=== PATIENT | female | born 1935 | race Caucasian/White ===

== ENCOUNTER 2018-04-13 21:28 | Observation (INO) | payer OTHER ==
[2018-04-13 23:00] LABS: Urine Blood NEGATIVE (NEG); Urine Glucose NEGATIVE (NEG); Urine Protein NEGATIVE (NEG)
[2018-04-13] MEDS ORDERED: MORPHINE 4 MG/ML SYR ONE (23:02)
[2018-04-13] MEDS ORDERED: ONDANSETRON 4 MG/2 ML VIAL ONE (23:03)
[2018-04-13] MEDS ORDERED: NA CHLORIDE 0.9% 1,000 ML ONE (23:03)
[2018-04-13 23:45] LABS: Absolute Lymphocytes (CBC) 1.4 K/uL (0.7-4.9); Absolute Monocytes 0.4 K/uL (0.1-1.3); Absolute Neutrophil 2.1 K/uL (1.8-8.0); Basophils % 0.9 % (0-1.3); Hematocrit 39.7 % (36.0-45.0); Lymphocytes % 33.6 % (15.3-44.8); MCH 31.7 pg (27.0-35.0); MCV 95.8 fL (80-100); MPV 8.5 fL (7.6-11.3); Monocytes % 10.3 % (3.3-12.3); RBC Red Blood Cell Count 4.15 M/uL (3.86-4.86)
[2018-04-13 23:48] LABS: Protime INR 0.95
[2018-04-13 23:53] LABS: Potassium 4.2 mEq/L (3.6-5.0)
[2018-04-13 23:55] LABS: Amylase Level 34 U/L (28-100); Lipase 32 U/L (22-51)
[2018-04-13 23:59] LABS: Albumin 4.3 g/dL (3.2-5.5); Bilirubin Direct 0.1 mg/dL (0-0.2); Bilirubin Total 0.7 mg/dL (0.3-1.2); Magnesium 2.3 mg/dL (1.8-2.5); Protein, Total 7.8 g/dL (6.0-8.3)
[2018-04-14 00:01] LABS: CKMB Creatine Kinase MB 2.9 ng/ml (0.3-4.0)
--- NOTE | 2018-04-14 00:45 | ER ---
Nurse's Notes [facility] Name: Mona Lozano Age: 82 yrs Sex: Female : 1935 Arrival Date: 04/13/2018 Time: 21:30 Bed 13 Private MD: Diagnosis: Severe headache. Uncontrolled hypertension. Symptomatic bradycardia Presentation: 04/13 21:55 Presenting complaint: Patient states: In the evening she started feeling weak with ea tightness on both sides of her neck and stomach pain. Pt reports weakness when she is walking. Pt reports she took her blood pressure at home and was reading 220/84 and 42 HR. Complaining of back pain and headache that stated suddenly. Transition of care: patient was not received from another setting of care. Onset of symptoms was April 13, 2018. Risk Assessment: Do you want to hurt yourself or someone else? Patient reports no desire to harm self or others. Initial Sepsis Screen: Does the patient meet any 2 criteria? No. Patient's initial sepsis screen is negative. Does the patient have a suspected source of infection? No. Patient's initial sepsis screen is negative. Care prior to arrival: None. 21:55 Method Of Arrival: Wheelchair ea 21:55 Acuity: KAROLYN 3 ea Triage Assessment: 22:06 Headache History: The patient has had previous headaches and this one is similar to ea previous episodes. General: Appears uncomfortable, Behavior is calm, cooperative, appropriate for age. Pain: Complains of pain in headache Pain currently is 7 out of 10 on a pain scale. Pain began gradually, Also complains of weakness. EENT: No signs and/or symptoms were reported regarding the EENT system. Neuro: Level of Consciousness is awake, alert, obeys commands, Oriented to person, place, time, situation. Cardiovascular: Patient's skin is warm and dry. Respiratory: Airway is patent Respiratory effort is even, unlabored, Respiratory pattern is regular, symmetrical. Derm: Skin is pink, warm \T\ dry. Historical: - Allergies: 22:05 PENICILLINS; ea 22:05 tetanus; ea 22:05 Sulfa (Sulfonamide Antibiotics); ea - Home Meds: 22:05 aspirin 81 mg Oral chew 1 tab once daily [Active]; womens vitamins [Active]; calcium ea carbonate 600 mg (1,500 mg) Oral tab [Active]; metformin 500 mg Oral tab 1 tab QD [Active]; omeprazole 20 mg Oral cpDR 1 cap once daily [Active]; pravastatin 40 mg oral tab 1 tab once daily [Active]; lisinopril 40 mg Oral tab 1 tab once daily [Active]; carvedilol 3.125 mg oral tab 1 tab 2 times per day [Active]; Toviaz 4 mg oral Tb24 1 tab once daily [Active]; levocetirizine oral oral once daily [Active]; - PMHx: 22:05 Diabetes - IDDM; Hyperlipidemia; Hypertension; ea - PSHx: 22:05 Tubal ligation; Hysterectomy; ea - Immunization history:: Adult Immunizations up to date. - Social history:: Smoking status: Patient/guardian denies using tobacco. - Ebola Screening: : No symptoms or risks identified at this time. Screenin:09 Abuse screen: Denies threats or abuse. Nutritional screening: No deficits noted. ea Tuberculosis screening: No symptoms or risk factors identified. Fall Risk Secondary diagnosis (15 points) pt reports weakness. Assessment: 23:30 Reassessment: Patient and/or family updated on plan of care and expected duration. Pain ea level reassessed. Patient is alert, oriented x 3, equal unlabored respirations, skin warm/dry/pink. Pain: Complains of pain in headache Pain does not radiate. Pain currently is 8 out of 10 on a pain scale. Quality of pain is described as aching. 04/14 00:05 Reassessment: Patient and/or family updated on plan of care and expected duration. Pain ea level reassessed. Patient is alert, oriented x 3, equal unlabored respirations, skin warm/dry/pink. 01:00 Reassessment: Patient and/or family updated on plan of care and expected duration. Pain ea level reassessed. Patient is alert, oriented x 3, equal unlabored respirations, skin warm/dry/pink. Patient states feeling better. 02:07 Reassessment: Patient appears in no apparent distress at this time. Patient is alert, aa1 oriented x 3, equal unlabored respirations, skin warm/dry/pink. Report given to Ricarda on 4th floor Patient states feeling better. Vital Signs: 04/13 22:07 BP 189 / 66; Pulse 38; Resp 18; Temp 97.8(TE); Pulse Ox 96% on R/A; Weight 81.65 kg; ea Height 5 ft. 5 in. (165.10 cm); Pain 7/10; 04/14 00:00 BP 138 / 60; Pulse 60; Resp 18; Pulse Ox 99% on R/A; Pain 4/10; ea 02:01 BP 149 / 62; Pulse 52; Resp 18; Pulse Ox 97% on R/A; Pain 0/10; aa1 04/13 22:07 Body Mass Index 29.95 (81.65 kg, 165.10 cm) ea ED Course: 04/13 21:30 Patient arrived in ED. am2 21:36 Margarito Amin PA is PHCP. cp 21:36 Per Mayer MD is Attending Physician. cp 21:55 Allergy band placed. Placed in gown. Bed in low position. Call light in reach. Side ea rails up X2. 21:55 Arm band placed on right wrist. Patient placed in an exam room, on a stretcher, on ea poly area supervisor, on pulse oximetry. 21:56 Triage completed. ea 22:31 Per Mayer MD is Attending Physician. pkl 22:49 Ngoc Das, JUANA is Primary Nurse. ea 23:05 X-ray completed. Portable x-ray completed in exam room. Patient tolerated procedure kw well. 23:07 XRAY Chest (1 view) In Process Unspecified. EDMS 23:48 CT Head Brain wo Cont In Process Unspecified. EDMS 04/14 00:04 CT completed. Patient tolerated procedure well. Patient moved to CT via stretcher. Patient moved back from CT. 00:44 Jose Angel Glass MD is Hospitalizing Provider. pkl 01:40 Assisted to bedside commode. aa1 01:50 EKG done, by ED staff, reviewed by Per Mayer MD. Patient admitted, IV remains in place. aa1 02:03 No provider procedures requiring assistance completed. aa1 Administered Medications: 04/13 23:00 Drug: Zofran 4 mg Route: IVP; Site: left antecubital; ea 04/14 00:00 Follow up: Response: No adverse reaction; Nausea is decreased aa1 00:36 Drug: NS 0.9% 1000 ml Route: IV; Rate: 100 ml/hr; Site: left antecubital; ea 02:08 Follow up: IV Status: Completed infusion aa1 00:36 Drug: morphine 2 mg Route: IVP; Site: left antecubital; ea 02:08 Follow up: Response: No adverse reaction; Pain is decreased aa1 Outcome: 00:45 Decision to Hospitalize by Provider. pkl 02:26 Admitted to Med/surg accompanied by nurse, via wheelchair, room , with chart, Report ea called to Receiving nurse. 02:26 Condition: improved 02:26 Instructed on the need for admit. 02:33 Patient left the ED. aa1 Signatures: Dispatcher [employer] EDMarla Prince, RN RN aa1 Per Mayer MD MD pkl Arash Macias Kimberlee kw Page, Corey, PA PA cp Moreno, Amanda am2 Antunez, Elena, RN RN ea Corrections: (The following items were deleted from the chart) 04/13 21:58 21:55 Presenting complaint: Patient states: In the evening she started feeling weak ea with tightness on both sides of her neck and stomach pain. Pt reports weakness when she is walking. ea
--- NOTE | 2018-04-14 00:46 | EDPHYS ---
Physician Documentation [facility] Name: Mona Lozano Age: 82 yrs Sex: Female : 1935 Arrival Date: 04/13/2018 Time: 21:30 Bed 13 Private MD: ED Physician Per Mayer HPI: 04/13 22:41 This 82 yrs old Female presents to ER via Wheelchair with complaints of High pkl Blood Pressure, Headache. 22:41 Onset: The symptoms/episode began/occurred today. Associated signs and symptoms: pkl Pertinent positives: lightheadedness, weakness, abdominal pain. Historical: - Allergies: 22:05 PENICILLINS; ea 22:05 tetanus; ea 22:05 Sulfa (Sulfonamide Antibiotics); ea - Home Meds: 22:05 aspirin 81 mg Oral chew 1 tab once daily [Active]; womens vitamins [Active]; calcium ea carbonate 600 mg (1,500 mg) Oral tab [Active]; metformin 500 mg Oral tab 1 tab QD [Active]; omeprazole 20 mg Oral cpDR 1 cap once daily [Active]; pravastatin 40 mg oral tab 1 tab once daily [Active]; lisinopril 40 mg Oral tab 1 tab once daily [Active]; carvedilol 3.125 mg oral tab 1 tab 2 times per day [Active]; Toviaz 4 mg oral Tb24 1 tab once daily [Active]; levocetirizine oral oral once daily [Active]; - PMHx: 22:05 Diabetes - IDDM; Hyperlipidemia; Hypertension; ea - PSHx: 22:05 Tubal ligation; Hysterectomy; ea - Immunization history:: Adult Immunizations up to date. - Social history:: Smoking status: Patient/guardian denies using tobacco. - Ebola Screening: : No symptoms or risks identified at this time. ROS: 22:44 Eyes: Negative for injury, pain, redness, and discharge, ENT: Negative for injury, pkl pain, and discharge, Neck: Negative for injury, pain, and swelling, Cardiovascular: Negative for chest pain, palpitations, and edema, Respiratory: Negative for shortness of breath, cough, wheezing, and pleuritic chest pain. 22:44 Abdomen/GI: Positive for abdominal pain, of the right upper quadrant and left upper quadrant. 22:44 Back: Negative for acute changes. 22:44 : Negative for urinary symptoms. 22:44 MS/extremity: Negative for acute changes. 22:44 Skin: Negative for rash. 22:44 Neuro: Positive for headache, of the both temples. Exam: 22:44 Head/Face: Normocephalic, atraumatic. Eyes: Pupils equal round and reactive to light, pkl extra-ocular motions intact. Lids and lashes normal. Conjunctiva and sclera are non-icteric and not injected. Cornea within normal limits. Periorbital areas with no swelling, redness, or edema. ENT: Nares patent. No nasal discharge, no septal abnormalities noted. Tympanic membranes are normal and external auditory canals are clear. Oropharynx with no redness, swelling, or masses, exudates, or evidence of obstruction, uvula midline. Mucous membranes moist. Neck: Trachea midline, no thyromegaly or masses palpated, and no cervical lymphadenopathy. Supple, full range of motion without nuchal rigidity, or vertebral point tenderness. No Meningismus. Chest/axilla: Normal chest wall appearance and motion. Nontender with no deformity. No lesions are appreciated. Cardiovascular: Regular rate and rhythm with a normal S1 and S2. No gallops, murmurs, or rubs. Normal PMI, no JVD. No pulse deficits. Respiratory: Lungs have equal breath sounds bilaterally, clear to auscultation and percussion. No rales, rhonchi or wheezes noted. No increased work of breathing, no retractions or nasal flaring. Abdomen/GI: Soft, non-tender, with normal bowel sounds. No distension or tympany. No guarding or rebound. No evidence of tenderness throughout. Back: No spinal tenderness. No costovertebral tenderness. Full range of motion. Skin: Warm, dry with normal turgor. Normal color with no rashes, no lesions, and no evidence of cellulitis. MS/ Extremity: Pulses equal, no cyanosis. Neurovascular intact. Full, normal range of motion. Neuro: Awake and alert, GCS 15, oriented to person, place, time, and situation. Cranial nerves II-XII grossly intact. Motor strength 5/5 in all extremities. Sensory grossly intact. Cerebellar exam normal. Normal gait. Vital Signs: 22:07 BP 189 / 66; Pulse 38; Resp 18; Temp 97.8(TE); Pulse Ox 96% on R/A; Weight 81.65 kg; ea Height 5 ft. 5 in. (165.10 cm); Pain 7/10; 04/14 00:00 BP 138 / 60; Pulse 60; Resp 18; Pulse Ox 99% on R/A; Pain 4/10; ea 02:01 BP 149 / 62; Pulse 52; Resp 18; Pulse Ox 97% on R/A; Pain 0/10; aa1 04/13 22:07 Body Mass Index 29.95 (81.65 kg, 165.10 cm) ea MDM: 04/13 21:37 Patient medically screened. cp 04/14 00:43 Data reviewed: vital signs, nurses notes, lab test result(s), EKG, radiologic studies, pkl CT scan, plain films. 00:45 Patient medically screened. pk 04/13 22:32 Order name: Urine Dipstick--Ancillary (enter results); Complete Time: 23:56 rg2 04/13 22:40 Order name: Basic Metabolic Panel; Complete Time: 00:22 pkl 04/13 22:40 Order name: BNP; Complete Time: 00:22 pkl 04/13 22:40 Order name: CBC with Diff; Complete Time: 23:56 pkl 04/13 22:40 Order name: Ckmb; Complete Time: 00:22 pkl 04/13 22:40 Order name: CPK; Complete Time: 00:22 pkl 04/13 22:40 Order name: LFT's; Complete Time: 00:22 pkl 04/13 22:40 Order name: Magnesium; Complete Time: 00:22 pkl 04/13 22:40 Order name: PT-INR; Complete Time: 23:56 pkl 04/13 22:40 Order name: Ptt, Activated; Complete Time: 23:56 pkl 04/13 22:40 Order name: Troponin (emerg Dept Use Only); Complete Time: 00:22 pkl 04/13 22:43 Order name: Amylase, Serum; Complete Time: 23:56 pkl 04/13 22:43 Order name: Lipase; Complete Time: 23:56 pkl 04/13 22:43 Order name: Sed Rate; Complete Time: 00:22 pkl 04/13 22:40 Order name: XRAY Chest (1 view) pkl 04/13 22:40 Order name: EKG; Complete Time: 22:41 pkl 04/13 22:40 Order name: Cardiac monitoring; Complete Time: 00:37 pkl 04/13 22:40 Order name: EKG - Nurse/Tech; Complete Time: 02:01 pkl 04/13 22:40 Order name: IV Saline Lock; Complete Time: 00:37 pkl 04/13 22:40 Order name: Labs collected and sent; Complete Time: 00:37 pkl 04/13 22:40 Order name: O2 Per Protocol; Complete Time: 00:37 pkl 04/13 22:40 Order name: O2 Sat Monitoring; Complete Time: 00:37 pkl 04/13 22:40 Order name: Urine Dipstick-Ancillary (obtain specimen); Complete Time: 00:37 pkl 04/13 22:43 Order name: CT Head Brain wo Cont pkl 04/14 01:39 Order name: CONS Pharmacy Consult EDVA 04/14 01:39 Order name: Heart Healthy EDMS Administered Medications: 04/13 23:00 Drug: Zofran 4 mg Route: IVP; Site: left antecubital; ea 04/14 00:00 Follow up: Response: No adverse reaction; Nausea is decreased aa1 00:36 Drug: NS 0.9% 1000 ml Route: IV; Rate: 100 ml/hr; Site: left antecubital; ea 02:08 Follow up: IV Status: Completed infusion aa1 00:36 Drug: morphine 2 mg Route: IVP; Site: left antecubital; ea 02:08 Follow up: Response: No adverse reaction; Pain is decreased aa1 Disposition: 04/14/18 00:45 Hospitalization ordered by Jose Angel Glass for Observation. Preliminary diagnosis is Severe headache. Uncontrolled hypertension. Symptomatic bradycardia. - Bed requested for Telemetry/MedSurg (observation). - Status is Observation. aa1 - Condition is Stable. - Problem is new. - Symptoms are unchanged. UTI on Admission? No Signatures: Dispatcher [employer] ED[facility] Tami Belle RN RN mw Kern, Alissa, RN RN aa1 Per Mayer MD MD pkl Page, Corey, PA PA cp Antunez, Elena, RN RN ea Corrections: (The following items were deleted from the chart) 00:50 00:45 Hospitalization Ordered by Jose Angel Glass MD for Observation. Preliminary mw diagnosis is Severe headache. Uncontrolled hypertension. Symptomatic bradycardia. Bed requested for Telemetry/MedSurg (observation). Status is Observation. Condition is Stable. Problem is new. Symptoms are unchanged. UTI on Admission? No. pkl 02:33 00:50 04/14/2018 00:45 Hospitalization Ordered by Jose Angel Glass MD for Observation. aa1 Preliminary diagnosis is Severe headache. Uncontrolled hypertension. Symptomatic bradycardia. Bed requested for Telemetry/MedSurg (observation). Status is Observation. Condition is Stable. Problem is new. Symptoms are unchanged. UTI on Admission? No. mw
[2018-04-14] MEDS ORDERED: TRAMADOL 37.5mg/APAP 325mg PER TAB PO PRN (01:36)
[2018-04-14] MEDS ORDERED: ONDANSETRON 4 MG/2 ML VIAL IV PRN (01:36)
[2018-04-14] MEDS ORDERED: ACETAMIN/CAFFEINE/BUTALB TAB PO PRN (01:38)
[2018-04-14] MEDS: NA CHLORIDE 0.9% 1,000 ML IV SCH ×3 (02:53→21:14)
[2018-04-14] MEDS ORDERED: VALSARTAN 160 MG TAB PO ONE (04:03)
--- NOTE | 2018-04-14 06:28 | EKG ---
Test Date: 2018-04-14 Test Time: 01:49:50 Nicu Rn: LANE MEASUREMENT RESULTS: Intervals: Rate: 51 FL: 176 QRSD: 130 QT: 498 QTc: 458 [place]: P: 58 FL: 176 QRS: 77 T: 45 INTERPRETIVE STATEMENTS: Sinus bradycardia Right bundle branch block Abnormal ECG Compared to ECG 01/24/1995 02:38:00 Right bundle-branch block now present Sinus rhythm no longer present Electronically Signed On 04-14-18 06:27:46 CDT by Rj Odonnell
[2018-04-14 06:31] LABS: Absolute Lymphocytes (CBC) 1.3 K/uL (0.7-4.9); Absolute Monocytes 0.5 K/uL (0.1-1.3); Absolute Neutrophil 1.9 K/uL (1.8-8.0); Basophils % 0.5 % (0-1.3); Eosinophils % 4.4 % (0-4.4); Hematocrit 33.2 % (36.0-45.0); Lymphocytes % 33.7 % (15.3-44.8); MCH 32.9 pg (27.0-35.0); MCV 95.1 fL (80-100); MPV 8.5 fL (7.6-11.3); Monocytes % 13.3 % (3.3-12.3); RBC Red Blood Cell Count 3.49 M/uL (3.86-4.86)
[2018-04-14 07:10] LABS: Phosphorus 2.6 mg/dL (2.5-4.3); Potassium 3.9 mEq/L (3.6-5.0); Thyroid Stimulating Hormone 3.76 uIU/mL (0.34-5.60)
--- NOTE | 2018-04-14 07:47 | P.HP ---
Certification for Inpatient Patient admitted to: Observation With expected LOS: <2 Midnights Patient will require the following post-hospital care: None Practitioner: I am a practitioner with admitting privileges, knowledge of patient current condition, hospital course, and medical plan of care. Services: Services provided to patient in accordance with Admission requirements found in Title 42 Section 412.3 of the Code of Federal Regulations Patient History Date of Service: 04/14/18 Reason for admission: Headache along with a malignant hypertension History of Present Illness: Patient is an 82-year-old female who came into the hospital with generalized weakness and a headache. She states the headache started about 24 hr ago and progressed. She has been having generalized weakness which has waxed and waned. Initially her blood pressure was 220/90. Her heart rate was in the 40s. She was brought into the hospital for evaluation. In the emergency room, her initial workup revealed no significant abnormalities. Patient was started on medication for headache and better blood pressure control. Patient's symptoms have improved. However patient was having some pain on both sides of her neck along with having some sternal discomfort. At this time will go ahead and get an echocardiogram along with a carotid Doppler. Will also get MRI of the brain to further evaluate her significant headache which has also been associated with weakness. Allergies Penicillins Adverse Reaction (Unverified 04/14/18 04:14) Hives/Rash Sulfa (Sulfonamide Antibiotics) Adverse Reaction (Unverified 04/14/18 04:14) Hives/Rash tetanus and diphtheria toxoids Adverse Reaction (Unverified 04/14/18 04:14) Hives/Rash Home Medications: Aspirin Chewable [Aspirin Chewable*] 81 mg PO DAILY 04/14/18 Beta-Carotene(A) W-C & E/Min [Vision Vitamins] 2 each PO DAILY 04/14/18 Calcium Carbonate [Calcium] 2 tab PO DAILY 04/14/18 Carvedilol [Coreg] 3.125 mg PO BID 04/14/18 Fesoterodine Fumarate [Toviaz] 4 mg PO DAILY 04/14/18 Garlic 1,000 mg PO BEDTIME 04/14/18 Levocetirizine Dihydrochloride [Xyzal] 5 mg PO DAILY 04/14/18 Lisinopril 40 mg PO DAILY 04/14/18 Metformin HCl [Glucophage] 500 mg PO DAILY 04/14/18 Multivit with Calcium,Iron,Min [Multiple Vitamins For Women] 1 each PO DAILY 09/21 Nichols-3S/Dha/Epa/Fish Oil [Fish Oil Nichols-3 Softgel] 2 cap PO BEDTIME 04/14/18 Omeprazole 20 mg PO DAILY 04/14/18 Pravastatin Sodium 40 mg PO BEDTIME 04/14/18 - Past Medical/Surgical History Has patient received pneumonia vaccine in the past: Yes Diabetic: Yes -: DM-2 -: Hyperlipidemia -: HNT -: Tubaligation -: Hysterectomy - Family History Father Medical History: Heart disease Notes: heart attack Sister Medical History: Stroke Notes: brain aneurysm - Social History Smoking Status: Former smoker Alcohol use: No CD- Drugs: No Caffeine use: Yes Place of Residence: Home Review of Systems 10-point ROS is otherwise unremarkable Physical Examination - Vital Signs Temperature: 97 F Blood Pressure: 174/78 Pulse: 51 Respirations: 16 Pulse Ox (%): 96 - Physical Exam General: Alert, In no apparent distress, Oriented x3 HEENT: Atraumatic, PERRLA, Mucous membr. moist/pink, EOMI, Sclerae nonicteric Neck: Supple, 2+ carotid pulse no bruit, No LAD, Without JVD or thyroid abnormality Respiratory: Clear to auscultation bilaterally, Normal air movement Cardiovascular: Regular rate/rhythm, Normal S1 S2, No murmurs Gastrointestinal: Normal bowel sounds, Soft and benign, Non-distended, No tenderness Musculoskeletal: No clubbing, No swelling, No tenderness Integumentary: No rashes Neurological: Normal gait, Normal speech, Normal strength at 5/5 x4 extr, Normal tone, Sensation intact, Cranial nerves 3-12 intact, Normal affect Lymphatics: No axilla or inguinal lymphadenopathy - Studies Laboratory Data (last 24 hrs) 04/13/18 23:25: Amylase 34, Lipase 32 04/13/18 23:25: PT 11.2, INR 0.95, APTT 26.6 04/13/18 23:25: WBC 4.2 L, Hgb 13.2, Hct 39.7, Plt Count 145 L 04/13/18 23:25: B-Natriuretic Peptide 91 04/13/18 23:25: Sodium 137, Potassium 4.2, BUN 22 H, Creatinine 0.89, Glucose 128 H, Magnesium 2.3, Total Bilirubin 0.7, AST 29, ALT 24, Alkaline Phosphatase 56 Assessment & Plan - Problems (Diagnosis) (1) Headache, acute Current Visit: Yes Status: Acute (2) Malignant essential hypertension Current Visit: Yes Status: Acute - Plan Plan: 1. Strict blood pressure control 2. MRI of the brain, carotid Doppler, and echocardiogram 3. Pain control 4. Await diagnostic studies and possible discharge home if no significant abnormality 5. GI/DVT prophylaxis Discharge Plan: Home Plan to discharge in: Greater than 2 days - Advance Directives Does patient have a Living Will: Yes Does patient have a Durable POA for Healthcare: No - Code Status/Comfort Care Code Status Assessed: Yes Code Status: Full Code Critical Care: No Time Spent Managing PTS Care (In Minutes): 50
--- NOTE | 2018-04-14 08:09 | RAD REPORT ---
EXAM DESCRIPTION: Michelle Single View04/13/2018 11:07 pm CLINICAL HISTORY: Chest pain COMPARISON: none FINDINGS: The lungs appear clear of acute infiltrate. The heart is normal size IMPRESSION: No acute abnormalities displayed
[2018-04-14] MEDS ORDERED: LISINOPRIL 20 MG TAB PO SCH (09:00)
[2018-04-14] MEDS ORDERED: AMLODIPINE 10 MG TAB PO SCH (09:00)
[2018-04-14] MEDS ORDERED: ASPIRIN 81 MG CHEWABLE TABLET PO SCH (09:00)
[2018-04-14] MEDS ORDERED: FESOTERODINE FUMARATE 4 MG PO SCH (09:00)
[2018-04-14] MEDS ORDERED: CARVEDILOL 3.125 MG TAB PO SCH (09:00)
[2018-04-14] MEDS ORDERED: CETIRIZINE HCL 5 MG TABLET PO SCH (09:00)
--- NOTE | 2018-04-14 09:38 | RAD REPORT ---
EXAM DESCRIPTION: CT - Head Brain Wo Cont - 04/14/2018 4:30 am CLINICAL HISTORY: Dizziness COMPARISON: March 2017 TECHNIQUE: Computed axial tomography of the head was obtained. IV contrast was not requested. A prel iminary report was generated by virtual radiologic in review prior to this dictation All CT scans are performed using dose optimization technique as appropriate and may include automated exposure control or mA/KV adjustment according to patient size. FINDINGS: An intracranial bleed is not seen . The ventricles are normal in caliber. Basal ganglia calcifications are present bilaterally. No extra-axial fluid collection is noted. Moderate to marked low-density areas within periventricular , deep and subcortical white matter likely represent ischemic changes secondary to small vessel disea se. A vague 1 centimeter low-density area is present within the right parietal lobe. Mild ethmoid and sphenoid sinusitis is seen. The mastoids are clear IMPRESSION: Moderate to marked low-density areas within periventricular, deep and subcortical white matter likely represent ischemic changes secondary to small vessel disease. Vague 1 centimeter low-density area within the right parietal lobe probably is chronic. An acute infa rct could also have this appearance. An MRI brain is pending at the time of this dictation which will determine if this is acute or chronic
--- NOTE | 2018-04-14 10:23 | RAD REPORT ---
EXAM DESCRIPTION: VASCarotid Artery Bilateral04/14/2018 9:33 am CLINICAL HISTORY: Syncope COMPARISON: None FINDINGS: The velocity of the right internal carotid artery equals 105 cm/sec. The right ICA/CCA rat io 1.4 The velocity of the left internal carotid artery equals 106 cm/sec. The left ICA/CCA ratio 1.2 Mild plaque is present within the carotid arteries. The vertebral arteries demonstrate antegrade flow IMPRESSION: Mild plaque within the carotid arteries without evidence of a hemodynamically significan t stenosis
--- NOTE | 2018-04-14 10:34 | RAD REPORT ---
EXAM DESCRIPTION: MRI - Stroke Protocol - 04/14/2018 9:39 am CLINICAL HISTORY: TIA and ataxia. TECHNIQUE: Axial, sagittal and coronal magnetic resonance imaging of the brain was obtained. 20 mL M agnevist was administered intravenously. Magnetic resonance angiogram of the head and neck was also performed. Source images were reviewed rec onstructed at 360 degrees rotation. COMPARISON: Head CT April 13 2018. FINDINGS: Moderate to marked signal is present within periventricular, deep and subcortical white ma tter bilaterally. Diffusion-weighted/ADC mapping does not reveal evidence of an acute infarction. No abnormal enhancement within the brain is seen. The ventricles are normal caliber. An extra-axial f luid collection is not noted Mild ethmoid and sphenoid sinusitis is seen. The mastoids are clear. Mild plaque is present within the carotid arteries. The vertebral arteries are co-dominant. The anterior cerebral, middle cerebral, posterior cerebral, distal internal carotid and basilar arter ies do not demonstrate a significant stenosis. An aneurysm is not seen. IMPRESSION: 1. Moderate to marked signal within periventricular deep and subcortical white matter likely represen t ischemic changes secondary to small vessel disease. 2. No acute intracranial abnormality is seen. 3. No significant abnormality involving the arteries of the head and neck.
[2018-04-14] MEDS: VALSARTAN 160 MG TAB PO SCH ×2 (10:53→21:28)
--- NOTE | 2018-04-14 12:50 | ECHO ---
HEIGHT: 5 ft 4 in WEIGHT: 167 lb 11.2 oz DATE OF STUDY: 04/14/[address]: Jose Angel Glass MD 2-DIMENSIONAL: YES M.MODE: YES DOPPLER: YES COLOR FLOW: YES TDS: NO PORTABLE: NO DEFINITY: NO BUBBLE STUDY: NO DIAGNOSIS: UNCONTROLLED HYPERTENSION: NEAR SYNCOPE CARDIAC HISTORY: CATHERIZATION: NO SURGERY: NO PROSTHETIC VALVE: NO PACEMAKER: NO MEASUREMENTS (cm) DIASTOLIC (NORMALS) SYSTOLIC (NORMALS) IVSd 1.0 (0.6-1.2) LA Diam 3.5 (1.9-4.0) LVEF 55% LVIDd 4.5 (3.5-5.7) LVIDs 3.2 (2.0-3.5) %FS 29% LVPWd 1.0 (0.6-1.2) Ao Diam 2.8 (2.0-3.7) 2 DIMENSIONAL ASSESSMENT: RIGHT ATRIUM: NORMAL LEFT ATRIUM: NORMAL RIGHT VENTRICLE: NORMAL LEFT VENTRICLE: NORMAL TRICUSPID VALVE: NORMAL MITRAL VALVE: NORMAL PULMONIC VALVE: NORMAL AORTIC VALVE: NORMAL PERICARDIAL EFFUSION: NONE AORTIC ROOT: NORMAL LEFT VENTRICULAR WALL MOTION: NORMAL. DOPPLER/COLOR FLOW: PHYSIOLOGIC TRICUSPID REGURGITATION. NORMAL RIGHT VENTRICULAR SYSTOLIC PRESSURE. COMMENTS: NORMAL 2D ECHO WITH DOPPLER. TECHNOLOGIST: THEODORE WEEKS
--- NOTE | 2018-04-14 20:16 | CON ---
Identification: An 82-year-old woman History Of Present Illness: Ms. Escamilla came to the hospital with dizziness, near syncopal spells, an d since being here in the hospital, she has had various tests looking for neurologic or vascular dise ase. They are all negative including carotid Doppler, MRI. On telemetry, she has been seen to have episodes of complete heart block. Sometimes there are some ventricular escapes, sometimes junctional escape rhythm. She has not had syncope. She is lying supine. She has not had complete syncope alpesh n before this. Before coming to the hospital, she had been treated for hypertension and diabetes. S he has a history of hysterectomy, appendectomy, multigravida. No history of vascular disease. Outpatient Medications: Metformin, omeprazole, Coreg 3.125 b.i.d., lisinopril, Toviaz, levocetirizin e, pravastatin, aspirin calcium carbonate, garlic, omega-3 fatty acids, multivitamins, beta-carotene pills. An echocardiogram is completely normal. A chest x-ray is normal. Social History: She uses no tobacco. No illegal drugs, rare alcohol. Her carotid Doppler reveals mild plaque no reversal of flow in the vertebral arteries. No significan t stenosis. Allergies: SHE IS ALLERGIC TO PENICILLIN, SULFA, TETANUS TOXOID, AND DIPHTHERIA TOXOID. Physical Examination: General: She appears to be her stated age of 82. Not experiencing any pain. No distress. Vital signs: Blood pressure 158/86, pulse 62, temperature 97.4. Neck: Carotids no bruit. Lungs: Clear. Heart: Reveals an irregular rhythm. There are skips associated with PVCs and a junctional escape be ats, but there is no apparent AV conduction or if any so rare that I cannot actually see it. She has had an elevated sed rate at 44. TSH and free T4 are normal. Troponins are normal. BUN, cre atinine are normal. B-natriuretic peptide is 91, and the EKG of course shows complete heart block. She needs a pacemaker. It will be impossible for her to get a pacemaker at this institution for the next 48 hours. I am going to try and have her transferred out. ISIDORO/JESUS Voice ID: [id number] Report ID: [id number]
[2018-04-14] MEDS ORDERED: ATORVASTATIN 10 MG TAB PO SCH (21:00)
--- NOTE | 2018-04-15 05:34 | EKG ---
Test Date: 2018-04-14 Test Time: 18:23:39 Furniture Mechanic: SOPHIE MEASUREMENT RESULTS: Intervals: Rate: 65 [place]: 166 QRSD: 130 QT: 450 QTc: 468 [place]: P: 34 WV: 166 QRS: 63 T: 32 INTERPRETIVE STATEMENTS: Normal sinus rhythm Right bundle branch block Abnormal ECG Compared to ECG 04/14/2018 01:49:50 Sinus bradycardia no longer present Electronically Signed On 04-15-18 05:33:14 CDT by Elias Recio
[2018-04-15] MEDS ORDERED: PANTOPRAZOLE 40MG TABLET PO SCH (06:30)
--- NOTE | 2018-04-15 07:05 | P.DS ---
Discharge Date: 04/14/18 Disposition: TRANSFER TO [facility] Condition: GOOD Reason for Admission: Headache along with a malignant hypertension - Problems (1) Headache, acute Onset Date: 04/14/18 Status: Acute (2) Malignant essential hypertension Onset Date: 04/14/18 Status: Acute Brief History of Present Illness: Patient is an 82-year-old female who came into the hospital with generalized weakness and a headache. She states the headache started about 24 hr ago and progressed. She has been having generalized weakness which has waxed and waned. Initially her blood pressure was 220/90. Her heart rate was in the 40s. She was brought into the hospital for evaluation. In the emergency room, her initial workup revealed no significant abnormalities. Patient was started on medication for headache and better blood pressure control. Patient's symptoms have improved. However patient was having some pain on both sides of her neck along with having some sternal discomfort. At this time will go ahead and get an echocardiogram along with a carotid Doppler. Will also get MRI of the brain to further evaluate her significant headache which has also been associated with weakness. Hospital Course: Patient developed sinus pauses. Sometimes he has lasted for a couple seconds. Patient had a ventricular escape rhythm and also developed occasional episodes of complete heart block. Patient was seen by Dr. Odonnell who assisted in transferring the patient to [facility]. Patient will need to get a pacemaker at their facility. Vital Signs/Physical Exam: Temp Pulse Resp BP Pulse Ox 97.3 F 73 20 130/59 L 94 04/14/18 20:00 04/14/18 22:00 04/14/18 22:00 04/14/18 22:00 04/14/18 22:00 General: Alert, In no apparent distress, Oriented x3 Laboratory Data at Discharge: WBC 4.0 K/uL (4.3-10.9) L 04/14/18 05:57 Hgb 11.5 g/dL (12.0-15.0) L 04/14/18 05:57 Hct 33.2 % (36.0-45.0) L D 04/14/18 05:57 Plt Count 110 K/uL (152-406) L D 04/14/18 05:57 PT 11.2 SECONDS (9.5-12.5) 04/13/18 23:25 INR 0.95 04/13/18 23:25 APTT 26.6 SECONDS (24.3-36.9) 04/13/18 23:25 Sodium 141 mEq/L (135-145) 04/14/18 05:57 Potassium 3.9 mEq/L (3.6-5.0) 04/14/18 05:57 BUN 16 mg/dL (6-20) 04/14/18 05:57 Creatinine 0.75 mg/dL (0.44-1.00) 04/14/18 05:57 Glucose 112 mg/dL (65-120) 04/14/18 05:57 Phosphorus 2.6 mg/dL (2.5-4.3) 04/14/18 05:57 Magnesium 2.0 mg/dL (1.8-2.5) 04/14/18 05:57 Total Bilirubin 0.7 mg/dL (0.3-1.2) 04/13/18 23:25 AST 29 IU/L (10-42) 04/13/18 23:25 ALT 24 IU/L (10-60) 04/13/18 23:25 Alkaline Phosphatase 56 IU/L (42-121) 04/13/18 23:25 B-Natriuretic Peptide 91 pg/ml (<=100) 04/13/18 23:25 Amylase 34 U/L (28-100) 04/13/18 23:25 Lipase 32 U/L (22-51) 04/13/18 23:25 Home Medications: Acetam/Caff/Butal [Fioricet*] 1 tab PO Q12H PRN #20 tab 04/14/18 Aspirin Chewable [Aspirin Chewable*] 81 mg PO DAILY 04/14/18 Beta-Carotene(A) W-C & E/Min [Vision Vitamins] 2 each PO DAILY 04/14/18 Calcium Carbonate [Calcium] 2 tab PO DAILY 04/14/18 Carvedilol [Coreg*] 3.125 mg PO BID 04/14/18 Fesoterodine Fumarate [Toviaz] 4 mg PO DAILY 04/14/18 Garlic 1,000 mg PO BEDTIME 04/14/18 Levocetirizine Dihydrochloride [Xyzal] 5 mg PO DAILY 04/14/18 Lisinopril 40 mg PO DAILY 04/14/18 Metformin HCl [Glucophage] 500 mg PO DAILY 04/14/18 Multivit with Calcium,Iron,Min [Multiple Vitamins For Women] 1 each PO DAILY 09/21 [place]-3S/Dha/Epa/Fish Oil [Fish Oil [place]-3 Softgel] 2 cap PO BEDTIME 04/14/18 Omeprazole 20 mg PO DAILY 04/14/18 Pravastatin Sodium 40 mg PO BEDTIME 04/14/18 New Medications: Acetam/Caff/Butal [Fioricet*] 1 tab PO Q12H PRN #20 tab PRN Reason: Headache Patient Discharge Instructions: OK TO DC IV AND DC HOME. FOLLOW-UP WITH PRIMARY CARE PROVIDER IN 1-2 WEEKS. FOLLOW-UP WITH NEUROLOGY, DR. MOHR, IN 1-2 WEEKS. RETURN TO THE ER IF symptoms worsen. CALL or TEXT DR. MARRERO AT [phone] IF ANY QUESTIONS REGARDING HOSPITAL STAY. PLEASE CALL THE FLOOR AT [phone] IF ANY MEDICATION OR NURSING QUESTIONS. Diet: AHA Activity: Fall precautions Followup: Dennis Mohr MD [ASSOCIATE-ACTIVE - CAN ADMIT] - 1-2 Weeks (call the office to make an appointment in 1-2 weeks. ) Crystal Centeno NP [Primary Care Provider] - 1-2 Weeks (call the office to make an appointment in 1-2 weeks. ) Time spent managing pt's care (in minutes): 30
--- NOTE | 2018-04-15 14:42 | EKG ---
Test Date: 2018-04-14 Test Time: 19:09:14 Front Office Agent: MATHIEU MEASUREMENT RESULTS: Intervals: Rate: 39 [place]: 144 QRSD: 144 QT: 530 QTc: 426 [place]: P: 48 [place]: 144 QRS: 5 T: 105 INTERPRETIVE STATEMENTS: Marked sinus bradycardia with frequent premature ventricular complexes in a pattern of bigeminy Left bundle branch block Abnormal ECG Compared to ECG 04/14/2018 19:06:40 No significant changes Electronically Signed On 04-15-18 14:40:11 CDT by Elias Recio
--- NOTE | 2018-04-15 14:42 | EKG ---
Test Date: 2018-04-14 Test Time: 19:06:40 Data Communications Engineer: MATHIEU MEASUREMENT RESULTS: Intervals: Rate: 38 [place]: 152 QRSD: 138 QT: 532 QTc: 422 [place]: P: 49 [place]: 152 QRS: -3 T: 113 INTERPRETIVE STATEMENTS: Marked sinus bradycardia with frequent premature ventricular complexes in a pattern of bigeminy Left bundle branch block Abnormal ECG Compared to ECG 04/14/2018 18:23:39 Ventricular premature complex(es) now present Left bundle-branch block now present Sinus rhythm no longer present Right bundle-branch block no longer present Electronically Signed On 04-15-18 14:40:12 CDT by Elias Recio
== END 2018-04-14 22:20 | disposition short-term general hospital (02) ==
LOC: ER 21:28 → 4TH 04-14 00:56 → 3RD-ICU 04-14 18:38
PROVIDERS: ADMIT Hospitalist; ATTEND Hospitalist
DX: I44.2 Atrioventricular block, complete (principal); R51 Headache; I10 Essential (primary) hypertension; E11.9 Type 2 diabetes mellitus without complications; Z88.0 Allergy status to penicillin; Z88.2 Allergy status to sulfonamides; Z88.7 Allergy status to serum and vaccine
CPT/HCPCS: 36415; 70450; 70544; 70549; 70553; 71045; 80048 ×2; 80076; 81003; 82150; 82550; 82553; 83690; 83735 ×2; 83880; 84100; 84439; 84443; 84484; 85025 ×2; 85610; 85652; 85730; 93005 ×4; 93306; 93880; 96361; 96374; 96375; 99285; A9577; G0378 ×2; J2405; J7030 ×3

== ENCOUNTER 2019-03-17 07:26 | Day surgery (SDC) | payer OTHER ==
[2019-03-16 10:09] LABS: Absolute Lymphocytes (CBC) 1.1 K/uL (0.7-4.9); Absolute Monocytes 0.4 K/uL (0.1-1.3); Absolute Neutrophil 1.8 K/uL (1.8-8.0); Eosinophils % 4.3 % (0-4.4); Hematocrit 39.2 % (36.0-45.0); Lymphocytes % 31.4 % (15.3-44.8); MPV 8.4 fL (7.6-11.3); Monocytes % 11.3 % (3.3-12.3); RBC Red Blood Cell Count 4.09 M/uL (3.86-4.86)
[2019-03-16 10:17] LABS: Protime INR 0.9
--- NOTE | 2019-03-16 10:28 | RAD REPORT ---
EXAM DESCRIPTION: Michelle Sierra (2 Views)03/16/2019 9:57 am CLINICAL HISTORY: Cough COMPARISON: April 2018 FINDINGS: The lungs appear clear of acute infiltrate. The heart is normal size. Pacemaker leads are in place IMPRESSION: No acute abnormalities displayed
[2019-03-16 10:41] LABS: Potassium 4.3 mmol/L (3.5-5.1)
--- OUTSIDE RECORDS SUMMARY | 2019-03-17 07:29 | XMS REPORT | Continuity of Care Document ---
:1935 Author Organization Interface Problems Problem Status Onset Classification Date Comments Source Date Reported 3RD DEGREE HEART Active 04/14/20 [facility] BLOCK 18 [facility] COMPLETE HEART Active 04/14/20 [facility] BLOCK 18 [facility] Chest pain, 04/19/2018 MH unspecified [place] ATRIOVENTRICULAR Active MH BLOCK, COMPLETE [facility] CHEST PAIN, Active MH UNSPECIFIED [facility] Medications Medication Details Route Status Patient Ordering Order Source Instructions Provider Date Acetaminophen 300 1 tab, PO, Active MG / Codeine Q6H, PRN 2017 Phosphate 30 MG Pain, X 7 Oral Tablet day, # 20 [Tylenol with tab, 0 Codeine #3] Refill(s) minocycline 100 100 mg=1 cap, Active mg oral capsule PO, Q12H, X 7 2017 day, # 14 cap, 0 Refill(s) Omeprazole 20 mg, Route: No Longer PO, Daily, Active 2017 Dosing Weight 78.1, kg, Start date: 04/16/18 9:00:00 CDT, Duration: 30 day, Stop date: 05/15/18 9:00:00 CDT multivitamin with 1 tab, Route: Inactive minerals PO, Drug 2017 Form: TAB, Dosing Weight 78.1, kg, Daily, Start date: 04/16/18 9:00:00 CDT, Duration: 30 day, Stop date: 05/15/18 9:00:00 CDTNotes: (Same as:Thera-M, Theragran-M) WASTE: F/P - Black; E - Municipal Trash Bin Give with food. Lisinopril 40 mg, 2 tab, Inactive Route: PO, 2017 Drug form: TAB, Daily, Dosing Weight 78.1, kg, Start date: 04/16/18 9:00:00 CDT, Duration: 30 day, Stop date: 05/15/18 9:00:00 CDTNotes: (Same as: Prinivil Zestril) BRING PT MED BRING PT Inactive TO PHARMACY FOR MED TO 2018 [facility] LABELING PHARMACY FOR LABELING, REMINDER, Drug form: MISC, Route: MISCCADY, 04/16/18 8:00:00 CDT, Duration: 30 day, Stop date: 05/16/18 0:00:00 CDT Protonix 40 mg, 1 tab, Inactive Route: PO, 2017 [facility] Drug form: ECTAB, Before Breakfast, Start date: 04/16/18 7:30:00 CDT, Duration: 30 day, Stop date: 05/15/18 7:30:00 CDTNotes: Tablet should not be chewed or crushed. (Same as: Protonix) vancomycin + 1,000 mg, Inactive Sodium Chloride Route: IVPB, 2017 [facility] 0.9% IV 250 mL ONCE, Start date: 04/16/18 6:00:00 CDT, Stop date: 04/16/18 6:00:00 CDT, ABX Indication: Surgical ProphylaxisNo amelia: TIME CRITICAL MEDICATION (Same As: Vancocin) Infusion rate 2001 mg: infuse over 2.5 hours For adult patients only: Round to nearest 250 mg per Medical Staff approval MEDICATION WASTE Product Size: 1000 mg Product Wasted: ___ mg omega-3 Route: PO, No Longer polyunsaturated Drug form: Active 2017 [facility] fatty acids CAP, Bedtime, Dosing Weight 78.1, kg, Start date: 04/15/18 21:00:00 CDT, Duration: 30 day, Stop date: 05/14/18 21:00:00 CDT Pravastatin 40 mg, 2 tab, No Longer Route: PO, Active 2017 [facility] Drug form: TAB, Bedtime, Dosing Weight 78.1, kg, Start date: 04/15/18 21:00:00 CDT, Duration: 30 day, Stop date: 05/14/18 21:00:00 CDTNotes: (Same as: Pravachol) Saline Flush 0.9% 10 ml, Route: No Longer IVP, Drug Active 2017 [facility] Form: INJ, Dosing Weight 78.1, kg, Q12H, Start date: 04/15/18 21:00:00 CDT, Duration: 30 day, Stop date: 05/15/18 9:00:00 CDTNotes: (Same as: BD Posiflush) Aspirin 81 mg, 1 tab, No Longer Route: PO, Active 2017 [facility] Drug form: ECTAB, Daily, Dosing Weight 78.1, kg, Start date: 04/15/18 20:00:00 CDT, Duration: 30 day, Stop date: 05/15/18 9:00:00 CDTNotes: Do not crush or chew. (Same As: Ecotrin) Insulin Lispro 4 unit, 0.04 No Longer mL, Route: Active 2017 [facility] SUB-Q, Drug form: SOLN, Bedtime, Dosing Weight 78.1, kg, PRN Blood Glucose Results, Start date: 04/15/18 19:22:00 CDT, Duration: 30 day, Stop date: 05/15/18 19:21:00 CDTNotes: (Same as: Humalog ) Roll in palms of hands gently; Do not shake `vigorously. "Single Patient Use Only " WASTE: F/P - Black; E - Municipal Trash Bin Stable for 28 days at room temperature. Expires in days from _Date Dextrose 50% 12.5 gm, 25 No Longer Syringe mL, Route: Active 2017 [facility] IVP, Drug Form: INJ, Dosing Weight 78.1, kg, PRN, PRN Blood Glucose Results, Start date: 04/15/18 19:22:00 CDT, Duration: 30 day, Stop date: 05/15/18 19:21:00 CDT Glucagon 1 mg, Route: No Longer IM, Drug Active 2017 [facility] form: PDR/INJ, PRN, Dosing Weight 78.1, kg, PRN Blood Glucose Results, Start date: 04/15/18 19:22:00 CDT, Duration: 30 day, Stop date: 05/15/18 19:21:00 CDT Saline Flush 0.9% 10 ml, Route: No Longer IVP, Drug Active 2017 [facility] Form: INJ, Dosing Weight 78.1, kg, PRN, PRN Line Flush, Start date: 04/15/18 19:19:00 CDT, Duration: 30 day, Stop date: 05/15/18 19:18:00 CDTNotes: (Same as: BD Posiflush) Nystatin 100 1 appl, No Longer UNT/MG Topical Route: TOP, Active 2017 [facility] Powder PRN, Drug form: PWDR, PRN For Fungal Prophylaxis, Start date: 04/15/18 19:19:00 CDT, Duration: 30 day, Stop date: 05/15/18 19:18:00 CDTNotes: (Same as:Mycostatin , Nilstat) For external use only. acetaminophen-cod 1 tab, Route: No Longer eine #3 PO, Drug Active 2017 [facility] Form: TAB, Dosing Weight 78.1, kg, Q4H, PRN Pain Score 7-10, Start date: 04/15/18 17:50:00 CDT, Duration: 30 day, Stop date: 05/15/18 17:49:00 CDTNotes: Do not exceed 4gm/day of acetaminophen . (Same as: Tylenol with Codeine # 3) Vancomycin 1 gm, Route: Inactive IVPB, ONCE, 2017 [facility] Dosing Weight 78.1, kg, Start date: 04/15/18 17:50:00 CDT, Stop date: 04/15/18 17:50:00 CDT, ABX Indication: Surgical Prophylaxis Acetaminophen 325 mg, 1 No Longer tab, Route: Active 2017 [facility] PO, Drug form: TAB, Q4H, Dosing Weight 78.1, kg, PRN Pain Score 4-6, Start date: 04/15/18 17:50:00 CDT, Duration: 30 day, Stop date: 05/15/18 17:49:00 CDTNotes: Do not exceed 4 gm/day. (Same as: Tylenol) Ondansetron 4 mg, 2 mL, No Longer Route: IVP, Active 2017 [facility] Drug form: INJ, Q8H, Dosing Weight 78.1, kg, PRN Nausea & Vomiting, Start date: 04/15/18 17:50:00 CDT, Duration: 30 day, Stop date: 05/15/18 17:49:00 CDTNotes: (Same as: Zofran) MEDICATION WASTE Product Size: 4 mg Product Wasted: ___ mg EPINEPHrine-lidoc 80 mL, Route: No Longer antonio 1:200,000-2% INTRADERM, Active 2017 preservative-free Drug Form: injectable INJ, Dosing solution Weight 78.1, kg, ONCALL, Start date: 04/15/18 11:00:00 CDT, Duration: 30 day, Stop date: 05/15/18 10:59:00 CDTNotes: (lidocaine-ep i 2%-1:217258 20 ml AMP (MPF)) Preservative- free (Same as: Xylocaine-MFP w/Epinephrine ) Acetaminophen 650 mg, 2 No Longer tab, Route: Active 2017 PO, Drug form: TAB, Q6H, Dosing Weight 78.1, kg, PRN Pain Score 1-3, Start date: 04/15/18 1:15:00 CDT, Duration: 30 day, Stop date: 05/15/18 1:14:00 CDTNotes: Do not exceed 4 gm/day. (Same as: Tylenol) calcium-vitamin D 1 tab, PO, Active 600 mg-125 units TID, 0 2017 oral tablet Refill(s) Omeprazole 20 mg, PO, Active Daily, 0 2017 Refill(s) Harrington-3 oral See Active capsule Instructions, 2017 2 capsules Bedtime, 0 Refill(s) Metformin 500 mg, PO, Active Daily, 0 2017 Refill(s) Centrum [facility] 1 tab, PO, Active Daily, 0 2017 Refill(s) Aspirin See Active Instructions, 2017 81 mg, 0 Refill(s) levocetirizine 5 mg=, PO, Active Daily, 0 2017 Refill(s) Toviaz 4 mg, PO, Active Daily, 0 2017 Refill(s) carvedilol 3.125 mg, PO, Active BID, 0 2017 Refill(s) Garlic See Active Instructions, 2017 [facility] 1000 units Bedtime, 0 Refill(s) Lisinopril 40 mg, PO, Active Daily, 0 2017 [facility] Refill(s) Pravastatin 40 mg, PO, Active Bedtime, # 30 2017 [facility] tab, 0 Refill(s) Allergies, Adverse Reactions, Alerts Substance Category Reaction Severity Reaction Status Date Comments Source type Reported sulfa drugs Assertion Drug Active allergy [facility] penicillin Assertion PENICILLINS Drug Active allergy [facility] Immunizations Immunization Date Given Site Status Last Updated Comments Source Results Order Name Results Value Reference Date Interpretation Comments Source Range Chest 2 Chest 2 Patient Name: KENDAL MEJIAS 04/16 - views DX views DX - [facility] : 1935; Age: 82 years y/o Female MR: [id number] Read by: Asher Manzanares MD Dictated Date/time: 04/16/18 12:40 Electronically Signed by: Asher Manzanares MD 04/16/18 12:42 FINAL REPORT Study: Chest 2 views DX 04/16/2018 3:00 AM CDT Ordering Physician: Arleen Mcduffie MD Clinical Indication: Heart failure - Status post PPM/ICD Implantation; Comparison: 04/15/2018 Two-view chest Lungs are clear. Heart size normal. No evidence for congestive heart failure or pulmonary edema. There is no pleural effusion or pneumothorax noted. Calcified densities in the subcarinal region are like ly granulomatous scars. Aortic arch calcification is present. Implanted pacemaker generator is present in the left chest wall, leads extending centrally via the left subclavian vein to the right atrium and ventricle, as before. IMPRESSION: No new or acute findings. SL: [id number] CARDIAC BNP 48 pg/mL <=100 04/16 ENZYMES pg/mL /2017 [facility] CHEM PANEL eGFR 83 04/16 Result Comment: The eGFR is calculated using the CKD-EPI formula. In most young, healthy individuals the eGFR will be >90 mL/ min/1.73m2. The eGFR declines with age. An eGFR of 60-89 may be normal in mL/min/1. some populations, particularly the elderly, for whom the CKD-EPI formula has not been extensively validated. Use of the eGFR is not recommended in the following populations: [facility] 3m2 Individuals with unstable creatinine concentrations, including patients and those with serious co-morbid conditions. Patients with extremes in muscle mass or diet. The data above are obtained from the National Kidney Disease Education Program (NKDEP) which additionally recommends that when the eGFR is used in patients with extremes of body mass index for purposes of drug dosing, the eGFR should be multiplied by the estimated BMI. CHEM PANEL Glucose Lvl 145 mg/dL 70 - 99 04/16 [facility] CHEM PANEL BUN 13 mg/dL 7 - 22 04/16 [facility] CHEM PANEL Creatinine 0.66 mg/dL 0.50 - 04/16 Lvl 1.40 /2017 [facility] CHEM PANEL Sodium Lvl 141 meq/L 135 - 145 04/16 [facility] CHEM PANEL Chloride Lvl 109 meq/L 95 - 109 04/16 [facility] CHEM PANEL Potassium 4.5 meq/L 3.5 - 5.1 04/16 Lvl /2017 [facility] CHEM PANEL CO2 25 meq/L 24 - 32 04/16 [facility] CHEM PANEL Calcium Lvl 9.3 mg/dL 8.5 - 10.5 04/16 [facility] CHEM PANEL AGAP 11.5 meq/L 10.0 - 04/16 . [facility] Chest 1 v Chest 1 v 1 view chest portable: 04/15 - for - [facility] Placement Placement DX DX HISTORY: Line placement. Read by: Trey Galindo MD Dictated Date/time: 04/15/18 18:55 Electronically Signed by: Trey Galindo MD 04/15/18 18:56 FINAL REPORT FINDINGS: No prior comparison. The 2 leads of a left transvenous cardiac pacemaker appear well-positioned. The lungs are clear. No definite pneumothorax or pleural fluid. The heart and mediastinal contours unremarkable. SL: EG-M CHEM PANEL A/G Ratio 0.9 0.7 - 1.6 04/15 [facility] CHEM PANEL Globulin 3.7 g/dL 2.7 - 4.2 04/15 [facility] CHEM PANEL B/C Ratio 24 6 - 25 04/15 [facility] CHEM PANEL AGAP 9.9 meq/L 10.0 - 04/15 20. [facility] CHEM PANEL eGFR 79 04/15 Result Comment: The eGFR is calculated using the CKD-EPI formula. In most young, healthy individuals the eGFR will be >90 mL/ min/1.73m2. The eGFR declines with age. An eGFR of 60-89 may be normal in MH mL/min/1. some populations, particularly the elderly, for whom the CKD-EPI formula has not been extensively validated. Use of the eGFR is not recommended in the following populations: [address] Individuals with unstable creatinine concentrations, including patients and those with serious co-morbid conditions. Patients with extremes in muscle mass or diet. The data above are obtained from the National Kidney Disease Education Program (NKDEP) which additionally recommends that when the eGFR is used in patients with extremes of body mass index for purposes of drug dosing, the eGFR should be multiplied by the estimated BMI. CHEM PANEL Potassium 3.9 meq/L 3.5 - 5.1 04/15 MH Lvl /2017 [facility] CHEM PANEL Chloride Lvl 110 meq/L 95 - 109 04/15 [facility] CHEM PANEL Calcium Lvl 9.0 mg/dL 8.5 - 10.5 04/15 [facility] CHEM PANEL ALT 25 unit/L 0 - 65 04/15 [facility] CHEM PANEL CO2 28 meq/L 24 - 32 04/15 [facility] CHEM PANEL Albumin Lvl 3.3 g/dL 3.5 - 5.0 04/15 [facility] CHEM PANEL Total 7.0 g/dL 6.4 - 8.4 04/15 [facility] CHEM PANEL AST 20 unit/L 0 - 37 04/15 [facility] CHEM PANEL Bili Total 0.5 mg/dL 0.2 - 1.3 04/15 [facility] CHEM PANEL Alk Phos 54 unit/L 39 - 136 04/15 [facility] CHEM PANEL Glucose Lvl 111 mg/dL 70 - 99 04/15 [facility] CHEM PANEL Sodium Lvl 144 meq/L 135 - 145 04/15 [facility] CHEM PANEL Creatinine 0.72 mg/dL 0.50 - 04/15 MH Lvl 1.40 /2017 [facility] CHEM PANEL BUN 17 mg/dL 7 - 22 04/15 [facility] HEMATOLOGY Lymphocytes 1.3 K/CMM 1.0 - 5.5 / MH # /2018 [facility] HEMATOLOGY Monocytes # 0.6 K/CMM 0.0 - 0.8 04/15 [facility] HEMATOLOGY Eosinophils 0.2 K/CMM 0.0 - 0.5 04/15 # /2018 [facility] HEMATOLOGY Eosinophils 3.6 % 0.0 - 4.0 04/15 [facility] HEMATOLOGY Basophils 0.5 % 0.0 - 1.0 04/15 [facility] HEMATOLOGY Segs-Bands # 3.0 K/CMM 1.5 - 8.1 04/15 [facility] HEMATOLOGY Monocytes 12.0 % 2.0 - 12.0 04/15 [facility] HEMATOLOGY Segs 59.2 % 45.0 - 04/15 75.0 [facility] HEMATOLOGY Lymphocytes 24.7 % 20.0 - 04/15 40.0 [facility] HEMATOLOGY RDW 12.8 % 11.5 - 04/15 14.5 [facility] HEMATOLOGY Platelet 119 K/CMM 133 - 450 04/15 [facility] HEMATOLOGY MPV 8.1 fL 7.4 - 10.4 04/15 [facility] HEMATOLOGY WBC 5.1 K/CMM 3.7 - 10.4 04/15 [facility] HEMATOLOGY RBC 3.77 M/CMM 4.20 - 04/15 5.40 /2017 [facility] HEMATOLOGY Hgb 12.0 g/dL 12.0 - 04/15 16.0 [facility] HEMATOLOGY Hct 35.8 % 36.0 - 04/15 48.0 [facility] HEMATOLOGY MCHC 33.5 g/dL 32.0 - 04/15 36.0 [facility] HEMATOLOGY MCH 31.8 pg 27.0 - 04/15 31.0 [facility] HEMATOLOGY MCV 94.9 fL 80.0 - 04/15 98.0 [facility] Vital Signs Vital Sign Value Date Comments Source Systolic (mm Hg) 144 04/16/2018 [facility] Diastolic (mm Hg) 127 04/16/2018 [facility] Respitory Rate 17 04/16/2018 [facility] Systolic (mm Hg) 141 04/16/2018 [facility] Diastolic (mm Hg) 64 04/16/2018 [facility] Respitory Rate 23 04/16/2018 [facility] Systolic (mm Hg) 161 04/16/2018 [facility] Diastolic (mm Hg) 63 04/16/2018 [facility] Respitory Rate 15 04/16/2018 [facility] Temperature Oral (F) 98.9 F 04/16/2018 [facility] Temperature Oral (F) 97.9 F 04/16/2018 [facility] Temperature Oral (F) 97.8 F 04/16/2018 [facility] Height 162.56 cm 04/15/2018 [facility] BMI Calculated 29.55 04/15/2018 [facility] Weight 78.1 04/15/2018 [facility] Encounters Location Location Encounter Encounter Reason Attending ADM DC Status Source Details Type Number For Provider Date Date Visit [facility] Inpatient [id number] Arleen 04/15 04/16 Luke Mcduffie /2017 [facility] Procedures Procedure Code Date Perfomer Comments Source Hysterectomy [id number] [facility] Tubal ligation [id number] [facility]
[2019-03-17] MEDS ORDERED: NA CHLORIDE 0.9% 500 ML ONE (08:00)
[2019-03-17] MEDS ORDERED: HEPA 1000U/500MLS 1,000 UNIT/500 ML BAG IV ONE (08:23)
[2019-03-17] MEDS ORDERED: MIDAZOLAM HCL 2 MG/2 ML INJ ONE (08:49)
[2019-03-17] MEDS ORDERED: ATROPINE SULF 1 MG/10 ML SYR IV ONE (08:49)
[2019-03-17] MEDS ORDERED: NA CHLORIDE 0.9% 50 ML ONE (08:49)
[2019-03-17] MEDS ORDERED: FENTANYL CITR 100 MCG/2 ML ONE (08:49)
[2019-03-17] MEDS ORDERED: PRASUGREL (EFFIENT) 10 MG TAB ONE (09:31)
[2019-03-17] MEDS ORDERED: ASPIRIN 325 MG TAB ONE (09:31)
[2019-03-17] MEDS ORDERED: ACETAMINOPHEN 325 MG TABLET PO PRN (11:00)
[2019-03-17] MEDS ORDERED: NA CHLORIDE 0.9% 1,000 ML IV SCH (11:00)
[2019-03-17] MEDS ORDERED: NITROGLYCERIN 0.4 MG/TAB SL PRN (11:00)
[2019-03-17] MEDS ORDERED: ACETAMINOPHEN 325 MG TABLET ONE (12:43)
[2019-03-17 14:58] LABS: Urine Appearance CLEAR; Urine Bilirubin NEGATIVE (NEG); Urine Blood 3+ (NEG); Urine Color YELLOW; Urine Glucose NEGATIVE (NEG); Urine Protein NEGATIVE (NEG); Urine Specific Gravity 1.015 (1.005-1.030); Urine Urobilinogen 0.2 mg/dL (0.2-1.0); Urine pH 7.5 (5.0-7.0)
[2019-03-17 15:05] LABS: Urine Microscopic Reflex ORDER UMIC
[2019-03-17 16:27] LABS: Urine Bacteria <20 /HPF (<20)
[2019-03-17 16:28] LABS: Urine Culture Reflex Order REFLEXED
[2019-03-17] MEDS ORDERED: MORPHINE 4 MG/ML SYR IV PRN (19:33)
--- NOTE | 2019-03-17 19:49 | OP ---
Date of Procedure: 03/17/2019 Surgeon: Elias Recio MD The patient admitted as an outpatient today for heart catheterization on 03/17/2019. The procedure w as on 03/17/2019. Indications For Procedure: Ms. Lozano is 83, history of CAD in the past, symptomatic positive stress test. Scheduled for a heart catheterization today as she has a history of pacemaker as well diabete s, hypertension, dyslipidemia. She was admitted as an outpatient to the [facility]. She had a left he art catheterization, selective coronary arteriogram, and a stent primary LAD, stent of the mid LAD. She was initially prepped and draped in the routine sterile fashion, given 2 mg of Versed and 50 of f entanyl for sedation. A common femoral artery on the right, cannulated with a 6-Faroese sheath. Rosalie ography was normal. Angio-Seal was used for closure. Diagnostic catheterization with Josh cathet er relieved a normal right coronary artery that was dominant. Her left main was tortuous and ectatic . Her left circumflex had diffuse plaquing. It was nondominant. Her LAD has some diffuse plaquing with a 70-80% mid LAD lesion. An XBLAD 3.5 guide was used along with a [place] wire 0.014. The 2.5 x 12 Synergy stents were used to do the intervention with 0% residual. There were no complications. Blood Loss: 5 cc. Anesthesia: Total conscious sedation was 45 minutes. Co-operators: Roberto Rinaldi and Ms. Gonzalez. Disposition: The patient received Angiomax during the procedure. She received aspirin and Effient a fter the procedure. She will stay here overnight and go home on her home medication including Plavix and aspirin and a statin. She will see me in the office in 2 weeks. REVA/JESUS Voice ID: [id number] Report ID: [id number]
[2019-03-18 06:35] LABS: Absolute Monocytes 0.4 K/uL (0.1-1.3); Absolute Neutrophil 1.8 K/uL (1.8-8.0); Basophils % 0.6 % (0-1.3); Eosinophils % 4.1 % (0-4.4); Hematocrit 37.9 % (36.0-45.0); Lymphocytes % 29.8 % (15.3-44.8); MPV 8.2 fL (7.6-11.3); RBC Red Blood Cell Count 3.91 M/uL (3.86-4.86)
[2019-03-18 06:52] LABS: Potassium 4.4 mmol/L (3.5-5.1)
[2019-03-18] MEDS ORDERED: CLOPIDOGREL 75 MG TABLET PO SCH (09:00)
[2019-03-18] MEDS ORDERED: ASPIRIN EC 81 MG TAB PO SCH (09:00)
--- NOTE | 2019-03-18 10:52 | EKG ---
Test Date: 2019-03-18 Test Time: 07:46:03 Shaper Machine Hand: ABBY MEASUREMENT RESULTS: Intervals: Rate: 61 IN: 260 QRSD: 172 QT: 486 QTc: 489 [place]: P: 12 IN: 260 QRS: -68 T: 114 INTERPRETIVE STATEMENTS: Sinus rhythm with 1st degree AV block Left axis deviation Left bundle branch block Abnormal ECG Compared to ECG 04/14/2018 19:09:14 First degree AV block now present Left-axis deviation now present Sinus bradycardia no longer present Ventricular premature complex(es) no longer present Electronically Signed On 03-18-19 10:52:01 CDT by Rj Odonnell
== END 2019-03-18 10:16 | disposition home or self-care (01) ==
LOC: CCL 07:26 → 4TH 11:42 → CCL 03-18 10:16
DX: I25.10 Atherosclerotic heart disease of native coronary artery without angina pectoris (principal); I44.2 Atrioventricular block, complete; I10 Essential (primary) hypertension; E78.5 Hyperlipidemia, unspecified; E78.6 Lipoprotein deficiency; E11.9 Type 2 diabetes mellitus without complications; Z95.0 Presence of cardiac pacemaker; Z87.891 Personal history of nicotine dependence; Z82.49 Family history of ischemic heart disease and other diseases of the circulatory system; Z88.0 Allergy status to penicillin; Z88.2 Allergy status to sulfonamides; Z88.7 Allergy status to serum and vaccine
CPT/HCPCS: 96365; 96367; 93005; 87088; 85025 ×2; 87086; 80048 ×2; 36415 ×2; 85610; 82962 ×3; 85347 ×2; 85730; 71046; 93454; C1893; C1760; C1725; C1877; C9600; J2250; J3010; J0583; J7030; 81003; 81015

== ENCOUNTER 2019-09-05 11:08 | Emergency (ER) | payer OTHER ==
[2019-09-05 12:38] LABS: Urine Blood 2+ (NEG); Urine Glucose NEGATIVE (NEG); Urine Protein NEGATIVE (NEG); Urine Specific Gravity 1.015 (1.005-1.030); Urine pH 7.5 (5.0-7.0)
[2019-09-05 13:09] LABS: Hematocrit 37.1 % (36.0-45.0); Lymphocytes % 25.6 % (15.3-44.8); MPV 8.4 fL (7.6-11.3); RBC Red Blood Cell Count 3.92 M/uL (3.86-4.86)
[2019-09-05 13:15] LABS: Protime INR 0.96
[2019-09-05 13:25] LABS: Potassium 4.4 mmol/L (3.5-5.1)
--- NOTE | 2019-09-05 14:14 | RAD REPORT ---
EXAM DESCRIPTION: CT - Abdomen Pelvis W Contrast - 09/05/2019 1:51 pm CLINICAL HISTORY: Hematuria COMPARISON: none. TECHNIQUE: Computed axial tomography of the abdomen pelvis was obtained. 100 cc Isovue-300 was admin istered intravenously. Oral contrast was not requested which limits evaluation of bowel. All CT scans are performed using dose optimization technique as appropriate and may include automated exposure control or mA/KV adjustment according to patient size. FINDINGS: A 12 millimeter right renal calculus Hounsfield unit 1485. Additional tiny right renal candido culus. No hydronephrosis. Small left renal cyst. The liver, spleen, pancreas, and left adrenal appear unremarkable. 17 millimeter right adrenal mass There is no evidence of diverticulitis. Hysterectomy. Small calcified splenic arterial aneurysms A moderate amount stool present throughout the colon. Spondylosis involves lumbar spine resulting spi nal stenosis IMPRESSION: Nonobstructing right renal calculi 17 millimeter right adrenal mass. Nonemergent MRI recommended to help rule in an adenoma
--- NOTE | 2019-09-05 14:22 | ER ---
Nurse's Notes [facility] Name: Mona Lozano Age: 84 yrs Sex: Female : 1935 Arrival Date: 09/05/2019 Time: 11:12 Bed 13 Private MD: Diagnosis: Hematuria, unspecified Presentation: 09/05 11:20 Presenting complaint: Patient states: This morning she went pee and there was blood in rb1 the toilet. She isn't sure where the blood is coming from. Transition of care: patient was not received from another setting of care. Onset of symptoms was September 05, 2019 at 07:20. Risk Assessment: Do you want to hurt yourself or someone else? Patient reports no desire to harm self or others. Initial Sepsis Screen: Does the patient meet any 2 criteria? No. Patient's initial sepsis screen is negative. Does the patient have a suspected source of infection? No. Patient's initial sepsis screen is negative. Care prior to arrival: None. 11:20 Method Of Arrival: Ambulatory rb1 11:20 Acuity: KAROLYN 3 rb1 Triage Assessment: 11:20 General: Appears in no apparent distress. comfortable, Behavior is calm, cooperative, rb1 Denies fever. Pain: Denies pain. Neuro: Level of Consciousness is awake, alert, obeys commands, Oriented to person, place, time, situation. Cardiovascular: Capillary refill < 3 seconds is brisk in bilateral fingers. Respiratory: Airway is patent Respiratory effort is even, unlabored, Respiratory pattern is regular, symmetrical. GI: No signs and/or symptoms were reported involving the gastrointestinal system. : Reports bleeding noted but unsure of where the blood is coming from. Derm: Skin is pink, warm \T\ dry. Musculoskeletal: Range of motion: intact in all extremities. Historical: - Allergies: 11:20 PENICILLINS; rb1 11:20 Sulfa (Sulfonamide Antibiotics); rb1 11:20 tetanus; rb1 - Home Meds: 11:20 calcium carbonate 600 mg (1,500 mg) Oral tab daily [Active]; carvedilol 3.125 mg Oral rb1 tab 1 tab 2 times per day [Active]; levocetirizine Oral once daily [Active]; Toviaz 4 mg Oral Tb24 1 tab once daily [Active]; womens vitamins [Active]; lisinopril 40 mg Oral tab 1 tab once daily [Active]; metformin 500 mg Oral tab 1 tab QD [Active]; omeprazole 20 mg Oral cpDR 1 cap once daily [Active]; pravastatin 40 mg Oral tab 1 tab once daily [Active]; Plavix 75 mg Oral tab 1 tab once daily [Active]; pressure vision daily [Active]; - PMHx: 11:20 Diabetes - IDDM; Hyperlipidemia; Hypertension; rb1 - PSHx: 11:20 Tubal ligation; Hysterectomy; cardiac stents; pacemaker; rb1 - Immunization history:: Adult Immunizations up to date. - Social history:: Smoking status: Patient/guardian denies using tobacco. - Ebola Screening: : Patient negative for fever greater than or equal to 101.5 degrees Fahrenheit, and additional compatible Ebola Virus Disease symptoms. - Family history:: not pertinent. - Hospitalizations: : No recent hospitalization is reported. Screenin:20 Abuse screen: Denies threats or abuse. Nutritional screening: No deficits noted. rb1 Tuberculosis screening: No symptoms or risk factors identified. Fall Risk None identified. Assessment: 11:20 General: See triage assessment. rb1 12:20 Reassessment: Patient appears in no apparent distress at this time. No changes from rb1 previously documented assessment. 13:42 Reassessment: Pt. went to CT. rb1 14:07 Reassessment: Patient appears in no apparent distress at this time. Patient and/or rb1 family updated on plan of care and expected duration. Pain level reassessed. Patient is alert, oriented x 3, equal unlabored respirations, skin warm/dry/pink. Patient denies pain at this time. 15:00 Reassessment: Patient appears in no apparent distress at this time. No changes from rb1 previously documented assessment. Family at bedside. Vital Signs: 11:20 BP 163 / 82; Pulse 74; Resp 17; Pulse Ox 98% on R/A; Weight 74.84 kg (R); Height 5 ft. rb1 5 in. (165.10 cm) (R); Pain 0/10; 12:55 BP 149 / 69; Pulse 70; Resp 18; Temp 97.7(O); Pulse Ox 97% ; mh5 13:42 rb1 14:22 BP 151 / 82; Pulse 73; Resp 17; Pulse Ox 98% on R/A; Pain 0/10; rb1 11:20 Body Mass Index 27.46 (74.84 kg, 165.10 cm) rb1 13:[address] rb1 ED Course: 11:12 Patient arrived in ED. as 11:19 Enrique Diez MD is Attending Physician. rn 11:20 Arm band placed on right wrist. rb1 11:34 Ana Salas, RN is Primary Nurse. rb1 11:54 Urine collected: clean catch specimen, clear. mh5 11:55 Urine Dipstick--Ancillary (enter results) Sent. mh5 11:55 Patient has correct armband on for positive identification. Placed in gown. Bed in low mh5 position. Call light in reach. Side rails up X 1. Adult w/ patient. Warm blanket given. Pulse ox on. NIBP on. 12:00 Missed attempt(s): 22 gauge in right antecubital area. mh5 12:06 Triage completed. rb1 12:12 Radiology exam delayed due to lab results not completed at this time. (BUN/Creatinine). kw1 12:30 Inserted Missed attempt(s): 22 gauge in left antecubital area. kj1 12:42 Radiology exam delayed due to lab results not completed at this time. (BUN/Creatinine). kw1 12:52 Radiology exam delayed due to IV insertion attempt and/or patient not having kw1 appropriate IV at this time. 13:00 Inserted saline lock: 22 gauge in right upper arm, using aseptic technique. Blood rb1 collected. 13:50 CT completed. Patient tolerated procedure well. Patient moved back from CT. kw1 13:51 CT Abd/Pelvis - IV Contrast Only In Process Unspecified. EDMS 14:21 Arnie Martinez MD is Referral Physician. rn 15:01 No provider procedures requiring assistance completed. IV discontinued, intact, rb1 bleeding controlled, No redness/swelling at site. Pressure dressing applied. Administered Medications: No medications were administered Outcome: 14:21 Discharge ordered by . rn 15:01 Patient left the ED. rb1 15:01 Discharged to home ambulatory, with family. rb1 15:01 Condition: stable 15:01 Discharge instructions given to patient, Instructed on discharge instructions, follow up and referral plans. Demonstrated understanding of instructions, follow-up care, Prescriptions given X none Signatures: Dispatcher [employer] EDSD Madyson Mathews as Enrique Diez MD MD rn Barber, Rebecca, RN RN rb1 Aruna Mathews 5 Daysi Augustine kw1 Kel, Brandie kj1
--- NOTE | 2019-09-05 14:22 | EDPHYS ---
Physician Documentation [facility] Name: Mona Lozano Age: 84 yrs Sex: Female : 1935 Arrival Date: 09/05/2019 Time: 11:12 Bed 13 Private MD: ED Physician Enrique Diez HPI: 09/05 12:11 This 84 yrs old Female presents to ER via Ambulatory with complaints of rn Bleeding. 12:11 The patient presents with urinary symptoms, hematuria. Onset: The symptoms/episode rn began/occurred just prior to arrival. Modifying factors: The symptoms are alleviated by nothing, the symptoms are aggravated by urinating. Associated signs and symptoms: The patient has no apparent associated signs or symptoms, Pertinent negatives: constipation, diarrhea, dysuria, fever, urinary frequency, vaginal bleeding. Severity of symptoms: At their worst the symptoms were mild, in the emergency department the symptoms have resolved. The patient has not experienced similar symptoms in the past. Reports was having bowel movement and urinating, when wiped noticed some bright red blood, no trauma, denies blood in stool, did start blood thinner in march. Reports frequent UTIs. Does not feel like has UTI. . Had total hysterectomy. Historical: - Allergies: 11:20 PENICILLINS; rb1 11:20 Sulfa (Sulfonamide Antibiotics); rb1 11:20 tetanus; rb1 - Home Meds: 11:20 calcium carbonate 600 mg (1,500 mg) Oral tab daily [Active]; carvedilol 3.125 mg Oral rb1 tab 1 tab 2 times per day [Active]; levocetirizine Oral once daily [Active]; Toviaz 4 mg Oral Tb24 1 tab once daily [Active]; womens vitamins [Active]; lisinopril 40 mg Oral tab 1 tab once daily [Active]; metformin 500 mg Oral tab 1 tab QD [Active]; omeprazole 20 mg Oral cpDR 1 cap once daily [Active]; pravastatin 40 mg Oral tab 1 tab once daily [Active]; Plavix 75 mg Oral tab 1 tab once daily [Active]; pressure vision daily [Active]; - PMHx: 11:20 Diabetes - IDDM; Hyperlipidemia; Hypertension; rb1 - PSHx: 11:20 Tubal ligation; Hysterectomy; cardiac stents; pacemaker; rb1 - Immunization history:: Adult Immunizations up to date. - Social history:: Smoking status: Patient/guardian denies using tobacco. - Ebola Screening: : Patient negative for fever greater than or equal to 101.5 degrees Fahrenheit, and additional compatible Ebola Virus Disease symptoms. - Family history:: not pertinent. - Hospitalizations: : No recent hospitalization is reported. ROS: 12:11 Constitutional: Negative for fever, chills, and weight loss, Eyes: Negative for injury, rn pain, redness, and discharge, Neck: Negative for injury, pain, and swelling, Cardiovascular: Negative for chest pain, palpitations, and edema, Respiratory: Negative for shortness of breath, cough, wheezing, and pleuritic chest pain, Abdomen/GI: Negative for abdominal pain, nausea, vomiting, diarrhea, and constipation, : Negative for injury, discharge, and swelling, + blood in urine MS/Extremity: Negative for injury and deformity, Skin: Negative for injury, rash, and discoloration, Neuro: Negative for headache, weakness, numbness, tingling, and seizure. Exam: 12:11 Constitutional: This is a well developed, well nourished patient who is awake, alert, rn and in no acute distress. Head/Face: Normocephalic, atraumatic. Eyes: Pupils equal round and reactive to light, extra-ocular motions intact. Lids and lashes normal. Conjunctiva and sclera are non-icteric and not injected. Cornea within normal limits. Periorbital areas with no swelling, redness, or edema. ENT: MMM Cardiovascular: Regular rate and rhythm. No pulse deficits. Respiratory: No increased work of breathing, no retractions or nasal flaring. Abdomen/GI: soft, non-tender, neg rectal exam. + external hemorrhoid without blood. Back: No spinal tenderness. No costovertebral tenderness. Full range of motion. Female : Normal external genitalia. + mild bladder prolapse into vaginal canal, no laceration or blood in vault. MS/ Extremity: Pulses equal, no cyanosis. Neurovascular intact. Full, normal range of motion. Equal circumference. Neuro: Awake and alert, GCS 15, oriented to person, place, time, and situation. Cranial nerves II-XII grossly intact. Motor strength 5/5 in all extremities. Sensory grossly intact. Cerebellar exam normal. Normal gait. Vital Signs: 11:20 BP 163 / 82; Pulse 74; Resp 17; Pulse Ox 98% on R/A; Weight 74.84 kg (R); Height 5 ft. rb1 5 in. (165.10 cm) (R); Pain 0/10; 12:55 BP 149 / 69; Pulse 70; Resp 18; Temp 97.7(O); Pulse Ox 97% ; mh5 13:42 rb1 14:22 BP 151 / 82; Pulse 73; Resp 17; Pulse Ox 98% on R/A; Pain 0/10; rb1 11:20 Body Mass Index 27.46 (74.84 kg, 165.10 cm) rb1 13:[address] rb1 MDM: 11:19 Patient medically screened. rn 14:20 Differential diagnosis: urinary tract infection, renal cell carcinoma, bladder mass, rn UTI, kidney stone. Data reviewed: vital signs, nurses notes, lab test result(s), radiologic studies, CT scan, and as a result, I will discharge patient. Counseling: I had a detailed discussion with the patient and/or guardian regarding: the historical points, exam findings, and any diagnostic results supporting the discharge/admit diagnosis, lab results, radiology results, the need for outpatient follow up, to return to the emergency department if symptoms worsen or persist or if there are any questions or concerns that arise at home. Special discussion: I discussed with the patient/guardian in detail that at this point there is no indication for admission to the hospital. It is understood, however, that if the symptoms persist or worsen the patient needs to return immediately for re-evaluation. ED course: No longer bleeding, no UTI, no acute findings on CT, will dc home with urology and pcp f/u. Recommended MRI for adrenal mass w/u. . 09/05 11:25 Order name: Urine Dipstick--Ancillary (enter results); Complete Time: 12:47 ms 09/05 12:08 Order name: CBC with Diff; Complete Time: 13:30 rn 09/05 12:08 Order name: Basic Metabolic Panel; Complete Time: 13:30 rn 09/05 12:08 Order name: PT-INR; Complete Time: 13:30 rn 09/05 12:08 Order name: Ptt, Activated; Complete Time: 13:30 rn 09/05 12:08 Order name: CT Abd/Pelvis - IV Contrast Only; Complete Time: 14:19 rn 09/05 12:08 Order name: IV Start; Complete Time: 13:07 rn Administered Medications: No medications were administered Disposition: 09/05/19 14:21 Discharged to Home. Impression: Hematuria, unspecified. - Condition is Stable. - Discharge Instructions: Hematuria, Adult. - Medication Reconciliation Form, Thank You Letter, Antibiotic Education, Prescription Opioid Use form. - Follow up: Arnie Martinez MD; When: As needed; Reason: Recheck today's complaints, Re-evaluation by your physician. - Problem is new. - Symptoms have improved. Signatures: Dispatcher [employer] EDMS Enrique Diez MD MD rn Ana Salas RN RN rb1 Corrections: (The following items were deleted from the chart) 15:01 14:21 09/05/2019 14:21 Discharged to Home. Impression: Hematuria, unspecified. rb1 Condition is Stable. Forms are Medication Reconciliation Form, Thank You Letter, Antibiotic Education, Prescription Opioid Use. Follow up: Arnie Martinez; When: As needed; Reason: Recheck today's complaints, Re-evaluation by your physician. Problem is new. Symptoms have improved. rn
[2019-09-05 15:12] VITALS: BP 149/69; TEMP 97.7; O2SAT 97
== END 2019-09-05 15:01 | disposition home or self-care (01) ==
LOC: ER 11:08
DX: R31.9 Hematuria, unspecified (principal); Z88.0 Allergy status to penicillin; Z88.2 Allergy status to sulfonamides; Z88.7 Allergy status to serum and vaccine; E11.9 Type 2 diabetes mellitus without complications; E78.5 Hyperlipidemia, unspecified; I10 Essential (primary) hypertension
CPT/HCPCS: 85025; 80048; 36415; 85610; 85730; 81003; 74177; 99284; Q9967

== ENCOUNTER 2020-01-04 10:48 | Observation (INO) | payer OTHER ==
--- NOTE | 2020-01-04 12:31 | RAD REPORT ---
EXAM DESCRIPTION: RAD - Chest Single View - 01/04/2020 12:20 pm CLINICAL HISTORY: Congestion;Cough COMPARISON: Chest Pa And Lat (2 Views) dated 03/16/2019; Chest Single View dated 04/13/2018; Abdomen Pelvis W Contrast dated 09/05/2019 TECHNIQUE: AP portable chest image was obtained 01/04/2020 12:20 pm . FINDINGS: Fibrotic as a baseline. Interstitial markings are fractionally increased in each base. Int erval change is minimal. A mild interstitial edema or infiltrate is possible. No significant failure or volume overload. Heart and vasculature are normal. No measurable pleural effusion and no pneumotho rax. No acute bony abnormality seen. No acute aortic findings suspected. IMPRESSION: Mild increase in the interstitial pattern in each lung base superimposed on already prom inent baseline pattern. No dense consolidation or mass seen. A minimal interstitial edema or infiltrate in each lung base can not be excluded.
[2020-01-04 13:55] LABS: Absolute Lymphocytes (CBC) 0.8 K/uL (0.7-4.9); Basophils % 0.6 % (0-1.3); Hematocrit 36.7 % (36.0-45.0); Lymphocytes % 25.8 % (15.3-44.8); MPV 8.3 fL (7.6-11.3); RBC Red Blood Cell Count 3.88 M/uL (3.86-4.86)
[2020-01-04 14:07] LABS: Protime INR 1.01
[2020-01-04] MEDS ORDERED: AZITHROMYCIN 250 MG TAB ONE (14:29)
--- NOTE | 2020-01-04 15:32 | EKG ---
Test Date: 2020-01-04 Test Time: 13:43:54 Midwife Practitioner: ABBY MEASUREMENT RESULTS: Intervals: Rate: 73 OH: 166 QRSD: 140 QT: 464 QTc: 511 Willis: P: 49 OH: 166 QRS: 20 T: 266 INTERPRETIVE STATEMENTS: Normal sinus rhythm Left bundle branch block Abnormal ECG Compared to ECG 03/18/2019 07:46:03 First degree AV block no longer present Left-axis deviation no longer present Electronically Signed On 01-04-20 15:31:20 CIVIL CAD TECH by Rj Odonnell
[2020-01-04 17:03] LABS: Albumin 3.4 g/dL (3.4-5.0); Bilirubin Direct 0.1 mg/dL (0-0.2); Bilirubin Total 0.3 mg/dL (0.2-1.0); CKMB Creatine Kinase MB 1.7 ng/mL (0.3-3.6); Potassium 4.5 mmol/L (3.5-5.1); Protein, Total 7.8 g/dL (6.4-8.2); Troponin (Emerg Dept Use Only) 0.23 ng/mL (0.0-0.045)
--- NOTE | 2020-01-04 17:42 | EDPHYS ---
Physician Documentation [facility] Name: Mona Lozano Age: 84 yrs Sex: Female : 1935 Arrival Date: 01/04/2020 Time: 10:53 Bed 25 Private MD: ED Physician Andrew Cavazos HPI: 01/03 17:47 This 84 yrs old Female presents to ER via Ambulatory with complaints of tw4 Cough, Congestion. 17:47 The patient or guardian reports cough, described as moderate. Onset: The tw4 symptoms/episode began/occurred 3 day(s) ago. Severity of symptoms: At their worst the symptoms were moderate, in the emergency department the symptoms are unchanged. Modifying factors: The symptoms are alleviated by nothing, the symptoms are aggravated by nothing. The patient has not experienced similar symptoms in the past. Historical: - Allergies: 11:04 PENICILLINS; ss 11:04 Sulfa (Sulfonamide Antibiotics); ss 11:04 tetanus; ss - Home Meds: 13:00 calcium carbonate 600 mg (1,500 mg) Oral tab daily [Active]; metformin 500 mg Oral tab vc 1 tab QD [Active]; omeprazole 20 mg Oral cpDR 1 cap once daily [Active]; pravastatin 40 mg Oral tab 1 tab once daily [Active]; lisinopril 40 mg Oral tab 1 tab once daily [Active]; carvedilol 3.125 mg Oral tab 1 tab 2 times per day [Active]; Toviaz 4 mg Oral Tb24 1 tab once daily [Active]; levocetirizine Oral [Active]; Plavix 75 mg Oral tab 1 tab once daily [Active]; pressure vision daily [Active]; [place]-3 350 mg-235 mg- 90 mg-597 mg oral cpDR [Active]; - PMHx: 11:04 Diabetes - IDDM; Hyperlipidemia; Hypertension; ss - PSHx: 11:04 Tubal ligation; Hysterectomy; cardiac stents; pacemaker; ss - Immunization history:: Adult Immunizations up to date. - Social history:: Smoking status: Patient denies any tobacco usage or history of. ROS: 17:47 Constitutional: Negative for fever, chills, and weight loss, Eyes: Negative for injury, tw4 pain, redness, and discharge, Cardiovascular: Negative for chest pain, palpitations, and edema, Back: Negative for injury and pain, MS/Extremity: Negative for injury and deformity. 17:47 Respiratory: Positive for cough, shortness of breath, Negative for dyspnea on exertion, hemoptysis, orthopnea, pleurisy. Exam: 17:47 Constitutional: This is a well developed, well nourished patient who is awake, alert, tw4 and in no acute distress. Head/Face: Normocephalic, atraumatic. Chest/axilla: Normal chest wall appearance and motion. Nontender with no deformity. No lesions are appreciated. Cardiovascular: Regular rate and rhythm with a normal S1 and S2. No gallops, murmurs, or rubs. Normal PMI, no JVD. No pulse deficits. Abdomen/GI: Soft, non-tender, with normal bowel sounds. No distension or tympany. No guarding or rebound. No evidence of tenderness throughout. 17:47 Respiratory: Respirations: normal, Breath sounds: rhonchi, that are mild, are scattered. 17:51 An electrocardiogram was deferred on this patient tw4 Vital Signs: 11:00 BP 165 / 72; Pulse 79; Resp 18; Temp 97.6; Pulse Ox 95% ; Weight 77.11 kg; Height 5 ft. ss 5 in. (165.10 cm); Pain 0/10; 16:00 BP 155 / 72; Pulse 71; Resp 18; Pulse Ox 100% on R/A; vc 18:00 BP 166 / 70; Pulse 82; Resp 16; Pulse Ox 94% on R/A; vc 20:00 BP 150 / 71; Pulse 80; Resp 17; Temp 98.3(O); Pulse Ox 100% on R/A; Pain 0/10; vc 11:00 Body Mass Index 28.29 (77.11 kg, 165.10 cm) MDM: 13:03 Patient medically screened. tw4 17:47 Differential Diagnosis: Obstructed Airway Bronchitis Upper Respiratory Infection tw4 Pharyngitis Otitis Media Allergic Rhinitis. Data reviewed: vital signs, nurses notes. Data interpreted: Pulse oximetry: Interpretation: normal. Test interpretation: by ED physician or midlevel provider: ECG, plain radiologic studies. Counseling: I had a detailed discussion with the patient and/or guardian regarding: the historical points, exam findings, and any diagnostic results supporting the discharge/admit diagnosis, lab results, radiology results. Physician consultation: Timothy Lemus DO regarding admission, to the telemetry unit. patient's condition, and will see patient in ED. ED course: Delay in diagnosis related to delay in labs results in computer. 01/03 10:59 Order name: Blood Culture Adult (2) 01/03 10:59 Order name: BMP; Complete Time: 17:13 01/03 17:13 Interpretation: Normal except: GLUC 120; GFR 76; BUN 19. 01/03 10:59 Order name: CBC with Diff; Complete Time: 14:10 01/03 14:10 Interpretation: Normal except: WBC 3.2; PLT 130; MN% 14.1; EOSINOPHIL % 6.2; NEUT A 1.7.01/03 10:59 Order name: Ckmb; Complete Time: 17:13 01/03 10:59 Order name: CPK; Complete Time: 17:13 01/03 17:14 Interpretation: Within normal limits: CPK 126. 01/03 10:59 Order name: D-Dimer; Complete Time: 15:47 01/03 10:59 Order name: Hepatic Function; Complete Time: 17:13 01/03 17:13 Interpretation: Normal except: GLOB 4.4; A/G 0.8. 01/03 10:59 Order name: Lipase; Complete Time: 17:13 01/03 10:59 Order name: Magnesium; Complete Time: 17:13 01/03 10:59 Order name: NT PRO-BNP; Complete Time: 17:13 01/03 17:13 Interpretation: Normal except: NT PRO-BNP 529. 01/03 10:59 Order name: PT-INR; Complete Time: 15:47 01/03 10:59 Order name: Ptt, Activated; Complete Time: 15:47 01/03 10:59 Order name: Troponin (emerg Dept Use Only); Complete Time: 17:13 01/03 10:59 Order name: Flu; Complete Time: 15:47 01/03 10:59 Order name: XRAY CXR (1 view); Complete Time: 14:10 01/03 17:46 Interpretation: No acute disease except. 01/03 10:59 Order name: EKG; Complete Time: 11:01 01/03 10:59 Order name: Cardiac monitoring; Complete Time: 14:31 01/03 10:59 Order name: IV Saline Lock; Complete Time: 14:31 01/03 10:59 Order name: Labs collected and sent; Complete Time: 14:31 01/03 10:59 Order name: O2 Per Protocol; Complete Time: 14:32 01/03 10:59 Order name: O2 Sat Monitoring; Complete Time: 14:32 01/03 17:26 Order name: CT Chest For PE Angio; Complete Time: 18:54 tw4 EC:51 Rate is 73 beats/min. Rhythm is regular with Left bundle branch block. QRS [place] is tw4 Normal. TN interval is normal. QRS interval is normal. QT interval is normal. No Q waves. T waves are Inverted in leads II, III, aVF, V3, V4, V5, V6. No ST changes noted. Clinical impression: Abnormal EKG without significant change. Interpreted by me. Reviewed by me. Administered Medications: 14:23 CANCELLED (Physician Discretion): AZITHromycin 500 mg IVPB once over 1 hrs; (mix in 250 tw4 mL NS) 14:25 Drug: AZITHromycin 500 mg Route: PO; vc 16:25 Follow up: Response: No adverse reaction vc Disposition: 01/04/20 17:41 Hospitalization ordered by Timothy Lemus for Observation. Preliminary diagnosis are Acute coronary syndrome, Bronchitis, not specified as acute or chronic. - Bed requested for Telemetry/MedSurg (observation). - Status is Observation. vc - Condition is Stable. - Problem is new. - Symptoms have improved. Signatures: Dispatcher [employer] EDMS Tami Belle RN RN Jess Pugh RN RN Andrew Cavazos MD MD tw4 Yesenia Miranda RN RN vc Corrections: (The following items were deleted from the chart) 11:06 10:59 EKG - Nurse/Tech ordered. tw4 4 14:23 14:13 AZITHromycin 500 mg IVPB once over 1 hrs; (mix in 250 mL NS) ordered. 19:35 17:41 Hospitalization Ordered by Timothy Lemus DO for Observation. Preliminary mw diagnosis is Acute coronary syndrome; Bronchitis, not specified as acute or chronic. Bed requested for Telemetry/MedSurg (observation). Status is Observation. Condition is Stable. Problem is new. Symptoms have improved. tw4 21:03 19:35 01/04/2020 17:41 Hospitalization Ordered by Timothy Lemus DO for Observation. vc Preliminary diagnosis is Acute coronary syndrome; Bronchitis, not specified as acute or chronic. Bed requested for Telemetry/MedSurg (observation). Status is Observation. Condition is Stable. Problem is new. Symptoms have improved. mw
--- NOTE | 2020-01-04 17:42 | ER ---
Nurse's Notes [facility] Name: Mona Lozano Age: 84 yrs Sex: Female : 1935 Arrival Date: 01/04/2020 Time: 10:53 Bed 25 Private MD: Diagnosis: Acute coronary syndrome;Bronchitis, not specified as acute or chronic Presentation: 01/03 11:00 Chief complaint: Patient states: cough and shakiness x 4 days. Unknown fever. ss Coronavirus screen: The patient has NOT traveled to [place] in the past 14 days. Proceed with normal triage procedures. Ebola Screen: Patient denies exposure to infectious person. Patient denies travel to an Ebola-affected area in the 21 days before illness onset. Initial Sepsis Screen: Does the patient meet any 2 criteria? Does the patient have a suspected source of infection? Yes: Productive cough/pneumonia. Risk Assessment: Do you want to hurt yourself or someone else? Patient reports no desire to harm self or others. 11:00 Method Of Arrival: Ambulatory ss 11:00 Acuity: KAROLYN 3 ss 13:00 Onset of symptoms was January 01, 2020. vc Historical: - Allergies: 11:04 PENICILLINS; ss 11:04 Sulfa (Sulfonamide Antibiotics); ss 11:04 tetanus; ss - Home Meds: 13:00 calcium carbonate 600 mg (1,500 mg) Oral tab daily [Active]; metformin 500 mg Oral tab vc 1 tab QD [Active]; omeprazole 20 mg Oral cpDR 1 cap once daily [Active]; pravastatin 40 mg Oral tab 1 tab once daily [Active]; lisinopril 40 mg Oral tab 1 tab once daily [Active]; carvedilol 3.125 mg Oral tab 1 tab 2 times per day [Active]; Toviaz 4 mg Oral Tb24 1 tab once daily [Active]; levocetirizine Oral [Active]; Plavix 75 mg Oral tab 1 tab once daily [Active]; pressure vision daily [Active]; [place]-3 350 mg-235 mg- 90 mg-597 mg oral cpDR [Active]; - PMHx: 11:04 Diabetes - IDDM; Hyperlipidemia; Hypertension; ss - PSHx: 11:04 Tubal ligation; Hysterectomy; cardiac stents; pacemaker; ss - Immunization history:: Adult Immunizations up to date. - Social history:: Smoking status: Patient denies any tobacco usage or history of. Screenin:00 Abuse screen: Denies threats or abuse. Nutritional screening: No deficits noted. vc Tuberculosis screening: No symptoms or risk factors identified. Fall Risk None identified. Assessment: 13:00 General: Appears in no apparent distress. uncomfortable, Behavior is calm, cooperative, vc appropriate for age. Pain: Denies pain. Neuro: Level of Consciousness is awake, alert, obeys commands, Oriented to person, place, time, situation. Cardiovascular: Patient's skin is warm and dry. Respiratory: Airway is patent Respiratory effort is even, unlabored, Respiratory pattern is regular, symmetrical. Respiratory: Breath sounds are clear. GI: No signs and/or symptoms were reported involving the gastrointestinal system. : No signs and/or symptoms were reported regarding the genitourinary system. EENT: No deficits noted. No signs and/or symptoms were reported regarding the EENT system. Reports COUGH AND CONGESTION. Derm: No deficits noted. Musculoskeletal: Circulation, motion, and sensation intact. Range of motion: intact in all extremities. 14:00 Reassessment: Patient and/or family updated on plan of care and expected duration. Pain vc level reassessed. Patient denies pain at this time. 15:00 Reassessment: Patient and/or family updated on plan of care and expected duration. Pain vc level reassessed. Patient is alert, oriented x 3, equal unlabored respirations, skin warm/dry/pink. Patient states symptoms have improved. 16:00 Reassessment: Patient and/or family updated on plan of care and expected duration. Pain vc level reassessed. Patient is alert, oriented x 3, equal unlabored respirations, skin warm/dry/pink. DAUGHTER AT BEDSIDE Patient states symptoms have improved. 17:00 Reassessment: Patient and/or family updated on plan of care and expected duration. Pain vc level reassessed. Patient is alert, oriented x 3, equal unlabored respirations, skin warm/dry/pink. 18:00 Reassessment: Patient and/or family updated on plan of care and expected duration. Pain vc level reassessed. Patient is alert, oriented x 3, equal unlabored respirations, skin warm/dry/pink. Patient denies pain at this time. 19:00 Reassessment: Patient and/or family updated on plan of care and expected duration. Pain vc level reassessed. Patient is alert, oriented x 3, equal unlabored respirations, skin warm/dry/pink. Patient denies pain at this time. Patient states symptoms have improved. 20:00 Reassessment: Patient and/or family updated on plan of care and expected duration. Pain vc level reassessed. Patient is alert, oriented x 3, equal unlabored respirations, skin warm/dry/pink. Patient denies pain at this time. Patient states feeling better. Patient states symptoms have improved. 20:15 Reassessment: Attempted to call report will try again. vc 20:28 Reassessment: Report given to Jocy Smith RN. vc Vital Signs: 11:00 BP 165 / 72; Pulse 79; Resp 18; Temp 97.6; Pulse Ox 95% ; Weight 77.11 kg; Height 5 ft. ss 5 in. (165.10 cm); Pain 0/10; 16:00 BP 155 / 72; Pulse 71; Resp 18; Pulse Ox 100% on R/A; vc 18:00 BP 166 / 70; Pulse 82; Resp 16; Pulse Ox 94% on R/A; vc 20:00 BP 150 / 71; Pulse 80; Resp 17; Temp 98.3(O); Pulse Ox 100% on R/A; Pain 0/10; vc 11:00 Body Mass Index 28.29 (77.11 kg, 165.10 cm) ss ED Course: 10:53 Patient arrived in ED. mr 11:03 Triage completed. ss 11:04 Arm band placed on left wrist. ss 11:06 Andrew Cavazos MD is Attending Physician. tw4 12:08 Patient moved to radiology via wheelchair. jb2 12:18 Patient taken to lobby, via wheelchair. jb2 12:21 XRAY CXR (1 view) In Process Unspecified. EDMS 12:39 Yesenia Miranda, RN is Primary Nurse. vc 13:00 Patient has correct armband on for positive identification. vc 13:30 No provider procedures requiring assistance completed. Missed attempt(s):. Missed vc attempt(s): 22 gauge in left antecubital area. 13:40 Missed attempt(s): 22 gauge in left forearm. vc 13:47 EKG done, by cardiopulmonary technologist. reviewed by Andrew Cavazos MD. at1 17:39 Radiology exam delayed due to IV insertion attempt and/or patient not having vm2 appropriate IV at this time. 17:39 Timothy Lemus DO is Hospitalizing Provider. tw4 18:01 Inserted saline lock: 20 gauge in left antecubital area, using aseptic technique. Blood ss collected. 18:23 CT Chest For PE Angio In Process Unspecified. EDMS 20:10 Patient admitted, IV remains in place. vc Administered Medications: 14:23 CANCELLED (Physician Discretion): AZITHromycin 500 mg IVPB once over 1 hrs; (mix in 250 tw4 mL NS) 14:25 Drug: AZITHromycin 500 mg Route: PO; vc 16:25 Follow up: Response: No adverse reaction vc Outcome: 17:41 Decision to Hospitalize by Provider. tw4 20:09 Admitted to Med/surg accompanied by caio, family with patient, via wheelchair, room vc 213, with chart. 20:09 Condition: good 21:03 Patient left the ED. vc Signatures: Dispatcher [employer] EDWA Edilia Doran JesuAmari2 Jess Pugh, RN RN ss Alexia Wolf, data processing manager EKG Tat1 Brenda Nichols vm2 Andrew Cavazos MD MD tw4 Yesenia Miranda RN RN vc
--- NOTE | 2020-01-04 18:35 | RAD REPORT ---
EXAM DESCRIPTION: CT - Chest For Pe Angio - 01/04/2020 6:22 pm CLINICAL HISTORY: SOB COMPARISON: Chest Single View dated 01/04/2020 TECHNIQUE: Dynamically enhanced 3 mm thick images of the chest were obtained during administration o f approximately 150mL Isovue 370 IV contrast. Coronal and oblique MIP reconstruction images were gene rated and reviewed. Exam utilizes a protocol to evaluate the pulmonary arterial tree. All CT scans are performed using dose optimization technique as appropriate and may include automated exposure control or mA/KV adjustment according to patient size. FINDINGS: No pulmonary emboli are identified. The aorta as imaged shows no acute or suspicious finding. No pericardial thickening or effusion. Left lung field is clear. There are trace amounts of interstitial and alveolar opacification in the r ight middle lobe. Patchy alveolar opacities are present in the right lower lobe with peribronchial th ickening and partial opacification of the right lower lobe bronchi. No pleural effusion or pleural th ickening. No mediastinal or hilar suspicious masses. No chest wall masses or abnormal axillary lymphadenopathy. IMPRESSION: No pulmonary emboli identified. Patchy right lower lobe pneumonia and minimal right middle lobe pneumonia.
--- NOTE | 2020-01-04 18:47 | P.HP ---
Certification for Inpatient Patient admitted to: Observation With expected LOS: <2 Midnights Patient will require the following post-hospital care: None Practitioner: I am a practitioner with admitting privileges, knowledge of patient current condition, hospital course, and medical plan of care. Services: Services provided to patient in accordance with Admission requirements found in Title 42 Section 412.3 of the Code of Federal Regulations Patient History Date of Service: 01/04/20 Primary Care Provider: Dr. Montes; Cardiology-Dr. Recio Reason for admission: Cough, shortness of breath History of Present Illness: 84-year-old female presented to the emergency room with cough, congestion and shortness of breath. Patient recently traveled to [place]. Over the past week she has been having increased cough, congestion phlegm noted. She denies any fever, chills noted. Denies any nausea, vomiting. Denies any diarrhea or constipation. She came to the ER for further evaluation. In the ER patient evaluated. Chest x-ray shows lower lobe pneumonia. Troponin 0.23. BNP 529. CBC BMP reviewed. ER had plan to discharge her but troponin noted to be elevated. Patient was admitted for observation. When I saw the patient ER, she is seen appropriate. She did report some palpitations at times. She last saw all cardiology in November. Allergies Penicillins Adverse Reaction (Verified 03/16/19 09:20) Hives/Rash Sulfa (Sulfonamide Antibiotics) Adverse Reaction (Verified 03/16/19 09:20) Hives/Rash tetanus and diphtheria toxoids Adverse Reaction (Verified 03/16/19 09:20) Hives/Rash Home medications list reviewed: Yes Home Medications: Aspirin 81 mg PO DAILY 03/17/19 Calcium Carbonate [Calcium] 1 tab PO BID 03/17/19 Fesoterodine Fumarate [Toviaz] 1 tab PO DAILY 03/17/19 Garlic 1,000 mg PO BEDTIME 03/17/19 Levocetirizine Dihydrochloride [Xyzal] 5 mg PO DAILY 03/17/19 Metformin ER [Glucophage ER] 500 mg PO DAILY 03/17/19 Mv-Min/Iron/Folic/Calcium/Vitk [Women's Multivitamin Tablet] 1 tab PO DAILY [place]-3 Fatty Acids [[place]-3] 2 tab PO BEDTIME 03/17/19 Omeprazole 20 mg PO DAILY 03/17/19 Pravastatin Sodium [Pravachol] 40 mg PO BEDTIME 03/17/19 carvediloL [Coreg] 3.125 mg PO BID 03/17/19 lisinopriL [Lisinopril] 40 mg PO DAILY 03/17/19 Clopidogrel Bisulfate [Plavix] 75 mg PO DAILY 30 Days #30 tablet 03/18/19 - Past Medical/Surgical History Diabetic: Yes -: Diabetes mellitus type 2 non-insulin dependent -: Hypertension -: CAD with prior stent -: Pacemaker -: Urinary incontinence -: Hyperlipidemia -: Tubaligation -: Hysterectomy -: Pacemaker placement Psychosocial/ Personal History: Patient is a . - Family History Father -: Heart disease Notes: heart attack Sister -: Stroke Notes: brain aneurysm - Social History Smoking Status: Never smoker Alcohol use: No CD- Drugs: No Caffeine use: Yes Place of Residence: Home Review of Systems General: Chills, As per HPI Eyes: Unremarkable ENT: Nose Congestion, As per HPI Respiratory: Cough, Shortness of Breath, As per HPI Cardiovascular: Palpitations, As per HPI Gastrointestinal: Unremarkable Genitourinary: Unremarkable Musculoskeletal: Unremarkable Integumentary: Unremarkable Neurological: Unremarkable Lymphatics: Unremarkable Physical Examination - Physical Exam General: Alert, In no apparent distress, Oriented x3, Cooperative HEENT: Atraumatic, Normocephalic, Other (Some nasal congestion noted) Neck: Supple Respiratory: Crackles/rales (Mild crackles to the right base) Cardiovascular: Normal pulses, Regular rate/rhythm Gastrointestinal: Normal bowel sounds, Soft and benign, Non-distended, No tenderness, No masses, No rebound, No guarding Musculoskeletal: No erythema, No tenderness, No warmth Integumentary: Tenderness/swelling (Minimal pitting edema to the lower extremities) Neurological: Normal speech, Normal strength at 5/5 x4 extr, Normal tone, Normal affect - Studies Laboratory Data (last 24 hrs) 01/04/20 13:36: PT 11.9, INR 1.01, APTT 29.2 01/04/20 13:36: WBC 3.2 L, Hgb 12.3, Hct 36.7, Plt Count 130 L 01/04/20 13:36: Sodium 140, Potassium 4.5, BUN 19 H, Creatinine 0.73, Glucose 120 H, Magnesium 2.0, Total Bilirubin 0.3, AST 25, ALT 26, Alkaline Phosphatase 57, Lipase 227 Microbiology Data (last 24 hrs): 01/04/20 13:16 Nasopharnyx Influenza Type A Antigen Screen - Final 01/04/20 13:16 Nasopharnyx Influenza Type B Antigen Screen - Final Assessment and Plan - Plan Impression: Cough, shortness of breast secondary to right lower lobe pneumonia Elevated troponin likely ischemic demand with history of CAD and prior stent History of pacemaker with noted palpitations Hypertension Diabetes mellitus type 2 [id number] GERD Hyperlipidemia Plan: Cough, shortness of breast secondary to right lower lobe pneumonia: Patient will be admitted for further evaluation and observation. Will start IV Levaquin. Will obtain blood and sputum cultures. Recheck chest x-ray in the morning. Monitor cardiac enzymes. Will discuss with Cardiology tomorrow. Anticipate discharge tomorrow with clinical improvement. Will have pacemaker interrogated due to recent palpitations. Elevated troponin likely ischemic demand with history of CAD and prior stent: Will monitor cardiac enzymes. Likely ischemic demand from pneumonia. Will discuss with her mixer foam rubber tomorrow. History of pacemaker with noted palpitations: Will have pacemaker evaluated Hypertension: Restart home medication. Diabetes mellitus type 2 [id number]: Will monitor Accu-Cheks and provide sliding scale. GERD: Provide medication. Hyperlipidemia: Restart home medication Discharge Plan: Home Plan to discharge in: 24 Hours - Advance Directives Does patient have a Living Will: Yes Does patient have a Durable POA for Healthcare: No - Code Status/Comfort Care Code Status Assessed: Yes (Patient is full code) Time Spent Managing Pts Care (In Minutes): 55
[2020-01-04] MEDS ORDERED: GLUCAGON 1 MG/VIAL IM PRN (21:21)
[2020-01-04] MEDS ORDERED: ATORVASTATIN 10 MG TAB PO SCH (21:21)
[2020-01-04] MEDS ORDERED: IPRATROPIUM BROM 0.5MG/2.5ML NEB PRN (21:21)
[2020-01-04] MEDS ORDERED: ONDANSETRON 4 MG/2 ML VIAL IV PRN (21:21)
[2020-01-04] MEDS ORDERED: Levofloxacin500mg IV 500 MG/100 ML BAG IV SCH (21:21)
[2020-01-04] MEDS ORDERED: D50W 25 GM/50 ML SYRINGE/VIAL IV PRN (21:21)
[2020-01-04] MEDS: INSULIN -REGULAR HUMAN 50 UNIT/0.5 ML ML SQ SCH (21:21)
[2020-01-04] MEDS ORDERED: BENZONATATE 100 MG CAP PO PRN (21:21)
[2020-01-04 21:29] VITALS: BMI 27.8
[2020-01-04] MEDS: GUAIFENESIN 600 MG SA TAB PO SCH (21:46)
[2020-01-04] MEDS: carvediloL 3.125 MG TAB PO SCH (21:46)
[2020-01-04] MEDS: ACETAMINOPHEN 500 MG TAB PO PRN (21:48)
[2020-01-04 22:22] LABS: CKMB Creatine Kinase MB 2.1 ng/mL (0.3-3.6); Troponin I 0.22 ng/mL (0.0-0.045)
[2020-01-05] MEDS: ACETAMINOPHEN 500 MG TAB PO PRN (01:14)
[2020-01-05 05:59] LABS: Basophils % 0.4 % (0-1.3); Hematocrit 36.2 % (36.0-45.0); Lymphocytes % 20.8 % (15.3-44.8); MPV 7.8 fL (7.6-11.3); RBC Red Blood Cell Count 3.75 M/uL (3.86-4.86)
[2020-01-05 06:24] LABS: CKMB Creatine Kinase MB 1.6 ng/mL (0.3-3.6); Troponin I 0.2 ng/mL (0.0-0.045)
[2020-01-05] MEDS ORDERED: PANTOPRAZOLE 40MG TABLET PO SCH (06:30)
[2020-01-05 06:32] LABS: Thyroid Stimulating Hormone 2.46 uIU/mL (0.360-3.740)
[2020-01-05] MEDS: carvediloL 3.125 MG TAB PO SCH (06:39)
--- NOTE | 2020-01-05 07:20 | RAD REPORT ---
EXAM DESCRIPTION: RAD - Chest Pa And Lat (2 Views) - 01/05/2020 7:01 am CLINICAL HISTORY: Follow up pneumonia COMPARISON: Chest Single View dated 01/04/2020; Chest Pa And Lat (2 Views) dated 03/16/2019; Chest Sing le View dated 04/13/2018; Chest For Pe Angio dated 01/04/2020 TECHNIQUE: Frontal and lateral views of the chest were obtained. FINDINGS: The lungs are normal volume. Patchy pneumonia changes in the right base are again noted si milar to comparison. Stranding in the left base is slightly worse. This can be atelectasis or additio nal developing infiltrate. This can be monitored on subsequent imaging. Pacemaker remains in place. No new tube or line. Heart size is normal and central vasculature is wi thin normal limits. No pleural effusion or pneumothorax seen. No acute bony finding noted. No aort ic abnormality. IMPRESSION: Stable right base infiltrate. Stranding in the left base may be a developing pneumonia. This can be monitored on subsequent imaging .
[2020-01-05] MEDS: INSULIN -REGULAR HUMAN 50 UNIT/0.5 ML ML SQ SCH ×2 (07:30→11:30)
[2020-01-05] MEDS ORDERED: CLOPIDOGREL 75 MG TABLET PO SCH (09:00)
[2020-01-05] MEDS ORDERED: ENOXAPARIN 40 MG/0.4 ML SQ SCH (09:00)
--- NOTE | 2020-01-05 09:27 | P.DS ---
Admission Date: 01/04/20 Discharge Date: 01/05/20 Primary Care Provider: Dr. Montes; Cardiology-Dr. Recio Disposition: ROUTINE DISCHARGE Discharge Condition: GOOD Reason for Admission: Cough, shortness of breath Consultations: none Procedures: CT Chest: FINDINGS: No pulmonary emboli are identified. The aorta as imaged shows no acute or suspicious finding. No pericardial thickening or effusion. Left lung field is clear. There are trace amounts of interstitial and alveolar opacification in the right middle lobe. Patchy alveolar opacities are present in the right lower lobe with peribronchial thickening and partial opacification of the right lower lobe bronchi. No pleural effusion or pleural thickening. No mediastinal or hilar suspicious masses. No chest wall masses or abnormal axillary lymphadenopathy. IMPRESSION: No pulmonary emboli identified. Patchy right lower lobe pneumonia and minimal right middle lobe pneumonia. Medical Problem List: Cough, shortness of breast secondary to right lower lobe pneumonia Elevated troponin likely ischemic demand with history of CAD and prior stent History of pacemaker with noted palpitations Hypertension Diabetes mellitus type 2 [id number] GERD Hyperlipidemia Brief History of Present Illness: 84-year-old female presented to the emergency room with cough, congestion and shortness of breath. Patient recently traveled to [place]. Over the past week she has been having increased cough, congestion phlegm noted. She denies any fever, chills noted. Denies any nausea, vomiting. Denies any diarrhea or constipation. She came to the ER for further evaluation. In the ER patient evaluated. Chest x-ray shows lower lobe pneumonia. Troponin 0.23. BNP 529. CBC BMP reviewed. ER had plan to discharge her but troponin noted to be elevated. Patient was admitted for observation. When I saw the patient ER, she is seen appropriate. She did report some palpitations at times. She last saw all cardiology in November. Hospital Course: Patient presented with cough, shortness of breath. Patient was evaluated in the emergency room. D-dimer was elevated along with slight elevation in troponin. Initial chest x-ray showed pneumonia. CT chest showed no pulmonary embolism. CT confirmed pneumonia. Patient was observed. At discharge she is without significant chest pain, shortness of breath. Case discussed with her county manager. No further intervention required. Patient can have pacemaker reassessed as an outpatient. At discharge she will continue with Levaquin 500 mg 1 pill daily for 5 more days. Patient will also continue with Mucinex 600 mg twice daily as needed for congestion and Tessalon Perles 100 mg 3 times a day as needed for cough. Recommend follow up with her PCP within 1 week. Recommend to recheck chest x-ray in 2-4 weeks monitor resolution. Patient may need to decrease activities for the next week. Patient had elevation in troponin. No acute Coronary Syndrome identified. Patient with history of CAD and prior stent. Case discussed with her county manager. Patient also reported some palpitations. Patient with pacemaker. Patient can have pacemaker interrogated as an outpatient. This was discussed in detail with her county manager. No further intervention was required. Patient will continue with Plavix 75 mg daily, carvedilol 3.125 mg 1 pill twice daily, lisinopril 40 mg daily, and pravastatin 40 mg daily. Recommend follow up with cardiology in 1 month. Patient with diabetes mellitus type 2 non insulin dependent. This has remained stable. Patient was given IV contrast for PE protocol CT chest. Will recommend to hold metformin for at least 2 days. She may restart metformin 500 mg daily after that time. Recommend to maintain blood sugars less 140 fasting and less than 200 after meals. Further adjustment can be done by her PCP. Patient with GERD. At discharge she will continue with Prilosec 20 mg daily. Patient with hyperlipidemia. At discharge she may continue with pravastatin 40 mg daily and fish oil. Patient with urinary incontinence. Patient may continue with Toviaz 4 mg daily. Recommend follow up with urology to further address. Patient with chronic seasonal allergies. Patient may continue with Xyzal daily. Patient may also take Flonase over the counter 1 spray per nostril twice daily. Vital Signs/Physical Exam: Temp Pulse Resp BP Pulse Ox 96.9 F 66 18 126/62 96 01/05/20 04:00 01/05/20 06:39 01/05/20 04:00 01/05/20 06:39 01/05/20 04:00 General: Alert, In no apparent distress, Oriented x3, Cooperative HEENT: Atraumatic Neck: Supple Respiratory: Crackles/rales (Slight crackles to the right base but improved aeration. Room-air saturations within normal range.) Cardiovascular: Normal pulses, Regular rate/rhythm Gastrointestinal: Normal bowel sounds, Soft and benign, Non-distended, No tenderness, No masses, No rebound, No guarding Musculoskeletal: No erythema, No tenderness, No warmth Integumentary: No tenderness/swelling, No erythema, No warmth, No cyanosis Neurological: Normal speech, Normal strength at 5/5 x4 extr, Normal tone, Normal affect Laboratory Data at Discharge: WBC 4.8 K/uL (4.3-10.9) D 01/05/20 05:42 Hgb 12.1 g/dL (12.0-15.0) 01/05/20 05:42 Hct 36.2 % (36.0-45.0) 01/05/20 05:42 Plt Count 105 K/uL (152-406) L 01/05/20 05:42 PT 11.9 SECONDS (9.5-12.5) 01/04/20 13:36 INR 1.01 01/04/20 13:36 APTT 29.2 SECONDS (24.3-36.9) 01/04/20 13:36 Sodium 137 mmol/L (136-145) 01/05/20 05:42 Potassium 4.0 mmol/L (3.5-5.1) 01/05/20 05:42 BUN 16 mg/dL (7-18) 01/05/20 05:42 Creatinine 0.65 mg/dL (0.55-1.3) 01/05/20 05:42 Glucose 117 mg/dL (74-106) H 01/05/20 05:42 Magnesium 2.0 mg/dL (1.8-2.4) 01/05/20 05:42 Total Bilirubin 0.3 mg/dL (0.2-1.0) 01/04/20 13:36 AST 25 U/L (15-37) 01/04/20 13:36 ALT 26 U/L (12-78) 01/04/20 13:36 Alkaline Phosphatase 57 U/L (45-117) 01/04/20 13:36 Troponin I 0.20 ng/mL (0.0-0.045) H 01/05/20 05:42 Triglycerides 148 mg/dL (<150) 01/05/20 05:42 Cholesterol 148 mg/dL (<200) 01/05/20 05:42 HDL Cholesterol 41 mg/dL (40-60) 01/05/20 05:42 Cholesterol/HDL Ratio 3.61 01/05/20 05:42 Lipase 227 U/L (73-393) 01/04/20 13:36 Home Medications: Calcium Carbonate [Calcium] 1 tab PO BID 03/17/19 Fesoterodine Fumarate [Toviaz] 1 tab PO DAILY 03/17/19 Garlic 1,000 mg PO BEDTIME 03/17/19 Levocetirizine Dihydrochloride [Xyzal] 5 mg PO DAILY 03/17/19 Metformin ER [Glucophage ER*] 500 mg PO DAILY 03/17/19 [place]-3 Fatty Acids [[place]-3] 2 tab PO BEDTIME 03/17/19 Omeprazole 20 mg PO DAILY 03/17/19 Pravastatin Sodium [Pravachol] 40 mg PO BEDTIME 03/17/19 carvediloL [Coreg*] 3.125 mg PO BID 03/17/19 lisinopriL [Lisinopril] 40 mg PO DAILY 03/17/19 Clopidogrel Bisulfate [Plavix] 75 mg PO DAILY 30 Days #30 tablet 03/18/19 Benzonatate [Tessalon Perle*] 100 mg PO TID PRN #15 cap 01/05/20 Guaifenesin [Mucinex] 600 mg PO BID PRN #15 tab.er.12h 01/05/20 Levofloxacin [Levaquin] 500 mg PO DAILY #5 tablet 01/05/20 New Medications: Benzonatate [Tessalon Perle*] 100 mg PO TID PRN #15 cap PRN Reason: Cough Guaifenesin [Mucinex] 600 mg PO BID PRN #15 tab.er.12h PRN Reason: Cough Levofloxacin [Levaquin] 500 mg PO DAILY #5 tablet Patient Discharge Instructions: 1. Recommend follow up with PCP in 1 week to follow up this hospitalization. 2. Patient presented with cough, shortness of breath. Patient was evaluated in the emergency room. D-dimer was elevated along with slight elevation in troponin. Initial chest x-ray showed pneumonia. CT chest showed no pulmonary embolism. CT confirmed pneumonia. Patient was observed. At discharge she is without significant chest pain, shortness of breath. Case discussed with her county manager. No further intervention required. Patient can have pacemaker reassessed as an outpatient. At discharge she will continue with Levaquin 500 mg 1 pill daily for 5 more days. Patient will also continue with Mucinex 600 mg twice daily as needed for congestion and Tessalon Perles 100 mg 3 times a day as needed for cough. Recommend follow up with her PCP within 1 week. Recommend to recheck chest x- ray in 2-4 weeks monitor resolution. Patient may need to decrease activities for the next week. 3. Patient had elevation in troponin. No acute Coronary Syndrome identified. Patient with history of CAD and prior stent. Case discussed with her county manager. Patient also reported some palpitations. Patient with pacemaker. Patient can have pacemaker interrogated as an outpatient. This was discussed in detail with her county manager. No further intervention was required. Patient will continue with Plavix 75 mg daily, carvedilol 3.125 mg 1 pill twice daily, lisinopril 40 mg daily, and pravastatin 40 mg daily. Recommend follow up with cardiology in 1 month. 4. Patient with diabetes mellitus type 2 non insulin dependent. This has remained stable. Patient was given IV contrast for PE protocol CT chest. Will recommend to hold metformin for at least 2 days. She may restart metformin 500 mg daily after that time. Recommend to maintain blood sugars less 140 fasting and less than 200 after meals. Further adjustment can be done by her PCP. 5. Patient with GERD. At discharge she will continue with Prilosec 20 mg daily. 6. Patient with hyperlipidemia. At discharge she may continue with pravastatin 40 mg daily and fish oil. 7. Patient with urinary incontinence. Patient may continue with Toviaz 4 mg daily. Recommend follow up with urology to further address. 8. Patient with chronic seasonal allergies. Patient may continue with Xyzal daily. Patient may also take Flonase over the counter 1 spray per nostril twice daily. Diet: AHA Activity: Ad ag Time spent managing pt's care (in minutes): 55
[2020-01-05] MEDS: GUAIFENESIN 600 MG SA TAB PO SCH (09:45)
[2020-01-05 11:23] VITALS: O2SAT 95
[2020-01-05 14:17] VITALS: BP 146/69; TEMP 98.7
[2020-01-05] MEDS ORDERED: Levofloxacin500mg IV 500 MG/100 ML BAG IV SCH (21:00)
== END 2020-01-05 14:04 | disposition home or self-care (01) ==
LOC: ER 10:48 → ERHOLD 18:36 → 2ND 20:34
PROVIDERS: ADMIT Family Medicine; ATTEND Family Medicine
DX: J18.9 Pneumonia, unspecified organism (principal); E11.9 Type 2 diabetes mellitus without complications; I10 Essential (primary) hypertension; I25.10 Atherosclerotic heart disease of native coronary artery without angina pectoris; E78.5 Hyperlipidemia, unspecified; K21.9 Gastro-esophageal reflux disease without esophagitis; Z95.0 Presence of cardiac pacemaker
CPT/HCPCS: 93005; 87040 ×2; 87070; 85025 ×2; 80048 ×2; 36415; 83735 ×2; 82550 ×3; 87205; 85610; 80061; 82947 ×3; 85379; 80076; 85730; 84443; 84484 ×3; 82553 ×3; 84439; 83690; 83880; 87804 ×2; 71275; 71045; 71046; 99285; Q9967; J1650; G0378 ×3

== ENCOUNTER 2022-12-11 12:41 | Inpatient (IN) | payer OTHER ==
--- OUTSIDE RECORDS SUMMARY | 2022-12-11 12:57 | XMS REPORT | Continuity of Care Document ---
:1935 Author Organization [facility] t Address [address] [place] [address] [address]. Salcedo [address] [place] [address] Care Team Providers Name Role Phone MADELEINE BENJAMIN Primary Care Physician Unavailable ALYCIA DECKER Attending Clinician Unavailable COLLEEN MEZA Attending Clinician Unavailable FLOWER MERINO Attending Clinician Unavailable KURT WEINBERG Attending Clinician Unavailable Cynthia Muro PT Attending Clinician Unavailable Kurt Weinberg MD Attending Clinician VALERI WU Attending Clinician Unavailable Valeri Fuller Attending Clinician Doctor Unassigned, [place] Attending Clinician Unavailable 2, [facility] Attending Clinician Unavailable Flower Merino MD Attending Clinician Alycia Decker MD Attending Clinician Pob, [facility] Main Attending Clinician Unavailable Miller_S_AH Attending Clinician Unavailable Pamela-Mbayo_A_AH Attending Clinician Unavailable MORGAN WILSON Attending Clinician Unavailable Provider, [facility] Attending Clinician Unavailable Emelia Faith Attending Clinician EMELIA LLANES Attending Clinician Unavailable Arleen Mcduffie Attending Clinician VALERI WU Admitting Clinician Unavailable Miller_S_AH Admitting Clinician Unavailable Pamela-Mbayo_A_AH Admitting Clinician Unavailable Arleen Mcduffie Admitting Clinician Payers Payer Name Policy Type Policy Number Effective Date Expiration Date S angelica [place] [place] [id number] 2020 CLASSIC NO PREMIUM 00:00:00 H[place] - [id number] 2019 [place] 00:00:00 (MEDICARE REPLACEMENT/ADVANT AGE - HMO) Problems Condition Condition Condition Status Onset Resolution Last Treating Co mments Source Name Details Category Date Date Treatment Clinician Date Coronary Coronary Disease Active 2021-11 Unive rs artery artery 2-28 ity of disease disease 00:00: [place] involving involving 00 Medi candido [place] [facility] [place] [facility] coronary coronary artery of artery of [place] table [place] heart heart without without angina angina pectoris pectoris Pacemaker Pacemaker Disease Active 2021-11 Uni vers 2- ity of 00:00: [place] 00 Medical Branch Hyperlipid Hyperlipid Disease Active 2021-11 U nivers emia, emia, 2-28 it[place] of unspecifie [place]if[place] Medical hyperlipid hyperlipid Br anch emia type emia type Primary Primary Disease Active 2021-11 Univers hypertensi hypertensi 2-28 it y of on on 00:00: [place] 00 Medical Branch Blood Blood Problem Active [facility] coagulatio Coagulatio 2-10 [facility] n disorder n Disorder 00:00: Pr actic 00 e 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 Diabetes 6-29 Family mellitus Mellitus 00:00: Practi c 00 e Hyperchole Hyperchole Problem Active [facility] ill[facility] sterolemia sterolemia 6-29 [facility] 00:00: Practic 00 e 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 00:00: Practic 00 e 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 Failure 6-29 Family 00:00: Practic 00 e Gastroesop Gastroesop Problem Active [facility] hageal hageal 6-29 Family reflux Reflux 00:00: Practic disease Disease 00 e 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 [facility] HEART DEGREE 6-11 21:51:00 l BLOCK HEART 00:00: [place] BLOCK 00 Active 04/14/2018 [facility] COMPLETE COMPLETE Diagnosis Active 2018-04-14 [facility] HEART HEART 6-11 23:42:00 l BLOCK BLOCK 00:00: [place] Active 00 04/14/2018 [facility] No known No known Disease Unive rs active active ity of problems problems [facility] Chest Chest Problem 2018-04-19 Memor ia pain, pain, 02:46:06 l unspecifie unspecifie He rmann d d 04/19/2018 [facility] ATRIOVENTR ATRIOVENT Diagnosis Active 2018-04-21 [facility] ICULAR RICULAR 21:51:00 l BLOCK, BLOCK, [place] COMPLETE COMPLETE Active [facility] CHEST CHEST Diagnosis Active 2018-04-14 Mem oria PAIN, PAIN, 23:42:00 l UNSPECIFIE UNSPECIFIE He rmann D D Active [facility] Allergies, Adverse Reactions, Alerts Allergy Allergy Status Severity Reaction(s) Onset Inactive Treating Comm ents Source Name Type Date Date Clinician Penicill Drug Active Rash 2018-11 Univers ins Allergy 11-29 ity of 00:00: [place] 00 Medical Branch Sulfa Drug Active Unknown - 2018-11 Univers (Sulfona Allergy See comments 1- i ty of mide 00:00: [place] Antibiot 00 Medical ics) Branch SULFA Drug Active Unknown-Cmnt 2018-11 Univ ers (SULFONA Class -26 ity of MIDE 00:00: [place] ANTIBIOT 00 Medical ICS) Branch TETANUS DRUG Active Rash 2018- Univers AND 11-29 ity of DIPHTHER 00:00: [place] . TOX 00 Medical (PF) Branch Tetanus Propensi Active Rash 2018- Univers And ty to 11-29 ity of Diphther adverse 00:00: [place] . Tox reaction 00 Medical (Pf) s Branch PENICILL Drug Active Low Rash 2018- Univers INS Class 1-26 ity of 00:00: [place] 00 Medical Branch Penicill Drug Active Rash 2018-11 Univers ins Allergy 26 ity of 00:00: [place] 00 Medical Branch Sulfa Drug Active Unknown - 2018-11 Univers (Sulfona Allergy See comments 1-26 i ty of mide 00:00: [place] Antibiot 00 Medical ics) Branch sulfa sulfa Active [facility] drugs l [place] penicill penicill Active Memori a in in l [place] PENICILL Allergy Active Moderate Hives Pierre ge INS to to severe Family substanc Practic e e SULFA Allergy Active [place] (SULFONA to Family MIDE substanc Practic ANTIBIOT e e ICS) NO KNOWN Drug Active Univers ALLERGIE Class ity of S [facility] Social History Social Habit Start Date Stop Date Quantity Comments Source Exposure to 2022-11-16 2022-11-26 Not sure [facility] SARS-CoV-2 00:00:00 13:00:00 [facility] (event) [place] Tobacco use and 2020-08-03 2020-08-03 Smokeless tobacco Un iversity of exposure 00:00:00 00:00:[address] [facility] Social History 2018-04-15 2018-04-15 [facility] jesusita 05:17:01 05:17:01 Sex [birth year] [place] [facility] 00:00:00 00:00:00 Smoking Status Start Date Stop Date Source Tobacco smoking consumption [facility] unknown [facility] [place] Family P jazmin Never smoked tobacco [facility] Medications Ordered Filled Start Stop Current Ordering Indication Dosage Frequency Signature Comments Components Source Medication Medication Date Date Medication? Clinician (SIG) Name Name iopamidol 2022- No [id number] 100mL 100 mL, Univers (ISOVUE 11-21 100 Intravenou ity o f 370-500 mL) 18:45: 17:57 s, ONCE, 1 [place] injection 00 :00 dose, On Medica l 100 mL [facility] Branch 11/21/22 at 1245, Routine Nitrofurant 2022- Yes [id number] 100mg Take 1 Univers oin&Nit. 11-15 capsule by ity of Macroc[place] 00:00: 05:59 [place] (MACROBID[place] 00 :00 the Medical 100 mg morning Branch capsule and 1 capsule in the evening. Do all this for 4 days. Nitrofurant 2022- Yes [id number] 100mg Take 1 Univers oin&Nit. 11-15 capsule by ity of Macroc[place] 00:00: 05:59 [place]CROBID[place] :00 the Medical 100 mg morning Branch capsule and 1 capsule in the evening. Do all this for 4 days. Nitrofurant Yes Take one Univers oin&Nit. 1-05 capsule by ity o f Macrocryst 00:00: mouth [place] (MACROBID) 00 twice Medical 100 mg daily Branch capsule starting 2 days prior to scheduled urological procedure. Nitrofurant 2022-0 Yes Take one Univers oin&Nit. 1-05 capsule by ity o f Macrocryst 00:00: mouth [place] (MACROBID) 00 twice Medical 100 mg daily Branch capsule starting 2 days prior to scheduled urological procedure. Nitrofurant 2022-0 Yes Take one Univers oin&Nit. 1-05 capsule by ity o f Macrocryst 00:00: mouth [place] (MACROBID) 00 twice Medical 100 mg daily Branch capsule starting 2 days prior to scheduled urological procedure. Nitrofurant 2022-0 Yes Take one Univers oin&Nit. 1-05 capsule by ity o f Macrocryst 00:00: mouth [place] (MACROBID) 00 twice Medical 100 mg daily Branch capsule starting 2 days prior to scheduled urological procedure. Nitrofurant 2022-0 Yes Take one Univers oin&Nit. 1-05 capsule by ity o f Macrocryst 00:00: mouth [place] (MACROBID) 00 twice Medical 100 mg daily Branch capsule starting 2 days prior to scheduled urological procedure. Nitrofurant 0 202- No Take one Univers oin&Nit. 1-05 01-12 capsule by ity of Macrocryst 00:00: 00:00 mouth [place] (MACROBID) 00 :00 twice Medical 100 mg daily Branch capsule starting 2 days prior to scheduled urological procedure. carvediloL Yes 3.125mg Take 3.125 Univers 3.125 mg 1-02 mg by ity of tablet 11:43: mouth in [place] 53 the Medical morning Branch and 3.125 mg in the evening. Take with meals. calcium Yes Take by Univers carbonate 1-02 mouth. ity of 600 mg 11:43: [place] calcium 53 Medical (1,500 mg) Branch tablet Garlic Yes Take by Univers 1,000 mg 1-02 mouth. ity of Cap 11:43: [place] [address] Medical Branch multivit Yes Take by Univer s with 1-02 mouth. ity of calcium,iro 11:43: [place] n,min 53 Medical (WOMEN'S Branch MULTIPLE VITAMINS ORAL) carvediloL 2023-0 Yes 3.125mg Take 3.125 Univers 3.125 mg 1-02 mg by ity of tablet 11:43: mouth in [place] [address] the Medical morning Branch and 3.125 mg in the evening. Take with meals. calcium 2023-0 Yes Take by Univers carbonate 1-02 mouth. ity of 600 mg 11:43: [place] calcium 53 Medical (1,500 mg) Branch tablet Garlic 2022-0 Yes Take by Univers 1,000 mg 1-02 mouth. ity of Cap 11:43: [address] Branch multivit 2022-0 Yes Take by Univer s with 1-02 mouth. ity of calcium,iro 11:43: [place] n,min 53 Medical (WOMEN'S Branch MULTIPLE VITAMINS ORAL) carvediloL 2022-0 Yes 3.125mg Take 3.125 Univers 3.125 mg 1-02 mg by ity of tablet 11:43: mouth in [place] [address] the [facility] morning Branch and 3.125 mg in the evening. Take with meals. calcium 3-0 Yes Take by Univers carbonate 1-02 mouth. ity of 600 mg 11:43: [place] calcium 53 Medical (1,500 mg) Branch tablet Garlic 2022-0 Yes Take by Univers 1,000 mg 1-02 mouth. ity of Cap 11:43: [address] Branch multivit 2022-0 Yes Take by Univer s with 1-02 mouth. ity of calcium,iro 11:43: [place] n,min 53 Medical (WOMEN'S Branch MULTIPLE VITAMINS ORAL) carvediloL 2022-0 Yes 3.125mg Take 3.125 Univers 3.125 mg 1-02 mg by ity of tablet 11:43: mouth in [place] [address] the Medical morning Branch and 3.125 mg in the evening. Take with meals. calcium 3-0 Yes Take by Univers carbonate 1-02 mouth. ity of 600 mg 11:43: [place] calcium 53 Medical (1,500 mg) Branch tablet Garlic 2022-0 Yes Take by Univers 1,000 mg 1-02 mouth. ity of Cap 11:43: [address] Branch multivit 2022-0 Yes Take by Univer s with 1-02 mouth. ity of calcium,iro 11:43: [facility],min 53 Medical (WOMEN'S Branch MULTIPLE VITAMINS ORAL) carvediloL 2023-0 Yes 3.125mg Take 3.125 Univers 3.125 mg 1-02 mg by ity of tablet 11:43: mouth in [place] [address] the Medical morning Branch and 3.125 mg in the evening. Take with meals. calcium 2023-0 Yes Take by Univers carbonate 1-02 mouth. ity of 600 mg 11:43: [place] calcium 53 Medical (1,500 mg) Branch tablet Garlic 3-0 Yes Take by Univers 1,000 mg 1-02 mouth. ity of Cap 11:43: [address] Branch multivit 2022-0 Yes Take by Univer s with 1-02 mouth. ity of calcium,iro 11:43: [place] n,min 53 Medical (WOMEN'S Branch MULTIPLE VITAMINS ORAL) carvediloL 3-0 Yes 3.125mg Take 3.125 Univers 3.125 mg 1-02 mg by ity of tablet 11:43: mouth in [place] [address] the [facility] morning Branch and 3.125 mg in the evening. Take with meals. calcium 3-0 Yes Take by Univers carbonate 1-02 mouth. ity of 600 mg 11:43: [place] calcium 53 Medical (1,500 mg) Branch tablet Garlic 2022-0 Yes Take by Univers 1,000 mg 1-02 mouth. ity of Cap 11:43: [address] Branch multivit 2022-0 Yes Take by Univer s with 1-02 mouth. ity of calcium,iro 11:43: [place] n,min 53 Medical (WOMEN'S Branch MULTIPLE VITAMINS ORAL) carvediloL 2022-0 Yes 3.125mg Take 3.125 Univers 3.125 mg 1-02 mg by ity of tablet 11:43: mouth in [place] [address] the Medical morning Branch and 3.125 mg in the evening. Take with meals. calcium 3-0 Yes Take by Univers carbonate 1-02 mouth. ity of 600 mg 11:43: [place] calcium 53 Medical (1,500 mg) Branch tablet Garlic 2022-0 Yes Take by Univers 1,000 mg 1-02 mouth. ity of Cap 11:43: [address] Branch multivit 2022-0 Yes Take by Univer s with 1-02 mouth. ity of calcium,iro 11:43: [place] n,min 53 Medical (WOMEN'S Branch MULTIPLE VITAMINS ORAL) carvediloL 3-0 Yes 3.125mg Take 3.125 Univers 3.125 mg 1-02 mg by ity of tablet 11:43: mouth in [place] [address] the Medical morning Branch and 3.125 mg in the evening. Take with meals. calcium 2023-0 Yes Take by Univers carbonate 1-02 mouth. ity of 600 mg 11:43: [place] calcium 53 Medical (1,500 mg) Branch tablet Garlic 2022-0 Yes Take by Univers 1,000 mg 1-02 mouth. ity of Cap 11:43: [address] Branch multivit 2022-0 Yes Take by Unive rs with 1-02 mouth. ity of calcium,iro 11:43: [place] n,min 53 Medical (WOMEN'S Branch MULTIPLE VITAMINS ORAL) carvediloL 2022-0 Yes 3.125mg Take 3.125 Univers 3.125 mg 1-02 mg by ity of tablet 11:43: mouth in [place] [address] the Medical morning Branch and 3.125 mg in the evening. Take with meals. calcium 3-0 Yes Take by Univers carbonate 1-02 mouth. ity of 600 mg 11:43: [place] calcium 53 Medical (1,500 mg) Branch tablet Garlic 2022-0 Yes Take by Univers 1,000 mg 1-02 mouth. ity of Cap 11:43: [address] Branch multivit 2022-0 Yes Take by Univer s with 102 mouth. ity of calcium,iro 11:43: [place] n,min 53 Medical (WOMEN'S Branch MULTIPLE VITAMINS ORAL) carvediloL 2022-0 Yes 3.125mg Take 3.125 Univers 3.125 mg 1-02 mg by ity of tablet 11:43: mouth in [place] [address] the Medical morning Branch and 3.125 mg in the evening. Take with meals. calcium 3-0 Yes Take by Univers carbonate 1-02 mouth. ity of 600 mg 11:43: [place] calcium 53 Medical (1,500 mg) Branch tablet Garlic 2022-0 Yes Take by Univers 1,000 mg 1-02 mouth. ity of Cap 11:43: [address] Branch multivit 2022-0 Yes Take by Univer s with 1-02 mouth. ity of calcium,iro 11:43: [place] n,min 53 Medical (WOMEN'S Branch MULTIPLE VITAMINS ORAL) carvediloL 2022-0 Yes 3.125mg Take 3.125 Univers 3.125 mg 1-02 mg by ity of tablet 11:43: mouth in [place] [address] the Medical morning Branch and 3.125 mg in the evening. Take with meals. calcium 3-0 Yes Take by Univers carbonate 1-02 mouth. ity of 600 mg 11:43: [place] calcium 53 Medical (1,500 mg) Branch tablet Garlic 2022-0 Yes Take by Univers 1,000 mg 1-02 mouth. ity of Cap 11:43: [address] Branch multivit 2022-0 Yes Take by [employer] s with 1-02 mouth. ity of calcium,iro 11:43: [place] n,min 53 Medical (WOMEN'S Branch MULTIPLE VITAMINS ORAL) carvediloL 2022-0 Yes 3.125mg Take 3.125 Univers 3.125 mg 1-02 mg by ity of tablet 11:43: mouth in [place] [address] the [facility] morning Branch and 3.125 mg in the evening. Take with meals. calcium 2022-0 Yes Take by Univers carbonate 1-02 mouth. ity of 600 mg 11:43: [place] calcium 53 Medical (1,500 mg) Branch tablet Garlic 2022-0 Yes Take by Univers 1,000 mg 1-02 mouth. ity of Cap 11:43: [address] Branch multivit 2022-0 Yes Take by [employer] with 1-02 mouth. ity of calcium,iro 11:43: [place] n,min 53 Medical (WOMEN'S Branch MULTIPLE VITAMINS ORAL) carvediloL 2022-0 Yes 3.125mg Take 3.125 Univers 3.125 mg 1-02 mg by ity of tablet 11:43: mouth in [place] [address] the Medical morning Branch and 3.125 mg in the evening. Take with meals. calcium 3-0 Yes Take by Univers carbonate 1-02 mouth. ity of 600 mg 11:43: [place] calcium 53 Medical (1,500 mg) Branch tablet Garlic 2022-0 Yes Take by Univers 1,000 mg 1-02 mouth. ity of Cap 11:43: [address] Branch multivit 2022-0 Yes Take by Univer s with 1-02 mouth. ity of calcium,iro 11:43: [facility],min Medical (WOMEN'S Branch MULTIPLE VITAMINS ORAL) carvediloL 2023-0 Yes 3.125mg Take 3.125 Univers 3.125 mg 1-02 mg by ity of tablet 11:43: mouth in [place] [address] the Medical morning Branch and 3.125 mg in the evening. Take with meals. calcium 2023-0 Yes Take by Univers carbonate 1-02 mouth. ity of 600 mg 11:43: [place] calcium 53 Medical (1,500 mg) Branch tablet Garlic 3-0 Yes Take by Univers 1,000 mg 1-02 mouth. ity of Cap 11:43: [address] Branch multivit 2022-0 Yes Take by Univer s with 1-02 mouth. ity of calcium,iro 11:43: [place] n[facility] Medical (WOMEN'S Branch MULTIPLE VITAMINS ORAL) carvediloL 2022-0 Yes 3.125mg Take 3.125 Univers 3.125 mg 1-02 mg by ity of tablet 11:43: mouth in [place] [address] the [facility] morning Branch and 3.125 mg in the evening. Take with meals. calcium 3-0 Yes Take by Univers carbonate 1-02 mouth. ity of 600 mg 11:43: [place] calcium 53 Medical (1,500 mg) Branch tablet Garlic 2022-0 Yes Take by Univers 1,000 mg 1-02 mouth. ity of Cap 11:43: [address] Branch multivit 2022-0 Yes Take by Univer s with 1-02 mouth. ity of calcium,iro 11:43: [place] n[facility] Medical ([facility] Branch MULTIPLE VITAMINS ORAL) carvediloL 2022-0 Yes 3.125mg Take 3.125 Univers 3.125 mg 1-02 mg by ity of tablet 11:43: mouth in [place] [address] the Medical morning Branch and 3.125 mg in the evening. Take with meals. calcium 2023-0 Yes Take by Univers carbonate 1-02 mouth. ity of 600 mg 11:43: [place] calcium 53 Medical (1,500 mg) Branch tablet Garlic 3-0 Yes Take by Univers 1,000 mg 1-02 mouth. ity of Cap 11:43: [address] Branch multivit 3-0 Yes Take by Univer s with 1-02 mouth. ity of calcium,iro 11:43: [facility] Medical (WOMEN'S [place] MULTIPLE VITAMINS ORAL) carvediloL 2023-0 Yes 3.125mg Take 3.125 Univers 3.125 mg 1-02 mg by ity of tablet 11:43: mouth in [place] [address] the Medical morning Branch and 3.125 mg in the evening. Take with meals. calcium 2023-0 Yes Take by Univers carbonate 1-02 mouth. ity of 600 mg 11:43: [place] calcium 53 Medical (1,500 mg) Branch tablet Garlic 2023-0 Yes Take by Univers 1,000 mg 1-02 mouth. ity of Cap 11:43: [address] Branch multivit 2022-0 Yes Take by [employer] with 1-02 mouth. ity of calcium,iro 11:43: [place] n[facility] Medical (WOMEN'S Branch MULTIPLE VITAMINS ORAL) carvediloL 3-0 Yes 3.125mg Take 3.125 Univers 3.125 mg 1-02 mg by ity of tablet 11:43: mouth in [address] morning [place] and 3.125 mg in the evening. Take with meals. calcium 2023-0 Yes Take by Univers carbonate 1-02 mouth. ity of 600 mg 11:43: [place] calcium 53 Medical (1,500 mg) Branch tablet Garlic 2022-0 Yes Take by Univers 1,000 mg 1-02 mouth. ity of Cap 11:43: [address] multivit 2022-0 Yes Take by [employer] with 1-02 mouth. ity of calcium,iro 11:43: [place] n[facility] Medical ([facility] Branch MULTIPLE VITAMINS ORAL) carvediloL 3-0 Yes 3.125mg Take 3.125 Univers 3.125 mg 1-02 mg by ity of tablet 11:43: mouth in [place] [address] the [facility] morning Branch and 3.125 mg in the evening. Take with meals. calcium 2023-0 Yes Take by Univers carbonate 1-02 mouth. ity of 600 mg 11:43: [place] calcium 53 Medical (1,500 mg) Branch tablet Garlic 2023-0 Yes Take by Univers 1,000 mg 1-02 mouth. ity of Cap 11:43: [address] multivit 3-0 Yes Take by Univer s with 1-02 mouth. ity of calcium,iro 11:43: [facility] Medical (WOMENS Branch MULTIPLE VITAMINS ORAL) iopamidol 2022-1 2022- No [id number] 88mL 88 mL, Univers (ISOVUE 11-01 Intravenou ity o f 370-500 mL) 19:00: 18:02 s, ONCE, 1 [place] injection 00 :00 dose, On Medica l 88 mL Melina Branch 11/01/22 at 1300, Routine multivit 2021-11 Yes Take by Univer s with 1-21 mouth. ity of calcium,iro 13:52: [place] n,min 21 Medical ([facility] MULTIPLE VITAMINS ORAL) multivit 2021-11 Yes Take by Univer s with 1-21 mouth. ity of calcium,iro 13:52: [place] n,min 21 Medical ([facility] MULTIPLE VITAMINS ORAL) multivit 2021-11 Yes Take by Univer s with 1-21 mouth. ity of calcium,iro 13:52: [place] n,min 21 Medical ([facility] MULTIPLE VITAMINS ORAL) multivit 2021-11 Yes Take by Univer s with 1-21 mouth. ity of calcium,iro 13:52: [place] n,min 21 Medical ([facility] MULTIPLE VITAMINS ORAL) multivit 2021-11 Yes Take by Univer s with 1-21 mouth. ity of calcium,iro 13:52: [place] n,min 21 Medical ([facility] MULTIPLE VITAMINS ORAL) multivit 2021-11 Yes Take by Univer s with 1-21 mouth. ity of calcium,iro 13:52: [place] n,min 21 Medical ([facility] MULTIPLE VITAMINS ORAL) multivit 2021-11 Yes Take by Univer s with 1-21 mouth. ity of calcium,iro 13:52: [place] n,min 21 Medical ([facility] MULTIPLE VITAMINS ORAL) multivit 2021-11 Yes Take by Univer s with 1-21 mouth. ity of calcium,iro 13:52: [place] n,min 21 Medical ([facility] [place] MULTIPLE VITAMINS ORAL) multivit 2021-11 Yes Take by Univer s with 1-21 mouth. ity of calcium,iro 13:52: [place] n,min 21 Medical ([facility] MULTIPLE VITAMINS ORAL) multivit 2021-11 Yes Take by Univer s with 1-21 mouth. ity of calcium,iro 13:52: [place] n,min 21 Medical ([facility] MULTIPLE VITAMINS ORAL) multivit 2021-11 Yes Take by Univer s with 1-21 mouth. ity of calcium,iro 13:52: [place] n,min 21 Medical ([facility] MULTIPLE VITAMINS ORAL) Garlic 2021-11 Yes Take by Univers 1,000 mg 1-21 mouth. ity of Cap 13:52: [address] Garlic 2021-11 Yes Take by Univers 1,000 mg 1-21 mouth. ity of Cap 13:52: [address] Garlic 2021-11 Yes Take by Univers 1,000 mg 1-21 mouth. ity of Cap 13:52: [address] Garlic 2021-11 Yes Take by Univers 1,000 mg 1-21 mouth. ity of Cap 13:52: [address] Garlic 2021-11 Yes Take by Univers 1,000 mg 1-21 mouth. ity of Cap 13:52: [address] Garlic 2021-11 Yes Take by Univers 1,000 mg 1-21 mouth. ity of Cap 13:52: [address] Garlic 2021-11 Yes Take by Univers 1,000 mg 1-21 mouth. ity of Cap 13:52: [address] Garlic 2021-11 Yes Take by Univers 1,000 mg 1-21 mouth. ity of Cap 13:52: [address] Garlic 2021-11 Yes Take by Univers 1,000 mg 1-21 mouth. ity of Cap 13:52: [address] Garlic 2021-11 Yes Take by Univers 1,000 mg 1-21 mouth. ity of Cap 13:52: [address] Garlic 2021-11 Yes Take by Univers 1,000 mg 1-21 mouth. ity of Cap 13:52: [address] calcium 2021-11 Yes Take by Univers carbonate 1-21 mouth. ity of 600 mg 13:49: [place] calcium [address] [place] [address] (1,500 mg) Branch tablet Cranberry 2021-11 Yes Take by Unive rs 500 mg Cap 1-21 mouth. ity of 13:49: [address] calcium 2021-11 Yes Take by Univers carbonate 1-21 mouth. ity of 600 mg 13:49: [place] calcium 32 Medical (1,500 mg) Branch tablet Cranberry 2021-11 Yes Take by Unive rs 500 mg Cap 21 mouth. ity of 13:49: [place] [address] Medical Branch calcium 2021-11 Yes Take by Univers carbonate 11-24 mouth. ity of 600 mg 13:49: [place] calcium 32 Medical (1,500 mg) Branch tablet Cranberry 2021-11 Yes Take by Unive rs 500 mg Cap 11-24 mouth. ity of 13:49: [place] [address] Medical Branch calcium 2021-11 Yes Take by Univers carbonate 21 mouth. ity of 600 mg 13:49: [place] calcium 32 Medical (1,500 mg) Branch tablet Cranberry 2021-11 Yes Take by Unive rs 500 mg Cap 11-24 mouth. ity of 13:49: [place] [address] Medical Branch calcium 2021-11 Yes Take by Univers carbonate 11-24 mouth. ity of 600 mg 13:49: [place] calcium 32 Medical (1,500 mg) Branch tablet Cranberry 2021-11 Yes Take by Unive rs 500 mg Cap 11-24 mouth. ity of 13:49: [place] [address] Medical Branch calcium 2021-11 Yes Take by Univers carbonate 11-24 mouth. ity of 600 mg 13:49: [place] calcium 32 Medical (1,500 mg) Branch tablet Cranberry 2021-11 Yes Take by Unive rs 500 mg Cap 11-24 mouth. ity of 13:49: [place] [address] Medical Branch calcium 2021-11 Yes Take by Univers carbonate 21 mouth. ity of 600 mg 13:49: [place] calcium 32 Medical (1,500 mg) Branch tablet Cranberry 2021-11 Yes Take by [facility] rs 500 mg Cap 21 mouth. ity of 13:49: [place] [address] [facility] Branch calcium 2021-11 Yes Take by [facility] carbonate 21 mouth. ity of 600 mg 13:49: [place] calcium 32 Medical (1,500 mg) Branch tablet Cranberry 2021-11 Yes Take by [facility] rs 500 mg Cap -21 mouth. ity of 13:49: [place] [address] [facility] Branch calcium 2021-11 Yes Take by [facility] carbonate 1-21 mouth. ity of 600 mg 13:49: [place] calcium 32 Medical (1,500 mg) Branch tablet [place] 2021-11 Yes Take by [facility] rs 500 mg Cap -21 mouth. ity of 13:49: [address] calcium 2021-11 Yes Take by [facility] carbonate 1-21 mouth. ity of 600 mg 13:49: [place] [id number] Medical (1,500 mg) [place] tablet Cranberry 2021-11 Yes Take by [facility] rs 500 mg Cap 1-21 mouth. ity of 13:49: [address] [place] 2021-11 Yes Take by [facility] rs 500 mg Cap 1-21 mouth. ity of 13:49: [address] [place] 2021-11 Yes Take by [facility] rs 500 mg Cap 1-21 mouth. ity of 13:49: [address] [place] 2021-11 Yes Take by [facility] rs 500 mg Cap 1-21 mouth. ity of 13:49: [address] [place] 2021-11 Yes Take by [facility] rs 500 mg Cap 1-21 mouth. ity of 13:49: [address] [place] 2021-11 Yes Take by [facility] rs 500 mg Cap 1-21 mouth. ity of 13:49: [address] [place] 2021-11 Yes Take by [facility] rs 500 mg Cap 1-21 mouth. ity of 13:49: [address] [place] 2021-11 Yes Take by [facility] rs 500 mg Cap 1-21 mouth. ity of 13:49: [address] [place] 2021-11 Yes Take by [facility] rs 500 mg Cap 1-21 mouth. ity of 13:49: [address] [place] 2021-11 Yes Take by [facility] rs 500 mg Cap 1-21 mouth. ity of 13:49: [address] [place] 2021-11 Yes Take by [facility] rs 500 mg Cap 1-21 mouth. ity of 13:49: [address] [place] 2021-11 Yes Take by [facility] rs 500 mg Cap 1-21 mouth. ity of 13:49: [address] [place] 2021-11 Yes Take by [facility] rs 500 mg Cap 1-21 mouth. ity of 13:49: [address] [place] 2021-11 Yes Take by [facility] rs 500 mg Cap 1-21 mouth. ity of 13:49: [address] [place] 2021-11 Yes Take by [facility] rs 500 mg Cap 1-21 mouth. ity of 13:49: [address] [place] 2021-11 Yes Take by [facility] rs 500 mg Cap 1-21 mouth. ity of 13:49: [address] [place] 2021-11 Yes Take by [facility] rs 500 mg Cap 1-21 mouth. ity of 13:49: [address] [place] 2021-11 Yes Take by [facility] rs 500 mg Cap 1-21 mouth. ity of 13:49: [address] [place] 2021-11 Yes Take by [facility] rs 500 mg Cap 1-21 mouth. ity of 13:49: [address] [place] 2021-11 Yes Take by [facility] rs 500 mg Cap 1-21 mouth. ity of 13:49: [address] carvediloL 2021-11 Yes 3.125mg Take 3.125 [facility] 3.125 mg 1-21 mg by ity of tablet 11:33: mouth in [address] and 3.125 mg in the evening. Take with meals. clopidogreL 2021-11 Yes 75mg Take 75 mg [facility] 75 mg 1-21 by mouth. ity of tablet 11:33: [address] lisinopriL 2021-11 Yes lisinopril U nivers 40 mg 1-21 40 mg ity of tablet 11:33: tablet [address] metFORMIN 2021-11 Yes metformin Uni vers 500 mg 1-21 500 mg ity of tablet 11:33: tablet [address] pravastatin 2021-11 Yes 40mg Take 40 mg [facility] 40 mg 1-21 by mouth. ity of tablet 11:33: [address] carvediloL 2021-11 Yes 3.125mg Take 3.125 [facility] 3.125 mg 1-21 mg by ity of tablet 11:33: mouth in [address] and 3.125 mg in the evening. Take with meals. clopidogreL 2021-11 Yes 75mg Take 75 mg [facility] 75 mg 1-21 by mouth. ity of tablet 11:33: [address] lisinopriL 2021-11 Yes lisinopril U nivers 40 mg 1-21 40 mg ity of tablet 11:33: tablet [address] metFORMIN 2021-11 Yes metformin Uni vers 500 mg 1-21 500 mg ity of tablet 11:33: tablet [address] pravastatin 2021-11 Yes 40mg Take 40 mg [facility] 40 mg 1-21 by mouth. ity of tablet 11:33: [address] carvediloL 2021-11 Yes 3.125mg Take 3.125 [facility] 3.125 mg 1-21 mg by ity of tablet 11:33: mouth in [address] and 3.125 mg in the evening. Take with meals. clopidogreL 2021-11 Yes 75mg Take 75 mg [facility] 75 mg 1-21 by mouth. ity of tablet 11:33: [address] lisinopriL 2021-11 Yes lisinopril U nivers 40 mg 1-21 40 mg ity of tablet 11:33: tablet [address] metFORMIN 2021-11 Yes metformin Uni vers 500 mg 1-21 500 mg ity of tablet 11:33: tablet [address] pravastatin 2021-11 Yes 40mg Take 40 mg [facility] 40 mg 1-21 by mouth. ity of tablet 11:33: [address] carvediloL 2021-11 Yes 3.125mg Take 3.125 [facility] 3.125 mg 1-21 mg by ity of tablet 11:33: mouth in [address] and 3.125 mg in the evening. Take with meals. clopidogreL 2021-11 Yes 75mg Take 75 mg [facility] 75 mg 1-21 by mouth. ity of tablet 11:33: [address] lisinopriL 2021-11 Yes lisinopril U nivers 40 mg 1-21 40 mg ity of tablet 11:33: tablet [address] metFORMIN 2021-11 Yes metformin Uni vers 500 mg 1-21 500 mg ity of tablet 11:33: tablet [address] pravastatin 2021-11 Yes 40mg Take 40 mg [facility] 40 mg 1-21 by mouth. ity of tablet 11:33: [address] carvediloL 2021-11 Yes 3.125mg Take 3.125 [facility] 3.125 mg 1-21 mg by ity of tablet 11:33: mouth in [address] and 3.125 mg in the evening. Take with meals. clopidogreL 2021-11 Yes 75mg Take 75 mg [facility] 75 mg 1-21 by mouth. ity of tablet 11:33: [address] lisinopriL 2021-11 Yes lisinopril U nivers 40 mg 1-21 40 mg ity of tablet 11:33: tablet [address] metFORMIN 2021-11 Yes metformin Uni vers 500 mg 1-21 500 mg ity of tablet 11:33: tablet [address] pravastatin 2021-11 Yes 40mg Take 40 mg [facility] 40 mg 1-21 by mouth. ity of tablet 11:33: [address] carvediloL 2021-11 Yes 3.125mg Take 3.125 [facility] 3.125 mg 1-21 mg by ity of tablet 11:33: mouth in [address] and 3.125 mg in the evening. Take with meals. clopidogreL 2021-11 Yes 75mg Take 75 mg [facility] 75 mg 1-21 by mouth. ity of tablet 11:33: [address] lisinopriL 2021-11 Yes lisinopril U nivers 40 mg 1-21 40 mg ity of tablet 11:33: tablet [address] metFORMIN 2021-11 Yes metformin Uni vers 500 mg 1-21 500 mg ity of tablet 11:33: tablet [address] pravastatin 2021-11 Yes 40mg Take 40 mg [facility] 40 mg 1-21 by mouth. ity of tablet 11:33: [address] carvediloL 2021-11 Yes 3.125mg Take 3.125 [facility] 3.125 mg 1-21 mg by ity of tablet 11:33: mouth in [address] and 3.125 mg in the evening. Take with meals. clopidogreL 2021-11 Yes 75mg Take 75 mg [facility] 75 mg 1-21 by mouth. ity of tablet 11:33: [address] lisinopriL 2021-11 Yes lisinopril U nivers 40 mg 1-21 40 mg ity of tablet 11:33: tablet [address] metFORMIN 2021-11 Yes metformin Uni vers 500 mg 1-21 500 mg ity of tablet 11:33: tablet [address] pravastatin 2021-11 Yes 40mg Take 40 mg [facility] 40 mg 1-21 by mouth. ity of tablet 11:33: [address] carvediloL 2021-11 Yes 3.125mg Take 3.125 [facility] 3.125 mg 1-21 mg by ity of tablet 11:33: mouth in [address] and 3.125 mg in the evening. Take with meals. clopidogreL 2021-11 Yes 75mg Take 75 mg [facility] 75 mg 1-21 by mouth. ity of tablet 11:33: [address] lisinopriL 2021-11 Yes lisinopril U nivers 40 mg 1-21 40 mg ity of tablet 11:33: tablet [address] metFORMIN 2021-11 Yes metformin Uni vers 500 mg 1-21 500 mg ity of tablet 11:33: tablet [address] pravastatin 2021-11 Yes 40mg Take 40 mg [facility] 40 mg 1-21 by mouth. ity of tablet 11:33: [address] carvediloL 2021-11 Yes 3.125mg Take 3.125 [facility] 3.125 mg 1-21 mg by ity of tablet 11:33: mouth in [address] and 3.125 mg in the evening. Take with meals. clopidogreL 2021-11 Yes 75mg Take 75 mg [facility] 75 mg 1-21 by mouth. ity of tablet 11:33: [address] lisinopriL 2021-11 Yes lisinopril U nivers 40 mg 1-21 40 mg ity of tablet 11:33: tablet [address] metFORMIN 2021-11 Yes metformin [facility] vers 500 mg 1-21 500 mg ity of tablet 11:33: tablet [address] pravastatin 2021-11 Yes 40mg Take 40 mg [facility] 40 mg 1-21 by mouth. ity of tablet 11:33: [address] carvediloL 2021-11 Yes 3.125mg Take 3.125 [facility] 3.125 mg 1-21 mg by ity of tablet 11:33: mouth in [address] and 3.125 mg in the evening. Take with meals. clopidogreL 2021-11 Yes 75mg Take 75 mg [facility] 75 mg 1-21 by mouth. ity of tablet 11:33: [address] lisinopriL 2021-11 Yes lisinopril U nivers 40 mg 1-21 40 mg ity of tablet 11:33: tablet [address] metFORMIN 2021-11 Yes metformin [facility] vers 500 mg 1-21 500 mg ity of tablet 11:33: tablet [address] pravastatin 2021-11 Yes 40mg Take 40 mg [facility] 40 mg 1-21 by mouth. ity of tablet 11:33: [address] carvediloL 2021-11 Yes 3.125mg Take 3.125 [facility] 3.125 mg 1-21 mg by ity of tablet 11:33: mouth in [address] and 3.125 mg in the evening. Take with meals. clopidogreL 2021-11 Yes 75mg Take 75 mg [facility] 75 mg 1-21 by mouth. ity of tablet 11:33: [address] lisinopriL 2021-11 Yes lisinopril U nivers 40 mg 1-21 40 mg ity of tablet 11:33: tablet [address] metFORMIN 2021-11 Yes metformin [facility] vers 500 mg 1-21 500 mg ity of tablet 11:33: tablet [address] pravastatin 2021-11 Yes 40mg Take 40 mg [facility] 40 mg 1-21 by mouth. ity of tablet 11:33: [address] carvediloL 2021-11 Yes 3.125mg Take 3.125 [facility] 3.125 mg 1-21 mg by ity of tablet 11:33: mouth in [address] and 3.125 mg in the evening. Take with meals. clopidogreL 2021-11 Yes 75mg Take 75 mg [facility] 75 mg 1-21 by mouth. ity of tablet 11:33: [address] lisinopriL 2021-11 Yes lisinopril U nivers 40 mg 1-21 40 mg ity of tablet 11:33: tablet [address] metFORMIN 2021-11 Yes metformin Uni vers 500 mg 1-21 500 mg ity of tablet 11:33: tablet [address] pravastatin 2021-11 Yes 40mg Take 40 mg [facility] 40 mg 1-21 by mouth. ity of tablet 11:33: [address] clopidogreL 2021-11 Yes 75mg Take 75 mg [facility] 75 mg 1-21 by mouth. ity of tablet 11:33: [address] lisinopriL 2021-11 Yes lisinopril U nivers 40 mg 1-21 40 mg ity of tablet 11:33: tablet [address] metFORMIN 2021-11 Yes metformin [facility] vers 500 mg 1-21 500 mg ity of tablet 11:33: tablet [address] pravastatin 2021-11 Yes 40mg Take 40 mg [facility] 40 mg 1-21 by mouth. ity of tablet 11:33: [address] clopidogreL 2021-11 Yes 75mg Take 75 mg [facility] 75 mg 1-21 by mouth. ity of tablet 11:33: [address] lisinopriL 2021-11 Yes lisinopril U nivers 40 mg 1-21 40 mg ity of tablet 11:33: tablet [address] metFORMIN 2021-11 Yes metformin [facility] vers 500 mg 1-21 500 mg ity of tablet 11:33: tablet [address] pravastatin 2021-11 Yes 40mg Take 40 mg [facility] 40 mg 1-21 by mouth. ity of tablet 11:33: [address] clopidogreL 2021-11 Yes 75mg Take 75 mg [facility] 75 mg 1-21 by mouth. ity of tablet 11:33: [address] lisinopriL 2021-11 Yes lisinopril U nivers 40 mg 1-21 40 mg ity of tablet 11:33: tablet [address] metFORMIN 2021-11 Yes metformin [facility] vers 500 mg 1-21 500 mg ity of tablet 11:33: tablet [address] pravastatin 2021-11 Yes 40mg Take 40 mg [facility] 40 mg 1-21 by mouth. ity of tablet 11:33: [address] clopidogreL 2021-11 Yes 75mg Take 75 mg [facility] 75 mg 1-21 by mouth. ity of tablet 11:33: [address] lisinopriL 2021-11 Yes lisinopril U nivers 40 mg 1-21 40 mg ity of tablet 11:33: tablet [address] metFORMIN 2021-11 Yes metformin Uni vers 500 mg 1-21 500 mg ity of tablet 11:33: tablet [address] pravastatin 2021-11 Yes 40mg Take 40 mg [facility] 40 mg 1-21 by mouth. ity of tablet 11:33: [address] clopidogreL 2021-11 Yes 75mg Take 75 mg [facility] 75 mg 1-21 by mouth. ity of tablet 11:33: [address] lisinopriL 2021-11 Yes lisinopril U nivers 40 mg 1-21 40 mg ity of tablet 11:33: tablet [address] metFORMIN 2021-11 Yes metformin [facility] vers 500 mg 1-21 500 mg ity of tablet 11:33: tablet [address] pravastatin 2021-11 Yes 40mg Take 40 mg [facility] 40 mg 1-21 by mouth. ity of tablet 11:33: [address] clopidogreL 2021-11 Yes 75mg Take 75 mg [facility] 75 mg 1-21 by mouth. ity of tablet 11:33: [address] lisinopriL 2021-11 Yes lisinopril U nivers 40 mg 1-21 40 mg ity of tablet 11:33: tablet [address] metFORMIN 2021-11 Yes metformin Uni vers 500 mg 1-21 500 mg ity of tablet 11:33: tablet [address] pravastatin 2021-11 Yes 40mg Take 40 mg [facility] 40 mg 1-21 by mouth. ity of tablet 11:33: [address] clopidogreL 2021-11 Yes 75mg Take 75 mg [facility] 75 mg 1-21 by mouth. ity of tablet 11:33: [address] lisinopriL 2021-11 Yes lisinopril U nivers 40 mg 1-21 40 mg ity of tablet 11:33: tablet [address] metFORMIN 2021-11 Yes metformin [facility] vers 500 mg 1-21 500 mg ity of tablet 11:33: tablet [address] pravastatin 2021-11 Yes 40mg Take 40 mg [facility] 40 mg 1-21 by mouth. ity of tablet 11:33: [address] clopidogreL 2021-11 Yes 75mg Take 75 mg [facility] 75 mg 1-21 by mouth. ity of tablet 11:33: [address] lisinopriL 2021-11 Yes lisinopril U nivers 40 mg 1-21 40 mg ity of tablet 11:33: tablet [address] metFORMIN 2021-11 Yes metformin [facility] vers 500 mg 1-21 500 mg ity of tablet 11:33: tablet [address] pravastatin 2021-11 Yes 40mg Take 40 mg [facility] 40 mg 1-21 by mouth. ity of tablet 11:33: [address] clopidogreL 2021-11 Yes 75mg Take 75 mg [facility] 75 mg 1-21 by mouth. ity of tablet 11:33: [address] lisinopriL 2021-11 Yes lisinopril U nivers 40 mg 1-21 40 mg ity of tablet 11:33: tablet [address] metFORMIN 2021-11 Yes metformin Uni vers 500 mg 1-21 500 mg ity of tablet 11:33: tablet [address] pravastatin 2021-11 Yes 40mg Take 40 mg [facility] 40 mg 1-21 by mouth. ity of tablet 11:33: [address] clopidogreL 2021-11 Yes 75mg Take 75 mg [facility] 75 mg 1-21 by mouth. ity of tablet 11:33: [address] lisinopriL 2021-11 Yes lisinopril U nivers 40 mg 1-21 40 mg ity of tablet 11:33: tablet [address] metFORMIN 2021-11 Yes metformin Uni vers 500 mg 1-21 500 mg ity of tablet 11:33: tablet [address] pravastatin 2021-11 Yes 40mg Take 40 mg [facility] 40 mg 1-21 by mouth. ity of tablet 11:33: [address] clopidogreL 2021-11 Yes 75mg Take 75 mg [facility] 75 mg 1-21 by mouth. ity of tablet 11:33: [address] lisinopriL 2021-11 Yes lisinopril U nivers 40 mg 1-21 40 mg ity of tablet 11:33: tablet [address] metFORMIN 2021-11 Yes metformin [facility] vers 500 mg 1-21 500 mg ity of tablet 11:33: tablet [address] pravastatin 2021-11 Yes 40mg Take 40 mg [facility] 40 mg 1-21 by mouth. ity of tablet 11:33: [address] clopidogreL 2021-11 Yes 75mg Take 75 mg [facility] 75 mg 1-21 by mouth. ity of tablet 11:33: [address] lisinopriL 2021-11 Yes lisinopril U nivers 40 mg 1-21 40 mg ity of tablet 11:33: tablet [address] metFORMIN 2021-11 Yes metformin [facility] vers 500 mg 1-21 500 mg ity of tablet 11:33: tablet [address] pravastatin 2021-11 Yes 40mg Take 40 mg [facility] 40 mg 1-21 by mouth. ity of tablet 11:33: [address] clopidogreL 2021-11 Yes 75mg Take 75 mg [facility] 75 mg 1-21 by mouth. ity of tablet 11:33: [address] lisinopriL 2022-1 Yes lisinopril U nivers 40 mg 1-21 40 mg ity of tablet 11:33: tablet [address] metFORMIN 2021-11 Yes metformin Uni vers 500 mg 1-21 500 mg ity of tablet 11:33: tablet [address] pravastatin 2021-11 Yes 40mg Take 40 mg [facility] 40 mg 1-21 by mouth. ity of tablet 11:33: [address] clopidogreL 2021-11 Yes 75mg Take 75 mg [facility] 75 mg 1-21 by mouth. ity of tablet 11:33: [address] lisinopriL 2021-11 Yes lisinopril U nivers 40 mg 1-21 40 mg ity of tablet 11:33: tablet [address] metFORMIN 2021-11 Yes metformin [facility] vers 500 mg 1-21 500 mg ity of tablet 11:33: tablet [address] pravastatin 2021-11 Yes 40mg Take 40 mg [facility] 40 mg 1-21 by mouth. ity of tablet 11:33: [address] clopidogreL 2021-11 Yes 75mg Take 75 mg [facility] 75 mg 1-21 by mouth. ity of tablet 11:33: [address] lisinopriL 2021-11 Yes lisinopril U nivers 40 mg 1-21 40 mg ity of tablet 11:33: tablet [address] metFORMIN 2021-11 Yes metformin Uni vers 500 mg 1-21 500 mg ity of tablet 11:33: tablet [address] pravastatin 2021-11 Yes 40mg Take 40 mg [facility] 40 mg 1-21 by mouth. ity of tablet 11:33: [address] clopidogreL 2021-11 Yes 75mg Take 75 mg [facility] 75 mg 1-21 by mouth. ity of tablet 11:33: [address] lisinopriL 2021-11 Yes lisinopril U nivers 40 mg 1-21 40 mg ity of tablet 11:33: tablet [address] metFORMIN 2021-11 Yes metformin [facility] vers 500 mg 1-21 500 mg ity of tablet 11:33: tablet [address] pravastatin 2021-11 Yes 40mg Take 40 mg [facility] 40 mg 1-21 by mouth. ity of tablet 11:33: [address] clopidogreL 2021-11 Yes 75mg Take 75 mg [facility] 75 mg 1-21 by mouth. ity of tablet 11:33: [address] lisinopriL 2021-11 Yes lisinopril U nivers 40 mg 1-21 40 mg ity of tablet 11:33: tablet [address] metFORMIN 2021-11 Yes metformin [facility] vers 500 mg 1-21 500 mg ity of tablet 11:33: tablet [address] pravastatin 2021-11 Yes 40mg Take 40 mg [facility] 40 mg 1-21 by mouth. ity of tablet 11:33: [address] clopidogreL 2021-11 Yes 75mg Take 75 mg [facility] 75 mg 1-21 by mouth. ity of tablet 11:33: [address] lisinopriL 2021-11 Yes lisinopril U nivers 40 mg 1-21 40 mg ity of tablet 11:33: tablet [address] metFORMIN 2021-11 Yes metformin Uni vers 500 mg 1-21 500 mg ity of tablet 11:33: tablet [address] pravastatin 2021-11 Yes 40mg Take 40 mg [facility] 40 mg 1-21 by mouth. ity of tablet 11:33: [address] clopidogreL 2021-11 Yes 75mg Take 75 mg [facility] 75 mg 1-21 by mouth. ity of tablet 11:33: [address] lisinopriL 2021-11 Yes lisinopril U nivers 40 mg 1-21 40 mg ity of tablet 11:33: tablet [address] metFORMIN 2021-11 Yes metformin [facility] vers 500 mg 1-21 500 mg ity of tablet 11:33: tablet [address] pravastatin 2021-11 Yes 40mg Take 40 mg [facility] 40 mg 1-21 by mouth. ity of tablet 11:33: [address] carvediloL 2021-11 Yes 3.125mg Take 3.125 [facility] 3.125 mg 1-21 mg by ity of tablet 11:33: mouth in [address] Branch and 3.125 mg in the evening. Take with meals. clopidogreL 2021-11 Yes 75mg Take 75 mg [facility] 75 mg 1-21 by mouth. ity of tablet 11:33: [address] lisinopriL 2021-11 Yes lisinopril U nivers 40 mg 1-21 40 mg ity of tablet 11:33: tablet [address] metFORMIN 2021-11 Yes metformin [facility] vers 500 mg 1-21 500 mg ity of tablet 11:33: tablet [address] pravastatin 2021-11 Yes 40mg Take 40 mg [facility] 40 mg 1-21 by mouth. ity of tablet 11:33: [address] carvediloL 2021-11 Yes 3.125mg Take 3.125 [facility] 3.125 mg 1-21 mg by ity of tablet 11:33: mouth in [address] Branch and 3.125 mg in the evening. Take with meals. clopidogreL 2021-11 Yes 75mg Take 75 mg [facility] 75 mg 1-21 by mouth. ity of tablet 11:33: [address] lisinopriL 2021-11 Yes lisinopril U nivers 40 mg 1-21 40 mg ity of tablet 11:33: tablet [address] metFORMIN 2021-11 Yes metformin [facility] vers 500 mg 1-21 500 mg ity of tablet 11:33: tablet [address] pravastatin 2021-11 Yes 40mg Take 40 mg [facility] 40 mg 1-21 by mouth. ity of tablet 11:33: [address] estradioL 2021-11 Yes [id number] Apply 1g [facility] 0.01 % (0.1 1-21 vaginally ity of mg/gram) 00:00: at bedtime [facility] as vaginal 00 every Medical cream night for Branch 2 weeks and then apply 1g vaginally at bedtime 2 times per week estradioL 2021-11 Yes [id number] Apply 1g [facility] 0.01 % (0.1 1-21 vaginally ity of mg/gram) 00:00: at bedtime [facility] vaginal 00 every Medical cream night for Branch 2 weeks and then apply 1g vaginally at bedtime 2 times per week estradioL 2021-11 Yes [id number] Apply 1g [facility] 0.01 % (0.1 1-21 vaginally ity of mg/gram) 00:00: at bedtime [facility] vaginal 00 every Medical cream night for Branch 2 weeks and then apply 1g vaginally at bedtime 2 times per week estradioL 2021-11 Yes [id number] Apply 1g [facility] 0.01 % (0.1 1-21 vaginally ity of mg/gram) 00:00: at bedtime [facility] vaginal 00 every Medical cream night for Branch 2 weeks and then apply 1g vaginally at bedtime 2 times per week estradioL 2021-11 Yes [id number] Apply 1g [facility] 0.01 % (0.1 1-21 vaginally ity of mg/gram) 00:00: at bedtime [facility] vaginal 00 every Medical cream night for Branch 2 weeks and then apply 1g vaginally at bedtime 2 times per week estradioL 2021-11 Yes [id number] Apply 1g [facility] 0.01 % (0.1 1-21 vaginally ity of mg/gram) 00:00: at bedtime [facility] as vaginal 00 every Medical cream night for Branch 2 weeks and then apply 1g vaginally at bedtime 2 times per week estradioL 2021-11 Yes [id number] Apply 1g [facility] 0.01 % (0.1 1-21 vaginally ity of mg/gram) 00:00: at bedtime [facility] as vaginal 00 every Medical cream night for Branch 2 weeks and then apply 1g vaginally at bedtime 2 times per week estradioL 2021-11 Yes [id number] Apply 1g [facility] 0.01 % (0.1 1-21 vaginally ity of mg/gram) 00:00: at bedtime [facility] as vaginal 00 every Medical cream night for Branch 2 weeks and then apply 1g vaginally at bedtime 2 times per week estradioL 2021-11 Yes [id number] Apply 1g [facility] 0.01 % (0.1 1-21 vaginally ity of mg/gram) 00:00: at bedtime [facility] vaginal 00 every Medical cream night for Branch 2 weeks and then apply 1g vaginally at bedtime 2 times per week estradioL 2021-11 Yes [id number] Apply 1g [facility] 0.01 % (0.1 1-21 vaginally ity of mg/gram) 00:00: at bedtime [facility] vaginal 00 every Medical cream night for Branch 2 weeks and then apply 1g vaginally at bedtime 2 times per week estradioL 2021-11 Yes [id number] Apply 1g [facility] 0.01 % (0.1 1-21 vaginally ity of mg/gram) 00:00: at bedtime [facility] vaginal 00 every Medical cream night for Branch 2 weeks and then apply 1g vaginally at bedtime 2 times per week estradioL 2021-11 Yes [id number] Apply 1g [facility] 0.01 % (0.1 1-21 vaginally ity of mg/gram) 00:00: at bedtime [facility] as vaginal 00 every Medical cream night for Branch 2 weeks and then apply 1g vaginally at bedtime 2 times per week estradioL 2021-11 Yes [id number] Apply 1g [facility] 0.01 % (0.1 1-21 vaginally ity of mg/gram) 00:00: at bedtime [facility] as vaginal 00 every Medical cream night for Branch 2 weeks and then apply 1g vaginally at bedtime 2 times per week estradioL 2021-11 Yes [id number] Apply 1g [facility] 0.01 % (0.1 1-21 vaginally ity of mg/gram) 00:00: at bedtime [facility] as vaginal 00 every Medical cream night for Branch 2 weeks and then apply 1g vaginally at bedtime 2 times per week estradioL 2021-11 Yes [id number] Apply 1g [facility] 0.01 % (0.1 1-21 vaginally ity of mg/gram) 00:00: at bedtime [facility] vaginal 00 every Medical cream night for Branch 2 weeks and then apply 1g vaginally at bedtime 2 times per week estradioL 2021-11 Yes [id number] Apply 1g [facility] 0.01 % (0.1 1-21 vaginally ity of mg/gram) 00:00: at bedtime [facility] as vaginal 00 every Medical cream night for Branch 2 weeks and then apply 1g vaginally at bedtime 2 times per week estradioL 2021-11 Yes [id number] Apply 1g [facility] 0.01 % (0.1 1-21 vaginally ity of mg/gram) 00:00: at bedtime [facility] as vaginal 00 every Medical cream night for Branch 2 weeks and then apply 1g vaginally at bedtime 2 times per week estradioL 2021-11 Yes [id number] Apply 1g [facility] 0.01 % (0.1 1-21 vaginally ity of mg/gram) 00:00: at bedtime [facility] as vaginal 00 every Medical cream night for Branch 2 weeks and then apply 1g vaginally at bedtime 2 times per week estradioL 2021-11 Yes [id number] Apply 1g [facility] 0.01 % (0.1 1-21 vaginally ity of mg/gram) 00:00: at bedtime [facility] as vaginal 00 every Medical cream night for Branch 2 weeks and then apply 1g vaginally at bedtime 2 times per week estradioL 2021-11 Yes [id number] Apply 1g [facility] 0.01 % (0.1 1-21 vaginally ity of mg/gram) 00:00: at bedtime [facility] vaginal 00 every Medical cream night for Branch 2 weeks and then apply 1g vaginally at bedtime 2 times per week estradioL 2021-11 Yes [id number] Apply 1g [facility] 0.01 % (0.1 1-21 vaginally ity of mg/gram) 00:00: at bedtime [facility] vaginal 00 every Medical cream night for Branch 2 weeks and then apply 1g vaginally at bedtime 2 times per week estradioL 2021-11 Yes [id number] Apply 1g [facility] 0.01 % (0.1 1-21 vaginally ity of mg/gram) 00:00: at bedtime [facility] as vaginal 00 every Medical cream night for Branch 2 weeks and then apply 1g vaginally at bedtime 2 times per week estradioL 2021-11 Yes [id number] Apply 1g [facility] 0.01 % (0.1 1-21 vaginally ity of mg/gram) 00:00: at bedtime [place] as vaginal 00 every Medical cream night for Branch 2 weeks and then apply 1g vaginally at bedtime 2 times per week estradioL 2021-11 Yes [id number] Apply 1g [facility] 0.01 % (0.1 1-21 vaginally ity of mg/gram) 00:00: at bedtime [place] as vaginal 00 every Medical cream night for Branch 2 weeks and then apply 1g vaginally at bedtime 2 times per week estradioL 2021-11 Yes [id number] Apply 1g [facility] 0.01 % (0.1 1-21 vaginally ity of mg/gram) 00:00: at bedtime [place] as vaginal 00 every Medical cream night for Branch 2 weeks and then apply 1g vaginally at bedtime 2 times per week estradioL 2021-11 Yes [id number] Apply 1g [facility] 0.01 % (0.1 1-21 vaginally ity of mg/gram) 00:00: at bedtime [place] as vaginal 00 every Medical cream night for Branch 2 weeks and then apply 1g vaginally at bedtime 2 times per week estradioL 2021-11 Yes [id number] Apply 1g [facility] 0.01 % (0.1 1-21 vaginally ity of mg/gram) 00:00: at bedtime [place] as vaginal 00 every Medical cream night for Branch 2 weeks and then apply 1g vaginally at bedtime 2 times per week estradioL 2021-11 Yes [id number] Apply 1g [facility] 0.01 % (0.1 1-21 vaginally ity of mg/gram) 00:00: at bedtime [place] as vaginal 00 every Medical cream night for Branch 2 weeks and then apply 1g vaginally at bedtime 2 times per week estradioL 2021-11 Yes [id number] Apply 1g [facility] 0.01 % (0.1 1-21 vaginally ity of mg/gram) 00:00: at bedtime [place] as vaginal 00 every Medical cream night for Branch 2 weeks and then apply 1g vaginally at bedtime 2 times per week estradioL 2021-11 Yes [id number] Apply 1g [facility] 0.01 % (0.1 1-21 vaginally ity of mg/gram) 00:00: at bedtime [place] as vaginal 00 every Medical cream night for Branch 2 weeks and then apply 1g vaginally at bedtime 2 times per week estradioL 2021-11 Yes [id number] Apply 1g [facility] 0.01 % (0.1 1-21 vaginally ity of mg/gram) 00:00: at bedtime [place] as vaginal 00 every Medical cream night for Branch 2 weeks and then apply 1g vaginally at bedtime 2 times per week estradioL 2021-11 Yes [id number] Apply 1g [facility] 0.01 % (0.1 1-21 vaginally ity of mg/gram) 00:00: at bedtime [place] as vaginal 00 every Medical cream night for Branch 2 weeks and then apply 1g vaginally at bedtime 2 times per week carvediloL 2019-0 Yes carvedilol U nivers 3.125 mg 9-30 3.125 mg ity of tablet 18:49: tablet [address] clopidogreL 2019-0 Yes 75mg Take 75 mg [facility] 75 mg 9-30 by mouth. ity of tablet 18:49: [address] Docosahexan 2019-0 Yes 1{capsu Take 1 U nivers oic 9-30 le} capsule by ity of Acid-[place] 18:49: mouth. [place] [address] Medical 120-180 mg Branch Cap lisinopriL 2019-0 Yes lisinopril U nivers 40 mg 9-30 40 mg ity of tablet 18:49: tablet [address] metFORMIN 2019-0 Yes metformin Uni vers 500 mg 9-30 500 mg ity of tablet 18:49: tablet [address] pravastatin 2019-0 Yes pravastati [facility] 40 mg 9-30 n 40 mg ity of tablet 18:49: tablet [place] 19 Medical Branch Docosahexan 2020-0 Yes 1{capsu Take 1 U nivers oic 9-30 le} capsule by ity of [facility] 13:49: mouth. [place] [facility] 120-180 mg Branch Cap Docosahexan 2020-0 Yes 1{capsu Take 1 U nivers oic 9-30 le} capsule by ity of [facility] 13:49: mouth. [place] [facility] 120-180 mg Branch Cap Docosahexan 2020-0 Yes 1{capsu Take 1 U nivers oic 9-30 le} capsule by ity of [facility]-[place] 13:49: mouth. [place] [facility] Medical 120-180 mg Branch Cap Docosahexan 2020-0 Yes 1{capsu Take 1 U nivers oic 9-30 le} capsule by ity of [facility]-[place] 13:49: mouth. [place] [facility] 120-180 mg Branch Cap Docosahexan 2020-0 Yes 1{capsu Take 1 U nivers oic 9-30 le} capsule by ity of [facility]-[place] 13:49: mouth. [place] [facility] 120-180 mg Branch Cap Docosahexan 2020-0 Yes 1{capsu Take 1 U nivers oic 9-30 le} capsule by ity of [facility]-[place] 13:49: mouth. [place] [facility] Medical 120-180 mg Branch Cap Docosahexan 2020-0 Yes 1{capsu Take 1 U nivers oic 9-30 le} capsule by ity of [facility] 13:49: mouth. [place] [facility] 120-180 mg Branch Cap Docosahexan 2020-0 Yes 1{capsu Take 1 U nivers oic 9-30 le} capsule by ity of Acid-[place] 13:49: mouth. [place] [facility] 120-180 mg Branch Cap Docosahexan 2020-0 Yes 1{capsu Take 1 U nivers oic 9-30 le} capsule by ity of [facility]-[place] 13:49: mouth. [place] [facility] Medical 120-180 mg Branch Cap Docosahexan 2020-0 Yes 1{capsu Take 1 U nivers oic 9-30 le} capsule by ity of [place] 13:49: [place]. [place] [facility] 120-180 mg Branch Cap Docosahexan 2020-0 Yes 1{capsu Take 1 U nivers oic 9-30 le} capsule by ity of [facility]-[place] 13:49: mouth. [place] [facility] 19 Medical 120-180 mg Branch Cap Docosahexan 2020-0 Yes 1{capsu Take 1 U nivers oic 9-30 le} capsule by ity of [facility]-[place] 13:49: mouth. [place] [facility] 19 Medical 120-180 mg Branch Cap Docosahexan 2020-0 Yes 1{capsu Take 1 U nivers oic 9-30 le} capsule by ity of [facility] 13:49: mouth. [place] [facility] 19 Medical 120-180 mg Branch Cap Docosahexan 2020-0 Yes 1{capsu Take 1 U nivers oic 9-30 le} capsule by ity of [facility] 13:49: mouth. [place] [facility] Medical 120-180 mg Branch Cap Docosahexan 2020-0 Yes 1{capsu Take 1 U nivers oic 9-30 le} capsule by ity of [facility]-[place] 13:49: mouth. [place] [facility] 19 Medical 120-180 mg Branch Cap Docosahexan 2020-0 Yes 1{capsu Take 1 U nivers oic 9-30 le} capsule by ity of [facility] 13:49: mouth. [place] [facility] 19 Medical 120-180 mg Branch Cap Docosahexan 2020-0 Yes 1{capsu Take 1 U nivers oic 9-30 le} capsule by ity of [facility]-[place] 13:49: mouth. [place] [facility] 19 Medical 120-180 mg Branch Cap Docosahexan 2020-0 Yes 1{capsu Take 1 U nivers oic 9-30 le} capsule by ity of [facility] 13:49: mouth. [place] [facility] 19 Medical 120-180 mg Branch Cap Docosahexan 2020-0 Yes 1{capsu Take 1 U nivers oic 9-30 le} capsule by ity of [facility]-[place] 13:49: mouth. [place] [facility] 19 Medical 120-180 mg Branch Cap carvediloL 2020-0 Yes carvedilol U nivers 3.125 mg 9-30 3.125 mg ity of tablet 13:49: tablet [place] [address] Medical Branch clopidogreL 2020-0 Yes 75mg Take 75 mg [facility] 75 mg 9-30 by mouth. ity of tablet 13:49: [place] [address] Medical Branch Docosahexan 2020-0 Yes 1{capsu Take 1 U nivers oic 9-30 le} capsule by ity of [facility]-[place] 13:49: mouth. [place] [facility] 19 Medical 120-180 mg Branch Cap Docosahexan 2020-0 Yes 1{capsu Take 1 U nivers oic 9-30 le} capsule by ity of [facility]-[place] 13:49: mouth. [place] [facility] 19 Medical 120-180 mg Branch Cap Docosahexan 2020-0 Yes 1{capsu Take 1 U nivers oic 9-30 le} capsule by ity of [facility]-[place] 13:49: mouth. [place] [facility] 19 Medical 120-180 mg Branch Cap lisinopriL 2020-0 Yes lisinopril U nivers 40 mg 9-30 40 mg ity of tablet 13:49: tablet [place] [address] Medical Branch Docosahexan 2020-0 Yes 1{capsu Take 1 U nivers oic 9-30 le} capsule by ity of [facility] 13:49: mouth. [place] [address] Medical 120-180 mg Branch Cap metFORMIN 2020-0 Yes metformin Uni vers 500 mg 9-30 500 mg ity of tablet 13:49: tablet [place] [address] Medical Branch Docosahexan 2020-0 Yes 1{capsu Take 1 U nivers oic 9-30 le} capsule by ity of [facility] 13:49: mouth. [place] [address] Medical 120-180 mg Branch Cap pravastatin 2020-0 Yes pravastati [facility] 40 mg 9-30 n 40 mg ity of tablet 13:49: tablet [place] [address] Medical Branch Docosahexan 2020-0 Yes 1{capsu Take 1 U nivers oic 9-30 le} capsule by ity of [facility]-[place] 13:49: mouth. [place] [facility] 19 Medical 120-180 mg Branch Cap Docosahexan 2020-0 Yes 1{capsu Take 1 U nivers oic 9-30 le} capsule by ity of [facility]-[place] 13:49: mouth. [place] [facility] 19 Medical 120-180 mg Branch Cap Docosahexan 2020-0 Yes 1{capsu Take 1 U nivers oic 9-30 le} capsule by ity of [facility]-[place] 13:49: mouth. [place] [facility] 19 Medical 120-180 mg Branch Cap Docosahexan 2020-0 Yes 1{capsu Take 1 U nivers oic 9-30 le} capsule by ity of [facility]-[place] 13:49: mouth. [place] [facility] 19 Medical 120-180 mg Branch Cap Docosahexan 2020-0 Yes 1{capsu Take 1 U nivers oic 9-30 le} capsule by ity of [facility]-[place] 13:49: mouth. [place] [facility] 19 Medical 120-180 mg Branch Cap Docosahexan 2020-0 Yes 1{capsu Take 1 U nivers oic 9-30 le} capsule by ity of Acid-[place] 13:49: mouth. [place] [facility] 19 Medical 120-180 mg Branch Cap Docosahexan 2020-0 Yes 1{capsu Take 1 U nivers oic 9-30 le} capsule by ity of Acid-[place] 13:49: mouth. [place] [facility] 19 Medical 120-180 mg Branch Cap Docosahexan 2020-0 Yes 1{capsu Take 1 U nivers oic 9-30 le} capsule by ity of Acid-[place] 13:49: mouth. [place] [facility] 19 Medical 120-180 mg Branch Cap Docosahexan 2020-0 Yes 1{capsu Take 1 U nivers oic 9-30 le} capsule by ity of [facility]-[place] 13:49: mouth. [place] [facility] 19 Medical 120-180 mg Branch Cap Docosahexan 2020-0 Yes 1{capsu Take 1 U nivers oic 9-30 le} capsule by ity of [facility]-[place] 13:49: mouth. [place] [facility] 19 Medical 120-180 mg Branch Cap cephALEXin 2020-0 2020- No [id number] 500mg Take 1 [facility] (KEFLEX) 9-30 10-08 capsule by ity of 500 mg 00:00: 04:59 mouth 2 [place] capsule 00 :00 (two) Medical times Branch daily for 7 days. omeprazole 2020-0 Yes 20mg Take 20 mg U nivers 20 mg 9-24 by mouth ity of capsule 00:00: in the [place] 00 morning. Medical Branch omeprazole 2020-0 Yes 20mg Take 20 mg U nivers 20 mg 9-24 by mouth ity of capsule 00:00: in the [place] 00 morning. Medical Branch omeprazole 2020-0 Yes 20mg Take 20 mg U nivers 20 mg 9-24 by mouth ity of capsule 00:00: in the [place] 00 morning. Medical Branch omeprazole 2020-0 Yes 20mg Take 20 mg U nivers 20 mg 9-24 by mouth ity of capsule 00:00: in the [place] 00 morning. Medical Branch omeprazole 2020-0 Yes 20mg Take 20 mg U nivers 20 mg 9-24 by mouth ity of capsule 00:00: in the [place] 00 morning. Medical Branch omeprazole 2020-0 Yes [facility] 20 mg 9-24 ity of capsule 00:00: [place] 00 Medical Branch omeprazole 2020-0 Yes 20mg Take 20 mg U nivers 20 mg 9-24 by mouth ity of capsule 00:00: in the [place] 00 morning. Medical Branch omeprazole 2020-0 Yes 20mg Take 20 mg U nivers 20 mg 9-24 by mouth ity of capsule 00:00: in the [place] 00 morning. Medical Branch omeprazole 2020-0 Yes 20mg Take 20 mg U nivers 20 mg 9-24 by mouth ity of capsule 00:00: in the [place] 00 morning. Medical Branch omeprazole 2020-0 Yes 20mg Take 20 mg U nivers 20 mg 9-24 by mouth ity of capsule 00:00: in the [place] 00 morning. Medical Branch omeprazole 2020-0 Yes 20mg Take 20 mg U nivers 20 mg 9-24 by mouth ity of capsule 00:00: in the [place] 00 morning. Medical Branch omeprazole 2020-0 Yes 20mg Take 20 mg U nivers 20 mg 9-24 by mouth ity of capsule 00:00: in the [place] 00 morning. Medical Branch omeprazole 2020-0 Yes 20mg Take 20 mg U nivers 20 mg 9-24 by mouth ity of capsule 00:00: in the [place] 00 morning. Medical Branch omeprazole 2020-0 Yes 20mg Take 20 mg U nivers 20 mg 9-24 by mouth ity of capsule 00:00: in the [place] 00 morning. Medical Branch omeprazole 2020-0 Yes 20mg Take 20 mg U nivers 20 mg 9-24 by mouth ity of capsule 00:00: in the [place] 00 morning. Medical Branch omeprazole 2020-0 Yes 20mg Take 20 mg U nivers 20 mg 9-24 by mouth ity of capsule 00:00: in the [place] 00 morning. Medical Branch omeprazole 2020-0 Yes 20mg Take 20 mg U nivers 20 mg 9-24 by mouth ity of capsule 00:00: in the [place] 00 morning. Medical Branch omeprazole 2020-0 Yes 20mg Take 20 mg U nivers 20 mg 9-24 by mouth ity of capsule 00:00: in the [place] 00 morning. Medical Branch omeprazole 2020-0 Yes 20mg Take 20 mg U nivers 20 mg 9-24 by mouth ity of capsule 00:00: in the [place] morning. Medical Branch omeprazole 2020-0 Yes 20mg Take 20 mg U nivers 20 mg 9-24 by mouth ity of capsule 00:00: in the [place] 00 morning. Medical Branch omeprazole 2020-0 Yes 20mg Take 20 mg U nivers 20 mg 9-24 by mouth ity of capsule 00:00: in the [place] morning. Medical Branch omeprazole 2020-0 Yes 20mg Take 20 mg U nivers 20 mg 9-24 by mouth ity of capsule 00:00: in the [place] 00 morning. Medical Branch omeprazole 2020-0 Yes 20mg Take 20 mg U nivers 20 mg 9-24 by mouth ity of capsule 00:00: in the [place] 00 morning. Medical Branch omeprazole 2020-0 Yes [facility] 20 mg 9-24 ity of capsule 00:00: [place] 00 Medical Branch omeprazole 2020-0 Yes 20mg Take 20 mg U nivers 20 mg 9-24 by mouth ity of capsule 00:00: in the [place] 00 morning. Medical Branch omeprazole 2020-0 Yes 20mg Take 20 mg U nivers 20 mg 9-24 by mouth ity of capsule 00:00: in the [place] 00 morning. Medical Branch omeprazole 2020-0 Yes 20mg Take 20 mg U nivers 20 mg 9-24 by mouth ity of capsule 00:00: in the [place] 00 morning. Medical Branch omeprazole 2020-0 Yes 20mg Take 20 mg U nivers 20 mg 9-24 by mouth ity of capsule 00:00: in the [place] 00 morning. Medical Branch omeprazole 2020-0 Yes 20mg Take 20 mg U nivers 20 mg 9-24 by mouth ity of capsule 00:00: in the [place] 00 morning. Medical Branch omeprazole 2020-0 Yes 20mg Take 20 mg U nivers 20 mg 9-24 by mouth ity of capsule 00:00: in the [place] morning. Medical Branch omeprazole 2020-0 Yes 20mg Take 20 mg U nivers 20 mg 9-24 by mouth ity of capsule 00:00: in the [place] morning. Medical Branch omeprazole 2020-0 Yes 20mg Take 20 mg U nivers 20 mg 9-24 by mouth ity of capsule 00:00: in the [place] morning. Medical Branch omeprazole 2020-0 Yes 20mg Take 20 mg U nivers 20 mg 9-24 by mouth ity of capsule 00:00: in the [place] morning. Medical Branch omeprazole 2020-0 Yes 20mg Take 20 mg U nivers 20 mg 9-24 by mouth ity of capsule 00:00: in the [place] morning. Medical Branch omeprazole 2020-0 Yes 20mg Take 20 mg U nivers 20 mg 9-24 by mouth ity of capsule 00:00: in the [place] morning. Medical Branch Fesoterodin 2018-11 Yes Toviaz 4 Un leo e (TOVIAZ) 0-21 mg ity of 4 mg tablet 00:00: tablet,ext [place] 00 ended Medical release Branch Fesoterodin 2018-11 Yes Toviaz 4 Un leo e (TOVIAZ) 0-21 mg ity of 4 mg tablet 00:00: tablet,ext [place] 00 ended Medical release Branch Fesoterodin 2018-11 Yes Toviaz 4 Un leo e (TOVIAZ) 0-21 mg ity of 4 mg tablet 00:00: tablet,ext [place] 00 ended Medical release Branch Fesoterodin 2018-11 Yes Toviaz 4 Un leo e (TOVIAZ) 0-21 mg ity of 4 mg tablet 00:00: tablet,ext [place] 00 ended Medical release Branch Fesoterodin 2018-11 Yes Toviaz 4 Un leo e (TOVIAZ) 0-21 mg ity of 4 mg tablet 00:00: tablet,ext [place] ended Medical release Branch Fesoterodin 2018-11 Yes [place]iaz 4 Un leo e (TOVIAZ) 0-21 mg ity of 4 mg tablet 00:00: tablet,ext [place] ended Medical release Branch Fesoterodin 2018-11 Yes [place]iaz 4 Un leo e (TOVIAZ) 0-21 mg ity of 4 mg tablet 00:00: tablet,ext [place] 00 ended Medical release Branch Fesoterodin 2019 Yes [place] 4 Un leo e (TOVIAZ) 0-21 mg ity of 4 mg tablet 00:00: tablet,ext ended Medical release Branch Fesoterodin 2018-11 Yes [place]iaz 4 Un leo e (TOVIAZ) 0-21 mg ity of 4 mg tablet 00:00: tablet,ext [place] ended Medical release Branch Fesoterodin 2018-11 Yes [place]iaz 4 Un leo e (TOVIAZ) 0-21 mg ity of 4 mg tablet 00:00: tablet,ext [place] ended Medical release Branch Fesoterodin 2018-11 Yes Toviaz 4 Un leo e (TOVIAZ) 0-21 mg ity of 4 mg tablet 00:00: tablet,ext [place] ended Medical release Branch Fesoterodin 2018-11 Yes Toviaz 4 Un leo e (TOVIAZ) 0-21 mg ity of 4 mg tablet 00:00: tablet,ext [place] ended Medical release Branch Fesoterodin 2018-11 Yes T[place]iaz 4 Un leo e (TOVIAZ) 0-21 mg ity of 4 mg tablet 00:00: tablet,ext [place] ended Medical release Branch Fesoterodin 2018-11 Yes [place]iaz 4 Un leo e (TOVIAZ) 0-21 mg ity of 4 mg tablet 00:00: tablet,ext [place] ended Medical release Branch Fesoterodin 2018-11 Yes [place]iaz 4 Un leo e (TOVIAZ) 0-21 mg ity of 4 mg tablet 00:00: tablet,ext ended Medical release Branch Fesoterodin 2018-11 Yes [place]iaz 4 Un leo e (TOVIAZ) 0-21 mg ity of 4 mg tablet 00:00: tablet,ext [place] ended Medical release Branch Fesoterodin 2018-11 Yes [place]iaz 4 Un leo e (TOVIAZ) 0-21 mg ity of 4 mg tablet 00:00: tablet,ext [place] ended Medical release Branch Fesoterodin 2018-11 Yes [place]iaz 4 Un leo e (TOVIAZ) 0-21 mg ity of 4 mg tablet 00:00: tablet,ext [place] ended Medical release Branch Fesoterodin 2019 Yes Toviaz 4 Un leo e (TOVIAZ) 0-21 mg ity of 4 mg tablet 00:00: tablet,ext [place] ended Medical release Branch Fesoterodin 2018-11 Yes [place] 4 Un leo e (TOVIAZ) 0-21 mg ity of 4 mg tablet 00:00: tablet,ext [place] ended Medical release Branch Fesoterodin 2018-11 Yes [place]iaz 4 Un leo e (TOVIAZ) 0-21 mg ity of 4 mg tablet 00:00: tablet,ext [place] ended Medical release Branch Fesoterodin 2018-11 Yes Toviaz 4 Un leo e (TOVIAZ) 0-21 mg ity of 4 mg tablet 00:00: tablet,[facility] ended Medical release Branch Fesoterodin 2018-11 Yes Toviaz 4 Un leo e (TOVIAZ) 0-21 mg ity of 4 mg tablet 00:00: tablet,[facility] ended Medical release Branch Fesoterodin 2018-11 Yes Toviaz 4 Un leo e (TOVIAZ) 0-21 mg ity of 4 mg tablet 00:00: tablet,[facility] ended Medical release Branch Fesoterodin 2018-11 Yes Toviaz 4 Un leo e (TOVIAZ) 0-21 mg ity of 4 mg tablet 00:00: tablet,[facility] ended Medical release Branch Fesoterodin 2018-11 Yes Toviaz 4 Un leo e (TOVIAZ) 0-21 mg ity of 4 mg tablet 00:00: tablet,[facility] ended Medical release Branch Fesoterodin 2018-11 Yes Toviaz 4 Un leo e (TOVIAZ) 0-21 mg ity of 4 mg tablet 00:00: tablet,[facility] ended Medical release Branch Fesoterodin 2018-11 Yes Toviaz 4 Un leo e (TOVIAZ) 0-21 mg ity of 4 mg tablet 00:00: tablet,[facility] ended Medical release Branch Fesoterodin 2018-11 Yes Toviaz 4 Un leo e (TOVIAZ) 0-21 mg ity of 4 mg tablet 00:00: tablet,[facility] ended Medical release Branch Fesoterodin 2018-11 Yes Toviaz 4 Un leo e (TOVIAZ) 0-21 mg ity of 4 mg tablet 00:00: tablet,ext [place] 00 ended Medical release Branch Fesoterodin 2019- Yes Toviaz 4 Un leo e (TOVIAZ) 0-21 mg ity of 4 mg tablet 00:00: tablet,ext [place] ended Medical release Branch Fesoterodin 2019- Yes Toviaz 4 Un leo e (TOVIAZ) 0-21 mg ity of 4 mg tablet 00:00: tablet,ext [place] ended Medical release Branch Fesoterodin 2018- Yes T[place]iaz 4 Un leo e (TOVIAZ) 0-21 mg ity of 4 mg tablet 00:00: tablet,ext [place] 00 ended Medical release Branch Fesoterodin 2018- Yes Toviaz 4 Un leo e (TOVIAZ) 0-21 mg ity of 4 mg tablet 00:00: tablet,[place] [address] ended Medical release Branch Fesoterodin 2018-11 Yes Toviaz 4 Un leo e (TOVIAZ) 0-21 mg ity of 4 mg tablet 00:00: tablet,[place] [address] ended Medical release Branch levocetiriz 2019-0 Yes 5mg Take 5 mg U nivers ine 5 mg 9-20 by mouth. ity of tablet 00:00: [place] [facility] levocetiriz 2019-0 Yes 5mg Take 5 mg U nivers ine 5 mg 9-20 by mouth. ity of tablet 00:00: [place] [facility] Branch levocetiriz 2019-0 Yes 5mg Take 5 mg U nivers ine 5 mg 9-20 by mouth. ity of tablet 00:00: [place] [facility] levocetiriz 2019-0 Yes 5mg Take 5 mg U nivers ine 5 mg 9-20 by mouth. ity of tablet 00:00: [place] [facility] levocetiriz 2019-0 Yes 5mg Take 5 mg U nivers ine 5 mg 9-20 by mouth. ity of tablet 00:00: [place] [facility] levocetiriz 2019-0 Yes 5mg Take 5 mg U nivers ine 5 mg 9-20 by mouth. ity of tablet 00:00: [place] [facility] levocetiriz 2019-0 Yes 5mg Take 5 mg U nivers ine 5 mg 9-20 by mouth. ity of tablet 00:00: [place] [facility] levocetiriz 2019-0 Yes 5mg Take 5 mg U nivers ine 5 mg 9-20 by mouth. ity of tablet 00:00: [place] [facility] levocetiriz 2019-0 Yes 5mg Take 5 mg U nivers ine 5 mg 9-20 by mouth. ity of tablet 00:00: [place] [facility] levocetiriz 2019-0 Yes 5mg Take 5 mg U nivers ine 5 mg 9-20 by mouth. ity of tablet 00:00: [place] [facility] levocetiriz 2019-0 Yes 5mg Take 5 mg U nivers ine 5 mg 9-20 by mouth. ity of tablet 00:00: [address] levocetiriz 2019-0 Yes 5mg Take 5 mg U nivers ine 5 mg 9-20 by mouth. ity of tablet 00:00: [address] levocetiriz 2019-0 Yes 5mg Take 5 mg U nivers ine 5 mg 9-20 by mouth. ity of tablet 00:00: [address] levocetiriz 2019-0 Yes 5mg Take 5 mg U nivers ine 5 mg 9-20 by mouth. ity of tablet 00:00: [address] levocetiriz 2019-0 Yes 5mg Take 5 mg U nivers ine 5 mg 9-20 by mouth. ity of tablet 00:00: [address] levocetiriz 2019-0 Yes 5mg Take 5 mg U nivers ine 5 mg 9-20 by mouth. ity of tablet 00:00: [address] levocetiriz 2019-0 Yes 5mg Take 5 mg U nivers ine 5 mg 9-20 by mouth. ity of tablet 00:00: [address] levocetiriz 2019-0 Yes 5mg Take 5 mg U nivers ine 5 mg 9-20 by mouth. ity of tablet 00:00: [address] levocetiriz 2019-0 Yes 5mg Take 5 mg U nivers ine 5 mg 9-20 by mouth. ity of tablet 00:00: [address] levocetiriz 2019-0 Yes 5mg Take 5 mg U nivers ine 5 mg 9-20 by mouth. ity of tablet 00:00: [address] levocetiriz 2019-0 Yes 5mg Take 5 mg U nivers ine 5 mg 9-20 by mouth. ity of tablet 00:00: [place] [facility] levocetiriz 2019-0 Yes 5mg Take 5 mg U nivers ine 5 mg 9-20 by mouth. ity of tablet 00:00: [place] [facility] levocetiriz 2019-0 Yes 5mg Take 5 mg U nivers ine 5 mg 9-20 by mouth. ity of tablet 00:00: [place] [facility] levocetiriz 2019-0 Yes 5mg Take 5 mg U nivers ine 5 mg 9-20 by mouth. ity of tablet 00:00: [place] [facility] levocetiriz 2019-0 Yes 5mg Take 5 mg U nivers ine 5 mg 9-20 by mouth. ity of tablet 00:00: [place] [facility] levocetiriz 2019-0 Yes 5mg Take 5 mg U nivers ine 5 mg 9-20 by mouth. ity of tablet 00:00: [place] [facility] levocetiriz 2019-0 Yes 5mg Take 5 mg U nivers ine 5 mg 9-20 by mouth. ity of tablet 00:00: [place] [facility] levocetiriz 2019-0 Yes 5mg Take 5 mg U nivers ine 5 mg 9-20 by mouth. ity of tablet 00:00: [address] levocetiriz 2019-0 Yes 5mg Take 5 mg U nivers ine 5 mg 9-20 by mouth. ity of tablet 00:00: [place] [facility] levocetiriz 2019-0 Yes 5mg Take 5 mg U nivers ine 5 mg 9-20 by mouth. ity of tablet 00:00: [place] [facility] levocetiriz 2019-0 Yes 5mg Take 5 mg U nivers ine 5 mg 9-20 by mouth. ity of tablet 00:00: [address] levocetiriz 2019-0 Yes 5mg Take 5 mg U nivers ine 5 mg 9-20 by mouth. ity of tablet 00:00: [place] [facility] levocetiriz 2019-0 Yes 5mg Take 5 mg U nivers ine 5 mg 9-20 by mouth. ity of tablet 00:00: [address] levocetiriz 2019-0 Yes 5mg Take 5 mg U nivers ine 5 mg 9-20 by mouth. ity of tablet 00:00: [address] levocetiriz 2019-0 Yes 5mg Take 5 mg U nivers ine 5 mg 9-20 by mouth. ity of tablet 00:00: [address] Acetaminoph Yes 1 tab, PO, Memoria en 300 MG / 6-13 Q6H, PRN l Codeine 22:22: Pain, X 7 [place] Phosphate 00 day, # 20 30 MG Oral tab, 0 Tablet Refill(s) [Tylenol with Codeine #3] minocycline Yes 100 mg = 1 Memoria 100 mg oral 6-13 cap, PO, l capsule 22:22: Q12H, X 7 [place] nn 00 day, # 14 cap, 0 Refill(s) Acetaminoph Yes 1 tab, PO, Memoria en 300 MG / 6-13 Q6H, PRN l Codeine 22:22: Pain, X 7 [place] Phosphate 00 day, # 20 30 MG Oral tab, 0 Tablet Refill(s) [Tylenol with Codeine #3] minocycline Yes 100 mg = 1 Memoria 100 mg oral 6-13 cap, PO, l capsule 22:22: Q12H, X 7 [place] 00 day, # 14 cap, 0 Refill(s) Acetaminoph Yes 1 tab, PO, Memoria en 300 MG / 6-13 Q6H, PRN l Codeine 22:22: Pain, X 7 [place] Phosphate 00 day, # 20 30 MG Oral tab, 0 Tablet Refill(s) [Tylenol with Codeine #3] minocycline Yes 100 mg = 1 [facility] 100 mg oral 6-13 cap, PO, l capsule 22:22: Q12H, X 7 [place] 00 day, # 14 cap, 0 Refill(s) Acetaminoph Yes 1 tab, PO, Memoria en 300 MG / 6-13 Q6H, PRN l Codeine 22:22: Pain, X 7 [place] Phosphate 00 day, # 20 30 MG Oral tab, 0 Tablet Refill(s) [Tylenol with Codeine #3] minocycline Yes 100 mg = 1 [facility]oria 100 mg oral 6-13 cap, PO, l capsule 22:22: Q12H, X 7 [place] nn 00 day, # 14 cap, 0 Refill(s) Acetaminoph Yes 1 tab, PO, Memoria en 300 MG / 6-13 Q6H, PRN l Codeine 22:22: Pain, X 7 [place] nn Phosphate 00 day, # 20 30 MG Oral tab, 0 Tablet Refill(s) [Tylenol with Codeine #3] minocycline Yes 100 mg = 1 Memoria 100 mg oral 6-13 cap, PO, l capsule 22:22: Q12H, X 7 [place] nn 00 day, # 14 cap, 0 Refill(s) Acetaminoph Yes 1 tab, PO, Memoria en 300 MG / 6-13 Q6H, PRN l Codeine 22:22: Pain, X 7 [place] nn Phosphate 00 day, # 20 30 MG Oral tab, 0 Tablet Refill(s) [Tylenol with Codeine #3] minocycline Yes 100 mg = 1 Memoria 100 mg oral 6-13 cap, PO, l capsule 22:22: Q12H, X 7 [place] nn 00 day, # 14 cap, 0 Refill(s) Acetaminoph Yes 1 tab, PO, Memoria en 300 MG / 6-13 Q6H, PRN l Codeine 22:22: Pain, X 7 [place] nn Phosphate 00 day, # 20 30 MG Oral tab, 0 Tablet Refill(s) [Tylenol with Codeine #3] minocycline Yes 100 mg = 1 Memoria 100 mg oral 6-13 cap, PO, l capsule 22:22: Q12H, X 7 [place] nn 00 day, # 14 cap, 0 Refill(s) Acetaminoph Yes 1 tab, PO, Memoria en 300 MG / 6-13 Q6H, PRN l Codeine 22:22: Pain, X 7 [place] nn Phosphate 00 day, # 20 30 MG Oral tab, 0 Tablet Refill(s) [Tylenol with Codeine #3] minocycline Yes 100 mg = 1 Memoria 100 mg oral 6-13 cap, PO, l capsule 22:22: Q12H, X 7 [place] nn 00 day, # 14 cap, 0 Refill(s) Omeprazole No 20 mg, Memor ia 6-13 Route: PO, l 14:00: Daily, Luke 00 Dosing Weight 78.1, kg, Start date: 06/13/18 9:00:00 CDT, Duration: 30 day, Stop date: 05/15/18 9:00:00 CDT multivitami 0 No Notes: Juarez leonela n with 6-13 (Same l minerals 14:00: as:Gem-Faby Morgan robbins 00 , Theragran- ) WASTE: F/P - Black; E - Municipal Trash Bin Give with food. Lisinopril No Notes: Memor ia 6-13 (Same as: l 14:00: Prinivil, [place] Zestril) Omeprazole No 20 mg, Memor ia 6-13 Route: PO, l 14:00: Daily, Dosing Weight 78.1, kg, Start date: 04/16/18 9:00:00 CDT, Duration: 30 day, Stop date: 05/15/18 9:00:00 CDT multivitami 0 No Notes: Juarez leonela n with 6-13 (Same l minerals 14:00: as:Gem-Faby Morgan robbins 00 , Theragran- ) WASTE: F/P - Black; E - Municipal Trash Bin Give with food. Lisinopril No Notes: Memor ia 6-13 (Same as: l 14:00: Prinivil, [place] Zestril) Omeprazole 0 No 20 mg, Memor ia 6-13 Route: PO, l 14:00: Daily, Dosing Weight 78.1, kg, Start date: 04/16/18 9:00:00 CDT, Duration: 30 day, Stop date: 05/15/18 9:00:00 CDT multivitami 0 No Notes: Juarez leonela n with 6-13 (Same l minerals 14:00: as:Vel Morgan robbins 00 , Theragran- ) WASTE: F/P - Black; E - Municipal Trash Bin Give with food. Lisinopril No Notes: Memor ia 6-13 (Same as: l 14:00: Prinivil, [place] 00 Zestril) Omeprazole 0 No 20 mg, Memor ia 6-13 Route: PO, l 14:00: Daily, Luke 00 Dosing Weight 78.1, kg, Start date: 04/16/18 9:00:00 CDT, Duration: 30 day, Stop date: 05/15/18 9:00:00 CDT multivitami 2017-0 No Notes: Juarez leonela n with 6-13 (Same l minerals 14:00: as:Thera-Faby Morgan robbins 00 , Theragran- ) WASTE: F/P - Black; E - Municipal Trash Bin Give with food. Lisinopril No Notes: Memor ia 6-13 (Same as: l 14:00: Prinivil, Luke Zestril) Omeprazole No 20 mg, Memor ia 6-13 Route: PO, l 14:00: Daily, Dosing Weight 78.1, kg, Start date: 04/16/18 9:00:00 CDT, Duration: 30 day, Stop date: 05/15/18 9:00:00 CDT multivitami 0 No Notes: Juarez leonela n with 6-13 (Same l minerals 14:00: as:Thera-Faby Morgan robbins , Theragran- ) WASTE: F/P - Black; E - Municipal Trash Bin Give with food. Lisinopril No Notes: Memor ia 6-13 (Same as: l 14:00: Prinivil, Luke Zestril) Omeprazole 0 No 20 mg, Memor ia 6-13 Route: PO, l 14:00: Daily, Dosing Weight 78.1, kg, Start date: 04/16/18 9:00:00 CDT, Duration: 30 day, Stop date: 05/15/18 9:00:00 CDT multivitami 0 No Notes: Juarez leonela n with 6-13 (Same l minerals 14:00: as:Thera-Faby Morgan robbins 00 , Theragran- ) WASTE: F/P - Black; E - Municipal Trash Bin Give with food. Lisinopril 0 No Notes: Memor ia 6-13 (Same as: l 14:00: Prinivil, Luke 00 Zestril) Omeprazole 0 No 20 mg, Memor ia 6-13 Route: PO, l 14:00: Daily, Luke 00 Dosing Weight 78.1, kg, Start date: 04/16/18 9:00:00 CDT, Duration: 30 day, Stop date: 05/15/18 9:00:00 CDT multivitami No Notes: Juarez leonela n with 6-13 (Same l minerals 14:00: as:Thera-M Her robbins 00 , Theragran- M) WASTE: F/P - Black; E - Municipal Trash Bin Give with food. Lisinopril No Notes: Memor ia 6-13 (Same as: l 14:00: Prinivil, Luke 00 Zestril) Omeprazole No 20 mg, Memor ia 6-13 Route: PO, l 14:00: Daily, Dosing Weight 78.1, kg, Start date: 04/16/18 9:00:00 CDT, Duration: 30 day, Stop date: 05/15/18 9:00:00 CDT multivitami No Notes: Juarez leonela n with 6-13 (Same l minerals 14:00: as:Thera-M Her robbins 00 , Theragran- M) WASTE: F/P - Black; E - Municipal Trash Bin Give with food. Lisinopril No Notes: Memor ia 6-13 (Same as: l 14:00: Prinivil, [place] 00 Zestril) BRING PT No BRING Me moria MED TO 04-16 PT MED TO l PHARMACY 13:00: PHARMACY [facility] FOR FOR LABELING LABELING *, REMINDER, Drug form: MISC, Route: MISC, QSHIFT, 04/16/18 8:00:00 CDT, Duration: 30 day, Stop date: 05/16/18 0:00:00 CDT BRING PT No BRING Me moria MED TO 04-16 PT MED TO l PHARMACY 13:00: PHARMACY [place] FOR FOR LABELING LABELING *, REMINDER, Drug form: MISC, Route: MISC, QSHIFT, 04/16/18 8:00:00 CDT, Duration: 30 day, Stop date: 05/16/18 0:00:00 CDT BRING PT 2017- No BRING Me moria MED TO 6-13 PT MED TO l PHARMACY 13:00: PHARMACY [facility] FOR FOR LABELING LABELING *, REMINDER, Drug form: MISC, Route: MISC, QSHIFT, 04/16/18 8:00:00 CDT, Duration: 30 day, Stop date: 05/16/18 0:00:00 CDT BRING PT 2017- No BRING Me moria MED TO 04-16 PT MED TO l PHARMACY 13:00: PHARMACY [facility] FOR 00 FOR LABELING LABELING *, REMINDER, Drug form: MISC, Route: MISC, QSHIFT, 04/16/18 8:00:00 CDT, Duration: 30 day, Stop date: 05/16/18 0:00:00 CDT BRING PT 2017- No BRING Me moria MED TO 04-16 PT MED TO PHARMACY 13:00: PHARMACY [facility] FOR FOR LABELING LABELING *, REMINDER, Drug form: MISC, Route: MISC, QSHIFT, 04/16/18 8:00:00 CDT, Duration: 30 day, Stop date: 05/16/18 0:00:00 CDT BRING PT 2017- No BRING Me moria MED TO 04-16 PT MED TO PHARMACY 13:00: PHARMACY [facility] FOR 00 FOR LABELING LABELING *, REMINDER, Drug form: MISC, Route: MISC, QSHIFT, 04/16/18 8:00:00 CDT, Duration: 30 day, Stop date: 05/16/18 0:00:00 CDT BRING PT 2017- No BRING Me moria MED TO 6-13 PT MED TO PHARMACY 13:00: PHARMACY [facility] FOR FOR LABELING LABELING *, REMINDER, Drug form: MISC, Route: MISC, QSHIFT, 04/16/18 8:00:00 CDT, Duration: 30 day, Stop date: 05/16/18 0:00:00 CDT BRING PT 2017-0 No BRING Me moria MED TO 6-13 PT MED TO l PHARMACY 13:00: PHARMACY [place] nn FOR 00 FOR LABELING LABELING *, REMINDER, Drug form: MISC, Route: CADY JOSHI, 04/16/18 8:00:00 CDT, Duration: 30 day, Stop date: 05/16/18 0:00:00 CDT Protonix 2017-0 No Notes: Memoria 6-13 Tablet l 12:30: should not [place] 00 be chewed or crushed. (Same as: Protonix) Protonix 0 No Notes: Memoria 6-13 Tablet l 12:30: should not [place] 00 be chewed or crushed. (Same as: Protonix) Protonix 0 No Notes: Memoria 6-13 Tablet l 12:30: should not [place] 00 be chewed or crushed. (Same as: Protonix) Protonix 2017-0 No Notes: Memoria 6-13 Tablet l 12:30: should not [place] 00 be chewed or crushed. (Same as: Protonix) Protonix 2017-0 No Notes: Memoria 6-13 Tablet l 12:30: should not [place] 00 be chewed or crushed. (Same as: Protonix) Protonix 0 No Notes: Memoria 6-13 Tablet l 12:30: should not [place] 00 be chewed or crushed. (Same as: Protonix) Protonix 2017-0 No Notes: Memoria 6-13 Tablet l 12:30: should not Luke 00 be chewed or crushed. (Same as: Protonix) Protonix 0 No Notes: Memoria 6-13 Tablet l 12:30: should not Luke 00 be chewed or crushed. (Same as: Protonix) vancomycin 2017-0 No 2000 mg: Me moria + Sodium 6-13 infuse l Chloride 11:00: over 2.5 [place] nn 0.9% IV 250 00 hours For mL adult patients only: Round to nearest 250 mg per Medical Staff approval MEDICATION WASTE Product Size: 1000 mg Product Wasted: ___ mg vancomycin 2017-0 No 2000 mg: Me moria + Sodium 6-13 infuse l Chloride 11:00: over 2.5 [place] nn 0.9% IV 250 00 hours For mL adult patients only: Round to nearest 250 mg per Medical Staff approval MEDICATION WASTE Product Size: 1000 mg Product Wasted: ___ mg vancomycin No 2000 mg: Me moria + Sodium 6-13 infuse l Chloride 11:00: over 2.5 [place] nn 0.9% IV 250 00 hours For mL adult patients only: Round to nearest 250 mg per Medical Staff approval MEDICATION WASTE Product Size: 1000 mg Product Wasted: ___ mg vancomycin No 2000 mg: Me moria + Sodium 6-13 infuse l Chloride 11:00: over 2.5 [place] nn 0.9% IV 250 00 hours For mL adult patients only: Round to nearest 250 mg per Medical Staff approval MEDICATION WASTE Product Size: 1000 mg Product Wasted: ___ mg vancomycin No 2000 mg: Me moria + Sodium 6-13 infuse l Chloride 11:00: over 2.5 [place] nn 0.9% IV 250 00 hours For mL adult patients only: Round to nearest 250 mg per Medical Staff approval MEDICATION WASTE Product Size: 1000 mg Product Wasted: ___ mg vancomycin No 2000 mg: Me moria + Sodium 6-13 infuse l Chloride 11:00: over 2.5 [place] nn 0.9% IV 250 00 hours For mL adult patients only: Round to nearest 250 mg per Medical Staff approval MEDICATION WASTE Product Size: 1000 mg Product Wasted: ___ mg vancomycin No 2000 mg: Me moria + Sodium 6-13 infuse l Chloride 11:00: over 2.5 [place] nn 0.9% IV 250 00 hours For mL adult patients only: Round to nearest 250 mg per Medical Staff approval MEDICATION WASTE Product Size: 1000 mg Product Wasted: ___ mg vancomycin No 2000 mg: Me moria + Sodium 6-13 infuse l Chloride 11:00: over 2.5 [place] nn 0.9% IV 250 00 hours For mL adult patients only: Round to nearest 250 mg per Medical Staff approval MEDICATION WASTE Product Size: 1000 mg Product Wasted: ___ mg omega-3 No Route: PO, Juarez leonela polyunsatur 6-13 Drug form: l ated fatty 02:00: CAP, Luke acids 00 Bedtime, Dosing Weight 78.1, kg, Start date: 04/15/18 21:00:00 CDT, Duration: 30 day, Stop date: 05/14/18 21:00:00 CDT Pravastatin No Notes: Juarez leonela 6-13 (Same as: l 02:00: Pravachol) [place] Saline No Notes: Memoria Flush 0.9% 6-13 (Same as: l 02:00: BD Luke Posiflush) omega-3 No Route: PO, Juarez leonela polyunsatur 6-13 Drug form: l ated fatty 02:00: CAP, [place] acids 00 Bedtime, Dosing Weight 78.1, kg, Start date: 04/15/18 21:00:00 CDT, Duration: 30 day, Stop date: 05/14/18 21:00:00 CDT Pravastatin No Notes: Juarez leonela 6-13 (Same as: l 02:00: Pravachol) Luke Saline No Notes: Memoria Flush 0.9% 6-13 (Same as: l 02:00: BD Luke Posiflush) omega-3 No Route: PO, Juarez leonela polyunsatur 6-13 Drug form: l ated fatty 02:00: CAP, [place] acids 00 Bedtime, Dosing Weight 78.1, kg, Start date: 04/15/18 21:00:00 CDT, Duration: 30 day, Stop date: 05/14/18 21:00:00 CDT Pravastatin No Notes: Juarez leonela 6-13 (Same as: l 02:00: Pravachol) [place] Saline No Notes: Memoria Flush 0.9% 6-13 (Same as: l 02:00: BD [place] Posiflush) omega-3 No Route: PO, Juarez leonela polyunsatur 6-13 Drug form: l ated fatty 02:00: CAP, [place] acids 00 Bedtime, Dosing Weight 78.1, kg, Start date: 04/15/18 21:00:00 CDT, Duration: 30 day, Stop date: 05/14/18 21:00:00 CDT Pravastatin No Notes: Juarez leonela 6-13 (Same as: l 02:00: Pravachol) Saline No Notes: Memoria Flush 0.9% 6-13 (Same as: l 02:00: BD [place] Posiflush) omega-3 No Route: PO, Juarez leonela polyunsatur 6-13 Drug form: l ated fatty 02:00: CAP, [place] acids 00 Bedtime, Dosing Weight 78.1, kg, Start date: 04/15/18 21:00:00 CDT, Duration: 30 day, Stop date: 05/14/18 21:00:00 CDT Pravastatin No Notes: Juarez leonela 6-13 (Same as: l 02:00: Pravachol) Saline No Notes: Memoria Flush 0.9% 6-13 (Same as: l 02:00: BD [place] Posiflush) omega-3 No Route: PO, Juarez leonela polyunsatur 6-13 Drug form: l ated fatty 02:00: CAP, [place] acids 00 Bedtime, Dosing Weight 78.1, kg, Start date: 04/15/18 21:00:00 CDT, Duration: 30 day, Stop date: 05/14/18 21:00:00 CDT Pravastatin No Notes: Juarez leonela 6-13 (Same as: l 02:00: Pravachol) Saline No Notes: Memoria Flush 0.9% 6-13 (Same as: l 02:00: BD Luke Posiflush) omega-3 No Route: PO, Juarez leonela polyunsatur 6-13 Drug form: l ated fatty 02:00: CAP, Luke acids 00 Bedtime, Dosing Weight 78.1, kg, Start date: 04/15/18 21:00:00 CDT, Duration: 30 day, Stop date: 05/14/18 21:00:00 CDT Pravastatin No Notes: Juarez leonela 6-13 (Same as: l 02:00: Pravachol) Saline No Notes: Memoria Flush 0.9% 6-13 (Same as: l 02:00: BD Luke 00 Posiflush) omega-3 No Route: PO, Juarez leonela polyunsatur 6-13 Drug form: l ated fatty 02:00: CAP, [place] acids 00 Bedtime, Dosing Weight 78.1, kg, Start date: 04/15/18 21:00:00 CDT, Duration: 30 day, Stop date: 05/14/18 21:00:00 CDT Pravastatin No Notes: Juarez leonela 6-13 (Same as: l 02:00: Pravachol) Saline No Notes: Memoria Flush 0.9% 6-13 (Same as: l 02:00: BD Posiflush) Aspirin No Notes: Do Memor ia 6-13 not crush l 01:00: or chew. [place] 00 (Same As: Ecotrin) Aspirin No Notes: Do Memor ia 6-13 not crush l 01:00: or chew. Luke 00 (Same As: Ecotrin) Aspirin No Notes: Do Memor ia 6-13 not crush l 01:00: or chew. Luke 00 (Same As: Ecotrin) Aspirin No Notes: Do Memor ia 6-13 not crush l 01:00: or chew. Luke 00 (Same As: Ecotrin) Aspirin No Notes: Do Memor ia 6-13 not crush l 01:00: or chew. Luke 00 (Same As: Ecotrin) Aspirin No Notes: Do Memor ia 6-13 not crush l 01:00: or chew. Luke (Same As: Ecotrin) Aspirin No Notes: Do Memor ia 6-13 not crush l 01:00: or chew. Luke (Same As: Ecotrin) Aspirin No Notes: Do Memor ia 6-13 not crush l 01:00: or chew. Luke (Same As: Ecotrin) Insulin No Notes: Memoria Lispro 6-13 (Same as: l 00:22: Humalog ) Roll in palms of hands gently; Do not shake `vigorousl y. "Single Patient Use Only " WASTE: F/P - Black; E - Municipal Trash Bin Stable for 28 days at room temperatur e. Expires in days from ____Date Dextrose 2018-0 No 12.5 gm, Memor ia 50% Syringe 6-13 25 mL, l 00:22: Route: Luke 00 IVP, Drug Form: INJ, Dosing Weight 78.1, kg, PRN, PRN Blood Glucose Results, Start date: 04/15/18 19:22:00 CDT, Duration: 30 day, Stop date: 05/15/18 19:21:00 CDT Glucagon 2018-0 No 1 mg, Memoria 6-13 Route: IM, l 00:22: Drug form: [place] 00 PDR/INJ, PRN, Dosing Weight 78.1, kg, PRN Blood Glucose Results, Start date: 04/15/18 19:22:00 CDT, Duration: 30 day, Stop date: 05/15/18 19:21:00 CDT Insulin 2018-0 No Notes: Memoria Lispro 6-13 (Same as: l 00:22: Humalog ) Roll in palms of hands gently; Do not shake `vigorousl y. "Single Patient Use Only " WASTE: F/P - Black; E - Municipal Trash Bin Stable for 28 days at room temperatur e. Expires in days from ____Date Dextrose 2018-0 No 12.5 gm, Memor ia 50% Syringe 6-13 25 mL, l 00:22: Route: Luke 00 IVP, Drug Form: INJ, Dosing Weight 78.1, kg, PRN, PRN Blood Glucose Results, Start date: 04/15/18 19:22:00 CDT, Duration: 30 day, Stop date: 05/15/18 19:21:00 CDT Glucagon 2018-0 No 1 mg, Memoria 6-13 Route: IM, l 00:22: Drug form: [place] 00 PDR/INJ, PRN, Dosing Weight 78.1, kg, PRN Blood Glucose Results, Start date: 04/15/18 19:22:00 CDT, Duration: 30 day, Stop date: 05/15/18 19:21:00 CDT Insulin 2018-0 No Notes: Memoria Lispro 6-13 (Same as: l 00:22: Humalog ) Luke 00 Roll in palms of hands gently; Do not shake `vigorousl y. "Single Patient Use Only " WASTE: F/P - Black; E - Municipal Trash Bin Stable for 28 days at room temperatur e. Expires in days from ____Date Dextrose 2018-0 No 12.5 gm, Memor ia 50% Syringe 6-13 25 mL, l 00:22: Route: [place] 00 IVP, Drug Form: INJ, Dosing Weight 78.1, kg, PRN, PRN Blood Glucose Results, Start date: 04/15/18 19:22:00 CDT, Duration: 30 day, Stop date: 05/15/18 19:21:00 CDT Glucagon 2018-0 No 1 mg, Memoria 6-13 Route: IM, l 00:22: Drug form: Luke 00 PDR/INJ, PRN, Dosing Weight 78.1, kg, PRN Blood Glucose Results, Start date: 04/15/18 19:22:00 CDT, Duration: 30 day, Stop date: 05/15/18 19:21:00 CDT Insulin 2018-0 No Notes: Memoria Lispro 6-13 (Same as: l 00:22: Humalog ) Luke 00 Roll in palms of hands gently; Do not shake `vigorousl y. "Single Patient Use Only " WASTE: F/P - Black; E - Municipal Trash Bin Stable for 28 days at room temperatur e. Expires in days from ____Date Dextrose 2018-0 No 12.5 gm, Memor ia 50% Syringe 6-13 25 mL, l 00:22: Route: Luke 00 IVP, Drug Form: INJ, Dosing Weight 78.1, kg, PRN, PRN Blood Glucose Results, Start date: 04/15/18 19:22:00 CDT, Duration: 30 day, Stop date: 05/15/18 19:21:00 CDT Glucagon 2018-0 No 1 mg, Memoria 6-13 Route: IM, l 00:22: Drug form: [place] 00 PDR/INJ, PRN, Dosing Weight 78.1, kg, PRN Blood Glucose Results, Start date: 04/15/18 19:22:00 CDT, Duration: 30 day, Stop date: 05/15/18 19:21:00 CDT Insulin 2018-0 No Notes: Memoria Lispro 6-13 (Same as: l 00:22: Humalog ) [place] 00 Roll in palms of hands gently; Do not shake `vigorousl y. "Single Patient Use Only " WASTE: F/P - Black; E - Municipal Trash Bin Stable for 28 days at room temperatur e. Expires in days from ____Date Dextrose 2018-0 No 12.5 gm, Memor ia 50% Syringe 6-13 25 mL, l 00:22: Route: [place] 00 IVP, Drug Form: INJ, Dosing Weight 78.1, kg, PRN, PRN Blood Glucose Results, Start date: 04/15/18 19:22:00 CDT, Duration: 30 day, Stop date: 05/15/18 19:21:00 CDT Glucagon 2018-0 No 1 mg, Memoria 6-13 Route: IM, l 00:22: Drug form: [place] 00 PDR/INJ, PRN, Dosing Weight 78.1, kg, PRN Blood Glucose Results, Start date: 04/15/18 19:22:00 CDT, Duration: 30 day, Stop date: 05/15/18 19:21:00 CDT Insulin 2018-0 No Notes: Memoria Lispro 6-13 (Same as: l 00:22: Humalog ) Luke 00 Roll in palms of hands gently; Do not shake `vigorousl y. "Single Patient Use Only " WASTE: F/P - Black; E - Municipal Trash Bin Stable for 28 days at room temperatur e. Expires in days from ____Date Dextrose 2018-0 No 12.5 gm, Memor ia 50% Syringe 6-13 25 mL, l 00:22: Route: [place] 00 IVP, Drug Form: INJ, Dosing Weight 78.1, kg, PRN, PRN Blood Glucose Results, Start date: 04/15/18 19:22:00 CDT, Duration: 30 day, Stop date: 05/15/18 19:21:00 CDT Glucagon 2018-0 No 1 mg, Memoria 6-13 Route: IM, l 00:22: Drug form: [place] 00 PDR/INJ, PRN, Dosing Weight 78.1, kg, PRN Blood Glucose Results, Start date: 04/15/18 19:22:00 CDT, Duration: 30 day, Stop date: 05/15/18 19:21:00 CDT Insulin 2018-0 No Notes: Memoria Lispro 6-13 (Same as: l 00:22: Humalog ) Luke 00 Roll in palms of hands gently; Do not shake `vigorousl y. "Single Patient Use Only " WASTE: F/P - Black; E - Municipal Trash Bin Stable for 28 days at room temperatur e. Expires in days from ____Date Dextrose 2018-0 No 12.5 gm, Memor ia 50% Syringe 6-13 25 mL, l 00:22: Route: Luke 00 IVP, Drug Form: INJ, Dosing Weight 78.1, kg, PRN, PRN Blood Glucose Results, Start date: 04/15/18 19:22:00 CDT, Duration: 30 day, Stop date: 05/15/18 19:21:00 CDT Glucagon 2018-0 No 1 mg, Memoria 6-13 Route: IM, l 00:22: Drug form: [place] 00 PDR/INJ, PRN, Dosing Weight 78.1, kg, PRN Blood Glucose Results, Start date: 04/15/18 19:22:00 CDT, Duration: 30 day, Stop date: 05/15/18 19:21:00 CDT Insulin 2018-0 No Notes: Memoria Lispro 6-13 (Same as: l 00:22: Humalog ) Luke 00 Roll in palms of hands gently; Do not shake `vigorousl y. "Single Patient Use Only " WASTE: F/P - Black; E - Municipal Trash Bin Stable for 28 days at room temperatur e. Expires in days from ____Date Dextrose 2017- No 12.5 gm, Memor ia 50% Syringe 6-13 25 mL, l 00:22: Route: [place] 00 IVP, Drug Form: INJ, Dosing Weight 78.1, kg, PRN, PRN Blood Glucose Results, Start date: 04/15/18 19:22:00 CDT, Duration: 30 day, Stop date: 05/15/18 19:21:00 CDT Glucagon No 1 mg, Memoria 6-13 Route: IM, l 00:22: Drug form: Luke 00 PDR/INJ, PRN, Dosing Weight 78.1, kg, PRN Blood Glucose Results, Start date: 04/15/18 19:22:00 CDT, Duration: 30 day, Stop date: 05/15/18 19:21:00 CDT Saline No Notes: Memoria Flush 0.9% 6-13 (Same as: l 00:19: BD [place] 00 Posiflush) Nystatin No Notes: Memoria 100 UNT/MG 6-13 (Same l Topical 00:19: as:Mycosta Herm jennifer Powder 00 tin, Nilstat) For external use only. Saline No Notes: Memoria Flush 0.9% 6-13 (Same as: l 00:19: BD Luke 00 Posiflush) Nystatin No Notes: Memoria 100 UNT/MG 6-13 (Same l Topical 00:19: as:Mycosta Herm jennifer Powder 00 tin, Nilstat) For external use only. Saline No Notes: Memoria Flush 0.9% 6-13 (Same as: l 00:19: BD [place] 00 Posiflush) Nystatin No Notes: Memoria 100 UNT/MG 6-13 (Same l Topical 00:19: as:Mycosta Herm jennifer Powder 00 tin, Nilstat) For external use only. Saline No Notes: Memoria Flush 0.9% 6-13 (Same as: l 00:19: BD [place] 00 Posiflush) Nystatin No Notes: Memoria 100 UNT/MG 6-13 (Same l Topical 00:19: as:Mycosta Herm jennifer Powder 00 tin, Nilstat) For external use only. Saline No Notes: Memoria Flush 0.9% 6-13 (Same as: l 00:19: BD [place] 00 Posiflush) Nystatin No Notes: Memoria 100 UNT/MG 6-13 (Same l Topical 00:19: as:Mycosta Herm jennifer Powder 00 tin, Nilstat) For external use only. Saline No Notes: Memoria Flush 0.9% 6-13 (Same as: l 00:19: BD Luke 00 Posiflush) Nystatin No Notes: Memoria 100 UNT/MG 6-13 (Same l Topical 00:19: as:Mycosta Herm jennifer Powder 00 tin, Nilstat) For external use only. Saline No Notes: Memoria Flush 0.9% 6-13 (Same as: l 00:19: BD Luke 00 Posiflush) Nystatin No Notes: Memoria 100 UNT/MG 6-13 (Same l Topical 00:19: as:Mycosta Herm jennifer Powder 00 tin, Nilstat) For external use only. Saline No Notes: Memoria Flush 0.9% 6-13 (Same as: l 00:19: BD Luke 00 Posiflush) Nystatin No Notes: Memoria 100 UNT/MG 6-13 (Same l Topical 00:19: as:Mycosta Herm jennifer Powder 00 tin, Nilstat) For external use only. acetaminoph No Notes: Do M emoria en-codeine 6-12 not exceed l #3 22:50: 4gm/day of Luke 00 acetaminop hen. (Same as: Tylenol with Codeine # 3) Vancomycin No 1 gm, Memori a 6-12 Route: l 22:50: IVPB, Luke 00 ONCE, Dosing Weight 78.1, kg, Start date: 04/15/18 17:50:00 CDT, Stop date: 04/15/18 17:50:00 CDT, ABX Indication : Surgical Prophylaxi s Acetaminoph No Notes: Do M emoria en 6-12 not exceed l 22:50: 4 gm/day. Luke 00 (Same as: Tylenol) Ondansetron No Notes: Juarez leonela 6-12 (Same as: l 22:50: Zofran) Luke 00 MEDICATION WASTE Product Size: 4 mg Product Wasted: ___ mg acetaminoph No Notes: Do M emoria en-codeine 6-12 not exceed l #3 22:50: 4gm/day of [place] acetaminop hen. (Same as: Tylenol with Codeine # 3) Vancomycin No 1 gm, Memori a 6-12 Route: l 22:50: IVPB, [place] 00 ONCE, Dosing Weight 78.1, kg, Start date: 04/15/18 17:50:00 CDT, Stop date: 04/15/18 17:50:00 CDT, ABX Indication : Surgical Prophylaxi s Acetaminoph No Notes: Do M emoria en 6-12 not exceed l 22:50: 4 gm/day. Luke 00 (Same as: Tylenol) Ondansetron No Notes: Juarez leonela 6-12 (Same as: l 22:50: Zofran) Luke 00 MEDICATION WASTE Product Size: 4 mg Product Wasted: ___ mg acetaminoph No Notes: Do M emoria en-codeine 6-12 not exceed l #3 22:50: 4gm/day of [place] acetaminop hen. (Same as: Tylenol with Codeine # 3) Vancomycin No 1 gm, Memori a 6-12 Route: l 22:50: IVPB, Luke 00 ONCE, Dosing Weight 78.1, kg, Start date: 04/15/18 17:50:00 CDT, Stop date: 04/15/18 17:50:00 CDT, ABX Indication : Surgical Prophylaxi s Acetaminoph No Notes: Do M emoria en 6-12 not exceed l 22:50: 4 gm/day. [place] 00 (Same as: Tylenol) Ondansetron No Notes: Juarez leonela 6-12 (Same as: l 22:50: Zofran) [place] 00 MEDICATION WASTE Product Size: 4 mg Product Wasted: ___ mg acetaminoph No Notes: Do M emoria en-codeine 6-12 not exceed l #3 22:50: 4gm/day of [place] acetaminop hen. (Same as: Tylenol with Codeine # 3) Vancomycin No 1 gm, Memori a 6-12 Route: l 22:50: IVPB, [place] 00 ONCE, Dosing Weight 78.1, kg, Start date: 04/15/18 17:50:00 CDT, Stop date: 04/15/18 17:50:00 CDT, ABX Indication : Surgical Prophylaxi s Acetaminoph No Notes: Do M emoria en 6-12 not exceed l 22:50: 4 gm/day. Luke (Same as: Tylenol) acetaminoph No Notes: Do M emoria en-codeine 6-12 not exceed l #3 22:50: 4gm/day of [place] acetaminop hen. (Same as: Tylenol with Codeine # 3) Vancomycin No 1 gm, Memori a 6-12 Route: l 22:50: IVPB, [place] 00 ONCE, Dosing Weight 78.1, kg, Start date: 04/15/18 17:50:00 CDT, Stop date: 04/15/18 17:50:00 CDT, ABX Indication : Surgical Prophylaxi s Acetaminoph No Notes: Do M emoria en 6-12 not exceed l 22:50: 4 gm/day. Luke 00 (Same as: Tylenol) Ondansetron No Notes: [place]arez leonela 6-12 (Same as: l 22:50: Zofran) Luke 00 MEDICATION WASTE Product Size: 4 mg Product Wasted: ___ mg Ondansetron No Notes: Juarez leonela 6-12 (Same as: l 22:50: Zofran) 00 MEDICATION WASTE Product Size: 4 mg Product Wasted: ___ mg acetaminoph No Notes: Do M emoria en-codeine 6-12 not exceed l #3 22:50: 4gm/day of [place] acetaminop hen. (Same as: Tylenol with Codeine # 3) Vancomycin No 1 gm, Memori a 6-12 Route: l 22:50: IVPB, Luke 00 ONCE, Dosing Weight 78.1, kg, Start date: 04/15/18 17:50:00 CDT, Stop date: 04/15/18 17:50:00 CDT, ABX Indication : Surgical Prophylaxi s Acetaminoph No Notes: Do M emoria en 6-12 not exceed l 22:50: 4 gm/day. Luke (Same as: Tylenol) Ondansetron No Notes: Juarez leonela 6-12 (Same as: l 22:50: Zofran) MEDICATION WASTE Product Size: 4 mg Product Wasted: ___ mg acetaminoph No Notes: Do M emoria en-codeine 6-12 not exceed l #3 22:50: 4gm/day of acetaminop hen. (Same as: Tylenol with Codeine # 3) Vancomycin No 1 gm, Memori a 6-12 Route: l 22:50: IVPB, Luke 00 ONCE, Dosing Weight 78.1, kg, Start date: 04/15/18 17:50:00 CDT, Stop date: 04/15/18 17:50:00 CDT, ABX Indication : Surgical Prophylaxi s Acetaminoph No Notes: Do M emoria en 6-12 not exceed l 22:50: 4 gm/day. [place] 00 (Same as: Tylenol) Ondansetron No Notes: Juarez leonela 6-12 (Same as: l 22:50: Zofran) MEDICATION WASTE Product Size: 4 mg Product Wasted: ___ mg acetaminoph No Notes: Do M emoria en-codeine 6-12 not exceed l #3 22:50: 4gm/day of [place] acetaminop hen. (Same as: Tylenol with Codeine # 3) Vancomycin 0 No 1 gm, Memori a 6-12 Route: l 22:50: IVPB, Luke 00 ONCE, Dosing Weight 78.1, kg, Start date: 04/15/18 17:50:00 CDT, Stop date: 04/15/18 17:50:00 CDT, ABX Indication : Surgical Prophylaxi s Acetaminoph No Notes: Do M emoria en -12 not exceed l 22:50: 4 gm/day. (Same as: Tylenol) Ondansetron No Notes: Juarez leonela -12 (Same as: l 22:50: Zofran) MEDICATION WASTE Product Size: 4 mg Product Wasted: ___ mg EPINEPHrine No Notes: Juarez leonela -lidocaine 6-12 (lidocaine l 1:200,000-2 16:00: -epi Alexx n % 00 2%-1:82607 preservativ 0 20 ml e-free AMP (MPF)) injectable Preservati solution ve-free (Same as: Xylocaine- MFP w/Epinephr ine) EPINEPHrine No Notes: Juarez leonela -lidocaine 6-12 (lidocaine l 1:200,000-2 16:00: -epi Alexx n % 00 2%-1:82323 preservativ 0 20 ml e-free AMP (MPF)) injectable Preservati solution ve-free (Same as: Xylocaine- MFP w/Epinephr ine) EPINEPHrine No Notes: Juarez leonela -lidocaine 6-12 (lidocaine l 1:200,000-2 16:00: -epi Alexx n % 00 2%-1:56290 preservativ 0 20 ml e-free AMP (MPF)) injectable Preservati solution ve-free (Same as: Xylocaine- MFP w/Epinephr ine) EPINEPHrine No Notes: Juarez leonela -lidocaine 6-12 (lidocaine l 1:200,000-2 16:00: -epi Alexx n % 00 2%-1:22868 preservativ 0 20 ml e-free AMP (MPF)) injectable Preservati solution ve-free (Same as: Xylocaine- MFP w/Epinephr ine) EPINEPHrine No Notes: Juarez leonela -lidocaine 6-12 (lidocaine l 1:200,000-2 16:00: -epi Alexx n % 00 2%-1:03686 preservativ 0 20 ml e-free AMP (MPF)) injectable Preservati solution ve-free (Same as: Xylocaine- MFP w/Epinephr ine) EPINEPHrine No Notes: Juarez leonela -lidocaine 6-12 (lidocaine l 1:200,000-2 16:00: -epi Alexx n % 00 2%-1:61101 preservativ 0 20 ml e-free AMP (MPF)) injectable Preservati solution ve-free (Same as: Xylocaine- MFP w/Epinephr ine) EPINEPHrine No Notes: Juarez leonela -lidocaine 6-12 (lidocaine l 1:200,000-2 16:00: -epi Alexx n % 00 2%-1:59721 preservativ 0 20 ml e-free AMP (MPF)) injectable Preservati solution ve-free (Same as: Xylocaine- MFP w/Epinephr ine) EPINEPHrine No Notes: Juarez leonela -lidocaine 6-12 (lidocaine l 1:200,000-2 16:00: -epi Alexx n % 00 2%-1:80676 preservativ 0 20 ml e-free AMP (MPF)) injectable Preservati solution ve-free (Same as: Xylocaine- MFP w/Epinephr ine) Acetaminoph No Notes: Do M emoria en 6-12 not exceed l 06:15: 4 gm/day. [place] 00 (Same as: Tylenol) Acetaminoph No Notes: Do M emoria en 6-12 not exceed l 06:15: 4 gm/day. [place] 00 (Same as: Tylenol) Acetaminoph No Notes: Do M emoria en 6-12 not exceed l 06:15: 4 gm/day. Luke 00 (Same as: Tylenol) Acetaminoph No Notes: Do M emoria en 6-12 not exceed l 06:15: 4 gm/day. Luke 00 (Same as: Tylenol) Acetaminoph No Notes: Do M emoria en 6-12 not exceed l 06:15: 4 gm/day. Luke 00 (Same as: Tylenol) Acetaminoph No Notes: Do M emoria en 12 not exceed l 06:15: 4 gm/day. (Same as: Tylenol) Acetaminoph No Notes: Do M emoria en 612 not exceed l 06:15: 4 gm/day. (Same as: Tylenol) Acetaminoph No Notes: Do M emoria en 612 not exceed l 06:15: 4 gm/day. (Same as: Tylenol) calcium-vit Yes 1 tab, PO, Memoria bender D 600 6-12 TID, 0 l mg-125 05:25: Refill(s) Alexx n units oral 00 tablet Omeprazole Yes 20 mg, PO, M emoria 6-12 Daily, 0 l 05:25: Refill(s) Francisco-3 Yes See Memoria oral 12 Instructio l capsule 05:25: ns, 2 capsules Bedtime, 0 Refill(s) Metformin Yes 500 mg, Memor ia 6-12 PO, Daily, l 05:25: 0 Refill(s) Centrum Yes 1 tab, PO, Juarez leonela Women's 6-12 Daily, 0 l 05:25: Refill(s) Aspirin Yes See Memoria 6-12 Instructio l 05:25: ns, 81 mg, 0 Refill(s) levocetiriz Yes 5 mg =, Mem oria ine 6-12 PO, Daily, l 05:25: 0 Refill(s) Toviaz Yes 4 mg, PO, Memori a 6-12 Daily, 0 l 05:25: Refill(s) carvedilol Yes 3.125 mg, Me moria 6-12 PO, BID, 0 l 05:25: Refill(s) Garlic Yes See Memoria 612 Instructio l 05:25: ns, 1000 [place] 00 units Bedtime, 0 Refill(s) Lisinopril Yes 40 mg, PO, M emoria 6-12 Daily, 0 l 05:25: Refill(s) Pravastatin 2018-0 Yes 40 mg, PO, Memoria 6-12 Bedtime, # l 05:25: 30 tab, 0 Luke 00 Refill(s) calcium-vit 2018-0 Yes 1 tab, PO, Memoria bender D 600 6-12 TID, 0 l mg-125 05:25: Refill(s) Alexx n units oral 00 tablet Omeprazole 20180 Yes 20 mg, PO, M emoria 6-12 Daily, 0 l 05:25: Refill(s) Francisco-3 2018-0 Yes See Memoria oral 6-12 Instructio l capsule 05:25: ns, 2 Luke 00 capsules Bedtime, 0 Refill(s) Metformin 0 Yes 500 mg, Memor ia 6-12 PO, Daily, l 05:25: 0 Refill(s) Centrum 20180 Yes 1 tab, PO, Juarez leonela Women's 6-12 Daily, 0 l 05:25: Refill(s) Aspirin 0 Yes See Memoria 612 Instructio l 05:25: ns, 81 mg, Luke 00 0 Refill(s) levocetiriz 20180 Yes 5 mg =, Mem oria ine 6-12 PO, Daily, l 05:25: 0 Refill(s) Toviaz 20180 Yes 4 mg, PO, Memori a 6-12 Daily, 0 l 05:25: Refill(s) carvedilol 0 Yes 3.125 mg, Me moria 6-12 PO, BID, 0 l 05:25: Refill(s) Garlic 0 Yes See Memoria 6-12 Instructio l 05:25: ns, 1000 [place] 00 units Bedtime, 0 Refill(s) Lisinopril 20180 Yes 40 mg, PO, M emoria 6-12 Daily, 0 l 05:25: Refill(s) Pravastatin 2018-0 Yes 40 mg, PO, Memoria 6-12 Bedtime, # l 05:25: 30 tab, 0 [place] 00 Refill(s) calcium-vit 20180 Yes 1 tab, PO, Memoria bender D 600 6-12 TID, 0 l mg-125 05:25: Refill(s) Alexx n units oral 00 tablet Omeprazole Yes 20 mg, PO, M emoria 6-12 Daily, 0 l 05:25: Refill(s) [place] 00 Francisco-3 Yes See Memoria oral 12 Instructio l capsule 05:25: ns, 2 Luke 00 capsules Bedtime, 0 Refill(s) Metformin 0 Yes 500 mg, Memor ia 6-12 PO, Daily, l 05:25: 0 Refill(s) Centrum Yes 1 tab, PO, Juarez leonela Women's 6-12 Daily, 0 l 05:25: Refill(s) Aspirin 0 Yes See Memoria 12 Instructio l 05:25: ns, 81 mg, 0 Refill(s) levocetiriz Yes 5 mg =, Mem oria ine 6-12 PO, Daily, l 05:25: 0 Refill(s) Toviaz Yes 4 mg, PO, Memori a 6-12 Daily, 0 l 05:25: Refill(s) carvedilol Yes 3.125 mg, Me moria 6-12 PO, BID, 0 l 05:25: Refill(s) Garlic 0 Yes See Memoria 12 Instructio l 05:25: ns, 1000 [place] 00 units Bedtime, 0 Refill(s) Lisinopril 0 Yes 40 mg, PO, M emoria 6-12 Daily, 0 l 05:25: Refill(s) Pravastatin 20180 Yes 40 mg, PO, Memoria 6-12 Bedtime, # l 05:25: 30 tab, 0 Luke 00 Refill(s) calcium-vit 0 Yes 1 tab, PO, Memoria bender D 600 6-12 TID, 0 l mg-125 05:25: Refill(s) Alexx n units oral 00 tablet Omeprazole 0 Yes 20 mg, PO, M emoria 6-12 Daily, 0 l 05:25: Refill(s) Francisco-3 Yes See Memoria oral 12 Instructio l capsule 05:25: ns, 2 [place] 00 capsules Bedtime, 0 Refill(s) Metformin 0 Yes 500 mg, Memor ia 6-12 PO, Daily, l 05:25: 0 Luke 00 Refill(s) Centrum 0 Yes 1 tab, PO, Juarez leonela Women's 6-12 Daily, 0 l 05:25: Refill(s) Aspirin Yes See Memoria 12 Instructio l 05:25: ns, 81 mg, Luke 00 0 Refill(s) levocetiriz Yes 5 mg =, Mem oria ine 6-12 PO, Daily, l 05:25: 0 Refill(s) Toviaz Yes 4 mg, PO, Memori a 6-12 Daily, 0 l 05:25: Refill(s) carvedilol Yes 3.125 mg, Me moria 6-12 PO, BID, 0 l 05:25: Refill(s) Garlic Yes See Memoria 12 Instructio l 05:25: ns, 1000 Luke 00 units Bedtime, 0 Refill(s) Lisinopril Yes 40 mg, PO, M emoria 6-12 Daily, 0 l 05:25: Refill(s) Pravastatin Yes 40 mg, PO, Memoria 6-12 Bedtime, # l 05:25: 30 tab, 0 [place] 00 Refill(s) calcium-vit 0 Yes 1 tab, PO, Memoria bender D 600 6-12 TID, 0 l mg-125 05:25: Refill(s) Alexx n units oral 00 tablet Omeprazole 0 Yes 20 mg, PO, M emoria 6-12 Daily, 0 l 05:25: Refill(s) Francisco-3 Yes See Memoria oral 6-12 Instructio l capsule 05:25: ns, 2 [place] 00 capsules Bedtime, 0 Refill(s) Metformin Yes 500 mg, Memor ia 6-12 PO, Daily, l 05:25: 0 [place] 00 Refill(s) Centrum Yes 1 tab, PO, Juarez leonela Women's 6-12 Daily, 0 l 05:25: Refill(s) [place] 00 Aspirin 0 Yes See Memoria 12 Instructio l 05:25: ns, 81 mg, [place] 0 Refill(s) calcium-vit Yes 1 tab, PO, Memoria bender D 600 6-12 TID, 0 l mg-125 05:25: Refill(s) Alexx n units oral 00 tablet Omeprazole Yes 20 mg, PO, M emoria 6-12 Daily, 0 l 05:25: Refill(s) [place] 00 Francisco-3 Yes See Memoria oral 04-15 Instructio l capsule 05:25: ns, 2 Luke 00 capsules Bedtime, 0 Refill(s) Metformin Yes 500 mg, Memor ia 6-12 PO, Daily, l 05:25: 0 Refill(s) levocetiriz Yes 5 mg =, Mem oria ine 6-12 PO, Daily, l 05:25: 0 Refill(s) Centrum Yes 1 tab, PO, Juarez leonela Women's 6-12 Daily, 0 l 05:25: Refill(s) Aspirin Yes See Memoria 12 Instructio l 05:25: ns, 81 mg, Luke 00 0 Refill(s) levocetiriz Yes 5 mg =, Mem oria ine 6-12 PO, Daily, l 05:25: 0 Refill(s) Toviaz Yes 4 mg, PO, Memori a 6-12 Daily, 0 l 05:25: Refill(s) carvedilol Yes 3.125 mg, Me moria 6-12 PO, BID, 0 l 05:25: Refill(s) Garlic Yes See Memoria 12 Instructio l 05:25: ns, 1000 [place] 00 units Bedtime, 0 Refill(s) Lisinopril 0 Yes 40 mg, PO, M emoria 6-12 Daily, 0 l 05:25: Refill(s) Pravastatin 2018-0 Yes 40 mg, PO, Memoria 6-12 Bedtime, # l 05:25: 30 tab, 0 [place] 00 Refill(s) Toviaz 2018-0 Yes 4 mg, PO, Memori a 6-12 Daily, 0 l 05:25: Refill(s) carvedilol 0 Yes 3.125 mg, Me moria 6-12 PO, BID, 0 l 05:25: Refill(s) Garlic 0 Yes See Memoria 04-15 Instructio l 05:25: ns, 1000 [place] 00 units Bedtime, 0 Refill(s) Lisinopril 0 Yes 40 mg, PO, M emoria 6-12 Daily, 0 l 05:25: Refill(s) Pravastatin 0 Yes 40 mg, PO, Memoria 612 Bedtime, # l 05:25: 30 tab, 0 Refill(s) calcium-vit 0 Yes 1 tab, PO, Memoria bender D 600 612 TID, 0 l mg-125 05:25: Refill(s) Alexx n units oral 00 tablet Omeprazole 0 Yes 20 mg, PO, M emoria 6-12 Daily, 0 l 05:25: Refill(s) Francisco-3 0 Yes See Memoria oral 04-15 Instructio l capsule 05:25: ns, 2 [place] 00 capsules Bedtime, 0 Refill(s) Metformin 0 Yes 500 mg, Memor ia 6-12 PO, Daily, l 05:25: 0 Refill(s) Centrum 0 Yes 1 tab, PO, Juarez leonela Women's 6-12 Daily, 0 l 05:25: Refill(s) Aspirin 0 Yes See Memoria 12 Instructio l 05:25: ns, 81 mg, [place] 0 Refill(s) levocetiriz 0 Yes 5 mg =, Mem oria ine 6-12 PO, Daily, l 05:25: 0 Refill(s) Toviaz 2018-0 Yes 4 mg, PO, Memori a 6-12 Daily, 0 l 05:25: Refill(s) carvedilol Yes 3.125 mg, Me moria 6-12 PO, BID, 0 l 05:25: Refill(s) Garlic Yes See Memoria 12 Instructio l 05:25: ns, 1000 [place] 00 units Bedtime, 0 Refill(s) Lisinopril 0 Yes 40 mg, PO, M emoria 6-12 Daily, 0 l 05:25: Refill(s) Pravastatin 20180 Yes 40 mg, PO, Memoria 6-12 Bedtime, # l 05:25: 30 tab, 0 [place] 00 Refill(s) calcium-vit 20180 Yes 1 tab, PO, Memoria bender D 600 6-12 TID, 0 l mg-125 05:25: Refill(s) Alexx n units oral 00 tablet Omeprazole Yes 20 mg, PO, M emoria 6-12 Daily, 0 l 05:25: Refill(s) Francisco-3 Yes See Memoria oral 04-15 Instructio l capsule 05:25: ns, 2 [place] 00 capsules Bedtime, 0 Refill(s) Metformin Yes 500 mg, Memor ia 6-12 PO, Daily, l 05:25: 0 Refill(s) Centrum 0 Yes 1 tab, PO, Juarez leonela Women's 6-12 Daily, 0 l 05:25: Refill(s) Aspirin 0 Yes See Memoria 12 Instructio l 05:25: ns, 81 mg, Luke 00 0 Refill(s) levocetiriz Yes 5 mg =, Mem oria ine 6-12 PO, Daily, l 05:25: 0 Refill(s) Toviaz 0 Yes 4 mg, PO, Memori a 6-12 Daily, 0 l 05:25: Refill(s) carvedilol Yes 3.125 mg, Me moria 6-12 PO, BID, 0 l 05:25: Refill(s) Garlic 0 Yes See Memoria 12 Instructio l 05:25: ns, 1000 [place] 00 units Bedtime, 0 Refill(s) Lisinopril 2017- Yes 40 mg, PO, M emoria 6-12 Daily, 0 l 05:25: Refill(s) Pravastatin Yes 40 mg, PO, Memoria 6-12 Bedtime, # l 05:25: 30 tab, 0 Refill(s) metformin metformin No 1 BID metformin [facility] 500 mg 500 mg 500 mg Family tablet Take tablet Take tablet Practic 1 tablet 1 tablet Take 1 e twice a day twice a day tablet by oral by oral twice a route. route. day by oral route. omeprazole omeprazole No 2capsul Q1D omeprazole [facility] 10 mg 10 mg e(s) 10 mg Family capsule,del capsule,del capsule,de Practic ayed ayed layed e release release release Take 2 Take 2 Take 2 capsules capsules capsules every day every day every day by oral by oral by oral route. route. route. Plavix 75 Plavix 75 No 1 Q1D Plavix 75 [place] mg tablet mg tablet mg tablet Family Take 1 Take 1 Take 1 Practic tablet tablet tablet e every day every day every day by oral by oral by oral route. route. route. pravastatin pravastatin No 1 Q1D pravastati [facility] 40 mg 40 mg n 40 mg Family tablet Take tablet Take tablet Practic 1 tablet 1 tablet Take 1 e every day every day tablet by oral by oral every day route. route. by oral route. carvedilol carvedilol No 1 BID carvedilol [facility] 3.125 mg 3.125 mg 3.125 mg Fam tamela tablet Take tablet Take tablet Practic 1 tablet 1 tablet Take 1 e twice a day twice a day tablet by oral by oral twice a route. route. day by oral route. levocetiriz levocetiriz No 1 Q1D levocetiri [facility] ine 5 mg ine 5 mg zine 5 mg Fa hector tablet Take tablet Take tablet Practic 1 tablet 1 tablet Take 1 e every day every day tablet by oral by oral every day route. route. by oral route. lisinopril lisinopril No 1 Q1D lisinopril [facility] 40 mg 40 mg 40 mg Family tablet Take tablet Take tablet Practic 1 tablet 1 tablet Take 1 e every day every day tablet by oral by oral every day route. route. by oral route. Vital Signs Vital Name Observation Time Observation Value Comments Source Heart rate 2022-11-05 17:31:00 69 /min [facility] Body temperature 2022-11-05 17:31:00 36.17 Sofia [facility] Respiratory rate 2022-11-05 17:31:00 16 /min [facility] Body height 2022-11-05 17:31:00 165.1 cm [facility] Body weight 2022-11-05 17:31:00 70.489 kg [facility] BMI 2022-11-05 17:31:00 25.86 kg/m2 [facility] Oxygen saturation in 2022-11-05 17:31:00 97 /min [facility] blood by [facility] Pulse oximetry Branch Systolic blood 2022-10-31 19:55:00 168 mm[Hg] [facility] Diastolic blood 2022-10-31 19:55:00 69 mm[Hg] [facility] Heart rate 2022-10-31 19:55:00 66 /min [facility] Oxygen saturation in 2022-10-31 19:55:00 96 /min [facility] Arterial blood by [facility] Pulse oximetry Branch Body temperature 2022-10-31 19:51:00 36.78 Sofia [facility] Body height 2022-10-31 19:51:00 165.1 cm [facility] Body weight 2022-10-31 19:51:00 70.081 kg [facility] BMI 2022-10-31 19:51:00 25.71 kg/m2 [facility] Body temperature 2022-09-24 17:16:00 36.44 Sofia [facility] Respiratory rate 2022-09-24 17:16:00 18 /min [facility] Body height 2022-09-24 17:16:00 165.1 cm [facility] Body weight 2022-09-24 17:16:00 71.124 kg [facility] BMI 2022-09-24 17:16:00 26.09 kg/m2 [facility] Oxygen saturation in 2022-09-24 17:16:00 98 /min [facility] blood by [facility] Pulse oximetry Branch Systolic blood 2022-09-24 17:16:00 173 mm[Hg] Univer sity of pressure [facility] Diastolic blood 2022-09-24 17:16:00 86 mm[Hg] Unive rsity of pressure [facility] Heart rate 2022-09-24 17:16:00 68 /min [facility] Height 2020-12-15 00:00:00 65 [in_i] [facility] Family Practice Height 2020-08-23 00:00:00 65 [in_i] [facility] Practice Systolic blood 2020-08-03 19:22:00 180 mm[Hg] Univer sity of pressure [facility] Diastolic blood 2020-08-03 19:22:00 82 mm[Hg] Unive rsity of pressure [facility] Heart rate 2020-08-03 18:44:00 68 /min [facility] [place] Body temperature 2020-08-03 18:44:00 36.28 Sofia [facility] Respiratory rate 2020-08-03 18:44:00 16 /min Univ ersity [facility] Body weight 2020-08-03 18:44:00 77.111 kg Universi ty [facility] Oxygen saturation in 2020-08-03 18:44:00 97 /min [facility] blood by [facility] Pulse oximetry Branch [facility] 2020-05-02 00:00:00 65 [in_i] [facility] Practice BMI (Body Mass 2020-05-02 00:00:00 28.8 kg/m2 [facility] Body Weight 2020-05-02 00:00:00 173 [lb_av] [facility] Practice Systolic (mm Hg) 2018-04-16 16:00:00 Juarez rial Luke Diastolic (mm Hg) 2018-04-16 16:00:00 Mem orial [place] Respitory Rate 2018-04-16 16:00:00 Memori al [place] Systolic (mm Hg) 2018-04-16 15:00:00 Juarez rial Luke Diastolic (mm Hg) 2018-04-16 15:00:00 Mem orial [place] Respitory Rate 2018-04-16 15:00:00 Memori al [place] Systolic (mm Hg) 2018-04-16 14:00:00 Juarez santana [place] Diastolic (mm Hg) 2018-04-16 14:00:00 Mem cuong [place] Respitory Rate 2018-04-16 14:00:00 Dinah freitas [place] Temperature Oral (F) 2018-04-16 13:00:00 98.9 F [facility] Temperature Oral (F) 2018-04-16 09:00:00 97.9 F [facility] [place] Temperature Oral (F) 2018-04-16 05:00:00 97.8 F [facility] Luke Height 2018-04-15 05:46:00 162.56 cm [facility] BMI Calculated 2018-04-15 05:46:00 Dinah France Weight 2018-04-15 05:46:00 Oswaldo Butler Procedures Procedure Date / Time Performing Clinician Source Performed CT ABDOMEN W WO 2022-11-21 17:56:50 Valeri Wu [facility] CONTRAST Medical Branch EXTERNAL PROVIDER 2022-11-15 06:01:00 Doctor Unassigned, No [facility] RECORDS [facility] Medical Branch MEDICAL 2022-11-09 06:01:00 Doctor Unassigned, No [facility] RELEASE/CLEARANCE FORMS [facility] URINE CULTURE 2022-11-05 22:37:00 Valeri Wu [facility] POCT URINALYSIS AUTO 2022-11-05 17:44:00 Valeri Wu [facility] NOTICE OF BILLING 2022-11-01 17:10:39 Doctor Unassigned, No [facility] PRACTICES FOR MEDICARE Name Medical B ranch PATIENTS CONSENT/REFUSAL FOR 2022-11-01 17:10:00 [facility] ASSIGNMENT OF BENEFITS 2022-11-01 17:09:26 Doctor Unassigned, No [facility] HB ECG ROUTINE & RHYTHM 2022-10-31 19:58:00 Alycia Decker [facility] [place] ASSIGNMENT OF BENEFITS 2022-10-15 14:56:41 Doctor Unassigned, No [facility] POCT URINALYSIS AUTO 2022-09-24 19:40:00 Valeri Wu [facility] Medical Branch REFERRAL- 2022-09-17 06:01:00 Doctor Unassigned, No [facility] j[facility] REQUEST/RESPONSE Name Medical Branch URINE CULTURE 2020-08-03 19:02:[address] [facility] POCT URINALYSIS 2020-08-03 18:52:[address] [facility] Hysterectomy [facility] Tubal ligation [facility] Stent [facility] [place] [facility] Hysterectomy (Total) [facility] Fam tamela Practice Plan of Care Planned Activity Planned Date Details Comments Source Future Scheduled 2022-11-29 COVID-19 [facility]ACCINE (#[facility]) [facility] 09:24:35 [code = COVID-19 VACCINE (#1)] Future Scheduled 2022-11-29 SHINGLES VACCINES (1 [facility] 09:24:35 of 2) [code = SHINGLES VACCINES (1 of 2)] Future Scheduled 2022-11-29 65+ [facility]OCOCCAL [facility] 09:24:35 VACCINE (1 - PCV) [code = 65+ PNEUMOCOCCAL VACCINE (1 - PCV)] Future Scheduled 2022-11-29 INFLUENZA VACCINE [facility] 09:24:35 [code = INFLUENZA VACCINE] Future Scheduled 2022-11-29 65+ [facility] 09:24:35 VACCINE (1 - PCV) [code = 65+ PNEUMOCOCCAL VACCINE (1 - PCV)] Future Scheduled 2022-11-29 [facility]ZA [facility]ACCINE [facility] 09:24:35 [code = INFLUENZA VACCINE] Future Scheduled 2022-11-29 COVID-19 VACCINE (#1) [facility] 09:24:35 [code = COVID-19 VACCINE (#1)] Future Scheduled 2022-11-29 SHINGLES VACCINES ([facility] 09:24:35 of 2) [code = SHINGLES VACCINES (1 of 2)] Future Scheduled 2022-07-03 65+ [facility] 00:05:14 VACCINE (1 - PCV) [code = 65+ PNEUMOCOCCAL VACCINE (1 - PCV)] Future Scheduled 2022-07-03 [facility]FLUENZA VACCINE [facility] Test 00:05:14 [code = INFLUENZA VACCINE] Future Scheduled 2022-07-03 HEPATITIS B VACCINES Met [facility] Test 00:05:14 (1 of 3 - 3-dose series) [code = HEPATITIS B VACCINES (1 of 3 - 3-dose series)] Future Scheduled 2022-07-03 COVID-19 VACCINE (#1) [facility] Test 00:05:14 [code = COVID-19 VACCINE (#1)] Future Scheduled 2022-07-03 SHINGLES VACCINES (1 Met [facility] Test 00:05:14 of 2) [code = SHINGLES VACCINES (1 of 2)] Encounters Start End Encounter Admission Attending Care Care Encounter Source Date/Time Date/Time Type Type Clinicians Facility Department ID 2023-05-01 2023-05-01 [id number] Univers 13:20:00 13:20:[address] [facility] 2023-03-01 2023-03-01 [facility] [id number] Univers 12:00:00 12:00:00 COLLEEN [facility] 2023-01-17 2023-01-17 Outpatient R [facility] [id number] Univers 10:00:00 10:00:00 [facility] 2022-12-17 2022-12-17 [facility] [id number] Univers 13:00:00 13:00:00 KURT [facility] 2022-11-26 2022-11-26 [facility] [id number] Univers 13:00:00 14:30:30 KURT [facility] 2022-11-26 2022-11-26 Ancillary Cynthia Muro [facility] [id number] Univers 13:00:00 14:30:30 Visit Kurt Weinberg [id number] [facility] [id number] Filippo VALENCIA [id number] [address] 2022-11-26 2022-11-26 [facility] [id number] Univers 00:00:00 00:00:[address] [facility] 2022-11-21 2022-11-21 Outpatient R [facility] [id number] Univers 11:21:48 23:59:[address] o f [facility] 2022-11-21 2022-11-21 [facility] [id number] Univers 11:15:00 23:59:00 Encounter Valeri BRYANT 350.1.13.10 [place] [id number] [facility] [address] 2022-11-20 2022-11-20 Telephone [facility] 1.2.840.114 [id number] Univers 00:00:00 00:00:00 Valeri BRYANT 350.1.13.10 [place] [phone] [facility] 204 [facility] 2022-11-15 2022-11-15 Telephone [facility] 1.2.840.114 [id number] Univers 00:00:00 00:00:00 Valeri BRYANT 350.1.13.10 [place] [phone] [facility] 204 [facility] 2022-11-15 2022-11-15 Orders Doctor WILFRIDO 1.2.840.114 [id number] Univers 00:00:00 00:00:00 Only Unassigned, SERENITY 350.1.13.10 ity of [place] [facility] 4.2.7.2.686 Santhosh as [phone] [facility] [address] 2022-11-13 2022-11-13 Telephone [facility] 1.2.840.114 [id number] Univers 00:00:00 00:00:00 Valeri BRYANT 350.1.13.10 [place] [phone] [facility] 204 [facility] 2022-11-12 2022-11-12 Automotive Finance Manager 2, Adc Lab [facility] 1.2.840.114 [id number] Univers 11:15:00 11:18:26 Visit Wilber Flower BRYANT 350.1.13.10 [place] [facility] [place] [phone] Co dical NAL 353 [facility] 2022-11-12 2022-11-12 Outpatient R WILBER [facility] [id number] Univers 11:15:00 11:15:[address] it[address] of [facility] 2022-11-12 2022-11-12 Telephone [facility] 1.2.817.233 [id number] Univers 00:00:00 00:00:00 Alycia BRYANT 350.1.13.10 [place] [phone] [facility] NAL 059 [facility] 2022-11-09 2022-11-09 [facility] 1.2.840.114 [id number] Univers 00:00:00 00:00:00 Valeri BRYANT 350.1.13.10 [place] [phone] Co dicny NAL 204 [facility] 2022-11-09 2022-11-09 Orders Doctor WILFRIDO 1.2.840.114 [id number] Univers 00:00:00 00:00:00 Only Unassigned, SERENITY 350.1.13.10 ity of [place] [facility] 4.2.7.2.686 Santhosh as [phone] [address] 2022-11-08 2022-11-08 Case Wu, [facility] 1.2.840.114 [id number] Univers 00:00:00 00:00:00 Management Valeri BRYANT 350.1.13.10 [place] [phone] Co dical NAL 204 [facility] 2022-11-07 2022-11-07 Automotive Finance Manager 2, Adc Lab [facility] 1.2.840.114 [id number] Univers 11:00:00 11:15:00 Visit Valeri Wu 350.1.13. 10 ity of [place] [facility] [place] [phone] Co dical NAL 353 [facility] 2022-11-07 2022-11-07 [id number] Univers 11:00:00 11:00:[address] o [address] [facility] 2022-11-05 2022-11-05 [facility] [id number] Univers 11:30:00 12:43:[address] [facility] 2022-11-05 2022-11-05 [facility] 1.2.840.114 [id number] Univers 11:30:00 12:43:19 Visit Valeri BRYANT 350.1.13.10 it[place] [facility] [place] [id number] Co dical NAL 204 [facility] 2022-11-01 2022-11-01 Hospital [facility] 1.2.840.114 [id number] Univers 11:13:47 23:59:00 Encounter Valeri BRYANT 350.1.13.10 ity of [place] [facility] [place] [phone] [address] 2022-11-01 2022-11-01 Out[facility] [id number] Univers 11:13:46 23:59:[address] [facility] 2022-10-31 2022-10-31 Outpatient [facility] [id number] Univers 13:40:00 16:46:[address] [facility] 2022-10-31 2022-10-31 [facility] 1.2.840.114 [id number] Univers 13:40:00 16:46:37 Visit Alycia BRYANT 350.1.13.10 ity of [place] [facility] [place] [phone] Co dical NAL 059 [facility] 2022-10-23 2022-10-23 Telephone [facility] 1.2.292.075 [id number] Univers 00:00:00 00:00:00 Alycia BRYANT 350.1.13.10 ity of [place] [facility] [place] [phone] Co dical NAL 059 [facility] 2022-10-15 2022-10-15 Outpatient R LENARD [facility] [id number] Univers 09:15:00 10:09:[address] [facility] 2022-10-15 2022-10-15 Ancillary MuroCynthia whitten Kriss [facility] 1.2.840. 114 [id number] Univers 09:15:00 10:09:28 Visit Kurt Weinberg 350.1.13.10 it[place] [phone] Co dical NAL 179 [facility] 2022-10-15 2022-10-15 Orders Doctor WILFRIDO 1.2.840.114 [id number] Univers 00:00:00 00:00:00 Only Unassigned, SERENITY 350.1.13.10 ity of [place] [facility] 4.2.7.2.686 Santhosh as [phone] [address] 2022-10-02 2022-10-02 [facility]phone [facility] 1.2.840.114 [id number] Univers 00:00:00 00:00:00 Valeri BRYANT 350.1.13.10 [place] [phone] Co dical NAL 204 [facility] 2022-09-24 2022-09-24 Automotive Finance Manager Cesario, Amparo Lab Main [facility] 1.2.8 40.114 [id number] Univers 12:30:00 12:45:00 Visit Valeri Wu 350.1.13. 10 it[place] [facility] [phone] Co dical NAL 353 [facility] 2022-09-24 2022-09-24 Outpatient R RBYCE [facility] [id number] Univers 10:30:00 12:01:[address] ity o f [facility] 2022-09-24 2022-09-24 Office Bryce [facility] 1.2.840.114 [id number] Univers 10:30:00 12:01:13 Visit Valeri BRYANT 350.1.13.10 [place] of [place] PROF[place]UE[place] [phone] Co dical [facility] [address] [facility] 2022-09-17 2022-09-17 Orders Doctor WILFRIDO 1.2.840.114 [id number] Univers 00:00:00 00:00:00 Only Unassigned, SERENITY 350.1.13.10 ity of [place] [facility] 4.2.7.2.686 Santhosh as [phone] [address] 2021-04-26 2021-04-26 Outpatient Miller_S_AH VFP VFP [id number] [facility] 11:11:00 11:11:00 [id number] Family Practic e 2020-12-27 2020-12-27 Outpatient Pamela-Mbayo VFP VFP [id number] [facility] 02:59:00 02:59:00 _A_AH 33318 Family Practic e 2020-12-22 2020-12-22 Outpatient Pamela-Mbayo VFP VFP [id number] [facility] 05:44:00 05:44:00 _A_AH 84711 Family Practic e 2020-12-15 2020-12-15 Zina VFP [place] - [id number] V illage 00:00:00 00:00:00 Pamela-Mbay [facility] Fam tamela john SUPERVISOR PRESS ROOM: Medical - Practi c [address] [email or web address] [facility], [address] [place] [address], [place] [address] , Ph. 2020-10-20 2020-10-20 Outpatient [facility] [id number] [address] [place] 00:00:00 00:00:00 MORGAN [address] 2020-09-19 2020-09-19 Outpatient Pamela-Mbayo VFP VFP [id number] [facility] 08:14:00 08:14:00 _A_AH 23467 Family Practic e 2020-09-01 2020-09-01 Outpatient Pamela-Mbayo VFP VFP [id number] [place] 03:52:00 03:52:00 _A_AH 26441 Family Practic e 2020-08-26 2020-08-26 Outpatient Pamela-Mbayo VFP VFP [id number] [facility] 10:01:00 10:01:00 _A_AH 49095 Family Practic e 2020-08-23 2020-08-23 Zina VFP [place] - [id number] V illage 00:00:00 00:00:00 Pamela-Mbay [place] Fam tamela o, SUPERVISOR PRESS ROOM: Medical - Practi c [address] [email or web address] [facility], [place] [address], [place] [address] , Ph. 2020-08-09 2020-08-09 Outpatient Pamela-Mbayo VFP VFP [address] [place] [address] 08:52:00 08:52:00 _A_AH 90637 Family Practic e 2020-08-03 2020-08-03 Outpatient R [facility] [id number] Univers 17:20:00 17:20:00 [id number] [facility] 2020-08-03 2020-08-03 Urgent Provider, [facility] 1.2.840.114 [id number] Univers 13:20:37 14:24:35 Emelia Monsalve [facility] 350.1.13.10 [facility] 4.2.7.2.686 Santhosh as Professio [phone] [address] Office Building [address] 2020-08-03 2020-08-03 Outpatient R SHRADDHA [facility] [id number] Univers 13:00:00 13:00:00 EMELIA johnson [facility] 2020-08-01 2020-08-01 Outpatient Pamela-Mbayo VFP VFP [id number] [facility] 10:37:00 10:37:00 _A_AH 18436 Family Practic e 2020-07-21 2020-07-21 Outpatient Pamela-Mbayo VFP VFP [id number] [facility] 05:21:00 05:21:00 _A_AH 85510 Family Practic e 2020-06-15 2020-06-15 Outpatient Pamela-Mbayo VFP VFP [id number] [place] 06:54:00 06:54:00 _A_AH 03776 Family Practic e 2020-06-08 2020-06-08 Outpatient Pamela-Mbayo VFP VFP [id number] [facility] 07:12:00 07:12:00 _A_AH 53412 Family Practic e 2020-05-23 2020-05-23 Outpatient Pamela-Mbayo VFP VFP [id number] [facility] 04:28:00 04:28:00 _A_AH 98620 Family Practic e 2020-05-05 2020-05-05 Outpatient Pamela-Mbayo VFP VFP [id number] [place] 12:21:00 12:21:00 _A_AH 87222 Family Practic e 2020-05-02 2020-05-02 Outpatient Pamela-Mbayo VFP VFP [id number] [id number] [place] 10:27:00 10:27:00 _A_AH 38590 Family Practic e 2020-05-02 2020-05-02 Zina VFP [place] - [id number] V illage 00:00:00 00:00:00 Pamela-Mbay [facility] Fam tamela john SUPERVISOR PRESS ROOM: Medical - Practi elizabeth [address] [email or web address]_ e [facility], [place] [address], [place] [address] , Ph. 2019-12-23 2019-12-23 Outpatient Pamela-Mbayo VFP VFP [id number] [facility] 07:26:00 07:26:00 _A_AH 45145 Family Practic e 2018-04-15 2018-04-16 Inpatient [facility] [id number] 82753 Memoria 04:40:00 22:20:00 ari pitt [facility] 2018-04-15 2018-04-16 Inpatient [facility] [id number] Memoria 04:40:00 22:20:00 ari pitt [facility] 2018-04-14 2018-04-16 Outpatient JESÚS Mcduffie [facility] [id number] 23:40:00 17:20:00 Arleen Tabor Results Test Description Test Time Test Comments Results Result Comments Source POCT URINALYSIS, INSTRUMENT 2022-11-05 17:45:00 Test Item Value Reference Range Interpretation Comme nts POCT U SP GRAV (test code = 3255) 1.015 mg/dl 1.005-1.025 POCT PH U (test code = 3254) 7 mg/dl 5-8 POCT U LEUK EST (test code = 3263) small Negative - Negative POCT U NIT (test code = 3262) negative Negative - Negative POCT U PROT (test code = 3259) negative Negative - Negative POCT U GLU (test code = 3256) negative Negative - Negative POCT U KETONE (test code = 3258) negative Negative - Negative POCT U UROBILI (test code = 3260) 0.2 mg/dl 0.2-1 POCT U BILI (test code = 3261) negative Negative - Negative POCT U BLD (test code = 3257) negative Negative - Negative POCT U COLOR (test code = 3266) yellow POCT U APPEAR (test code = 3267) clear Lab Interpretation (test code = 23097-7) Normal [facility] URINALYSIS, [id number] 17:45:00 Test Item Value Reference Range Interpretation Comments POCT U SP GRAV (test code = 1.015 mg/dl 1.005-1.025 3255) POCT PH U (test code = 3254) 7 mg/dl 5-8 POCT U LEUK EST (test code = small Negative - Negative 3263) POCT U NIT (test code = 3262) negative Negative - Negative POCT U PROT (test code = negative Negative - Negative 3259) POCT U GLU (test code = 3256) negative Negative - Negative POCT U KETONE (test code = negative Negative - Negative 3258) POCT U UROBILI (test code = 0.2 mg/dl 0.2-1 3260) POCT U BILI (test code = negative Negative - Negative 3261) POCT U BLD (test code = 3257) negative Negative - Negative POCT U COLOR (test code = yellow 3266) POCT U APPEAR (test code = clear 3267) Lab Interpretation (test code Normal = 48124-2) [facility] [id number] 17:45:00 Test Item Value Reference Range Interpretation Comments POCT U SP GRAV (test code = 1.015 mg/dl 1.005-1.025 3255) POCT PH U (test code = 3254) 7 mg/dl 5-8 POCT U LEUK EST (test code = small Negative - Negative 3263) POCT U NIT (test code = 3262) negative Negative - Negative POCT U PROT (test code = negative Negative - Negative 3259) POCT U GLU (test code = 3256) negative Negative - Negative POCT U KETONE (test code = negative Negative - Negative 3258) POCT U UROBILI (test code = 0.2 mg/dl 0.2-1 3260) POCT U BILI (test code = negative Negative - Negative 3261) POCT U BLD (test code = 3257) negative Negative - Negative POCT U COLOR (test code = yellow 3266) POCT U APPEAR (test code = clear 3267) Lab Interpretation (test code Normal = 43241-9) [facility] URINALYSIS, [id number] 17:45:00 Test Item Value Reference Range Interpretation Comments POCT U SP GRAV (test code = 1.015 mg/dl 1.005-1.025 3255) POCT PH U (test code = 3254) 7 mg/dl 5-8 POCT U LEUK EST (test code = small Negative - Negative 3263) POCT U NIT (test code = 3262) negative Negative - Negative POCT U PROT (test code = negative Negative - Negative 3259) POCT U GLU (test code = 3256) negative Negative - Negative POCT U KETONE (test code = negative Negative - Negative 3258) POCT U UROBILI (test code = 0.2 mg/dl 0.2-1 3260) POCT U BILI (test code = negative Negative - Negative 3261) POCT U BLD (test code = 3257) negative Negative - Negative POCT U COLOR (test code = yellow 3266) POCT U APPEAR (test code = clear 3267) Lab Interpretation (test code Normal = 10273-8) [facility] URINALYSIS, [id number] 17:45:00 Test Item Value Reference Range Interpretation Comments POCT U SP GRAV (test code = 1.015 mg/dl 1.005-1.025 3255) POCT PH U (test code = 3254) 7 mg/dl 5-8 POCT U LEUK EST (test code = small Negative - Negative 3263) POCT U NIT (test code = 3262) negative Negative - Negative POCT U PROT (test code = negative Negative - Negative 3259) POCT U GLU (test code = 3256) negative Negative - Negative POCT U KETONE (test code = negative Negative - Negative 3258) POCT U UROBILI (test code = 0.2 mg/dl 0.2-1 3260) POCT U BILI (test code = negative Negative - Negative 3261) POCT U BLD (test code = 3257) negative Negative - Negative POCT U COLOR (test code = yellow 3266) POCT U APPEAR (test code = clear 3267) Lab Interpretation (test code Normal = 94638-6) [facility] URINALYSIS, [id number] 17:45:00 Test Item Value Reference Range Interpretation Comments POCT U SP GRAV (test code = 1.015 mg/dl 1.005-1.025 3255) POCT PH U (test code = 3254) 7 mg/dl 5-8 POCT U LEUK EST (test code = small Negative - Negative 3263) POCT U NIT (test code = 3262) negative Negative - Negative POCT U PROT (test code = negative Negative - Negative 3259) POCT U GLU (test code = 3256) negative Negative - Negative POCT U KETONE (test code = negative Negative - Negative 3258) POCT U UROBILI (test code = 0.2 mg/dl 0.2-1 3260) POCT U BILI (test code = negative Negative - Negative 3261) POCT U BLD (test code = 3257) negative Negative - Negative POCT U COLOR (test code = yellow 3266) POCT U APPEAR (test code = clear 3267) Lab Interpretation (test code Normal = 89802-7) [facility] URINALYSIS, [id number] 19:43:00 Test Item Value Reference Range Interpretation Comments POCT U SP GRAV (test code = 1.015 mg/dl 1.005-1.025 3255) POCT PH U (test code = 3254) 7.0 mg/dl 5-8 POCT U LEUK EST (test code = Negative Negative - Negative 3263) POCT U NIT (test code = 3262) Negative Negative - Negative POCT U PROT (test code = Negative Negative - Negative 3259) POCT U GLU (test code = 3256) Negative Negative - Negative POCT U KETONE (test code = Negative Negative - Negative 3258) POCT U UROBILI (test code = 0.2 mg/dl 0.2-1 3260) POCT U BILI (test code = Negative Negative - Negative 3261) POCT U BLD (test code = 3257) Negative Negative - Negative POCT U COLOR (test code = Yellow 3266) POCT U APPEAR (test code = Clear 3267) Lab Interpretation (test code Normal = 13532-2) [facility] URINALYSIS, [id number] 19:43:00 Test Item Value Reference Range Interpretation Comments POCT U SP GRAV (test code = 1.015 mg/dl 1.005-1.025 3255) POCT PH U (test code = 3254) 7.0 mg/dl 5-8 POCT U LEUK EST (test code = Negative Negative - Negative 3263) POCT U NIT (test code = 3262) Negative Negative - Negative POCT U PROT (test code = Negative Negative - Negative 3259) POCT U GLU (test code = 3256) Negative Negative - Negative POCT U KETONE (test code = Negative Negative - Negative 3258) POCT U UROBILI (test code = 0.2 mg/dl 0.2-1 3260) POCT U BILI (test code = Negative Negative - Negative 3261) POCT U BLD (test code = 3257) Negative Negative - Negative POCT U COLOR (test code = Yellow 3266) POCT U APPEAR (test code = Clear 3267) Lab Interpretation (test code Normal = 13187-3) [facility] URINALYSIS, [id number] 19:43:00 Test Item Value Reference Range Interpretation Comments POCT U SP GRAV (test code = 1.015 mg/dl 1.005-1.025 3255) POCT PH U (test code = 3254) 7.0 mg/dl 5-8 POCT U LEUK EST (test code = Negative Negative - Negative 3263) POCT U NIT (test code = 3262) Negative Negative - Negative POCT U PROT (test code = Negative Negative - Negative 3259) POCT U GLU (test code = 3256) Negative Negative - Negative POCT U KETONE (test code = Negative Negative - Negative 3258) POCT U UROBILI (test code = 0.2 mg/dl 0.2-1 3260) POCT U BILI (test code = Negative Negative - Negative 3261) POCT U BLD (test code = 3257) Negative Negative - Negative POCT U COLOR (test code = Yellow 3266) POCT U APPEAR (test code = Clear 3267) Lab Interpretation (test code Normal = 50857-7) [facility] [id number] 18:53:00 Test Item Value Reference Range Interpretation Comments POCT U SP GRAV (test 1.005 mg/dl 1.005-1.025 code = 3255) POCT PH U (test code = 7 mg/dl 5-8 3254) POCT U LEUK EST (test + Negative - code = 3263) Negative POCT U NIT (test code neg Negative - = 3262) Negative POCT U PROT (test code neg Negative - = 3259) Negative POCT U GLU (test code norm Negative - = 3256) Negative POCT U KETONE (test neg Negative - code = 3258) Negative POCT U UROBILI (test norm 0.2-1 code = 3260) POCT U BILI (test code neg Negative - = 3261) Negative POCT U BLD (test code trace Negative - = 3257) Negative POCT U COLOR (test yellow code = 3266) POCT U APPEAR (test cloudy code = 3267) GISSELLE (test code = GISSELLE) accurate development and interpretation of all internal controls Lab Interpretation Abnormal (test code = 39751-8) [facility] [id number] 01:23:00 Test Item Value Reference Range Interpretation Comments eGFR (test code = eGFR) 83 [facility] [id number] 01:23:00 Test Item Value Reference Range Interpretation Comments Glucose Lvl (test code = Glucose Lvl) 145 70-99 [facility]2018-06-13 01:23:00 Test Item Value Reference Range Interpretation Comments BUN (test code = BUN) 13 05-25 [facility] [id number] 01:23:00 Test Item Value Reference Range Interpretation Comments Creatinine Lvl (test code = Creatinine 0.66 0.50-1.40 Lvl) [facility]2018-06-13 01:23:00 Test Item Value Reference Range Interpretation Comments Sodium Lvl (test code = Sodium Lvl) 141 135-145 [facility]2018-06-13 01:23:00 Test Item Value Reference Range Interpretation Comments Chloride Lvl (test code = Chloride Lvl) 109 95-109 [facility]villeScentAirFORMERLY [id number] 01:23:00 Test Item Value Reference Range Interpretation Comments Potassium Lvl (test code = Potassium 4.5 3.5-5.1 Lvl) [facility]2018-06-13 01:23:00 Test Item Value Reference Range Interpretation Comments CO2 (test code = CO2) 25 24-32 [facility]ville[facility] [id number] 01:23:00 Test Item Value Reference Range Interpretation Comments Calcium Lvl (test code = Calcium Lvl) 9.3 8.5-10.5 [facility] [id number] 01:23:00 Test Item Value Reference Range Interpretation Comments AGAP (test code = AGAP) 11.5 10.0-20.0 [facility] [id number] 01:23:00 Test Item Value Reference Range Interpretation Comments BNP (test code = BNP) 48 [facility] [id number] 01:23:00 Test Item Value Reference Range Interpretation Comments eGFR (test code = eGFR) 83 [facility]2018-06-13 01:23:00 Test Item Value Reference Range Interpretation Comments Glucose Lvl (test code = Glucose Lvl) 145 70-99 [facility]2018-06-13 01:23:00 Test Item Value Reference Range Interpretation Comments BUN (test code = BUN) 13 05-25 [facility]2018-06-13 01:23:00 Test Item Value Reference Range Interpretation Comments Creatinine Lvl (test code = Creatinine 0.66 0.50-1.40 Lvl) [facility]2018-06-13 01:23:00 Test Item Value Reference Range Interpretation Comments Sodium Lvl (test code = Sodium Lvl) 141 135-145 [facility]2018-06-13 01:23:00 Test Item Value Reference Range Interpretation Comments Chloride Lvl (test code = Chloride Lvl) 109 95-109 [facility]2018-06-13 01:23:00 Test Item Value Reference Range Interpretation Comments Potassium Lvl (test code = Potassium 4.5 3.5-5.1 Lvl) [facility]2018-06-13 01:23:00 Test Item Value Reference Range Interpretation Comments CO2 (test code = CO2) 25 24-32 [facility]2018-06-13 01:23:00 Test Item Value Reference Range Interpretation Comments Calcium Lvl (test code = Calcium Lvl) 9.3 8.5-10.5 [facility]2018-06-13 01:23:00 Test Item Value Reference Range Interpretation Comments AGAP (test code = AGAP) 11.5 10.0-20.0 [facility] [id number] 01:23:00 Test Item Value Reference Range Interpretation Comments BNP (test code = BNP) 48 [facility]2018-06-13 01:23:00 Test Item Value Reference Range Interpretation Comments eGFR (test code = eGFR) 83 [facility]2018-06-13 01:23:00 Test Item Value Reference Range Interpretation Comments Glucose Lvl (test code = Glucose Lvl) 145 70-99 [facility]2018-06-13 01:23:00 Test Item Value Reference Range Interpretation Comments BUN (test code = BUN) 13 7-22 [facility]2018-06-13 01:23:00 Test Item Value Reference Range Interpretation Comments Creatinine Lvl (test code = Creatinine 0.66 0.50-1.40 Lvl) [facility]2018-06-13 01:23:00 Test Item Value Reference Range Interpretation Comments Sodium Lvl (test code = Sodium Lvl) 141 135-145 [facility]2018-06-13 01:23:00 Test Item Value Reference Range Interpretation Comments Chloride Lvl (test code = Chloride Lvl) 109 95-109 [facility]2018-06-13 01:23:00 Test Item Value Reference Range Interpretation Comments Potassium Lvl (test code = Potassium 4.5 3.5-5.1 Lvl) [facility] [id number] 01:23:00 Test Item Value Reference Range Interpretation Comments CO2 (test code = CO2) [facility] [id number] 01:23:00 Test Item Value Reference Range Interpretation Comments Calcium Lvl (test code = Calcium Lvl) 9.3 8.5-10.5 [facility] [id number] 01:23:00 Test Item Value Reference Range Interpretation Comments AGAP (test code = AGAP) 11.5 10.0-20.0 [facility] [id number] 01:23:00 Test Item Value Reference Range Interpretation Comments BNP (test code = BNP) 48 [facility]2018-06-13 01:23:00 Test Item Value Reference Range Interpretation Comments eGFR (test code = eGFR) 83 [facility] [id number] 01:23:00 Test Item Value Reference Range Interpretation Comments Glucose Lvl (test code = Glucose Lvl) 145 70-99 [facility]2018-06-13 01:23:00 Test Item Value Reference Range Interpretation Comments BUN (test code = BUN) 13 - [facility]2018-06-13 01:23:00 Test Item Value Reference Range Interpretation Comments Creatinine Lvl (test code = Creatinine 0.66 0.50-1.40 Lvl) [facility]2018-06-13 01:23:00 Test Item Value Reference Range Interpretation Comments Sodium Lvl (test code = Sodium Lvl) 141 135-145 [facility]2018-06-13 01:23:00 Test Item Value Reference Range Interpretation Comments Chloride Lvl (test code = Chloride Lvl) 109 95-109 [facility]2018-06-13 01:23:00 Test Item Value Reference Range Interpretation Comments Potassium Lvl (test code = Potassium 4.5 3.5-5.1 Lvl) [facility] [id number] 01:23:00 Test Item Value Reference Range Interpretation Comments CO2 (test code = CO2) 25 - [facility]2018-06-13 01:23:00 Test Item Value Reference Range Interpretation Comments Calcium Lvl (test code = Calcium Lvl) 9.3 8.5-10.5 [facility] [id number] 01:23:00 Test Item Value Reference Range Interpretation Comments AGAP (test code = AGAP) 11.5 10.0-20.0 [facility] [id number] 01:23:00 Test Item Value Reference Range Interpretation Comments BNP (test code = BNP) 48 [facility] [id number] 01:23:00 Test Item Value Reference Range Interpretation Comments eGFR (test code = eGFR) 83 [facility] [id number] 01:23:00 Test Item Value Reference Range Interpretation Comments BNP (test code = BNP) 48 [facility] [id number] 01:23:00 Test Item Value Reference Range Interpretation Comments eGFR (test code = eGFR) 83 [facility] [id number] 01:23:00 Test Item Value Reference Range Interpretation Comments Glucose Lvl (test code = Glucose Lvl) 145 70-99 [facility] [id number] 01:23:00 Test Item Value Reference Range Interpretation Comments BUN (test code = BUN) 13 7-22 [facility] [id number] 01:23:00 Test Item Value Reference Range Interpretation Comments Creatinine Lvl (test code = Creatinine 0.66 0.50-1.40 Lvl) [facility] [id number] 01:23:00 Test Item Value Reference Range Interpretation Comments Sodium Lvl (test code = Sodium Lvl) 141 135-145 [facility] [id number] 01:23:00 Test Item Value Reference Range Interpretation Comments Glucose Lvl (test code = Glucose Lvl) 145 70-99 [facility] [id number] 01:23:00 Test Item Value Reference Range Interpretation Comments Chloride Lvl (test code = Chloride Lvl) 109 95-109 [facility]2018-06-13 01:23:00 Test Item Value Reference Range Interpretation Comments Potassium Lvl (test code = Potassium 4.5 3.5-5.1 Lvl) [facility] [id number] 01:23:00 Test Item Value Reference Range Interpretation Comments CO2 (test code = CO2) 25 24-32 [facility]2018-06-13 01:23:00 Test Item Value Reference Range Interpretation Comments Calcium Lvl (test code = Calcium Lvl) 9.3 8.5-10.5 [facility]2018-06-13 01:23:00 Test Item Value Reference Range Interpretation Comments AGAP (test code = AGAP) 11.5 10.0-20.0 [facility]2018-06-13 01:23:00 Test Item Value Reference Range Interpretation Comments BUN (test code = BUN) 13 05-25 [facility] [id number] 01:23:00 Test Item Value Reference Range Interpretation Comments BNP (test code = BNP) 48 [facility]2018-06-13 01:23:00 Test Item Value Reference Range Interpretation Comments eGFR (test code = eGFR) 83 [facility]2018-06-13 01:23:00 Test Item Value Reference Range Interpretation Comments Glucose Lvl (test code = Glucose Lvl) 145 70-99 [facility]2018-06-13 01:23:00 Test Item Value Reference Range Interpretation Comments BUN (test code = BUN) 13 05-25 [facility]2018-06-13 01:23:00 Test Item Value Reference Range Interpretation Comments Creatinine Lvl (test code = Creatinine 0.66 0.50-1.40 Lvl) [facility]2018-06-13 01:23:00 Test Item Value Reference Range Interpretation Comments Sodium Lvl (test code = Sodium Lvl) 141 135-145 [facility]2018-06-13 01:23:00 Test Item Value Reference Range Interpretation Comments Chloride Lvl (test code = Chloride Lvl) 109 95-109 [facility]2018-06-13 01:23:00 Test Item Value Reference Range Interpretation Comments Potassium Lvl (test code = Potassium 4.5 3.5-5.1 Lvl) [facility]2018-06-13 01:23:00 Test Item Value Reference Range Interpretation Comments Creatinine Lvl (test code = Creatinine 0.66 0.50-1.40 Lvl) [facility]2018-06-13 01:23:00 Test Item Value Reference Range Interpretation Comments CO2 (test code = CO2) 25 24-32 [facility] [id number] 01:23:00 Test Item Value Reference Range Interpretation Comments Calcium Lvl (test code = Calcium Lvl) 9.3 8.5-10.5 [facility] [id number] 01:23:00 Test Item Value Reference Range Interpretation Comments AGAP (test code = AGAP) 11.5 10.0-20.0 [facility] [id number] 01:23:00 Test Item Value Reference Range Interpretation Comments Sodium Lvl (test code = Sodium Lvl) 141 135-145 [facility] [id number] 01:23:00 Test Item Value Reference Range Interpretation Comments Chloride Lvl (test code = Chloride Lvl) 109 95-109 [facility]2018-06-13 01:23:00 Test Item Value Reference Range Interpretation Comments Potassium Lvl (test code = Potassium 4.5 3.5-5.1 Lvl) [facility]2018-06-13 01:23:00 Test Item Value Reference Range Interpretation Comments CO2 (test code = CO2) 25 24-32 [facility] [id number] 01:23:00 Test Item Value Reference Range Interpretation Comments Calcium Lvl (test code = Calcium Lvl) 9.3 8.5-10.5 [facility] [id number] 01:23:00 Test Item Value Reference Range Interpretation Comments AGAP (test code = AGAP) 11.5 10.0-20.0 [facility] [id number] 01:23:00 Test Item Value Reference Range Interpretation Comments BNP (test code = BNP) 48 [facility] [id number] 01:23:00 Test Item Value Reference Range Interpretation Comments eGFR (test code = eGFR) 83 [facility]2018-06-13 01:23:00 Test Item Value Reference Range Interpretation Comments Glucose Lvl (test code = Glucose Lvl) 145 70-99 [facility]2018-06-13 01:23:00 Test Item Value Reference Range Interpretation Comments BUN (test code = BUN) 13 7-22 [facility]2018-06-13 01:23:00 Test Item Value Reference Range Interpretation Comments Creatinine Lvl (test code = Creatinine 0.66 0.50-1.40 Lvl) [facility]2018-06-13 01:23:00 Test Item Value Reference Range Interpretation Comments Sodium Lvl (test code = Sodium Lvl) 141 135-145 [facility]2018-06-13 01:23:00 Test Item Value Reference Range Interpretation Comments Chloride Lvl (test code = Chloride Lvl) 109 95-109 [facility]2018-06-13 01:23:00 Test Item Value Reference Range Interpretation Comments Potassium Lvl (test code = Potassium 4.5 3.5-5.1 Lvl) [facility]2018-06-13 01:23:00 Test Item Value Reference Range Interpretation Comments CO2 (test code = CO2) 25 24-32 [facility]2018-06-13 01:23:00 Test Item Value Reference Range Interpretation Comments Calcium Lvl (test code = Calcium Lvl) 9.3 8.5-10.5 [facility]2018-06-13 01:23:00 Test Item Value Reference Range Interpretation Comments AGAP (test code = AGAP) 11.5 10.0-20.0 [facility] [id number] 01:23:00 Test Item Value Reference Range Interpretation Comments BNP (test code = BNP) 48 [facility]2018-06-12 09:27:00 Test Item Value Reference Range Interpretation Comments A/G Ratio (test code = A/G Ratio) 0.9 1 0.7-1.6 [facility]2018-06-12 09:27:00 Test Item Value Reference Range Interpretation Comments Globulin (test code = Globulin) 3.7 2.7-4.2 [facility]2018-06-12 09:27:00 Test Item Value Reference Range Interpretation Comments B/C Ratio (test code = B/C Ratio) 24 1 6-25 [facility]2018-06-12 09:27:00 Test Item Value Reference Range Interpretation Comments AGAP (test code = AGAP) 9.9 10.0-20.0 [facility]2018-06-12 09:27:00 Test Item Value Reference Range Interpretation Comments eGFR (test code = eGFR) 79 [facility]2018-06-12 09:27:00 Test Item Value Reference Range Interpretation Comments Potassium Lvl (test code = Potassium 3.9 3.5-5.1 Lvl) [facility]2018-06-12 09:27:00 Test Item Value Reference Range Interpretation Comments Chloride Lvl (test code = Chloride Lvl) 110 95-109 [facility]2018-06-12 09:27:00 Test Item Value Reference Range Interpretation Comments Calcium Lvl (test code = Calcium Lvl) 9.0 8.5-10.5 [facility]2018-06-12 09:27:00 Test Item Value Reference Range Interpretation Comments ALT (test code = ALT) 25 See_Comment [Auto mated message] The system which ge nerated this result transmit akhil reference range : <=65. The reference range was not used to interpr et this result as nora l/abnormal. [id number] 09:27:00 Test Item Value Reference Range Interpretation Comments CO2 (test code = CO2) 28 24-32 [facility]2018-06-12 09:27:00 Test Item Value Reference Range Interpretation Comments Albumin Lvl (test code = Albumin Lvl) 3.3 3.5-5.0 [facility]2018-06-12 09:27:00 Test Item Value Reference Range Interpretation Comments Total Protein (test code = Total 7.0 6.4-8.4 Protein) [facility]2018-06-12 09:27:00 Test Item Value Reference Range Interpretation Comments AST (test code = AST) 20 See_Comment [Auto mated message] The system which ge nerated this result transmit akhil reference range : <=37. The reference range was not used to interpr et this result as nora l/abnormal. [facility]2018-06-12 09:27:00 Test Item Value Reference Range Interpretation Comments Bili Total (test code = Bili Total) 0.5 0.2-1.3 [facility]2018-06-12 09:27:00 Test Item Value Reference Range Interpretation Comments Alk Phos (test code = Alk Phos) 54 39-136 [facility]2018-06-12 09:27:00 Test Item Value Reference Range Interpretation Comments Glucose Lvl (test code = Glucose Lvl) 111 70-99 [facility]2018-06-12 09:27:00 Test Item Value Reference Range Interpretation Comments Sodium Lvl (test code = Sodium Lvl) 144 135-145 [facility]2018-06-12 09:27:00 Test Item Value Reference Range Interpretation Comments Creatinine Lvl (test code = Creatinine 0.72 0.50-1.40 Lvl) [facility]2018-06-12 09:27:00 Test Item Value Reference Range Interpretation Comments BUN (test code = BUN) 17 7-22 [facility]XajckvxWIHDNYOKMF3710-15-76 09:27:00 Test Item Value Reference Range Interpretation Comments Lymphocytes # (test code = Lymphocytes 1.3 1.0-5.5 #) [facility] CenterFszuclrNMXMNECCUZ8498-23-50 09:27:00 Test Item Value Reference Range Interpretation Comments Monocytes # (test code 0.6 See_Comment [Aut omated message] The = Monocytes #) system which generated this result tra nsmitted reference range : <=0.8. The reference r jairon was not used to int erpret this result as normal/abnormal . [facility] CenterLyxqsvcVQJRVNUDMA8241-76-73 09:27:00 Test Item Value Reference Range Interpretation Comments Eosinophils # (test code 0.2 See_Comment [A utomated message] The = Eosinophils #) system whic h generated this result tra nsmitted reference range : <=0.5. The reference r jairon was not used to int erpret this result as normal/abnormal . [facility] CenterSepqfemZXFXSCVLOF1194-21-52 09:27:00 Test Item Value Reference Range Interpretation Comments Eosinophils (test code = 3.6 See_Comment [A utomated message] The Eosinophils) system which ge nerated this result tra nsmitted reference range : <=4.0. The reference r jairon was not used to int erpret this result as normal/abnormal . [facility] CenterJkxtgnjYKMTVBETCT8349-70-78 09:27:00 Test Item Value Reference Range Interpretation Comments Basophils (test code = 0.5 See_Comment [Aut omated message] The Basophils) system which ge nerated this result tra nsmitted reference range : <=1.0. The reference r jairon was not used to int erpret this result as normal/abnormal . [facility] CenterHptbbhrKFSDHFDUAM5251-17-39 09:27:00 Test Item Value Reference Range Interpretation Comments Segs-Bands # (test code = Segs-Bands #) 3.0 1.5-8.1 [facility] CenterFdiekyyQAFJYCPPJC2905-65-60 09:27:00 Test Item Value Reference Range Interpretation Comments Monocytes (test code = Monocytes) 12.0 2.0-12.0 [facility] CenterEispgwrZKLYMQLDPQ3278-94-48 09:27:00 Test Item Value Reference Range Interpretation Comments Segs (test code = Segs) 59.2 45.0-75.0 [facility] CenterFryzddaGOZHGUFJQW6532-47-49 09:27:00 Test Item Value Reference Range Interpretation Comments Lymphocytes (test code = Lymphocytes) 24.7 20.0-40.0 [facility] CenterZipqeqsSMOFFMYNLJ0457-66-62 09:27:00 Test Item Value Reference Range Interpretation Comments RDW (test code = RDW) 12.8 11.5-14.5 [facility] CenterWdqrnypRRNBEUYHZP0587-45-19 09:27:00 Test Item Value Reference Range Interpretation Comments Platelet (test code = Platelet) 119 133-450 [facility] CenterCuxvqdcHUXYQGEUCO6572-31-35 09:27:00 Test Item Value Reference Range Interpretation Comments MPV (test code = MPV) 8.1 7.4-10.4 [facility] CenterXrrpugzXRLHBVZTOC9294-35-84 09:27:00 Test Item Value Reference Range Interpretation Comments WBC (test code = WBC) 5.1 3.7-10.4 [facility] CenterVnvmyysZBIEEAZZYG6045-82-53 09:27:00 Test Item Value Reference Range Interpretation Comments RBC (test code = RBC) 3.77 4.20-5.40 [facility] CenterXkxebewHDNICGVTUM5106-54-37 09:27:00 Test Item Value Reference Range Interpretation Comments Hgb (test code = Hgb) 12.0 12.0-16.0 [facility] CenterUggxybgYEUOXXMNBD2619-84-40 09:27:00 Test Item Value Reference Range Interpretation Comments Hct (test code = Hct) 35.8 36.0-48.0 [facility] CenterUtyuevfATEMABNWOE4120-04-44 09:27:00 Test Item Value Reference Range Interpretation Comments MCHC (test code = MCHC) 33.5 32.0-36.0 [facility] CenterHnoqrxkFISHMQWWTT5766-43-57 09:27:00 Test Item Value Reference Range Interpretation Comments MCH (test code = MCH) 31.8 pg 27.0-31.0 [facility] CampusQmqnsbeNSEPNYTRRQ1282-11-55 09:27:00 Test Item Value Reference Range Interpretation Comments MCV (test code = MCV) 94.9 80.0-98.0 [facility]2018-06-12 09:27:00 Test Item Value Reference Range Interpretation Comments A/G Ratio (test code = A/G Ratio) 0.9 1 0.7-1.6 [facility]2018-06-12 09:27:00 Test Item Value Reference Range Interpretation Comments Globulin (test code = Globulin) 3.7 2.7-4.2 [facility]2018-06-12 09:27:00 Test Item Value Reference Range Interpretation Comments B/C Ratio (test code = B/C Ratio) 24 1 6-25 [facility]2018-06-12 09:27:00 Test Item Value Reference Range Interpretation Comments AGAP (test code = AGAP) 9.9 10.0-20.0 [facility]2018-06-12 09:27:00 Test Item Value Reference Range Interpretation Comments eGFR (test code = eGFR) 79 [facility]2018-06-12 09:27:00 Test Item Value Reference Range Interpretation Comments Potassium Lvl (test code = Potassium 3.9 3.5-5.1 Lvl) [facility]2018-06-12 09:27:00 Test Item Value Reference Range Interpretation Comments Chloride Lvl (test code = Chloride Lvl) 110 95-109 [facility]2018-06-12 09:27:00 Test Item Value Reference Range Interpretation Comments Calcium Lvl (test code = Calcium Lvl) 9.0 8.5-10.5 [facility]2018-06-12 09:27:00 Test Item Value Reference Range Interpretation Comments ALT (test code = ALT) 25 See_Comment [Auto mated message] The system which ge nerated this result transmit akhil reference range : <=65. The reference range was not used to interpr et this result as nora l/abnormal. [facility]2018-06-12 09:27:00 Test Item Value Reference Range Interpretation Comments CO2 (test code = CO2) 28 24-32 [facility]2018-06-12 09:27:00 Test Item Value Reference Range Interpretation Comments Albumin Lvl (test code = Albumin Lvl) 3.3 3.5-5.0 [facility]2018-06-12 09:27:00 Test Item Value Reference Range Interpretation Comments Total Protein (test code = Total 7.0 6.4-8.4 Protein) [facility]2018-06-12 09:27:00 Test Item Value Reference Range Interpretation Comments AST (test code = AST) 20 See_Comment [Auto mated message] The system which ge nerated this result transmit akhil reference range : <=37. The reference range was not used to interpr et this result as nora l/abnormal. [facility]2018-06-12 09:27:00 Test Item Value Reference Range Interpretation Comments Bili Total (test code = Bili Total) 0.5 0.2-1.3 [facility]2018-06-12 09:27:00 Test Item Value Reference Range Interpretation Comments Alk Phos (test code = Alk Phos) 54 39-136 [facility]2018-06-12 09:27:00 Test Item Value Reference Range Interpretation Comments Glucose Lvl (test code = Glucose Lvl) 111 70-99 [facility]2018-06-12 09:27:00 Test Item Value Reference Range Interpretation Comments Sodium Lvl (test code = Sodium Lvl) 144 135-145 [facility]2018-06-12 09:27:00 Test Item Value Reference Range Interpretation Comments Creatinine Lvl (test code = Creatinine 0.72 0.50-1.40 Lvl) [facility]2018-06-12 09:27:00 Test Item Value Reference Range Interpretation Comments BUN (test code = BUN) 17 7-22 [facility] CenterLkwbvjqZPYQHLJWIV0556-97-52 09:27:00 Test Item Value Reference Range Interpretation Comments Lymphocytes # (test code = Lymphocytes 1.3 1.0-5.5 #) [facility] CenterGtxcwsoARSSZQDSFH8186-78-14 09:27:00 Test Item Value Reference Range Interpretation Comments Monocytes # (test code 0.6 See_Comment [Aut omated message] The = Monocytes #) system which generated this result tra nsmitted reference range : <=0.8. The reference r jairon was not used to int erpret this result as normal/abnormal . [facility] CenterXbgawfiCRRHJQJEUV0279-50-96 09:27:00 Test Item Value Reference Range Interpretation Comments Eosinophils # (test code 0.2 See_Comment [A utomated message] The = Eosinophils #) system whic h generated this result tra nsmitted reference range : <=0.5. The reference r jairon was not used to int erpret this result as normal/abnormal . [facility] CenterUdeiidvQQNYQWLZYD9708-78-01 09:27:00 Test Item Value Reference Range Interpretation Comments Eosinophils (test code = 3.6 See_Comment [A utomated message] The Eosinophils) system which ge nerated this result tra nsmitted reference range : <=4.0. The reference r jairon was not used to int erpret this result as normal/abnormal . [facility] CenterLnokjjkKHPDRQFQKM4859-94-03 09:27:00 Test Item Value Reference Range Interpretation Comments Basophils (test code = 0.5 See_Comment [Aut omated message] The Basophils) system which ge nerated this result tra nsmitted reference range : <=1.0. The reference r jairon was not used to int erpret this result as normal/abnormal . [facility] CenterWoikdkfBMTFVORKOY1228-74-57 09:27:00 Test Item Value Reference Range Interpretation Comments Segs-Bands # (test code = Segs-Bands #) 3.0 1.5-8.1 [facility] CenterOzzbbyyYTDUIXAIIF2383-82-82 09:27:00 Test Item Value Reference Range Interpretation Comments Monocytes (test code = Monocytes) 12.0 2.0-12.0 [facility] CenterZonxpdhJKZJXPLRBC1512-47-95 09:27:00 Test Item Value Reference Range Interpretation Comments Segs (test code = Segs) 59.2 45.0-75.0 [facility] CenterVtrxluaKCXEJAOWSB0926-28-56 09:27:00 Test Item Value Reference Range Interpretation Comments Lymphocytes (test code = Lymphocytes) 24.7 20.0-40.0 [facility] CenterGyuvelkXGTZXACGOA0099-95-65 09:27:00 Test Item Value Reference Range Interpretation Comments RDW (test code = RDW) 12.8 11.5-14.5 [facility] CenterXhkijhoHIKMIBDXCW1374-99-16 09:27:00 Test Item Value Reference Range Interpretation Comments Platelet (test code = Platelet) 119 133-450 [facility] CenterIszspbrOSMHMISSFM4139-18-85 09:27:00 Test Item Value Reference Range Interpretation Comments MPV (test code = MPV) 8.1 7.4-10.4 [facility] CenterCtunxwyCVSXVKATNC0355-63-16 09:27:00 Test Item Value Reference Range Interpretation Comments WBC (test code = WBC) 5.1 3.7-10.4 [facility] CenterFgnkhbxNVLSDIPKUU2790-67-10 09:27:00 Test Item Value Reference Range Interpretation Comments RBC (test code = RBC) 3.77 4.20-5.40 [facility] CenterFxmknipBGCGPHLWWX4826-25-87 09:27:00 Test Item Value Reference Range Interpretation Comments Hgb (test code = Hgb) 12.0 12.0-16.0 [facility] CenterPldqwswJRUPUFLXGJ3532-74-31 09:27:00 Test Item Value Reference Range Interpretation Comments Hct (test code = Hct) 35.8 36.0-48.0 [facility] CenterCffzebkCKBVTUKYTZ7488-01-94 09:27:00 Test Item Value Reference Range Interpretation Comments MCHC (test code = MCHC) 33.5 32.0-36.0 [facility] CenterJlxpksnYOHUORYJTT8035-16-47 09:27:00 Test Item Value Reference Range Interpretation Comments MCH (test code = MCH) 31.8 pg 27.0-31.0 [facility] CenterKzwhsriOBXAZYQRCK4043-72-76 09:27:00 Test Item Value Reference Range Interpretation Comments MCV (test code = MCV) 94.9 80.0-98.0 [facility]2018-06-12 09:27:00 Test Item Value Reference Range Interpretation Comments A/G Ratio (test code = A/G Ratio) 0.9 1 0.7-1.6 [facility]2018-06-12 09:27:00 Test Item Value Reference Range Interpretation Comments Globulin (test code = Globulin) 3.7 2.7-4.2 [facility]2018-06-12 09:27:00 Test Item Value Reference Range Interpretation Comments B/C Ratio (test code = B/C Ratio) 24 1 6-25 [facility]2018-06-12 09:27:00 Test Item Value Reference Range Interpretation Comments AGAP (test code = AGAP) 9.9 10.0-20.0 [facility]2018-06-12 09:27:00 Test Item Value Reference Range Interpretation Comments eGFR (test code = eGFR) 79 [facility]2018-06-12 09:27:00 Test Item Value Reference Range Interpretation Comments Potassium Lvl (test code = Potassium 3.9 3.5-5.1 Lvl) [facility]2018-06-12 09:27:00 Test Item Value Reference Range Interpretation Comments Chloride Lvl (test code = Chloride Lvl) 110 95-109 [facility]2018-06-12 09:27:00 Test Item Value Reference Range Interpretation Comments Calcium Lvl (test code = Calcium Lvl) 9.0 8.5-10.5 [facility]2018-06-12 09:27:00 Test Item Value Reference Range Interpretation Comments ALT (test code = ALT) 25 See_Comment [Auto mated message] The system which ge nerated this result transmit akhil reference range : <=65. The reference range was not used to interpr et this result as nora l/abnormal. [facility]2018-06-12 09:27:00 Test Item Value Reference Range Interpretation Comments CO2 (test code = CO2) 28 24-32 [facility]2018-06-12 09:27:00 Test Item Value Reference Range Interpretation Comments Albumin Lvl (test code = Albumin Lvl) 3.3 3.5-5.0 [facility]2018-06-12 09:27:00 Test Item Value Reference Range Interpretation Comments Total Protein (test code = Total 7.0 6.4-8.4 Protein) [facility]2018-06-12 09:27:00 Test Item Value Reference Range Interpretation Comments AST (test code = AST) 20 See_Comment [Auto mated message] The system which ge nerated this result transmit akhil reference range : <=37. The reference range was not used to interpr et this result as nora l/abnormal. [place] 434198-06-12 09:27:00 Test Item Value Reference Range Interpretation Comments Bili Total (test code = Bili Total) 0.5 0.2-1.3 [place] 434198-06-12 09:27:00 Test Item Value Reference Range Interpretation Comments Alk Phos (test code = Alk Phos) 54 39-136 [facility]2018-06-12 09:27:00 Test Item Value Reference Range Interpretation Comments Glucose Lvl (test code = Glucose Lvl) 111 70-99 [facility]2018-06-12 09:27:00 Test Item Value Reference Range Interpretation Comments Sodium Lvl (test code = Sodium Lvl) 144 135-145 [facility]2018-06-12 09:27:00 Test Item Value Reference Range Interpretation Comments Creatinine Lvl (test code = Creatinine 0.72 0.50-1.40 Lvl) [facility]2018-06-12 09:27:00 Test Item Value Reference Range Interpretation Comments BUN (test code = BUN) 17 7-22 [facility]EqnsgmnRGGOIMNBXK4772-61-41 09:27:00 Test Item Value Reference Range Interpretation Comments Lymphocytes # (test code = Lymphocytes 1.3 1.0-5.5 #) [facility] CenterIlwhpaqYPEJIKXIZI1006-80-59 09:27:00 Test Item Value Reference Range Interpretation Comments Monocytes # (test code 0.6 See_Comment [Aut omated message] The = Monocytes #) system which generated this result tra nsmitted reference range : <=0.8. The reference r jairon was not used to int erpret this result as normal/abnormal . [facility] CenterJionuysMLZTSBZKMN4708-32-26 09:27:00 Test Item Value Reference Range Interpretation Comments Eosinophils # (test code 0.2 See_Comment [A utomated message] The = Eosinophils #) system [facility] h generated this result tra nsmitted reference range : <=0.5. The reference r jairon was not used to int erpret this result as normal/abnormal . [facility] CenterZkimjteDNLWFZGPVJ8045-85-97 09:27:00 Test Item Value Reference Range Interpretation Comments Eosinophils (test code = 3.6 See_Comment [A utomated message] The Eosinophils) system which ge nerated this result tra nsmitted reference range : <=4.0. The reference r jairon was not used to int erpret this result as normal/abnormal . [facility] CenterWavojjkGLTYZOLYWI1382-44-82 09:27:00 Test Item Value Reference Range Interpretation Comments Basophils (test code = 0.5 See_Comment [Aut omated message] The Basophils) system which ge nerated this result tra nsmitted reference range : <=1.0. The reference r jairon was not used to int erpret this result as normal/abnormal . [facility] CenterUvalpfdFIQYYRDPUR5741-88-08 09:27:00 Test Item Value Reference Range Interpretation Comments Segs-Bands # (test code = Segs-Bands #) 3.0 1.5-8.1 [facility] CenterGxsxaxvPOCRXVOOYN3271-33-54 09:27:00 Test Item Value Reference Range Interpretation Comments Monocytes (test code = Monocytes) 12.0 2.0-12.0 [facility] CenterDroovdaRAYLBXFAOT7270-68-26 09:27:00 Test Item Value Reference Range Interpretation Comments Segs (test code = Segs) 59.2 45.0-75.0 [facility] CenterJmjkgdaMEAJDGXFHJ2804-28-88 09:27:00 Test Item Value Reference Range Interpretation Comments Lymphocytes (test code = Lymphocytes) 24.7 20.0-40.0 [facility] CenterFpaxhlbQVQXERPLDF1992-22-39 09:27:00 Test Item Value Reference Range Interpretation Comments RDW (test code = RDW) 12.8 11.5-14.5 [facility] CenterNysmkkiVOJWELSCHB0525-79-64 09:27:00 Test Item Value Reference Range Interpretation Comments Platelet (test code = Platelet) 119 133-450 [facility] CenterWlbenmxPZHHIZFCLL2297-22-90 09:27:00 Test Item Value Reference Range Interpretation Comments MPV (test code = MPV) 8.1 7.4-10.4 [facility] CenterVhuditcRUWVYORWCF4876-40-70 09:27:00 Test Item Value Reference Range Interpretation Comments WBC (test code = WBC) 5.1 3.7-10.4 [facility] CenterRbqpbseYWZYYMFUBZ1012-93-75 09:27:00 Test Item Value Reference Range Interpretation Comments RBC (test code = RBC) 3.77 4.20-5.40 [facility] CenterUcomjtnOZGBYRPOMU6160-23-27 09:27:00 Test Item Value Reference Range Interpretation Comments Hgb (test code = Hgb) 12.0 12.0-16.0 [facility] CenterQbvpsmsHPJGCGCYZT0786-39-77 09:27:00 Test Item Value Reference Range Interpretation Comments Hct (test code = Hct) 35.8 36.0-48.0 [place] [address]-06-12 09:27:00 Test Item Value Reference Range Interpretation Comments MCHC (test code = MCHC) 33.5 32.0-36.0 [facility] CenterGgfeohmLZIVMERCAN0960-14-18 09:27:00 Test Item Value Reference Range Interpretation Comments MCH (test code = MCH) 31.8 pg 27.0-31.0 [facility] CenterPhehrgbVYYKKXTTIQ8990-45-74 09:27:00 Test Item Value Reference Range Interpretation Comments MCV (test code = MCV) 94.9 80.0-98.0 [facility]2018-06-12 09:27:00 Test Item Value Reference Range Interpretation Comments A/G Ratio (test code = A/G Ratio) 0.9 1 0.7-1.6 [facility]2018-06-12 09:27:00 Test Item Value Reference Range Interpretation Comments Globulin (test code = Globulin) 3.7 2.7-4.2 [facility]2018-06-12 09:27:00 Test Item Value Reference Range Interpretation Comments B/C Ratio (test code = B/C Ratio) 24 1 6-25 [facility]2018-06-12 09:27:00 Test Item Value Reference Range Interpretation Comments AGAP (test code = AGAP) 9.9 10.0-20.0 [facility]2018-06-12 09:27:00 Test Item Value Reference Range Interpretation Comments eGFR (test code = eGFR) 79 [facility]2018-06-12 09:27:00 Test Item Value Reference Range Interpretation Comments Potassium Lvl (test code = Potassium 3.9 3.5-5.1 Lvl) [facility]2018-06-12 09:27:00 Test Item Value Reference Range Interpretation Comments Chloride Lvl (test code = Chloride Lvl) 110 95-109 [facility]2018-06-12 09:27:00 Test Item Value Reference Range Interpretation Comments Calcium Lvl (test code = Calcium Lvl) 9.0 8.5-10.5 [facility]2018-06-12 09:27:00 Test Item Value Reference Range Interpretation Comments ALT (test code = ALT) 25 See_Comment [Auto mated message] The system which ge nerated this result transmit akhil reference range : <=65. The reference range was not used to interpr et this result as nora l/abnormal. [place] 434198-06-12 09:27:00 Test Item Value Reference Range Interpretation Comments CO2 (test code = CO2) 28 24-32 [facility]2018-06-12 09:27:00 Test Item Value Reference Range Interpretation Comments Albumin Lvl (test code = Albumin Lvl) 3.3 3.5-5.0 [facility]2018-06-12 09:27:00 Test Item Value Reference Range Interpretation Comments Total Protein (test code = Total 7.0 6.4-8.4 Protein) [facility]2018-06-12 09:27:00 Test Item Value Reference Range Interpretation Comments AST (test code = AST) 20 See_Comment [Auto mated message] The system which ge nerated this result transmit akhil reference range : <=37. The reference range was not used to interpr et this result as nora l/abnormal. [facility]2018-06-12 09:27:00 Test Item Value Reference Range Interpretation Comments Bili Total (test code = Bili Total) 0.5 0.2-1.3 [facility]2018-06-12 09:27:00 Test Item Value Reference Range Interpretation Comments Alk Phos (test code = Alk Phos) 54 39-136 [facility]2018-06-12 09:27:00 Test Item Value Reference Range Interpretation Comments Glucose Lvl (test code = Glucose Lvl) 111 70-99 [facility]2018-06-12 09:27:00 Test Item Value Reference Range Interpretation Comments Sodium Lvl (test code = Sodium Lvl) 144 135-145 [place] 434198-06-12 09:27:00 Test Item Value Reference Range Interpretation Comments Creatinine Lvl (test code = Creatinine 0.72 0.50-1.40 Lvl) [facility]2018-06-12 09:27:00 Test Item Value Reference Range Interpretation Comments BUN (test code = BUN) 17 7-22 [facility] CenterZpydgxvPTDXCESAGU9332-23-90 09:27:00 Test Item Value Reference Range Interpretation Comments Lymphocytes # (test code = Lymphocytes 1.3 1.0-5.5 #) [facility] CenterEucduerKYILTCBPZG2326-62-96 09:27:00 Test Item Value Reference Range Interpretation Comments Monocytes # (test code 0.6 See_Comment [Aut omated message] The = Monocytes #) system which generated this result tra nsmitted reference range : <=0.8. The reference r jairon was not used to int erpret this result as normal/abnormal . [facility] CenterKufbvjfUOAUEPIYXL2468-01-59 09:27:00 Test Item Value Reference Range Interpretation Comments Eosinophils # (test code 0.2 See_Comment [A utomated message] The = Eosinophils #) system whic h generated this result tra nsmitted reference range : <=0.5. The reference r jairon was not used to int erpret this result as normal/abnormal . [facility] CenterMoodrlqVMDTAQCUKL9222-21-95 09:27:00 Test Item Value Reference Range Interpretation Comments Eosinophils (test code = 3.6 See_Comment [A utomated message] The Eosinophils) system which ge nerated this result tra nsmitted reference range : <=4.0. The reference r jairon was not used to int erpret this result as normal/abnormal . [facility] CenterOifblfqROHSFTEYOI5636-49-64 09:27:00 Test Item Value Reference Range Interpretation Comments Basophils (test code = 0.5 See_Comment [Aut omated message] The Basophils) system which ge nerated this result tra nsmitted reference range : <=1.0. The reference r jairon was not used to int erpret this result as normal/abnormal . [facility] CenterFgnpimuUBQKYGHHKR3061-56-67 09:27:00 Test Item Value Reference Range Interpretation Comments Segs-Bands # (test code = Segs-Bands #) 3.0 1.5-8.1 [facility] CenterIauhiuiFOKUZYXBWL1515-45-09 09:27:00 Test Item Value Reference Range Interpretation Comments Monocytes (test code = Monocytes) 12.0 2.0-12.0 [facility] CenterBpkkavyRYCQYXXCPS2299-80-62 09:27:00 Test Item Value Reference Range Interpretation Comments Segs (test code = Segs) 59.2 45.0-75.0 [facility] CenterDuigylqVDALDQSVUU9924-02-34 09:27:00 Test Item Value Reference Range Interpretation Comments Lymphocytes (test code = Lymphocytes) 24.7 20.0-40.0 [facility] CenterFftzwmdAEMWXSWRTJ7346-50-30 09:27:00 Test Item Value Reference Range Interpretation Comments RDW (test code = RDW) 12.8 11.5-14.5 [facility] CenterVwqnjrhAJTNBZWOOD0893-46-31 09:27:00 Test Item Value Reference Range Interpretation Comments Platelet (test code = Platelet) 119 133-450 [facility] CenterVfojvtyWRVIRGIOZP9872-07-41 09:27:00 Test Item Value Reference Range Interpretation Comments MPV (test code = MPV) 8.1 7.4-10.4 [facility] CenterZztkrytTVZACCPKIC9641-95-11 09:27:00 Test Item Value Reference Range Interpretation Comments WBC (test code = WBC) 5.1 3.7-10.4 [facility] CenterFmwhlnnNHTNAODTQJ1456-06-58 09:27:00 Test Item Value Reference Range Interpretation Comments RBC (test code = RBC) 3.77 4.20-5.40 [facility] CenterStdlrsiRSCAZWAXNY2209-23-87 09:27:00 Test Item Value Reference Range Interpretation Comments Hgb (test code = Hgb) 12.0 12.0-16.0 [facility] CenterMnkjkfyKPMPKVAQAT4744-65-41 09:27:00 Test Item Value Reference Range Interpretation Comments Hct (test code = Hct) 35.8 36.0-48.0 [facility] CenterAtbtigeSUJHBFVHBT8510-82-04 09:27:00 Test Item Value Reference Range Interpretation Comments MCHC (test code = MCHC) 33.5 32.0-36.0 [facility] CenterQnuogqsSXLPYHLWNZ9099-51-57 09:27:00 Test Item Value Reference Range Interpretation Comments MCH (test code = MCH) 31.8 pg 27.0-31.0 [facility] CenterTwdpidzTKKLQQPZOG9084-15-60 09:27:00 Test Item Value Reference Range Interpretation Comments MCV (test code = MCV) 94.9 80.0-98.0 [facility]2018-06-12 09:27:00 Test Item Value Reference Range Interpretation Comments A/G Ratio (test code = A/G Ratio) 0.9 1 0.7-1.6 [facility]2018-06-12 09:27:00 Test Item Value Reference Range Interpretation Comments Globulin (test code = Globulin) 3.7 2.7-4.2 [facility]2018-06-12 09:27:00 Test Item Value Reference Range Interpretation Comments B/C Ratio (test code = B/C Ratio) 24 1 6-25 [facility]2018-06-12 09:27:00 Test Item Value Reference Range Interpretation Comments AGAP (test code = AGAP) 9.9 10.0-20.0 [facility]2018-06-12 09:27:00 Test Item Value Reference Range Interpretation Comments eGFR (test code = eGFR) 79 [facility]2018-06-12 09:27:00 Test Item Value Reference Range Interpretation Comments Potassium Lvl (test code = Potassium 3.9 3.5-5.1 Lvl) [facility]2018-06-12 09:27:00 Test Item Value Reference Range Interpretation Comments Chloride Lvl (test code = Chloride Lvl) 110 95-109 [facility]2018-06-12 09:27:00 Test Item Value Reference Range Interpretation Comments Calcium Lvl (test code = Calcium Lvl) 9.0 8.5-10.5 [facility]2018-06-12 09:27:00 Test Item Value Reference Range Interpretation Comments ALT (test code = ALT) 25 See_Comment [Auto mated message] The system which ge nerated this result transmit akhil reference range : <=65. The reference range was not used to interpr et this result as nora l/abnormal. [facility]2018-06-12 09:27:00 Test Item Value Reference Range Interpretation Comments CO2 (test code = CO2) 28 24-32 [facility]2018-06-12 09:27:00 Test Item Value Reference Range Interpretation Comments Albumin Lvl (test code = Albumin Lvl) 3.3 3.5-5.0 [place] 434198-06-12 09:27:00 Test Item Value Reference Range Interpretation Comments Total Protein (test code = Total 7.0 6.4-8.4 Protein) [facility]2018-06-12 09:27:00 Test Item Value Reference Range Interpretation Comments AST (test code = AST) 20 See_Comment [Auto mated message] The system which ge nerated this result transmit akhil reference range : <=37. The reference range was not used to interpr et this result as nora l/abnormal. [place] 434198-06-12 09:27:00 Test Item Value Reference Range Interpretation Comments Bili Total (test code = Bili Total) 0.5 0.2-1.3 [facility]2018-06-12 09:27:00 Test Item Value Reference Range Interpretation Comments Alk Phos (test code = Alk Phos) 54 39-136 [facility]2018-06-12 09:27:00 Test Item Value Reference Range Interpretation Comments Glucose Lvl (test code = Glucose Lvl) 111 70-99 [facility]2018-06-12 09:27:00 Test Item Value Reference Range Interpretation Comments Sodium Lvl (test code = Sodium Lvl) 144 135-145 [facility]2018-06-12 09:27:00 Test Item Value Reference Range Interpretation Comments Creatinine Lvl (test code = Creatinine 0.72 0.50-1.40 Lvl) [facility]2018-06-12 09:27:00 Test Item Value Reference Range Interpretation Comments BUN (test code = BUN) 17 7-22 [facility] CenterYufbxsmSGNADHVSCX5697-82-14 09:27:00 Test Item Value Reference Range Interpretation Comments Lymphocytes # (test code = Lymphocytes 1.3 1.0-5.5 #) [facility] CenterHfwydufDHXMFKVINT1156-50-72 09:27:00 Test Item Value Reference Range Interpretation Comments Monocytes # (test code 0.6 See_Comment [Aut omated message] The = Monocytes #) system which generated this result tra nsmitted reference range : <=0.8. The reference r jairon was not used to int erpret this result as normal/abnormal . [facility] CenterLrkrqzkPOMJSNKVNA2239-30-90 09:27:00 Test Item Value Reference Range Interpretation Comments Eosinophils # (test code 0.2 See_Comment [A utomated message] The = Eosinophils #) system whic h generated this result tra nsmitted reference range : <=0.5. The reference r jairon was not used to int erpret this result as normal/abnormal . [facility] CenterYznjukhIDSQJWJRTB8612-85-71 09:27:00 Test Item Value Reference Range Interpretation Comments Eosinophils (test code = 3.6 See_Comment [A utomated message] The Eosinophils) system which ge nerated this result tra nsmitted reference range : <=4.0. The reference r jairon was not used to int erpret this result as normal/abnormal . [facility] CenterHyqbtotDLNVOIXMPW4154-53-46 09:27:00 Test Item Value Reference Range Interpretation Comments Basophils (test code = 0.5 See_Comment [Aut omated message] The Basophils) system which ge nerated this result tra nsmitted reference range : <=1.0. The reference r jairon was not used to int erpret this result as normal/abnormal . [facility] CenterZcmyigzKZMMZOJQCU6088-60-52 09:27:00 Test Item Value Reference Range Interpretation Comments Segs-Bands # (test code = Segs-Bands #) 3.0 1.5-8.1 [facility] CenterRkfvaltZEPSDTVAQV5715-58-45 09:27:00 Test Item Value Reference Range Interpretation Comments Monocytes (test code = Monocytes) 12.0 2.0-12.0 [facility] CenterPzejkewDOEUWDDZHJ1644-87-73 09:27:00 Test Item Value Reference Range Interpretation Comments Segs (test code = Segs) 59.2 45.0-75.0 [facility] CenterDdausvfMSTQIGUHBJ0170-64-35 09:27:00 Test Item Value Reference Range Interpretation Comments Lymphocytes (test code = Lymphocytes) 24.7 20.0-40.0 [facility] CenterDnwxjocEFUHJEDAYB8874-08-42 09:27:00 Test Item Value Reference Range Interpretation Comments RDW (test code = RDW) 12.8 11.5-14.5 [facility] CenterKdjebasGQSMUMUDDQ6401-45-54 09:27:00 Test Item Value Reference Range Interpretation Comments Platelet (test code = Platelet) 119 133-450 [facility] CenterSivpwitWKKOYONRHS9983-14-50 09:27:00 Test Item Value Reference Range Interpretation Comments MPV (test code = MPV) 8.1 7.4-10.4 [facility] CenterTbjrzseFHRQUFLHIH4821-16-97 09:27:00 Test Item Value Reference Range Interpretation Comments WBC (test code = WBC) 5.1 3.7-10.4 [facility] CenterJrvxfmhZMRUDUGGQN9082-07-96 09:27:00 Test Item Value Reference Range Interpretation Comments RBC (test code = RBC) 3.77 4.20-5.40 [facility] CenterWgzqoaoHXUDFVBKXO7213-06-29 09:27:00 Test Item Value Reference Range Interpretation Comments Hgb (test code = Hgb) 12.0 12.0-16.0 [facility] CenterJnrrkguLIYGPXOJQG2652-23-63 09:27:00 Test Item Value Reference Range Interpretation Comments Hct (test code = Hct) 35.8 36.0-48.0 [facility] CenterMyhofpdFLLCMTEHXV8339-67-92 09:27:00 Test Item Value Reference Range Interpretation Comments MCHC (test code = MCHC) 33.5 32.0-36.0 [facility] CenterMquhtuzIFWSXOCLVY9042-19-58 09:27:00 Test Item Value Reference Range Interpretation Comments MCH (test code = MCH) 31.8 pg 27.0-31.0 [facility] CenterRunoobmHVIOXMIBVT8599-00-78 09:27:00 Test Item Value Reference Range Interpretation Comments MCV (test code = MCV) 94.9 80.0-98.0 [facility]2018-06-12 09:27:00 Test Item Value Reference Range Interpretation Comments A/G Ratio (test code = A/G Ratio) 0.9 1 0.7-1.6 [facility]2018-06-12 09:27:00 Test Item Value Reference Range Interpretation Comments Globulin (test code = Globulin) 3.7 2.7-4.2 [facility]2018-06-12 09:27:00 Test Item Value Reference Range Interpretation Comments B/C Ratio (test code = B/C Ratio) 24 1 6-25 [facility]2018-06-12 09:27:00 Test Item Value Reference Range Interpretation Comments AGAP (test code = AGAP) 9.9 10.0-20.0 [facility]2018-06-12 09:27:00 Test Item Value Reference Range Interpretation Comments eGFR (test code = eGFR) 79 [facility]2018-06-12 09:27:00 Test Item Value Reference Range Interpretation Comments Potassium Lvl (test code = Potassium 3.9 3.5-5.1 Lvl) [facility]2018-06-12 09:27:00 Test Item Value Reference Range Interpretation Comments Chloride Lvl (test code = Chloride Lvl) 110 95-109 [facility]2018-06-12 09:27:00 Test Item Value Reference Range Interpretation Comments Calcium Lvl (test code = Calcium Lvl) 9.0 8.5-10.5 [place] 434198-06-12 09:27:00 Test Item Value Reference Range Interpretation Comments ALT (test code = ALT) 25 See_Comment [Auto mated message] The system which ge nerated this result transmit akhil reference range : <=65. The reference range was not used to interpr et this result as nora l/abnormal. [facility]2018-06-12 09:27:00 Test Item Value Reference Range Interpretation Comments CO2 (test code = CO2) 28 24-32 [facility]2018-06-12 09:27:00 Test Item Value Reference Range Interpretation Comments Albumin Lvl (test code = Albumin Lvl) 3.3 3.5-5.0 [facility]2018-06-12 09:27:00 Test Item Value Reference Range Interpretation Comments Total Protein (test code = Total 7.0 6.4-8.4 Protein) [facility]2018-06-12 09:27:00 Test Item Value Reference Range Interpretation Comments AST (test code = AST) 20 See_Comment [Auto mated message] The system which ge nerated this result transmit akhil reference range : <=37. The reference range was not used to interpr et this result as nora l/abnormal. [facility]2018-06-12 09:27:00 Test Item Value Reference Range Interpretation Comments Bili Total (test code = Bili Total) 0.5 0.2-1.3 [facility]2018-06-12 09:27:00 Test Item Value Reference Range Interpretation Comments Alk Phos (test code = Alk Phos) 54 39-136 [facility]2018-06-12 09:27:00 Test Item Value Reference Range Interpretation Comments Glucose Lvl (test code = Glucose Lvl) 111 70-99 [facility]2018-06-12 09:27:00 Test Item Value Reference Range Interpretation Comments Sodium Lvl (test code = Sodium Lvl) 144 135-145 [facility]2018-06-12 09:27:00 Test Item Value Reference Range Interpretation Comments Creatinine Lvl (test code = Creatinine 0.72 0.50-1.40 Lvl) [facility]2018-06-12 09:27:00 Test Item Value Reference Range Interpretation Comments BUN (test code = BUN) 17 7-22 [facility]IlupzdoESSSUORFNQ7265-90-43 09:27:00 Test Item Value Reference Range Interpretation Comments Lymphocytes # (test code = Lymphocytes 1.3 1.0-5.5 #) [facility] CenterHzslethVQTYSARDTN1543-00-22 09:27:00 Test Item Value Reference Range Interpretation Comments Monocytes # (test code 0.6 See_Comment [Aut omated message] The = Monocytes #) system which generated this result tra nsmitted reference range : <=0.8. The reference r jairon was not used to int erpret this result as normal/abnormal . [facility] CenterIzlemisSTGDPAYMHQ7502-18-27 09:27:00 Test Item Value Reference Range Interpretation Comments Eosinophils # (test code 0.2 See_Comment [A utomated message] The = Eosinophils #) system whic h generated this result tra nsmitted reference range : <=0.5. The reference r jairon was not used to int erpret this result as normal/abnormal . [facility] CenterFvmouaoOGKWBZMWKI0140-61-22 09:27:00 Test Item Value Reference Range Interpretation Comments Eosinophils (test code = 3.6 See_Comment [A utomated message] The Eosinophils) system which ge nerated this result tra nsmitted reference range : <=4.0. The reference r jairon was not used to int erpret this result as normal/abnormal . [facility] CenterVdnljbyUIDKLBAKWZ2516-17-99 09:27:00 Test Item Value Reference Range Interpretation Comments Basophils (test code = 0.5 See_Comment [Aut omated message] The Basophils) system which ge nerated this result tra nsmitted reference range : <=1.0. The reference r jairon was not used to int erpret this result as normal/abnormal . [facility] CenterOofunjaBCDJVWANNL3849-22-09 09:27:00 Test Item Value Reference Range Interpretation Comments Segs-Bands # (test code = Segs-Bands #) 3.0 1.5-8.1 [facility] CenterJdnpzuxGNXVJRMRCO1416-49-95 09:27:00 Test Item Value Reference Range Interpretation Comments Monocytes (test code = Monocytes) 12.0 2.0-12.0 [facility] CenterFclkxalSPERIVBBDQ3729-66-83 09:27:00 Test Item Value Reference Range Interpretation Comments Segs (test code = Segs) 59.2 45.0-75.0 [facility] CenterOwpperkNPJZLVOOGR9438-69-83 09:27:00 Test Item Value Reference Range Interpretation Comments Lymphocytes (test code = Lymphocytes) 24.7 20.0-40.0 [facility] CenterZqpjnlwEHVBTMQNJD6731-90-18 09:27:00 Test Item Value Reference Range Interpretation Comments RDW (test code = RDW) 12.8 11.5-14.5 [facility] CenterYverpzjLRMMJXZENS6051-60-16 09:27:00 Test Item Value Reference Range Interpretation Comments Platelet (test code = Platelet) 119 133-450 [facility] CenterJhyingtPKIAJEEQPM0009-39-56 09:27:00 Test Item Value Reference Range Interpretation Comments MPV (test code = MPV) 8.1 7.4-10.4 [facility] CenterPxsfsfdFDEQFSZOOC9256-98-96 09:27:00 Test Item Value Reference Range Interpretation Comments WBC (test code = WBC) 5.1 3.7-10.4 [facility] CenterHotdpsuGCYVWVNLBR4411-59-60 09:27:00 Test Item Value Reference Range Interpretation Comments RBC (test code = RBC) 3.77 4.20-5.40 [facility] CenterPncjwezGVRRZAGMMN8155-10-79 09:27:00 Test Item Value Reference Range Interpretation Comments Hgb (test code = Hgb) 12.0 12.0-16.0 [facility] CenterDzaavpsSTTYFQONUU8707-72-96 09:27:00 Test Item Value Reference Range Interpretation Comments Hct (test code = Hct) 35.8 36.0-48.0 [facility] CenterFfbnnzwFRSQTJNBCY4464-96-41 09:27:00 Test Item Value Reference Range Interpretation Comments MCHC (test code = MCHC) 33.5 32.0-36.0 [facility] CenterTlzrbyiXDQQNFARBS1614-50-34 09:27:00 Test Item Value Reference Range Interpretation Comments MCH (test code = MCH) 31.8 pg 27.0-31.0 [facility] CenterOaiiszlEWJZZJHZJR9469-88-80 09:27:00 Test Item Value Reference Range Interpretation Comments MCV (test code = MCV) 94.9 80.0-98.0 [facility]2018-06-12 09:27:00 Test Item Value Reference Range Interpretation Comments A/G Ratio (test code = A/G Ratio) 0.9 1 0.7-1.6 [facility]2018-06-12 09:27:00 Test Item Value Reference Range Interpretation Comments Globulin (test code = Globulin) 3.7 2.7-4.2 [facility]2018-06-12 09:27:00 Test Item Value Reference Range Interpretation Comments A/G Ratio (test code = A/G Ratio) 0.9 1 0.7-1.6 [place] 434198-06-12 09:27:00 Test Item Value Reference Range Interpretation Comments Globulin (test code = Globulin) 3.7 2.7-4.2 [facility]2018-06-12 09:27:00 Test Item Value Reference Range Interpretation Comments B/C Ratio (test code = B/C Ratio) 24 1 - [facility]2018-06-12 09:27:00 Test Item Value Reference Range Interpretation Comments B/C Ratio (test code = B/C Ratio) 24 1 - [facility]2018-06-12 09:27:00 Test Item Value Reference Range Interpretation Comments AGAP (test code = AGAP) 9.9 10.0-20.0 [facility]2018-06-12 09:27:00 Test Item Value Reference Range Interpretation Comments eGFR (test code = eGFR) 79 [facility]2018-06-12 09:27:00 Test Item Value Reference Range Interpretation Comments Potassium Lvl (test code = Potassium 3.9 3.5-5.1 Lvl) [facility]2018-06-12 09:27:00 Test Item Value Reference Range Interpretation Comments Chloride Lvl (test code = Chloride Lvl) 110 95-109 [facility]2018-06-12 09:27:00 Test Item Value Reference Range Interpretation Comments Calcium Lvl (test code = Calcium Lvl) 9.0 8.5-10.5 [facility]2018-06-12 09:27:00 Test Item Value Reference Range Interpretation Comments ALT (test code = ALT) 25 See_Comment [Auto mated message] The system which ge nerated this result transmit akhil reference range : <=65. The reference range was not used to interpr et this result as nora l/abnormal. [facility]2018-06-12 09:27:00 Test Item Value Reference Range Interpretation Comments CO2 (test code = CO2) 28 24-32 [facility]2018-06-12 09:27:00 Test Item Value Reference Range Interpretation Comments Albumin Lvl (test code = Albumin Lvl) 3.3 3.5-5.0 [facility]2018-06-12 09:27:00 Test Item Value Reference Range Interpretation Comments Total Protein (test code = Total 7.0 6.4-8.4 Protein) [facility]2018-06-12 09:27:00 Test Item Value Reference Range Interpretation Comments AST (test code = AST) 20 See_Comment [Auto mated message] The system which ge nerated this result transmit akhil reference range : <=37. The reference range was not used to interpr et this result as nora l/abnormal. [facility]2018-06-12 09:27:00 Test Item Value Reference Range Interpretation Comments AGAP (test code = AGAP) 9.9 10.0-20.0 [facility]2018-06-12 09:27:00 Test Item Value Reference Range Interpretation Comments Bili Total (test code = Bili Total) 0.5 0.2-1.3 [facility]2018-06-12 09:27:00 Test Item Value Reference Range Interpretation Comments Alk Phos (test code = Alk Phos) 54 39-136 [facility]2018-06-12 09:27:00 Test Item Value Reference Range Interpretation Comments Glucose Lvl (test code = Glucose Lvl) 111 70-99 [facility]2018-06-12 09:27:00 Test Item Value Reference Range Interpretation Comments Sodium Lvl (test code = Sodium Lvl) 144 135-145 [facility]2018-06-12 09:27:00 Test Item Value Reference Range Interpretation Comments Creatinine Lvl (test code = Creatinine 0.72 0.50-1.40 Lvl) [facility]2018-06-12 09:27:00 Test Item Value Reference Range Interpretation Comments BUN (test code = BUN) 17 7-22 [facility] CenterRwitkhzEZFLOKHRUK2325-57-97 09:27:00 Test Item Value Reference Range Interpretation Comments Lymphocytes # (test code = Lymphocytes 1.3 1.0-5.5 #) [place] 968378-06-12 09:27:00 Test Item Value Reference Range Interpretation Comments Monocytes # (test code 0.6 See_Comment [Aut omated message] The = Monocytes #) system which generated this result tra nsmitted reference range : <=0.8. The reference r jairon was not used to int erpret this result as normal/abnormal . [facility] CenterSnkvvhuNEDGBBWIZO5736-68-15 09:27:00 Test Item Value Reference Range Interpretation Comments Eosinophils # (test code 0.2 See_Comment [A utomated message] The = Eosinophils #) system whic h generated this result tra nsmitted reference range : <=0.5. The reference r jairon was not used to int erpret this result as normal/abnormal . [facility] CenterFqljbspCHMMMJBWFN6411-58-36 09:27:00 Test Item Value Reference Range Interpretation Comments Eosinophils (test code = 3.6 See_Comment [A utomated message] The Eosinophils) system which ge nerated this result tra nsmitted reference range : <=4.0. The reference r jairon was not used to int erpret this result as normal/abnormal . [facility]2018-06-12 09:27:00 Test Item Value Reference Range Interpretation Comments eGFR (test code = eGFR) 79 [facility] CenterIahsymkSKHCKHELUY0453-89-11 09:27:00 Test Item Value Reference Range Interpretation Comments Basophils (test code = 0.5 See_Comment [Aut omated message] The Basophils) system which ge nerated this result tra nsmitted reference range : <=1.0. The reference r jairon was not used to int erpret this result as normal/abnormal . [facility] CenterJoaiwwuSRTORNXLRC0179-56-68 09:27:00 Test Item Value Reference Range Interpretation Comments Segs-Bands # (test code = Segs-Bands #) 3.0 1.5-8.1 [facility] CenterYwehflcPWHNRQFCBB6626-45-36 09:27:00 Test Item Value Reference Range Interpretation Comments Monocytes (test code = Monocytes) 12.0 2.0-12.0 [facility] CenterYkkuupeISJSLMQJPD9672-80-38 09:27:00 Test Item Value Reference Range Interpretation Comments Segs (test code = Segs) 59.2 45.0-75.0 [facility] CenterOedwffzDHNVAQZURZ2781-95-99 09:27:00 Test Item Value Reference Range Interpretation Comments Lymphocytes (test code = Lymphocytes) 24.7 20.0-40.0 [facility] CenterKttdzdhENRKXYPEWE2530-32-51 09:27:00 Test Item Value Reference Range Interpretation Comments RDW (test code = RDW) 12.8 11.5-14.5 [facility] CenterFpqpxbxGHFNZLUTPF7179-31-03 09:27:00 Test Item Value Reference Range Interpretation Comments Platelet (test code = Platelet) 119 133-450 [facility] CenterHuyvpjlAOXYUBNNHY6527-30-23 09:27:00 Test Item Value Reference Range Interpretation Comments MPV (test code = MPV) 8.1 7.4-10.4 [facility] CenterIuwyxmcPTMZIAECXJ5492-94-29 09:27:00 Test Item Value Reference Range Interpretation Comments WBC (test code = WBC) 5.1 3.7-10.4 [facility] CenterRwuohayCHLOZGPICY6667-75-70 09:27:00 Test Item Value Reference Range Interpretation Comments RBC (test code = RBC) 3.77 4.20-5.40 [facility]2018-06-12 09:27:00 Test Item Value Reference Range Interpretation Comments Potassium Lvl (test code = Potassium 3.9 3.5-5.1 Lvl) [facility] CenterCwoewyfHIGGVIDQZM5300-78-27 09:27:00 Test Item Value Reference Range Interpretation Comments Hgb (test code = Hgb) 12.0 12.0-16.0 [facility] CenterEhznhwzSUKEKLTSIR7138-32-99 09:27:00 Test Item Value Reference Range Interpretation Comments Hct (test code = Hct) 35.8 36.0-48.0 [facility] CenterWocdfpnKGXXHXNPKL1636-06-05 09:27:00 Test Item Value Reference Range Interpretation Comments MCHC (test code = MCHC) 33.5 32.0-36.0 [facility] CenterUkbycclKKAECRQQEU4805-40-77 09:27:00 Test Item Value Reference Range Interpretation Comments MCH (test code = MCH) 31.8 pg 27.0-31.0 [facility] CenterNtwcsjlZLVIOORNTS6973-27-21 09:27:00 Test Item Value Reference Range Interpretation Comments MCV (test code = MCV) 94.9 80.0-98.0 [facility]2018-06-12 09:27:00 Test Item Value Reference Range Interpretation Comments Chloride Lvl (test code = Chloride Lvl) 110 95-109 [facility]2018-06-12 09:27:00 Test Item Value Reference Range Interpretation Comments Calcium Lvl (test code = Calcium Lvl) 9.0 8.5-10.5 [facility]2018-06-12 09:27:00 Test Item Value Reference Range Interpretation Comments ALT (test code = ALT) 25 See_Comment [Auto mated message] The system which ge nerated this result transmit akhil reference range : <=65. The reference range was not used to interpr et this result as nora l/abnormal. [facility]2018-06-12 09:27:00 Test Item Value Reference Range Interpretation Comments CO2 (test code = CO2) 28 24-32 [facility]2018-06-12 09:27:00 Test Item Value Reference Range Interpretation Comments Albumin Lvl (test code = Albumin Lvl) 3.3 3.5-5.0 [facility]2018-06-12 09:27:00 Test Item Value Reference Range Interpretation Comments Total Protein (test code = Total 7.0 6.4-8.4 Protein) [facility]2018-06-12 09:27:00 Test Item Value Reference Range Interpretation Comments AST (test code = AST) 20 See_Comment [Auto mated message] The system which ge nerated this result transmit akhil reference range : <=37. The reference range was not used to interpr et this result as nora l/abnormal. [facility]2018-06-12 09:27:00 Test Item Value Reference Range Interpretation Comments Bili Total (test code = Bili Total) 0.5 0.2-1.3 [facility]2018-06-12 09:27:00 Test Item Value Reference Range Interpretation Comments Alk Phos (test code = Alk Phos) 54 39-136 [facility]2018-06-12 09:27:00 Test Item Value Reference Range Interpretation Comments Glucose Lvl (test code = Glucose Lvl) 111 70-99 [facility]2018-06-12 09:27:00 Test Item Value Reference Range Interpretation Comments Sodium Lvl (test code = Sodium Lvl) 144 135-145 [facility]2018-06-12 09:27:00 Test Item Value Reference Range Interpretation Comments Creatinine Lvl (test code = Creatinine 0.72 0.50-1.40 Lvl) [facility]2018-06-12 09:27:00 Test Item Value Reference Range Interpretation Comments BUN (test code = BUN) 17 7- [facility] CenterHbzehyfJKBATVVRMT9601-78-88 09:27:00 Test Item Value Reference Range Interpretation Comments Lymphocytes # (test code = Lymphocytes 1.3 1.0-5.5 #) [facility] CenterHhuutbaOEQEHFVTFO4052-87-27 09:27:00 Test Item Value Reference Range Interpretation Comments Monocytes # (test code 0.6 See_Comment [Aut omated message] The = Monocytes #) system which generated this result tra nsmitted reference range : <=0.8. The reference r jairon was not used to int erpret this result as normal/abnormal . [facility] CenterZyrxdakKMURKTQYRL5898-38-48 09:27:00 Test Item Value Reference Range Interpretation Comments Eosinophils # (test code 0.2 See_Comment [A utomated message] The = Eosinophils #) system wh h generated this result tra nsmitted reference range : <=0.5. The reference r jairon was not used to int erpret this result as normal/abnormal . [facility] CenterJqluwzjIJOBFRYZCE3376-26-16 09:27:00 Test Item Value Reference Range Interpretation Comments Eosinophils (test code = 3.6 See_Comment [A utomated message] The Eosinophils) system which ge nerated this result tra nsmitted reference range : <=4.0. The reference r jairon was not used to int erpret this result as normal/abnormal . [facility] CenterZggjmngBBZKZEHXPH9529-39-34 09:27:00 Test Item Value Reference Range Interpretation Comments Basophils (test code = 0.5 See_Comment [Aut omated message] The Basophils) system which ge nerated this result tra nsmitted reference range : <=1.0. The reference r jairon was not used to int erpret this result as normal/abnormal . [facility] CenterKjaglilHCCBOVWITB8747-89-78 09:27:00 Test Item Value Reference Range Interpretation Comments Segs-Bands # (test code = Segs-Bands #) 3.0 1.5-8.1 [facility] CenterNukisjnSSAWNVSOWA8078-69-31 09:27:00 Test Item Value Reference Range Interpretation Comments Monocytes (test code = Monocytes) 12.0 2.0-12.0 [facility] CenterKkvydxlFUUKKQBEVL1895-66-19 09:27:00 Test Item Value Reference Range Interpretation Comments Segs (test code = Segs) 59.2 45.0-75.0 [facility] CenterHwvgzqrZGTVVYYJOD6196-36-11 09:27:00 Test Item Value Reference Range Interpretation Comments Lymphocytes (test code = Lymphocytes) 24.7 20.0-40.0 [facility] CenterLikjyspNZNMMYPSOD3068-86-63 09:27:00 Test Item Value Reference Range Interpretation Comments RDW (test code = RDW) 12.8 11.5-14.5 [facility] CenterPsaneiaFFGFZTQAJY5879-84-40 09:27:00 Test Item Value Reference Range Interpretation Comments Platelet (test code = Platelet) 119 133-450 [facility] CenterIupyussPEODHAAYAL5534-37-30 09:27:00 Test Item Value Reference Range Interpretation Comments MPV (test code = MPV) 8.1 7.4-10.4 [facility] CenterXtsmlklBDNTKJOFFB3921-23-78 09:27:00 Test Item Value Reference Range Interpretation Comments WBC (test code = WBC) 5.1 3.7-10.4 [facility] CenterIfkccisXQOYNGUQYM0667-35-45 09:27:00 Test Item Value Reference Range Interpretation Comments RBC (test code = RBC) 3.77 4.20-5.40 [facility] CenterJjomzppOUXIOCNTUQ4791-28-51 09:27:00 Test Item Value Reference Range Interpretation Comments Hgb (test code = Hgb) 12.0 12.0-16.0 [facility] CenterNeudhrwGHRZKEHCGX1340-61-63 09:27:00 Test Item Value Reference Range Interpretation Comments Hct (test code = Hct) 35.8 36.0-48.0 [facility] CenterQvplafuMVZRUKYXLL3480-93-64 09:27:00 Test Item Value Reference Range Interpretation Comments MCHC (test code = MCHC) 33.5 32.0-36.0 [facility] CenterMcgkqvoSEXNUVODWY5439-91-54 09:27:00 Test Item Value Reference Range Interpretation Comments MCH (test code = MCH) 31.8 pg 27.0-31.0 [facility] CenterKpmheuwBRMORBUAWS7988-95-98 09:27:00 Test Item Value Reference Range Interpretation Comments MCV (test code = MCV) 94.9 80.0-98.0 [facility]
--- NOTE | 2022-12-11 13:08 | ER ---
Nurse's Notes [facility] Name: Mona Lozano Age: 87 yrs Sex: Female : 1935 Arrival Date: 12/11/2022 Time: 12:46 Bed 6 Private MD: Fili Garcia Diagnosis: Temporal Cell Arteritis Presentation: 12/11 12:49 Chief complaint: Patient states: Cataract surgery on left eye last Saturday - post op ld1 appointment today at 1030. Sudden vision loss of right eye yesterday. referred pt to ER for temporal arteritis. Coronavirus screen: At this time, the client does not indicate any symptoms associated with coronavirus-19. Ebola Screen: No symptoms or risks identified at this time. Initial Sepsis Screen: Does the patient meet any 2 criteria? No. Patient's initial sepsis screen is negative. Does the patient have a suspected source of infection? No. Patient's initial sepsis screen is negative. Risk Assessment: Do you want to hurt yourself or someone else? Patient reports no desire to harm self or others. Onset of symptoms was December 11, 2022. 12:49 Method Of Arrival: Wheelchair ld1 12:49 Acuity: KAROLYN 3 ld1 Triage Assessment: 12:49 General: Appears in no apparent distress. comfortable, Behavior is calm, cooperative, ld1 appropriate for age. Pain: Denies pain. EENT: Reports Sudden vision loss to right eye.. Neuro: Level of Consciousness is awake, alert, obeys commands, Oriented to person, place, time, situation. Cardiovascular: Capillary refill < 3 seconds Patient's skin is warm and dry. Respiratory: Airway is patent Respiratory effort is even, unlabored. GI: Abdomen is flat, non-distended. : No signs and/or symptoms were reported regarding the genitourinary system. Derm: No signs and/or symptoms reported regarding the dermatologic system. Musculoskeletal: No signs and/or symptoms reported regarding the musculoskeletal system. Historical: - Allergies: 12:49 PENICILLINS; ld1 12:49 Sulfa (Sulfonamide Antibiotics); ld1 12:49 tetanus; ld1 - Home Meds: 12:49 metformin 500 mg Oral tab 1 tab QD [Active]; omeprazole 20 mg Oral cpDR 1 cap once ld1 daily [Active]; pravastatin 40 mg Oral tab 1 tab once daily [Active]; lisinopril 40 mg Oral tab 1 tab once daily [Active]; carvedilol 3.125 mg Oral tab 1 tab 2 times per day [Active]; Toviaz 4 mg Oral Tb24 1 tab once daily [Active]; levocetirizine Oral [Active]; Plavix 75 mg Oral tab 1 tab once daily [Active]; calcium carbonate 600 mg (1,500 mg) Oral tab daily [Active]; pressure vision daily [Active]; [place]-3 350 mg-235 mg- 90 mg-597 mg Oral cpDR [Active]; - PSHx: 12:49 tubilagation; Total abdominal hysterectomy; pacemaker; heart stint; ld1 - Immunization history:: Adult Immunizations up to date, Client reports receiving the 2nd dose of the Covid vaccine. - Social history:: Smoking status: Patient denies any tobacco usage or history of. Patient/guardian denies using alcohol. Screenin:30 [facility] ED Fall Risk Assessment (Adult) History of falling in the last 3 months, mb9 including since admission No falls in past 3 months (0 pts) Confusion or Disorientation No (0 pts) Intoxicated or Sedated No (0 pts) Impaired Gait No (0 pts) Mobility Assist Device Used No (0 pt) Altered Elimination No (0 pt) Score/Fall Risk Level 0 - 2 = Low Risk Oriented to surroundings, Maintained a safe environment, Educated pt \T\ family on fall prevention, incl call for assistance when getting out of bed. Abuse screen: Denies threats or abuse. Nutritional screening: No deficits noted. Tuberculosis screening: No symptoms or risk factors identified. Assessment: 13:00 General: Appears in no apparent distress. comfortable, Behavior is calm, cooperative, mb9 appropriate for age. Pain: Denies pain. Neuro: Jimenez Agitation-Sedation Scale (RASS): 0 - Alert and Calm Level of Consciousness is awake, alert, obeys commands, Oriented to person, place, time, situation, Appropriate for age. Cardiovascular: Capillary refill < 3 seconds is brisk Patient's skin is warm and dry. Respiratory: Airway is patent Respiratory effort is even, unlabored, Respiratory pattern is regular, symmetrical. GI:. EENT: Eyes with cataract noted in iris of left eye Reports blurred vision in iris of right eye. Derm: Skin is pink, warm \T\ dry. Musculoskeletal: Range of motion: intact in all extremities. 14:45 Reassessment: No changes from previously documented assessment. Patient and/or family mb9 updated on plan of care and expected duration. Pain level reassessed. Patient is alert, oriented x 3, equal unlabored respirations, skin warm/dry/pink. 17:03 Reassessment: patient had already taken 75mg of plavix this morning, notified Dr Ricardo grace in ER, order to give 225mg of plavix instead of 300mg. 17:27 Reassessment: Attempted to call report to admitting nurse. mb9 Vital Signs: 12:49 BP 178 / 56; Pulse 74; Resp 18; Temp 98.3(O); Pulse Ox 100% on R/A; Weight 68.95 kg; ld1 Height 5 ft. 2 in. (157.48 cm); Pain 0/10; 15:23 BP 173 / 81; Pulse 84; Resp 18; Pulse Ox 100% ; Pain 0/10; mb9 12:49 Body Mass Index 27.80 (68.95 kg, 157.48 cm) ld1 ED Course: 12:46 Patient arrived in ED. mr 12:47 Fili Garcia DO is Private Physician. mr 12:49 Arm band placed on right wrist. ld1 12:54 Triage completed. ld1 12:56 Violeta Silva MD is Attending Physician. sp3 13:07 Jose Angel Glass MD is Hospitalizing Provider. sp3 13:14 CT Head Brain wo Cont In Process Unspecified. EDMS 13:56 Edilia Jones RN is Primary Nurse. mb9 14:53 CBC with Diff Sent. mb9 14:53 CMP Sent. mb9 14:53 CRP Sent. mb9 14:53 Inserted saline lock: 22 gauge in right hand, using aseptic technique. Blood collected. mb9 15:10 SARS RAPID Sent. mb9 15:22 Edilia Jones RN is Primary Nurse. mb9 17:52 No provider procedures requiring assistance completed. mb9 17:55 Patient admitted, IV remains in place. mb9 Administered Medications: 15:10 Drug: MethylPrednisoLONE 250 mg Route: IVP; Site: right hand; mb9 16:57 Drug: Aspirin 325 mg Route: PO; ko1 17:02 Drug: PlaVIX (clopidogrel) 225 mg Route: PO; ko1 Medication: 17:52 VIS not applicable for this client. seun Outcome: 13:07 Decision to Hospitalize by Provider. sp3 17:54 Admitted to Tele accompanied by tech, via wheelchair, room 404, Report called to seun Johnston RN 17:54 Condition: stable 18:11 Patient left the ED. seun Signatures: Dispatcher [employer] Edilia Ly Lauren, RN RN [email or web address] Violeta Silva MD MD sp3 Mai Lance RN RN ko1 Edilia Jones RN RN seun Corrections: (The following items were deleted from the chart) 12:51 12:49 PMHx: Diabetes - IDDM; ld1 ld1 12:51 12:49 PMHx: Hyperlipidemia; ld1 ld1 12:51 12:49 PMHx: Hypertension; ld1 ld1 17:02 16:57 PlaVIX (clopidogrel) 300 mg PO ko1 ko1
--- NOTE | 2022-12-11 13:08 | EDPHYS ---
Physician Documentation [facility] Name: Mona Lozano Age: 87 yrs Sex: Female : 1935 Arrival Date: 12/11/2022 Time: 12:46 Bed 6 Private MD: Fili Garcia ED Physician Violeta Silav HPI: 12/11 13:08 This 87 yrs old Female presents to ER via Wheelchair with complaints of Vision Problem. sp3 13:08 87-year-old female with history of diabetes presents referred from her char conveyor tender sp3 Dr. Dunn in for temporal cell arteritis on the right side. She had recent cataract surgery done as well. She was seen by her char conveyor tender today who diagnosed her with temporal cell arteritis secondary to episodic unilateral vision loss. She is sent here with instructions for IV Solu-Medrol 2050 mg IV every 6 hours x12 doses followed by p.o. regimen 80 mg daily on discharge. Patient currently has decreased but present vision denies any other symptoms except for mild headache. On ROS there is no fever, URI symptoms, neck pain, chest pain, shortness of breath, abdominal pain, syncope, near syncope, focal neurological deficit, rash, any other symptoms at this time.. Historical: - Allergies: 12:49 PENICILLINS; ld1 12:49 Sulfa (Sulfonamide Antibiotics); ld1 12:49 tetanus; ld1 - Home Meds: 12:49 metformin 500 mg Oral tab 1 tab QD [Active]; omeprazole 20 mg Oral cpDR 1 cap once ld1 daily [Active]; pravastatin 40 mg Oral tab 1 tab once daily [Active]; lisinopril 40 mg Oral tab 1 tab once daily [Active]; carvedilol 3.125 mg Oral tab 1 tab 2 times per day [Active]; Toviaz 4 mg Oral Tb24 1 tab once daily [Active]; levocetirizine Oral [Active]; Plavix 75 mg Oral tab 1 tab once daily [Active]; calcium carbonate 600 mg (1,500 mg) Oral tab daily [Active]; pressure vision daily [Active]; [place]-3 350 mg-235 mg- 90 mg-597 mg Oral cpDR [Active]; - PSHx: 12:49 tubilagation; Total abdominal hysterectomy; pacemaker; heart stint; ld1 - Immunization history:: Adult Immunizations up to date, Client reports receiving the 2nd dose of the Covid vaccine. - Social history:: Smoking status: Patient denies any tobacco usage or history of. Patient/guardian denies using alcohol. ROS: 13:12 Constitutional: Negative for fever, chills, and weight loss, Neck: Negative for injury, sp3 pain, and swelling, Cardiovascular: Negative for chest pain, palpitations, and edema, Respiratory: Negative for shortness of breath, cough, wheezing, and pleuritic chest pain, Abdomen/GI: Negative for abdominal pain, nausea, vomiting, diarrhea, and constipation, Back: Negative for injury and pain, MS/Extremity: Negative for injury and deformity, Skin: Negative for injury, rash, and discoloration. 13:12 All other systems are negative. Exam: 13:12 Constitutional: This is a well developed, well nourished patient who is awake, alert, sp3 and in no acute distress. Head/Face: Normocephalic, atraumatic. ENT: Nares patent. No nasal discharge, no septal abnormalities noted. External auditory canals are clear. Oropharynx with no redness, swelling, or masses, exudates, or evidence of obstruction, uvula midline. Mucous membranes moist. Neck: Trachea midline, no thyromegaly or masses palpated, and no cervical lymphadenopathy. Supple, full range of motion without nuchal rigidity, or vertebral point tenderness. No Meningismus. Chest/axilla: Normal chest wall appearance and motion. Nontender with no deformity. No lesions are appreciated. Cardiovascular: Regular rate and rhythm with a normal S1 and S2. No gallops, murmurs, or rubs. Normal PMI, no JVD. No pulse deficits. Respiratory: Lungs have equal breath sounds bilaterally, clear to auscultation and percussion. No rales, rhonchi or wheezes noted. No increased work of breathing, no retractions or nasal flaring. Abdomen/GI: Soft, non-tender, with normal bowel sounds. No distension or tympany. No guarding or rebound. No evidence of tenderness throughout. Back: No spinal tenderness. No costovertebral tenderness. Full range of motion. Skin: Warm, dry with normal turgor. Normal color with no rashes, no lesions, and no evidence of cellulitis. MS/ Extremity: Pulses equal, no cyanosis. Neurovascular intact. Full, normal range of motion. Neuro: Awake and alert, GCS 15, oriented to person, place, time, and situation. Cranial nerves II-XII grossly intact. Motor strength 5/5 in all extremities. Sensory grossly intact. Cerebellar exam normal. Normal gait. Psych: Awake, alert, with orientation to person, place and time. Behavior, mood, and affect are within normal limits. 13:12 Eyes: Visual acuity is pending. Extraocular movements are intact.. Vital Signs: 12:49 BP 178 / 56; Pulse 74; Resp 18; Temp 98.3(O); Pulse Ox 100% on R/A; Weight 68.95 kg; ld1 Height 5 ft. 2 in. (157.48 cm); Pain 0/10; 15:23 BP 173 / 81; Pulse 84; Resp 18; Pulse Ox 100% ; Pain 0/10; mb9 12:49 Body Mass Index 27.80 (68.95 kg, 157.48 cm) ld1 MDM: 12:57 Patient medically screened. sp3 13:13 Data reviewed: vital signs, nurses notes, lab test result(s). ED course: 87-year-old sp3 with unilateral temporal cell arteritis sent by ophthalmology. I have started her on IV methylprednisolone and CT scan of the head and laboratory values are pending. Discussed with inpatient team excepted her on their service.. ED course: Differential diagnosis includes temporal arteritis and/or any intracranial pathology which will be ruled out with CT scan.. 16:22 ED course: CT demonstrates subacute CVA without large vessel occlusion. Discussed with sp3 Dr. Mohr who is comfortable taking care of patient here. We will start aspirin and Plavix. Inpatient team is also been notified possibility of not needing long-term steroids. Ophthalmology will be consulted as well.. 12/11 12:58 Order name: CBC with Diff sp3 12/11 12:58 Order name: CMP sp3 12/11 12:58 Order name: CT Head Brain wo Cont; Complete Time: 15:01 sp3 12/11 12:58 Order name: CRP sp3 12/11 14:54 Order name: SARS RAPID mb9 12/11 15:31 Order name: SARS-COV-2 Antigen Rapid EDMS 12/11 12:58 Order name: IV Saline Lock; Complete Time: 14:53 sp3 12/11 12:58 Order name: Labs collected and sent; Complete Time: 14:53 sp3 12/11 15:13 Order name: Labs - recollect needed: recollect green top; Complete Time: 15:22 bd Administered Medications: 15:10 Drug: MethylPrednisoLONE 250 mg Route: IVP; Site: right hand; mb9 16:57 Drug: Aspirin 325 mg Route: PO; ko1 17:02 Drug: PlaVIX (clopidogrel) 225 mg Route: PO; ko1 Disposition Summary: 12/11/22 13:07 Hospitalization Ordered Hospitalization Status: Inpatient Admission sp3 Provider: Jose Angel Glass sp3 Location: Telemetry/MedSurg (Inpatient) sp3 Condition: Stable sp3 Problem: new sp3 Symptoms: have worsened sp3 Bed/Room Type: Standard sp3 Room Assignment: 404(12/11/22 17:25) ss Diagnosis - Temporal Cell Arteritis sp3 Forms: - Medication Reconciliation Form sp3 - SBAR form sp3 Signatures: Dispatcher [employer] EDMS Catherine Berrios Shelby, RN RN ss Mariah Arenas RN RN ld1 Violeta Silva MD MD sp3 Mai Lance RN RN ko1 Edilia Jones RN RN mb9 Corrections: (The following items were deleted from the chart) 12:51 12:49 PMHx: Diabetes - IDDM; ld1 ld1 12:51 12:49 PMHx: Hyperlipidemia; ld1 ld1 12:51 12:49 PMHx: Hypertension; ld1 ld1 17:25 13:07 sp3 ss
--- NOTE | 2022-12-11 13:21 | RAD REPORT ---
EXAM DESCRIPTION: CT - Head Brain Wo Cont - 12/11/2022 1:13 pm CLINICAL HISTORY: VISUAL DISTURBANCES Headache, drowsiness COMPARISON: Head Brain Wo Cont dated 04/13/2018 TECHNIQUE: All CT scans are performed using dose optimization technique as appropriate and may inclu de automated exposure control or mA/KV adjustment according to patient size. FINDINGS: No intracranial hemorrhage, hydrocephalus or extra-axial fluid collection.Significant uvaldo ventricular and deep white matter chronic microvascular ischemic changes.In addition a 5-6 cm large a refugio of diminished density is seen right posterior parietooccipital region likely subacute infarction. Mild fluid is seen in both maxillary sinuses. The calvarium is intact. IMPRESSION: Large 5-6 cm area of diminished density right posterior parietooccipital region is likel y subacute CVA. No hemorrhage seen.
[2022-12-11] MEDS ORDERED: HYDROCODONE/APAP 5/325 MG TAB PO PRN ×2 (14:31→16:35)
[2022-12-11] MEDS ORDERED: ACETAMINOPHEN 325 MG TABLET PO PRN ×2 (14:31→16:35)
[2022-12-11] MEDS ORDERED: METHYLPREDNISOLONE 125 MG INJ ONE (15:02)
[2022-12-11 15:11] LABS: Lymphocytes % 27.2 % (15.3-44.8); MCV 98.2 fL (80-100); MPV 7.5 fL (7.6-11.3); RBC Red Blood Cell Count 4.07 M/uL (3.86-4.86)
[2022-12-11 15:30] LABS: SARS-CoV-2 Antigen Rapid Res Negative (Negative)
[2022-12-11 15:58] LABS: ALT/SGPT 23 U/L (13-56); AST/SGOT 23 U/L (15-37); Albumin 3.8 g/dL (3.4-5.0); Alkaline Phosphatase 66 U/L (45-117); BUN Blood Urea Nitrogen 14 mg/dL (7-18); Bicarbonate 25 mmol/L (21-32); Bilirubin Total 0.6 mg/dL (0.2-1.0); Glomerular Filtration Rate 85 ml/min (=/>90); Glucose Level 126 mg/dL (74-106); Potassium 4.1 mmol/L (3.5-5.1); Protein, Total 7.6 g/dL (6.4-8.2); Sodium Level 139 mmol/L (136-145)
[2022-12-11 15:59] LABS: C-Reactive Protein < 2.90 mg/L (<3.00)
[2022-12-11] MEDS ORDERED: ONDANSETRON 4 MG/2 ML VIAL IV PRN (16:38)
[2022-12-11] MEDS ORDERED: GUAIFENESIN 600 MG SA TAB PO PRN (16:41)
[2022-12-11] MEDS ORDERED: BENZONATATE 100 MG CAP PO PRN (16:41)
--- NOTE | 2022-12-11 16:45 | P.HP ---
Certification for Inpatient Patient admitted to: Inpatient With expected LOS: >2 Midnights Patient will require the following post-hospital care: None Practitioner: I am a practitioner with admitting privileges, knowledge of patient current condition, hospital course, and medical plan of care. Services: Services provided to patient in accordance with Admission requirements found in Title 42 Section 412.3 of the Code of Federal Regulations <Lea Talamantes - Last Filed: 12/11/22 19:40> Patient History Date of Service: 12/11/22 Reason for admission: Suspected temporal artery arteritis. History of Present Illness: Patient is an 87-year-old female with a past medical history significant for DM 2, GERD, HLD, hypertension who presents with complaint of pain in the right rastafarian as well as in the right eye onset 3 days ago. Patient rated pain as 7/10 in severity and described pain as aching in quality. Patient reported associated signs and symptoms of right eye vision loss, bilateral lower extremity weakness and nausea. Patient reported that she recently had a left eye with cataract surgery. Patient denies any other signs and symptoms. Symptoms are aggravated or relieved by nothing. Patient followed up with her supervisor [employer] who sent her to the ER to rule out temporal arteritis. Of note, patient's supervisor [employer] wanted a temporal artery biopsy as well as placing patient on steroid. - Past Medical/Surgical History Diabetic: Yes -: Diabetes mellitus type 2 non-insulin dependent -: Hypertension -: CAD with prior stent -: Pacemaker -: Urinary incontinence -: Hyperlipidemia -: Tubaligation -: Hysterectomy -: Pacemaker placement -: left leg vein surgery Psychosocial/ Personal History: Patient is a . - Family History Father -: Heart disease Notes: heart attack Sister -: Stroke Notes: brain aneurysm Mother Notes: in childbirth - Social History Smoking Status: Never smoker Alcohol use: No CD- Drugs: No Caffeine use: Yes Place of Residence: Home <Lea Talamantes Kei - Last Filed: 12/11/22 19:40> Date of Service: 12/12/22 <Jose Angel Glass - Last Filed: 12/12/22 04:10> Allergies Penicillins Adverse Reaction (Verified 03/16/19 09:20) Hives/Rash Sulfa (Sulfonamide Antibiotics) Adverse Reaction (Verified 03/16/19 09:20) Hives/Rash tetanus and diphtheria toxoids Adverse Reaction (Verified 03/16/19 09:20) Hives/Rash Home Medications: Calcium Carbonate [Calcium] 1 tab PO BID 03/17/19 Fesoterodine Fumarate [Toviaz] 1 tab PO DAILY 03/17/19 Garlic 1,000 mg PO BEDTIME 03/17/19 Levocetirizine Dihydrochloride [Xyzal] 5 mg PO DAILY 03/17/19 Metformin ER [Glucophage ER*] 500 mg PO DAILY 03/17/19 [place]-3 Fatty Acids [[place]-3] 2 tab PO BEDTIME 03/17/19 Omeprazole 20 mg PO DAILY 03/17/19 Pravastatin Sodium [Pravachol] 40 mg PO BEDTIME 03/17/19 carvediloL [Coreg*] 3.125 mg PO BID 03/17/19 lisinopriL [Lisinopril] 40 mg PO DAILY 03/17/19 Clopidogrel Bisulfate [Plavix] 75 mg PO DAILY 30 Days #30 tablet 03/18/19 Benzonatate [Tessalon Perle*] 100 mg PO TID PRN #15 cap 01/05/20 Guaifenesin [Mucinex] 600 mg PO BID PRN #15 tab.er.12h 01/05/20 Levofloxacin [Levaquin] 500 mg PO DAILY #5 tablet 01/05/20 Review of Systems General: Weakness Eyes: Vision Change, Other ENT: Unremarkable Respiratory: Unremarkable Cardiovascular: Unremarkable Gastrointestinal: Nausea Genitourinary: Unremarkable Musculoskeletal: Unremarkable Integumentary: Unremarkable Neurological: Weakness, Other (Right rastafarian pain, DOWD) Lymphatics: Unremarkable <Lea Talamantes E - Last Filed: 12/11/22 19:40> Physical Examination - Physical Exam General: Alert, In no apparent distress, Oriented x3, Cooperative HEENT: Atraumatic, PERRLA, Mucous membr. moist/pink, EOMI, Sclerae nonicteric Neck: Supple, 2+ carotid pulse no bruit, No LAD, Without JVD or thyroid abnormality Respiratory: Clear to auscultation bilaterally, Normal air movement Cardiovascular: No edema, Regular rate/rhythm, Normal S1 S2 Capillary refill: <2 Seconds Gastrointestinal: Normal bowel sounds, Soft and benign, No tenderness Musculoskeletal: No clubbing, No swelling, No tenderness Integumentary: No rashes, No breakdown, No significant lesion Neurological: Normal speech, Normal strength at 5/5 x4 extr, Normal tone, Normal affect, Other (Right rastafarian tenderness) Lymphatics: No axilla or inguinal lymphadenopathy <Lea Talamantes - Last Filed: 12/11/22 19:40> Assessment and Plan - Plan --CVA. Noted on imaging. Neurology consulted. Patient placed on aspirin, folic acid and Lipitor. Echocardiogram pending. Will await further recommendation from neurologist. --Suspected temporal arteritis. We will hold off on biopsy due to CVA. Neurologist on board. Recommended placing patient on prednisone 60 mg daily. Continue supportive care. --DM2. BS monitoring with sliding scale insulin. --Hypertension. We will allow for permissive hypertension. Hydralazine as needed for SBP greater than 200 mmHg. --Acute pain. We will manage pain with current pain medication regimen. --GERD. Continue Protonix. --HLD. Continue statin. --CKD 2. Stable. Continue to monitor renal functions. --Elevated BNP. Echocardiogram pending to assess cardiac structures and functions. Continue supportive care. --History of CAD with stents. Continue aspirin and statin. --Presence of pacemaker. Telemetry to monitor for any malignant arrhythmia. Continue supportive care. --DVT prophylaxis with Lovenox subQ. Discharge Plan: Home Plan to discharge in: Greater than 2 days - Advance Directives Does patient have a Living Will: Yes Does patient have a Durable POA for Healthcare: Yes - Code Status/Comfort Care Code Status Assessed: Yes Physician Review: Patient Assessed, Agree with Above Assessment and Plan Critical Care: No <Lea Talamantes - Last Filed: 12/11/22 19:40> Date of Service: 12/11/22 Please refer to my HP <Jose Angel Glass - Last Filed: 12/12/22 04:10>
[2022-12-11] MEDS ORDERED: CLOPIDOGREL 75 MG TABLET ONE (17:00)
[2022-12-11] MEDS: ASPIRIN 81 MG CHEWABLE TABLET PO SCH (17:00)
[2022-12-11] MEDS ORDERED: ASPIRIN EC 325 MG TABLET PO ONE (17:00)
[2022-12-11 17:09] VITALS: BMI 27.8
[2022-12-11] MEDS: ENOXAPARIN 40 MG/0.4 ML SQ SCH (18:33)
[2022-12-11 18:56] LABS: Phosphorus 3.4 mg/dL (2.5-4.9)
[2022-12-11 18:58] LABS: Magnesium 2.3 mg/dL (1.6-2.4)
[2022-12-11] MEDS ORDERED: HYDRALAZINE HCL 20 MG/ML VIAL IV PRN (19:36)
[2022-12-11 19:47] LABS: Protime INR 1.06
[2022-12-11] MEDS: CALCIUM CARBONATE 500 MG TAB PO SCH (20:23)
[2022-12-11] MEDS: DOCOSAHEXANOIC AC/EPA 1000 MG PO SCH (20:24)
[2022-12-11] MEDS: ATORVASTATIN 40 MG TAB PO SCH (20:24)
[2022-12-11] MEDS: GARLIC 1000 MG PO SCH (20:26)
[2022-12-11] MEDS: INSULIN -REGULAR HUMAN 50 UNIT/0.5 ML ML SQ SCH (20:42)
[2022-12-11] MEDS ORDERED: HOME MED 1 EA UNK (Calcium Carbonate [Calcium] 600 MG Tablet) PO SCH (21:00)
[2022-12-11] MEDS ORDERED: HOME MED 1 EA UNK (Omega-3 Fatty Acids [Omega-3] 1,000 MG Capsule) PO SCH (21:00)
--- NOTE | 2022-12-12 04:29 | P.HP ---
Certification for Inpatient Patient admitted to: Inpatient With expected LOS: >2 Midnights Patient will require the following post-hospital care: None Practitioner: I am a practitioner with admitting privileges, knowledge of patient current condition, hospital course, and medical plan of care. Services: Services provided to patient in accordance with Admission requirements found in Title 42 Section 412.3 of the Code of Federal Regulations Patient History Date of Service: 12/11/22 Reason for admission: Decreased vision started on Saturday-12/08/22 History of Present Illness: Patient is an 87-year-old female in the hospital with recent cataract surgery. Patient had been doing okay but her blood pressure has been little on the higher side. Her vision was not improving. She really is not able to see much out of her left eye. She went to see the penology teacher in because she was also having headache she sent her into the hospital to get further evaluated. In the emergency room, patient was found to have right homonymous hemianopsia. CT scan of the brain revealed right parietal occipital lobe infarct. This was subacute. Patient was outside of the window for tPA. Her C reactive protein is negative. At this time, she will be admitted to the hospital for further treatment with anti-platelet regimen and statin therapy. I did speak to the penology teacher and at this time we are releasing that patient is doing with temporal arteritis. She does not advise any further steroids if that is not a consideration with her CT scan findings which explained the vision loss, as well as the visual field cuts that she is dealing with at this time. Standard CVA treatment. Allergies Penicillins Adverse Reaction (Verified 03/16/19 09:20) Hives/Rash Sulfa (Sulfonamide Antibiotics) Adverse Reaction (Verified 03/16/19 09:20) Hives/Rash tetanus and diphtheria toxoids Adverse Reaction (Verified 03/16/19 09:20) Hives/Rash Home Medications: Calcium Carbonate [Calcium] 1 tab PO BID 03/17/19 Fesoterodine Fumarate [Toviaz] 1 tab PO DAILY 03/17/19 Garlic 1,000 mg PO BEDTIME 03/17/19 Levocetirizine Dihydrochloride [Xyzal] 5 mg PO DAILY 03/17/19 Metformin ER [Glucophage ER*] 500 mg PO DAILY 03/17/19 Morrow-3 Fatty Acids [Morrow-3] 2 tab PO BEDTIME 03/17/19 Omeprazole 20 mg PO DAILY 03/17/19 Pravastatin Sodium [Pravachol] 40 mg PO BEDTIME 03/17/19 carvediloL [Coreg*] 3.125 mg PO BID 03/17/19 lisinopriL [Lisinopril] 40 mg PO DAILY 03/17/19 Clopidogrel Bisulfate [Plavix] 75 mg PO DAILY 30 Days #30 tablet 03/18/19 Benzonatate [Tessalon Perle*] 100 mg PO TID PRN #15 cap 01/05/20 Guaifenesin [Mucinex] 600 mg PO BID PRN #15 tab.er.12h 01/05/20 Levofloxacin [Levaquin] 500 mg PO DAILY #5 tablet 01/05/20 - Past Medical/Surgical History Has patient received pneumonia vaccine in the past: Yes Diabetic: Yes -: Diabetes mellitus type 2 non-insulin dependent -: Hypertension -: CAD with prior stent -: Pacemaker -: Urinary incontinence -: Hyperlipidemia -: Tubaligation -: Hysterectomy -: Pacemaker placement -: left leg vein surgery Psychosocial/ Personal History: Patient is a . - Family History Father Medical History: Heart disease Notes: heart attack Sister Medical History: Stroke Notes: brain aneurysm Mother Notes: in childbirth - Social History Smoking Status: Never smoker Alcohol use: No CD- Drugs: No Caffeine use: No Place of Residence: Home Review of Systems 10-point ROS is otherwise unremarkable Physical Examination - Vital Signs Temperature: 97.6 F Blood Pressure: 138/58 Pulse: 66 Respirations: 16 Pulse Ox (%): 96 - Physical Exam General: Alert, In no apparent distress, Oriented x3 HEENT: Atraumatic, PERRLA, Mucous membr. moist/pink, EOMI, Sclerae nonicteric Neck: Supple, 2+ carotid pulse no bruit, No LAD, Without JVD or thyroid abnormality Respiratory: Clear to auscultation bilaterally, Normal air movement Cardiovascular: Regular rate/rhythm, Normal S1 S2, No murmurs Gastrointestinal: Normal bowel sounds, Soft and benign, Non-distended, No tenderness Musculoskeletal: No clubbing, No swelling, No tenderness Integumentary: No rashes Neurological: Normal gait, Normal speech, Normal strength at 5/5 x4 extr, Normal tone, Sensation intact, Normal affect, Other (right homonyous hemianopsia), Abnormal cranial nerve function Lymphatics: No axilla or inguinal lymphadenopathy Assessment & Plan - Problems (Diagnosis) (1) 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 MRI of the brain unable to obtain 2. Echocardiogram and carotid Doppler for CVA 3. Anti-platelet therapy and statin therapy 4. Neurology consultation 5. Physical therapy/occupational therapy/speech therapy evaluation 6. Bedside swallow evaluation 7. Permissive hypertension 8. DVT prophylaxis - Advance Directives Does patient have a Living Will: No Does patient have a Durable POA for Healthcare: No Physician Review: Patient Assessed, Agree with Above Assessment and Plan
[2022-12-12] MEDS: NA CHLORIDE 0.9% 1,000 ML IV SCH ×2 (05:00→17:18)
[2022-12-12 06:28] LABS: Absolute Lymphocytes (CBC) 0.6 K/uL (0.7-4.9); Hematocrit 36.3 % (36.0-45.0); Lymphocytes % 15.3 % (15.3-44.8); MCV 97.5 fL (80-100); MPV 7.4 fL (7.6-11.3); RBC Red Blood Cell Count 3.72 M/uL (3.86-4.86)
[2022-12-12 06:39] LABS: Potassium 3.8 mmol/L (3.5-5.1)
[2022-12-12] MEDS: INSULIN -REGULAR HUMAN 50 UNIT/0.5 ML ML SQ SCH ×4 (07:30→21:00)
[2022-12-12] MEDS ORDERED: PNEUMOCOCCAL VACCINE 0.5 ML IMVAC ONE (08:00)
[2022-12-12] MEDS ORDERED: POTASSIUM 25 MEQ EFFERV TAB PO ONE (08:00)
--- NOTE | 2022-12-12 08:41 | RAD REPORT ---
EXAM DESCRIPTION: Molly Angio12/12/2022 8:05 am CLINICAL HISTORY: Vision loss COMPARISON: None TECHNIQUE: 50 cc Isovue 370 was administered intravenously. 3D MIP reconstruction performed All CT scans are performed using dose optimization technique as appropriate and may include automated exposure control or mA/KV adjustment according to patient size. FINDINGS: No significant abnormality of the great vessels. Mild plaque is present within common carotid, internal carotid and external carotid arteries bilatera lly. Vertebral arteries are generally codominant. No significant stenosis seen. No dissection visualized. IMPRESSION: Mild plaque within the arteries. NASCET criteria used. Mild 0-49% stenosis Moderate 50-69% stenosis Severe 70-99% stenosis
[2022-12-12] MEDS: PANTOPRAZOLE 40MG TABLET PO SCH (08:42)
[2022-12-12] MEDS: CETIRIZINE HCL 5 MG TABLET PO SCH (08:42)
[2022-12-12] MEDS: CALCIUM CARBONATE 500 MG TAB PO SCH ×2 (08:42→21:07)
[2022-12-12] MEDS: FOLIC ACID 1 MG TABLET PO SCH (08:42)
[2022-12-12] MEDS: CLOPIDOGREL 75 MG TABLET PO SCH (08:42)
[2022-12-12] MEDS: ASPIRIN 81 MG CHEWABLE TABLET PO SCH (08:42)
[2022-12-12] MEDS: ENOXAPARIN 40 MG/0.4 ML SQ SCH (08:43)
--- NOTE | 2022-12-12 08:43 | RAD REPORT ---
EXAM DESCRIPTION: CTHead angio12/12/2022 8:05 am CLINICAL HISTORY: Vision loss/CVA COMPARISON: None TECHNIQUE: CT angiogram of the head was obtained. 3D MIPS reconstruction performed. All CT scans are performed using dose optimization technique as appropriate and may include automated exposure control or mA/KV adjustment according to patient size. FINDINGS: Narrowing of the distal branches of the right posterior cerebral artery. The basilar, internal carotid, anterior cerebral, middle cerebral and left posterior cerebral arterie s do not demonstrate a significant abnormality An aneurysm is not seen A significant stenosis is not noted. IMPRESSION: Narrowing of the distal branches of right posterior cerebral artery. No thrombus is visu alized.
[2022-12-12] MEDS ORDERED: HOME MED 1 EA UNK (Omeprazole [Omeprazole] 20 MG Tab.Rap.Dr) PO SCH (09:00)
[2022-12-12] MEDS ORDERED: predniSONE 20 MG TAB PO SCH (09:00)
[2022-12-12] MEDS ORDERED: HOME MED 1 EA UNK (Levocetirizine Dihydrochloride [Xyzal] 5 MG Tablet) PO SCH (09:00)
[2022-12-12] MEDS ORDERED: FESOTERODINE FUMARATE 4 MG PO SCH (09:00)
[2022-12-12 15:52] LABS: Urine Bacteria None Seen /HPF (<20); Urine Bilirubin NEGATIVE (Negative); Urine Blood Negative (Negative); Urine Clarity Clear (Clear); Urine Color Light-Yellow (Yellow); Urine Glucose NEGATIVE (Negative); Urine Mucus Slight /HPF (None Seen); Urine Protein TRACE (Negative); Urine RBC <5 /HPF (None Seen); Urine Urobilinogen Normal (Normal)
[2022-12-12 16:03] LABS: Specific Gravity > 1.030 (1.005-1.030)
[2022-12-12] MEDS: GARLIC 1000 MG PO SCH (21:00)
[2022-12-12] MEDS: DOCOSAHEXANOIC AC/EPA 1000 MG PO SCH (21:07)
[2022-12-12] MEDS: ATORVASTATIN 40 MG TAB PO SCH (21:08)
[2022-12-12] MEDS: lisinopriL 20 MG TAB PO SCH (22:09)
[2022-12-13 05:27] LABS: Potassium 4.2 mmol/L (3.5-5.1)
[2022-12-13] MEDS: NA CHLORIDE 0.9% 1,000 ML IV SCH ×2 (06:09→07:40)
[2022-12-13] MEDS: INSULIN -REGULAR HUMAN 50 UNIT/0.5 ML ML SQ SCH ×2 (07:30→11:30)
[2022-12-13] MEDS: ENOXAPARIN 40 MG/0.4 ML SQ SCH (08:03)
[2022-12-13] MEDS: FOLIC ACID 1 MG TABLET PO SCH (08:03)
[2022-12-13] MEDS: ASPIRIN 81 MG CHEWABLE TABLET PO SCH (08:03)
[2022-12-13] MEDS: PANTOPRAZOLE 40MG TABLET PO SCH (08:04)
[2022-12-13] MEDS: CALCIUM CARBONATE 500 MG TAB PO SCH (08:04)
[2022-12-13] MEDS: CLOPIDOGREL 75 MG TABLET PO SCH (08:04)
[2022-12-13] MEDS: lisinopriL 20 MG TAB PO SCH (08:04)
[2022-12-13] MEDS: CETIRIZINE HCL 5 MG TABLET PO SCH (08:04)
--- NOTE | 2022-12-13 08:41 | ECHO ---
HEIGHT: 5 ft 2 in WEIGHT: 152 lb 0.14 oz DATE OF STUDY: 12/12/[address]: Lea Talamantes 2-DIMENSIONAL: YES M.MODE: YES DOPPLER: YES COLOR FLOW: YES TDS: PORTABLE: YES DEFINITY: BUBBLE STUDY: DIAGNOSIS: CEREBRAL VASCULAR ACCIDENT CARDIAC HISTORY: CATHERIZATION: SURGERY: PROSTHETIC VALVE: PACEMAKER: MEASUREMENTS (cm) DIASTOLIC (NORMALS) SYSTOLIC (NORMALS) IVSd 0.9 (0.6-1.2) LA Diam 3.0 (1.9-4.0) LVEF 51% LVIDd 3.8 (3.5-5.7) LVIDs 2.8 (2.0-3.5) %FS 25% LVPWd 1.2 (0.6-1.2) Ao Diam 2.5 (2.0-3.7) 2 DIMENSIONAL ASSESSMENT: RIGHT ATRIUM: NORMAL LEFT ATRIUM: NORMAL RIGHT VENTRICLE: NORMAL LEFT VENTRICLE: NORMAL TRICUSPID VALVE: MILD TRICUSPID REGURGITATION MITRAL VALVE: MILD MITRAL REGURGITATION PULMONIC VALVE: NORMAL AORTIC VALVE: MILD AORTIC INSUFFICIENCY PERICARDIAL EFFUSION: NONE AORTIC ROOT: NORMAL LEFT VENTRICULAR WALL MOTION: NORMAL DOPPLER/COLOR FLOW: SEE BELOW COMMENTS: 1. NORMAL LEFT VENTRICUALR EJECTION FRACTION 55-60% 2. NORMAL WALL MOTION 3. MILD MITRAL REGURGITATION, TRICUSPID REGURGITATION, AORTIC INSUFFICIENCY TECHNOLOGIST: GRECIA DOYLE
[2022-12-13 09:53] VITALS: O2SAT 98
--- NOTE | 2022-12-13 10:17 | P.PN ---
Subjective Date of Service: 12/12/22 Subjective: No new changes, No C/O voiced, Improving Review of Systems 10-point ROS is otherwise unremarkable Physical Examination - Vital Signs Temperature: 96.8 F Blood Pressure: 159/73 Pulse: 73 Respirations: 18 Pulse Ox (%): 96 - Physical Exam General: Alert, In no apparent distress HEENT: Atraumatic, PERRLA, EOMI Neck: Supple, JVD not distended Respiratory: Clear to auscultation bilaterally, Normal air movement Cardiovascular: Regular rate/rhythm, Normal S1 S2 Gastrointestinal: Normal bowel sounds, No tenderness Musculoskeletal: No tenderness Integumentary: No rashes Neurological: Normal speech, Normal tone, Normal affect Lymphatics: No axilla or inguinal lymphadenopathy - Studies Medications List Reviewed: Yes Assessment & Plan - Problems (Diagnosis) (1) 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 MRI of the brain unable to obtain 2. Echocardiogram and carotid Doppler for CVA 3. Anti-platelet therapy and statin therapy 4. Neurology consultation 5. Physical therapy/occupational therapy/speech therapy evaluation 6. Bedside swallow evaluation 7. Permissive hypertension 8. DVT prophylaxis - Advance Directives Does patient have a Living Will: No Does patient have a Durable POA for Healthcare: No Physician Review: Patient Assessed, Agree with Above Assessment and Plan
[2022-12-13] MEDS ORDERED: carvediloL 6.25 MG TAB PO ONE (12:14)
[2022-12-13] MEDS ORDERED: lisinopriL 20 MG TAB PO ONE (14:22)
[2022-12-13 16:43] VITALS: BP 157/67; TEMP 97.1
--- NOTE | 2022-12-13 19:50 | CON ---
Reason For Consultation: Consultation called because of stroke. History Of Present Illness: Ms. Lozano is an 87-year-old right-handed patient with recent cataract surgery in the left eye, diabetes, hypertension, and dyslipidemia who developed a loss of vi margarita on the left side of her eye where she had cataract Saturday12/08/2022. Her blood pressures wer e noted to be somewhat elevated. She saw her mid wife and was at that time having headaches. Correctional Treatment Specialist was worried about the possibility of temporal arteritis and sent her to [facility]. Head CT scan identified a large right parietal occipital stroke and the stroke measured 5 t o 6 cm and was felt to be subacute and she came to [facility] on 12/11/2022, that is 3 days after onset of symptoms. She was way out of the window for any TNKs or large vessel intervention. C T angiogram of her head done on 12/12/2022 showed narrowing of distal branches of the right posterior cerebral artery, but no thrombus was visualized. CT angiogram of her neck showed mild plaque in the arteries, vertebral arteries were codominant. No significant stenosis was identified. She was mack akhil with aspirin, Plavix, folic acid, statin, and blood pressure medications. Blood pressures were i n the systolic 160s to 170s. She was given DVT prophylaxis with Lovenox, folic acid, and GE reflux m edication. Her cholesterol panel showed triglycerides 128, LDL 117, and HDL 57. She by the way did have C-reactive protein that was normal at less than 2.90. Hemoglobin A1c 5.9. Blood glucose did ra nge from 126 up to 238. Magnesium, phosphorus, and liver function studies were normal. Sodium, pota ssium, and chloride all normal. Urinalysis with 25 esterase and trace protein. COVID-19 test is neg ative. White blood cell count 3.7 and hemoglobin and hematocrit unremarkable. Coagulation panel unr emarkable. The patient said since hospitalization and receiving fluids, she does have significant im provement in her visual field deficit, which is really involving the left side. It has improved some what and she said she is feeling much better about her vision at this point. She did not have face o r leg weakness or numbness with her stroke, essentially visual disturbances and perhaps some mild dif ficulty with communication. Past Medical History: As noted, in addition to coronary artery disease with multiple stents and urin shawn incontinence. Past Surgical History: Cardiac stents, tubal ligation, hysterectomy, pacemaker placement, and vein s urgery on left leg. Allergies: PENICILLIN, SULFA DRUGS, AND TETANUS. Medications: Calcium carbonate, 100 mg at bedtime, Xyzal 5 mg daily, Glucophage 500 mg da tamela, omega-3 oil two tablets at bedtime, omeprazole 20 mg daily, Pravachol 40 mg at bedtime, Coreg 3. 125 mg twice daily, lisinopril 40 mg daily, Plavix 75 mg daily, Tessalon Perles 100 mg 3 times daily as needed, Mucinex 600 mg twice daily as needed, and Levaquin 500 mg daily. Family History: Positive for heart disease in father. Sister with stroke and SKIING TEACHER aneurysm. Social History: No alcohol, tobacco, or IV drug use. Review of Systems: Aside from mentioning the visual deficits and some pain in the left eye, which is improving, mild crystal lgias, arthralgias and mild headaches. No rash. No psychiatric issues. No gastrointestinal or frank tourinary issues. Physical Examination: Vital Signs: Blood pressure 157/67, pulse 60, respiratory rate 18, temperature 97.1, and oxygen satu ration 97%. Weight 152 pounds, height 5 feet 2 inches, BMI 27. General: Ms. Lozano is sitting in a chair besides her bed. Family is in the room, her daughter. HEENT: She is normocephalic, atraumatic. Sclerae anicteric. She does have some injection noted in the left eye where she had recent surgery. Otherwise, she does have slight decreased movement percep tion in her left visual field. Otherwise, right visual field intact in all areas for both eyes. Ext raocular movements are intact. Face is symmetric with equal excursions on smiling. Tongue and palat e midline. Neurologic: On motor examination, she has no focal weakness in upper and lower extremities at least 4+/5 bilaterally. Reflexes 1+ in upper and lower extremities. Coordination intact in upper and lowe r extremities. She was able to ambulate to the bathroom with family. Laboratory Studies: As noted above and imaging is as noted as well. Assessment: Ms. Lozano is an 87-year-old patient with a right posterior parietal occipital stroke me asuring 5 to 6 cm cyst left homonymous hemianopsia, which is improving. She had left cataract surger y recently. She has uncontrolled hypertension, diabetes, dyslipidemia, and other comorbidities inclu ding gastroesophageal reflux disease. Plan: 1.She may be discharged home today. She may benefit from Home Health for physical and occupational therapy to help her negotiate corners and ambulate safely and improve endurance, strength, and coordi nation. 2.Aggressive management of hypertension, dyslipidemia, and diabetes mellitus. 3.After discharge, she may follow up with Dr. Mohr's clinic within a month and follow up with Op hthalmology as well for possibility of prism lenses depending on the residual visual deficits. TRUE/JESUS Voice ID: [id number] Report ID: [id number]
== END 2022-12-13 17:45 | disposition home or self-care (01) | DRG 66 ==
LOC: ER 12:41 → ERHOLD 14:30 → 4TH 17:58
PROVIDERS: ADMIT Hospitalist; ATTEND Hospitalist
DX: I63.9 Cerebral infarction, unspecified (principal); I10 Essential (primary) hypertension; E78.5 Hyperlipidemia, unspecified; I12.9 Hypertensive chronic kidney disease with stage 1 through stage 4 chronic kidney disease, or unspecified chronic kidney disease; N18.2 Chronic kidney disease, stage 2 (mild); E11.22 Type 2 diabetes mellitus with diabetic chronic kidney disease; K21.9 Gastro-esophageal reflux disease without esophagitis; H53.461 Homonymous bilateral field defects, right side; M31.6 Other giant cell arteritis; I25.10 Atherosclerotic heart disease of native coronary artery without angina pectoris; Z88.0 Allergy status to penicillin; Z88.1 Allergy status to other antibiotic agents; Z95.0 Presence of cardiac pacemaker; Z95.5 Presence of coronary angioplasty implant and graft; Z88.7 Allergy status to serum and vaccine; Z79.84 Long term (current) use of oral hypoglycemic drugs; Z98.51 Tubal ligation status; Z79.02 Long term (current) use of antithrombotics/antiplatelets; Z90.710 Acquired absence of both cervix and uterus; Z79.899 Other long term (current) drug therapy; Z20.822 Contact with and (suspected) exposure to COVID-19
CPT/HCPCS: 36415; 70450; 70496; 70498; 80048; 80053; 80061; 81001; 82947; 83036; 83735; 83880; 84100; 84439; 84443; 85025; 85610; 86140; 87811; 93306; 96374; 99285; J1650; J1815; J2930; J7030; Q9967

== ENCOUNTER 2023-04-21 17:46 | Emergency (ER) | payer OTHER ==
--- OUTSIDE RECORDS SUMMARY | 2023-04-21 18:02 | XMS REPORT | Continuity of Care Document ---
:1935 Author Organization [facility] t Address [address] [place] [address] [place] [id number] Care Team Providers Name Role Phone Fan Josiah COYNE Primary Care Physician ALYCIA DECKER Attending Clinician Unavailable Sanjay Meza MD Attending Clinician Lab, Ang - Db Attending Clinician Unavailable SANJAY MEZA Attending Clinician Unavailable Alycia Decker MD Attending Clinician Valeri Fuller Attending Clinician NGUYỄN MERINO Attending Clinician Unavailable Doctor Unassigned, [place] Attending Clinician Unavailable Nguyễn Merino MD Attending Clinician KURT WEINBERG Attending Clinician Unavailable Cynthia Muro PT Attending Clinician Unavailable Kurt Weinberg MD Attending Clinician VALERI WU Attending Clinician Unavailable 2, [facility] Attending Clinician Unavailable Pob, [facility] Main Attending Clinician Unavailable Miller_S_JUANJOSE Attending Clinician Unavailable Pamela-Isabelo_A_JUANJOSE Attending Clinician Unavailable MORGAN WILSON Attending Clinician Unavailable Provider, [facility] Attending Clinician Unavailable Emelia Faith Attending Clinician EMELIA LLANES Attending Clinician Unavailable Arleen Mcduffie Attending Clinician WU, VALERI Admitting Clinician Unavailable Miller_S_AH Admitting Clinician Unavailable Rupal_Joselyn_ Admitting Clinician Unavailable Arleen Mcduffie Admitting Clinician Payers Payer Name Policy Type Policy Number Effective Date Expiration Date Misty dominguez [place] [id number] 2020 CLASSIC NO PREMIUM 00:00:00 H[place] - [id number] 2019 [place] 00:00:00 (MEDICARE REPLACEMENT/ADVANT AGE - HMO) Problems Condition Condition Condition Status Onset Resolution Last Treating Co mments Source Name Details Category Date Date Treatment Clinician Date Coronary Coronary Disease Active 2021-11 Unive rs artery artery 2-28 ity of disease disease 00:00: [place] involving involving 00 Medi candido [place] coronary coronary artery of artery of [place] heart heart without without angina angina pectoris pectoris Pacemaker Pacemaker Disease Active 2021-11 Uni vers 2-28 ity of 00:00: [place] 00 Medical Branch Hyperlipid Hyperlipid Disease Active 2021-11 U nivers emia, emia, 2-28 ity of unspecif[place] Medical hyperlipid hyperlipid Br anch emia type emia type Primary Primary Disease Active 2021-11 Univers hypertensi hypertensi 2-28 it y of on on 00:00: [place] 00 Medical Branch Coronary Coronary Disease Active 2021-11 Unive rs artery artery 2-28 ity of disease disease 00:00: [place] involving involving 00 Medi candido [place] coronary coronary artery of artery of [place] heart heart without without angina angina pectoris pectoris Blood Blood Problem Active [facility] coagulatio Coagulatio 2-10 [facility] n disorder n Disorder 00:00: Pr actic 00 e 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 Diabetes 6- Family mellitus Mellitus 00:00: Practi c 00 e Hyperchole Hyperchole Problem Active [facility] sterolemia sterolemia 6- Fa hector 00:00: Practic 00 e 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 00:00: Practic 00 e 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 6- Family 00:00: Practic 00 e Gastroesop Gastroesop Problem Active [facility] fransico hageal 6-29 Family reflux Reflux 00:00: Practic disease Disease 00 e 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 [facility] HEART DEGREE 6-11 21:51:00 l BLOCK HEART 00:00: [place] BLOCK 00 Active 04/14/2018 [place] COMPLETE COMPLETE Diagnosis Active 2018-04-14 [facility] HEART HEART 6- 23:42:00 l BLOCK BLOCK 00:00: [place] Active 00 04/14/2018 [facility] Chest Chest Problem 2018-04-19 Memor ia pain, pain, 02:46:06 l unspecifie unspecifie He rmann d d 04/19/2018 [facility] ATRIOVENTR ATRIOVENT Diagnosis Active 2018-04-21 [facility] ICULAR RICULAR 21:51:00 l BLOCK, BLOCK, [place] COMPLETE COMPLETE Active [facility] CHEST CHEST Diagnosis Active 2018-04-14 Mem [facility] PAIN, PAIN, 23:42:00 l UNSPECIFIE UNSPECIFIE He rmann D D Active [facility] No known No known Disease Unive rs active active ity of problems problems [facility] Allergies, Adverse Reactions, Alerts Allergy Allergy Status Severity Reaction(s) Onset Inactive Treating Comm ents Source Name Type Date Date Clinician Penicill Drug Active Rash 2018-11 Univers ins Allergy 11-29 ity of 00:00: [place] 00 Medical Branch Sulfa Drug Active Unknown - 2018-11 Univers (Sulfona Allergy See comments 11-29 i ty of mide 00:00: [place] Antibiot 00 Medical ics) Branch SULFA Drug Active Unknown-Cmnt 2018-11 Univ ers (SULFONA Class 11-29 ity of MIDE 00:00: [place] ANTIBIOT 00 Medical ICS) Branch TETANUS DRUG Active Rash 2018-11 Univers AND 11-29 ity of DIPHTHER 00:00: [place] . TOX 00 Medical (PF) Branch Tetanus Propensi Active Rash 2018-11 Univers And ty to 11-29 ity of Diphther adverse 00:00: [place] . Tox reaction 00 Medical (Pf) s Branch PENICILL Drug Active Low Rash 2018-11 Univers INS Class -26 ity of 00:00: [place] 00 Medical Branch Penicill Drug Active Rash 2018-11 Univers ins Allergy 11-29 ity of 00:00: [place] 00 Medical Branch Sulfa Drug Active Unknown - 2018-11 Univers (Sulfona Allergy See comments 1-26 i ty of mide 00:00: [place] Antibiot 00 Medical ics) Branch sulfa sulfa Active [facility] drugs l [place] penicill penicill Active Memori a in in l [place] PENICILL Allergy Active Moderate Hives Pierre ge INS to to severe Family substanc Practic e e SULFA Allergy Active Moderate Hives [place] (SULFONA to Family MIDE substanc Practic ANTIBIOT e e ICS) NO KNOWN Drug Active Univers ALLERGIE Class ity of S [facility] Social History Social Habit Start Date Stop Date Quantity Comments Source Gender identity [facility] Sexual orientation [facility] Exposure to 2023-02-19 2023-03-01 Not sure [facility] SARS-CoV-2 (event) 00:00:00 11:41:00 [facility] Tobacco use and 2020-08-03 2020-08-03 Smokeless Universit y of exposure 00:00:00 00:00:00 tobacco non-user [facility] Social History 2018-04-15 2018-04-15 [facility] 05:17:01 05:17:01 Sex Ass[birth year] At [birth year] [facility] Smoking Status Start Date Stop Date Source Former [facility] Tobacco smoking consumption [facility] unknown Never smoked tobacco [facility] Medications Ordered Filled Start Stop Current Ordering Indication Dosage Frequency Signature Comments Components Source Medication Medication Date Date Medication? Clinician (SIG) Name Name iopamidol 2022- No [id number] 100mL 100 mL, Univers (ISOVUE 11-21 100 Intravenou ity o f 370-500 mL) 18:45: 17:57 s, ONCE, 1 [place] injection 00 :00 dose, On Medica l 100 mL [facility] 11/21/22 at 1245, Routine Nitrofurant 2022- No [id number] 100mg Take 1 Univers oin&Nit. 11-15 capsule by [place]lys[place] 00:00: 05:59 [place] (MACROBID) 00 :00 the Medical 100 mg morning Branch capsule and 1 capsule in the evening. Do all this for 4 days. Nitrofurant 2022- No [id number] 100mg Take 1 Univers oin&Nit. 1-12 -17 capsule by ity of Macrocryst 00:00: 05:59 [place] (MACROBID[place] 00 :00 the Medical 100 mg morning Branch capsule and 1 capsule in the evening. Do all this for 4 days. Nitrofurant 0 Yes Take one Univers oin&Nit. 1-05 capsule by ity o f Macrocryst 00:00: mouth [place] (MACROBID) 00 twice Medical 100 mg daily Branch capsule starting 2 days prior to scheduled urological procedure. Nitrofurant 0 Yes Take one Univers oin&Nit. 1-05 capsule by ity o f Macrocryst 00:00: mouth [place] (MACROBID) 00 twice Medical 100 mg daily Branch capsule starting 2 days prior to scheduled urological procedure. Nitrofurant 0 Yes Take one Univers oin&Nit. 1-05 capsule by ity o f Macrocryst 00:00: mouth [place] (MACROBID) 00 twice Medical 100 mg daily Branch capsule starting 2 days prior to scheduled urological procedure. Nitrofurant 0 Yes Take one Univers oin&Nit. 1-05 capsule by ity o f Macrocryst 00:00: mouth [place] (MACROBID) 00 twice Medical 100 mg daily Branch capsule starting 2 days prior to scheduled urological procedure. Nitrofurant Yes Take one Univers oin&Nit. 1-05 capsule by ity o f Macrocryst 00:00: mouth [place] (MACROBID) 00 twice Medical 100 mg daily Branch capsule starting 2 days prior to scheduled urological procedure. Nitrofurant 2022- No Take one Univers oin&Nit. 1-05 -12 capsule by ity of Macrocryst 00:00: 00:00 mouth [place] (MACROBID) 00 :00 twice Medical 100 mg daily Branch capsule starting 2 days prior to scheduled urological procedure. carvediloL Yes 3.125mg Take 3.125 Univers 3.125 mg 1-02 mg by ity of tablet 11:43: mouth in [place] 53 the Medical morning Branch and 3.125 mg in the evening. Take with meals. calcium Yes Take by Univers carbonate 1-02 mouth. ity of 600 mg 11:43: [place] calcium 53 Medical (1,500 mg) Branch tablet Garlic 2022-0 Yes Take by Univers 1,000 mg 1-02 mouth. ity of Cap 11:43: [address] Branch multivit 2022-0 Yes Take by Univer s with 1-02 mouth. ity of calcium,iro 11:43: [place] n,[facility] 53 Medical (WOMEN'S Branch MULTIPLE VITAMINS ORAL) carvediloL 2022-0 Yes 3.125mg Take 3.125 Univers 3.125 mg 1-02 mg by ity of tablet 11:43: mouth in [place] [address] the Medical morning Branch and 3.125 mg in the evening. Take with meals. calcium 2022-0 Yes Take by Univers carbonate 1-02 mouth. ity of 600 mg 11:43: [place] calcium 53 Medical (1,500 mg) Branch tablet Garlic 0 Yes Take by Univers 1,000 mg 1-02 mouth. ity of Cap 11:43: [address] multivit 0 Yes Take by Univer s with 02 mouth. ity of calcium,iro 11:43: [facility] [place] [facility] 53 Medical ([facility] Branch MULTIPLE VITAMINS ORAL) carvediloL 2022-0 Yes 3.125mg Take 3.125 Univers 3.125 mg 1-02 mg by ity of tablet 11:43: mouth in [place] [address] the Medical morning Branch and 3.125 mg in the evening. Take with meals. calcium 2022-0 Yes Take by Univers carbonate -02 mouth. ity of 600 mg 11:43: [place] calcium 53 Medical (1,500 mg) Branch tablet Garlic 2022-0 Yes Take by Univers 1,000 mg 1-02 mouth. ity of Cap 11:43: [address] Branch multivit 2022-0 Yes Take by Univer s with 1-02 mouth. ity of calcium,iro 11:43: [place] n,min 53 Medical (WOMEN'S Branch MULTIPLE VITAMINS ORAL) carvediloL 2022-0 Yes 3.125mg Take 3.125 Univers 3.125 mg 1-02 mg by ity of tablet 11:43: mouth in [place] [address] the Medical morning Branch and 3.125 mg in the evening. Take with meals. calcium 3-0 Yes Take by Univers carbonate 1-02 mouth. ity of 600 mg 11:43: [place] calcium 53 Medical (1,500 mg) Branch tablet Garlic 2022-0 Yes Take by Univers 1,000 mg 1-02 mouth. ity of Cap 11:43: [address] Branch multivit 2022-0 Yes Take by Univer s with 1-02 mouth. ity of calcium,iro 11:43: [place] n,[facility] 53 Medical (WOMEN'S Branch MULTIPLE VITAMINS ORAL) carvediloL 2022-0 Yes 3.125mg Take 3.125 Univers 3.125 mg 1-02 mg by ity of tablet 11:43: mouth in [place] [address] the Medical morning Branch and 3.125 mg in the evening. Take with meals. calcium 2022-0 Yes Take by Univers carbonate 1-02 mouth. ity of 600 mg 11:43: [place] calcium 53 Medical (1,500 mg) Branch tablet Garlic 0 Yes Take by Univers 1,000 mg 1-02 mouth. ity of Cap 11:43: [address] multivit 0 Yes Take by Univer s with 02 mouth. ity of calcium,iro 11:43: [facility] [place] [facility] Medical ([facility] Branch MULTIPLE VITAMINS ORAL) carvediloL 2022-0 Yes 3.125mg Take 3.125 Univers 3.125 mg 1-02 mg by ity of tablet 11:43: mouth in [place] [address] the Medical morning Branch and 3.125 mg in the evening. Take with meals. calcium 2022-0 Yes Take by Univers carbonate -02 mouth. ity of 600 mg 11:43: [place] calcium 53 Medical (1,500 mg) Branch tablet Garlic 2022-0 Yes Take by Univers 1,000 mg 1-02 mouth. ity of Cap 11:43: [address] Branch multivit 0 Yes Take by Univer s with 1-02 mouth. ity of calcium,iro 11:43: [place] n,[facility] 53 Medical (WOMEN'S Branch MULTIPLE VITAMINS ORAL) carvediloL 2022-0 Yes 3.125mg Take 3.125 Univers 3.125 mg 1-02 mg by ity of tablet 11:43: mouth in [place] [address] the Medical morning Branch and 3.125 mg in the evening. Take with meals. calcium 3-0 Yes Take by Univers carbonate 1-02 mouth. ity of 600 mg 11:43: [place] calcium 53 Medical (1,500 mg) Branch tablet Garlic 2022-0 Yes Take by Univers 1,000 mg 1-02 mouth. ity of Cap 11:43: [address] Branch multivit 2022-0 Yes Take by Univer s with 1-02 mouth. ity of calcium,iro 11:43: [place] n,[facility] 53 Medical (WOMEN'S Branch MULTIPLE VITAMINS ORAL) carvediloL 2022-0 Yes 3.125mg Take 3.125 Univers 3.125 mg 1-02 mg by ity of tablet 11:43: mouth in [place] [address] the Medical morning Branch and 3.125 mg in the evening. Take with meals. calcium 2022-0 Yes Take by Univers carbonate 1-02 mouth. ity of 600 mg 11:43: [place] calcium 53 Medical (1,500 mg) Branch tablet Garlic 0 Yes Take by Univers 1,000 mg 1-02 mouth. ity of Cap 11:43: [address] multivit 0 Yes Take by Univer s with 02 mouth. ity of calcium,iro 11:43: [place] n[facility] Medical ([facility] Branch MULTIPLE VITAMINS ORAL) carvediloL 2022-0 Yes 3.125mg Take 3.125 Univers 3.125 mg 1-02 mg by ity of tablet 11:43: mouth in [place] [address] the Medical morning Branch and 3.125 mg in the evening. Take with meals. calcium 2022-0 Yes Take by Univers carbonate 1-02 mouth. ity of 600 mg 11:43: [place] calcium 53 Medical (1,500 mg) Branch tablet Garlic 2022-0 Yes Take by Univers 1,000 mg 1-02 mouth. ity of Cap 11:43: [address] Branch multivit 0 Yes Take by Univer s with 1-02 mouth. ity of calcium,iro 11:43: [place] n,min 53 Medical (WOMEN'S Branch MULTIPLE VITAMINS ORAL) carvediloL 2022-0 Yes 3.125mg Take 3.125 Univers 3.125 mg 1-02 mg by ity of tablet 11:43: mouth in [place] [address] the Medical morning Branch and 3.125 mg in the evening. Take with meals. calcium 3-0 Yes Take by Univers carbonate 1-02 mouth. ity of 600 mg 11:43: [place] calcium 53 Medical (1,500 mg) Branch tablet Garlic 0 Yes Take by Univers 1,000 mg 1-02 mouth. ity of Cap 11:43: [address] Branch multivit 0 Yes Take by Univer s with 1-02 mouth. ity of calcium,iro 11:43: [place] n,[facility] 53 Medical (WOMEN'S Branch MULTIPLE VITAMINS ORAL) carvediloL 0 Yes 3.125mg Take 3.125 Univers 3.125 mg 1-02 mg by ity of tablet 11:43: mouth in [place] [address] the Medical morning Branch and 3.125 mg in the evening. Take with meals. calcium 2022-0 Yes Take by Univers carbonate 1-02 mouth. ity of 600 mg 11:43: [place] calcium 53 Medical (1,500 mg) Branch tablet Garlic 0 Yes Take by Univers 1,000 mg 1-02 mouth. ity of Cap 11:43: [address] multivit 0 Yes Take by Univer s with 1-02 mouth. ity of calcium,iro 11:43: [place] n[facility] Medical ([facility] Branch MULTIPLE VITAMINS ORAL) carvediloL 0 Yes 3.125mg Take 3.125 Univers 3.125 mg 1-02 mg by ity of tablet 11:43: mouth in [place] [address] the Medical morning Branch and 3.125 mg in the evening. Take with meals. calcium 2022-0 Yes Take by Univers carbonate 1-02 mouth. ity of 600 mg 11:43: [place] calcium 53 Medical (1,500 mg) Branch tablet Garlic 0 Yes Take by Univers 1,000 mg 1-02 mouth. ity of Cap 11:43: [address] Branch multivit 0 Yes Take by Univer s with 1-02 mouth. ity of calcium,iro 11:43: [place] n,min 53 Medical (WOMENS Branch MULTIPLE VITAMINS ORAL) carvediloL 2022-0 Yes 3.125mg Take 3.125 Univers 3.125 mg 1-02 mg by ity of tablet 11:43: mouth in [place] [address] the Medical morning Branch and 3.125 mg in the evening. Take with meals. calcium 2022-0 Yes Take by Univers carbonate 1-02 mouth. ity of 600 mg 11:43: [place] calcium 53 Medical (1,500 mg) Branch tablet Garlic 2022-0 Yes Take by Univers 1,000 mg 1-02 mouth. ity of Cap 11:43: [address] Branch multivit 2022-0 Yes Take by Univer s with 1-02 mouth. ity of calcium,iro 11:43: [place] n,[facility] 53 Medical (WOMEN'S Branch MULTIPLE VITAMINS ORAL) carvediloL 2022-0 Yes 3.125mg Take 3.125 Univers 3.125 mg 1-02 mg by ity of tablet 11:43: mouth in [place] [address] the Medical morning Branch and 3.125 mg in the evening. Take with meals. calcium 2022-0 Yes Take by Univers carbonate 1-02 mouth. ity of 600 mg 11:43: [place] calcium 53 Medical (1,500 mg) Branch tablet Garlic 2022-0 Yes Take by Univers 1,000 mg 1-02 mouth. ity of Cap 11:43: [address] multivit 0 Yes Take by Univer s with 1-02 mouth. ity of calcium,iro 11:43: [place] n[facility] Medical ([facility] Branch MULTIPLE VITAMINS ORAL) carvediloL 2022-0 Yes 3.125mg Take 3.125 Univers 3.125 mg 1-02 mg by ity of tablet 11:43: mouth in [place] [address] the Medical morning Branch and 3.125 mg in the evening. Take with meals. calcium 2022-0 Yes Take by Univers carbonate 1-02 mouth. ity of 600 mg 11:43: [place] calcium 53 Medical (1,500 mg) Branch tablet Garlic 2022-0 Yes Take by Univers 1,000 mg 1-02 mouth. ity of Cap 11:43: [address] Branch multivit 2022-0 Yes Take by Univer s with 1-02 mouth. ity of calcium,iro 11:43: [place] n,min 53 Medical (WOMENS Branch MULTIPLE VITAMINS ORAL) carvediloL 2022-0 Yes 3.125mg Take 3.125 Univers 3.125 mg 1-02 mg by ity of tablet 11:43: mouth in [place] [address] the Medical morning Branch and 3.125 mg in the evening. Take with meals. calcium 3-0 Yes Take by Univers carbonate 1-02 mouth. ity of 600 mg 11:43: [place] calcium 53 Medical (1,500 mg) Branch tablet Garlic 2022-0 Yes Take by Univers 1,000 mg 1-02 mouth. ity of Cap 11:43: [address] Branch multivit 2022-0 Yes Take by Univer s with 1-02 mouth. ity of calcium,iro 11:43: [place] n,[facility] 53 Medical (WOMEN'S Branch MULTIPLE VITAMINS ORAL) carvediloL 2022-0 Yes 3.125mg Take 3.125 Univers 3.125 mg 1-02 mg by ity of tablet 11:43: mouth in [place] [address] the Medical morning Branch and 3.125 mg in the evening. Take with meals. calcium 2022-0 Yes Take by Univers carbonate 1-02 mouth. ity of 600 mg 11:43: [place] calcium 53 Medical (1,500 mg) Branch tablet Garlic 0 Yes Take by Univers 1,000 mg 1-02 mouth. ity of Cap 11:43: [address] multivit 0 Yes Take by Univer s with 1-02 mouth. ity of calcium,iro 11:43: [facility] [place] [facility] Medical ([facility] Branch MULTIPLE VITAMINS ORAL) carvediloL 2022-0 Yes 3.125mg Take 3.125 Univers 3.125 mg 1-02 mg by ity of tablet 11:43: mouth in [place] [address] the Medical morning Branch and 3.125 mg in the evening. Take with meals. calcium 2022-0 Yes Take by Univers carbonate 1-02 mouth. ity of 600 mg 11:43: [place] calcium 53 Medical (1,500 mg) Branch tablet Garlic 2022-0 Yes Take by Univers 1,000 mg 1-02 mouth. ity of Cap 11:43: [address] Branch multivit 2022-0 Yes Take by Univer s with 1-02 mouth. ity of calcium,iro 11:43: [place] n[facility] Medical ([facility] Branch MULTIPLE VITAMINS ORAL) carvediloL 2022-0 Yes 3.125mg Take 3.125 Univers 3.125 mg 1-02 mg by ity of tablet 11:43: mouth in [place] [address] the Medical morning Branch and 3.125 mg in the evening. Take with meals. calcium 3-0 Yes Take by Univers carbonate 1-02 mouth. ity of 600 mg 11:43: [place] calcium 53 Medical (1,500 mg) Branch tablet Garlic 2022-0 Yes Take by Univers 1,000 mg 1-02 mouth. ity of Cap 11:43: [address] Branch multivit 2022-0 Yes Take by Univer s with 1-02 mouth. ity of calcium,iro 11:43: [place] n,[facility] 53 Medical (WOMEN'S Branch MULTIPLE VITAMINS ORAL) carvediloL 2022-0 Yes 3.125mg Take 3.125 Univers 3.125 mg 1-02 mg by ity of tablet 11:43: mouth in [place] [address] the Medical morning Branch and 3.125 mg in the evening. Take with meals. calcium 2022-0 Yes Take by Univers carbonate 1-02 mouth. ity of 600 mg 11:43: [place] calcium 53 Medical (1,500 mg) Branch tablet Garlic 2022-0 Yes Take by Univers 1,000 mg 1-02 mouth. ity of Cap 11:43: [address] Branch multivit 0 Yes Take by Univer s with 1-02 mouth. ity of calcium,iro 11:43: [facility] [place] [facility] Medical ([facility] Branch MULTIPLE VITAMINS ORAL) carvediloL 2022-0 Yes 3.125mg Take 3.125 Univers 3.125 mg 1-02 mg by ity of tablet 11:43: mouth in [place] [address] the Medical morning Branch and 3.125 mg in the evening. Take with meals. calcium 2022-0 Yes Take by Univers carbonate 1-02 mouth. ity of 600 mg 11:43: [place] calcium 53 Medical (1,500 mg) Branch tablet Garlic 2022-0 Yes Take by Univers 1,000 mg 1-02 mouth. ity of Cap 11:43: [address] Branch multivit 2022-0 Yes Take by Univer s with 1-02 mouth. ity of calcium,iro 11:43: [place] n[facility] Medical (WOMEN'S Branch MULTIPLE VITAMINS ORAL) carvediloL 2022-0 Yes 3.125mg Take 3.125 Univers 3.125 mg 1-02 mg by ity of tablet 11:43: mouth in [place] [address] the Medical morning Branch and 3.125 mg in the evening. Take with meals. calcium 2023-0 Yes Take by Univers carbonate 1-02 mouth. ity of 600 mg 11:43: [place] calcium 53 Medical (1,500 mg) Branch tablet Garlic 2022-0 Yes Take by Univers 1,000 mg 1-02 mouth. ity of Cap 11:43: [address] Branch multivit 2022-0 Yes Take by Univer s with 1-02 mouth. ity of calcium,iro 11:43: [place] n,[facility] 53 Medical (WOMEN'S Branch MULTIPLE VITAMINS ORAL) carvediloL 2022-0 Yes 3.125mg Take 3.125 Univers 3.125 mg 1-02 mg by ity of tablet 11:43: mouth in [place] [address] the Medical morning Branch and 3.125 mg in the evening. Take with meals. calcium 2022-0 Yes Take by Univers carbonate 1-02 mouth. ity of 600 mg 11:43: [place] calcium 53 Medical (1,500 mg) Branch tablet Garlic 0 Yes Take by Univers 1,000 mg 1-02 mouth. ity of Cap 11:43: [address] Branch multivit 0 Yes Take by Univer s with 1-02 mouth. ity of calcium,iro 11:43: [facility] [place] [facility] Medical ([facility] Branch MULTIPLE VITAMINS ORAL) carvediloL 2022-0 Yes 3.125mg Take 3.125 Univers 3.125 mg 1-02 mg by ity of tablet 11:43: mouth in [place] [address] the Medical morning Branch and 3.125 mg in the evening. Take with meals. calcium 2022-0 Yes Take by Univers carbonate 1-02 mouth. ity of 600 mg 11:43: [place] calcium 53 Medical (1,500 mg) Branch tablet Garlic 2022-0 Yes Take by Univers 1,000 mg 1-02 mouth. ity of Cap 11:43: [address] Branch multivit 0 Yes Take by Univer s with 1-02 mouth. ity of calcium,iro 11:43: [place] n,min 53 Medical (WOMEN'S Branch MULTIPLE VITAMINS ORAL) carvediloL 2022-0 Yes 3.125mg Take 3.125 Univers 3.125 mg 1-02 mg by ity of tablet 11:43: mouth in [place] [address] the Medical morning Branch and 3.125 mg in the evening. Take with meals. calcium 2023-0 Yes Take by Univers carbonate 1-02 mouth. ity of 600 mg 11:43: [place] calcium 53 Medical (1,500 mg) Branch tablet Garlic 2022-0 Yes Take by Univers 1,000 mg 1-02 mouth. ity of Cap 11:43: [place] [address] Medical Branch multivit 2022-0 Yes Take by Univer s with 1-02 mouth. ity of calcium,iro 11:43: [place] n,min 53 Medical (WOMEN'S Branch MULTIPLE VITAMINS ORAL) carvediloL 2022-0 Yes 3.125mg Take 3.125 Univers 3.125 mg 1-02 mg by ity of tablet 11:43: mouth in [place] [address] the Medical morning Branch and 3.125 mg in the evening. Take with meals. calcium 2022-0 Yes Take by Univers carbonate 1-02 mouth. ity of 600 mg 11:43: [place] calcium 53 Medical (1,500 mg) Branch tablet Garlic 2022-0 Yes Take by Univers 1,000 mg 1-02 mouth. ity of Cap 11:43: [address] Branch multivit 0 Yes Take by Univer s with 1-02 mouth. ity of calcium,iro 11:43: [place] n,min 53 Medical ([facility] Branch MULTIPLE VITAMINS ORAL) carvediloL 2022-0 Yes 3.125mg Take 3.125 Univers 3.125 mg 1-02 mg by ity of tablet 11:43: mouth in [place] [address] the Medical morning Branch and 3.125 mg in the evening. Take with meals. calcium 2022-0 Yes Take by Univers carbonate 1-02 mouth. ity of 600 mg 11:43: [place] calcium 53 Medical (1,500 mg) Branch tablet Garlic 2022-0 Yes Take by Univers 1,000 mg 1-02 mouth. ity of Cap 11:43: [address] Branch multivit 2022-0 Yes Take by Univer s with 1-02 mouth. ity of calcium,iro 11:43: [place] n,min 53 Medical (WOMENS Branch MULTIPLE VITAMINS ORAL) carvediloL 2022-0 Yes 3.125mg Take 3.125 Univers 3.125 mg 1-02 mg by ity of tablet 11:43: mouth in [place] [address] the Medical morning Branch and 3.125 mg in the evening. Take with meals. calcium 2023-0 Yes Take by Univers carbonate 1-02 mouth. ity of 600 mg 11:43: [place] calcium 53 Medical (1,500 mg) Branch tablet Garlic 2022-0 Yes Take by Univers 1,000 mg 1-02 mouth. ity of Cap 11:43: [address] Branch multivit 0 Yes Take by Univer s with 1-02 mouth. ity of calcium,iro 11:43: [place] n,[facility] 53 Medical (WOMEN'S Branch MULTIPLE VITAMINS ORAL) carvediloL 2022-0 Yes 3.125mg Take 3.125 Univers 3.125 mg 1-02 mg by ity of tablet 11:43: mouth in [place] [address] the Medical morning Branch and 3.125 mg in the evening. Take with meals. calcium 2022-0 Yes Take by [facility] carbonate 1-02 mouth. ity of 600 mg 11:43: [place] calcium 53 Medical (1,500 mg) Branch tablet Garlic 0 Yes Take by Univers 1,000 mg 1-02 mouth. ity of Cap 11:43: [address] Branch multivit 0 Yes Take by Univer s with 1-02 mouth. ity of calcium,iro 11:43: [place] n[facility] Medical ([facility] [place] MULTIPLE VITAMINS ORAL) carvediloL 2022-0 Yes 3.125mg Take 3.125 Univers 3.125 mg 1-02 mg by ity of tablet 11:43: mouth in [place] [address] the Medical morning Branch and 3.125 mg in the evening. Take with meals. calcium 2022-0 Yes Take by [facility] carbonate 1-02 mouth. ity of 600 mg 11:43: [place] calcium 53 Medical (1,500 mg) Branch tablet Garlic 2022-0 Yes Take by Univers 1,000 mg 1-02 mouth. ity of Cap 11:43: [address] Branch multivit 0 Yes Take by Univer s with 1-02 mouth. ity of calcium,iro 11:43: [place] n,min 53 Medical ([facility] [place] MULTIPLE VITAMINS ORAL) carvediloL 2022-0 Yes 3.125mg Take 3.125 Univers 3.125 mg 1-02 mg by ity of tablet 11:43: mouth in [place] [address] the Medical morning Branch and 3.125 mg in the evening. Take with meals. calcium 2023-0 Yes Take by [facility] carbonate 1-02 mouth. ity of 600 mg 11:43: [place] calcium 53 Medical (1,500 mg) Branch tablet Garlic Yes Take by Univers 1,000 mg -02 mouth. ity of Cap 11:43: [place] [address] Medical Branch multivit Yes Take by Univer s with 1-02 mouth. ity of calcium,iro 11:43: [place] n,min 53 Medical (WOMEN'S Branch MULTIPLE VITAMINS ORAL) carvediloL Yes 3.125mg Take 3.125 Univers 3.125 mg 1-02 mg by ity of tablet 11:43: mouth in [place] 53 the Medical morning Branch and 3.125 mg in the evening. Take with meals. calcium Yes Take by [facility] carbonate -02 mouth. ity of 600 mg 11:43: [place] calcium 53 Medical (1,500 mg) Branch tablet Garlic Yes Take by Univers 1,000 mg -02 mouth. ity of Cap 11:43: [address] Branch multivit Yes Take by Univer s with 1-02 mouth. ity of calcium,iro 11:43: [place] n,min 53 Medical (WOMEN'S Branch MULTIPLE VITAMINS ORAL) iopamidol 2021-11- No [id number] 88mL 88 mL, Univers (ISOVUE 11-01 Intravenou ity o f 370-500 mL) 19:00: 18:02 s, ONCE, 1 [place] injection 00 :00 dose, On Medica l 88 mL [place] Branch 11/01/22 at 1300, Routine multivit 2021-11 Yes Take by Univer s with 1-21 mouth. ity of calcium,iro 13:52: [place] n,min 21 Medical (WOMEN'S Branch MULTIPLE VITAMINS ORAL) multivit 2021-11 Yes Take by Univer s with 1-21 mouth. ity of calcium,iro 13:52: [place] n,min 21 Medical (WOMEN'S Branch MULTIPLE VITAMINS ORAL) multivit 2021-11 Yes Take by Univer s with 1-21 mouth. ity of calcium,iro 13:52: [place] n,min 21 Medical (WOMEN'S Branch MULTIPLE VITAMINS ORAL) multivit 2021-11 Yes Take by Univer s with 1-21 mouth. ity of calcium,iro 13:52: [place] n,min 21 Medical (WOMEN'S Branch MULTIPLE VITAMINS ORAL) multivit 2021-11 Yes Take by Univer s with 1-21 mouth. ity of calcium,iro 13:52: [place] n,min 21 Medical (WOMEN'S Branch MULTIPLE VITAMINS ORAL) multivit 2021-11 Yes Take by Univer s with 1-21 mouth. ity of calcium,iro 13:52: [place] n,min 21 Medical (WOMEN'S Branch MULTIPLE VITAMINS ORAL) multivit 2021-11 Yes Take by Univer s with 1-21 mouth. ity of calcium,iro 13:52: [place] n,min 21 Medical (WOMEN'S Branch MULTIPLE VITAMINS ORAL) multivit 2021-11 Yes Take by Univer s with 1-21 mouth. ity of calcium,iro 13:52: [place] n,min 21 Medical (WOMEN'S Branch MULTIPLE VITAMINS ORAL) multivit 2021-11 Yes Take by Univer s with 1-21 mouth. ity of calcium,iro 13:52: [place] n,min 21 Medical (WOMEN'S Branch MULTIPLE VITAMINS ORAL) multivit 2021-11 Yes Take by Univer s with 1-21 mouth. ity of calcium,iro 13:52: [place] n,min 21 Medical (WOMEN'S Branch MULTIPLE VITAMINS ORAL) multivit 2021-11 Yes Take by Univer s with 1-21 mouth. ity of calcium,iro 13:52: [place] n,min 21 Medical (WOMEN'S Branch MULTIPLE VITAMINS ORAL) Garlic 2021-11 Yes Take by Univers 1,000 mg 1-21 mouth. ity of Cap 13:52: [address] Garlic 2021-11 Yes Take by Univers 1,000 mg 1-21 mouth. ity of Cap 13:52: [address] Garlic 2021-11 Yes Take by Univers 1,000 mg 1-21 mouth. ity of Cap 13:52: [address] Garlic 2021-11 Yes Take by Univers 1,000 mg 1-21 mouth. ity of Cap 13:52: [address] Garlic 2021-11 Yes Take by Univers 1,000 mg 1-21 mouth. ity of Cap 13:52: [address] Garlic 2021-11 Yes Take by Univers 1,000 mg 1-21 mouth. ity of Cap 13:52: [address] Garlic 2021-11 Yes Take by Univers 1,000 mg 1-21 mouth. ity of Cap 13:52: [address] Garlic 2021-11 Yes Take by Univers 1,000 mg 1-21 mouth. ity of Cap 13:52: [address] Garlic 2021-11 Yes Take by Univers 1,000 mg 1-21 mouth. ity of Cap 13:52: [address] Garlic 2021-11 Yes Take by Univers 1,000 mg 1-21 mouth. ity of Cap 13:52: [address] Garlic 2021-11 Yes Take by Univers 1,000 mg 1-21 mouth. ity of Cap 13:52: [address] calcium 2021-11 Yes Take by Univers carbonate 1-21 mouth. ity of 600 mg 13:49: [place] [address] Medical (1,500 mg) [place] tablet Cran[place] 2021-11 Yes Take by Unive rs 500 mg Cap 1-21 mouth. ity of 13:49: [address] calcium 2021-11 Yes Take by Univers carbonate 1-21 mouth. ity of 600 mg 13:49: [place] [address] Medical (1,500 mg) [place] tablet [place] 2021-11 Yes Take by Unive rs 500 mg Cap 1-21 mouth. ity of 13:49: [address] calcium 2021-11 Yes Take by Univers carbonate 1-21 mouth. ity of 600 mg 13:49: [place] [address] Medical (1,500 mg) [place] tablet [place] 2021-11 Yes Take by Unive rs 500 mg Cap 1-21 mouth. ity of 13:49: [address] calcium 2021-11 Yes Take by Univers carbonate 1-21 mouth. ity of 600 mg 13:49: [place] [address] Medical (1,500 mg) [place] tablet [place] 2021-11 Yes Take by Unive rs 500 mg Cap 1-21 mouth. ity of 13:49: [address] calcium 2021-11 Yes Take by Univers carbonate 1-21 mouth. ity of 600 mg 13:49: [place] [address] Medical (1,500 mg) [place] tablet [place] 2021-11 Yes Take by Unive rs 500 mg Cap 1-21 mouth. ity of 13:49: [address] calcium 2021-11 Yes Take by Univers carbonate 1-21 mouth. ity of 600 mg 13:49: [place] calcium Medical (1,500 mg) Branch tablet [place] 2021-11 Yes Take by Unive rs 500 mg Cap 1-21 mouth. ity of 13:49: [address] calcium 2021-11 Yes Take by Univers carbonate 1-21 mouth. ity of 600 mg 13:49: [place] [address] Medical (1,500 mg) Branch tablet [place] 2021-11 Yes Take by Unive rs 500 mg Cap -21 mouth. ity of 13:49: [address] calcium 2021-11 Yes Take by Univers carbonate 1-21 mouth. ity of 600 mg 13:49: [place] [address] Medical (1,500 mg) Branch tablet [place] 2021-11 Yes Take by Unive rs 500 mg Cap -21 mouth. ity of 13:49: [address] calcium 2021-11 Yes Take by Univers carbonate 1-21 mouth. ity of 600 mg 13:49: [place] [address] Medical (1,500 mg) Branch tablet [place] 2021-11 Yes Take by Unive rs 500 mg Cap -21 mouth. ity of 13:49: [address] calcium 2021-11 Yes Take by Univers carbonate 1-21 mouth. ity of 600 mg 13:49: [place] [address] Medical (1,500 mg) Branch tablet [place] 2021-11 Yes Take by Unive rs 500 mg Cap -21 mouth. ity of 13:49: [address] [place] 2021-11 Yes Take by Unive rs 500 mg Cap -21 mouth. ity of 13:49: [address] [place] 2021-11 Yes Take by Unive rs 500 mg Cap 1-21 mouth. ity of 13:49: [address] [place] 2021-11 Yes Take by Unive rs 500 mg Cap 1-21 mouth. ity of 13:49: [address] [place] 2021-11 Yes Take by Unive rs 500 mg Cap -21 mouth. ity of 13:49: [address] [place] 2021-11 Yes Take by Unive rs 500 mg Cap 1-21 mouth. ity of 13:49: [address] [place] 2021-11 Yes Take by Unive rs 500 mg Cap 1-21 mouth. ity of 13:49: [address] [place] 2021-11 Yes Take by Unive rs 500 mg Cap 1-21 mouth. ity of 13:49: [address] [place] 2021-11 Yes Take by Unive rs 500 mg Cap 1-21 mouth. ity of 13:49: [address] [place] 2021-11 Yes Take by Unive rs 500 mg Cap 1-21 mouth. ity of 13:49: [address] [place] 2021-11 Yes Take by Unive rs 500 mg Cap 1-21 mouth. ity of 13:49: [address] [place] 2021-11 Yes Take by Unive rs 500 mg Cap 1-21 mouth. ity of 13:49: [address] [place] 2021-11 Yes Take by Unive rs 500 mg Cap 1-21 mouth. ity of 13:49: [address] [place] 2021-11 Yes Take by Unive rs 500 mg Cap 1-21 mouth. ity of 13:49: [address] [place] 2021-11 Yes Take by Unive rs 500 mg Cap 1-21 mouth. ity of 13:49: [address] [place] 2021-11 Yes Take by Unive rs 500 mg Cap 1-21 mouth. ity of 13:49: [address] [place] 2021-11 Yes Take by Unive rs 500 mg Cap 1-21 mouth. ity of 13:49: [address] [place] 2021-11 Yes Take by Unive rs 500 mg Cap 1-21 mouth. ity of 13:49: [address] [place] 2021-11 Yes Take by Unive rs 500 mg Cap 1-21 mouth. ity of 13:49: [address] [place] 2021-11 Yes Take by Unive rs 500 mg Cap 1-21 mouth. ity of 13:49: [address] [place] 2021-11 Yes Take by Unive rs 500 mg Cap 1-21 mouth. ity of 13:49: [address] [place] 2021-11 Yes Take by Unive rs 500 mg Cap 1-21 mouth. ity of 13:49: [address] [place] 2021-11 Yes Take by Unive rs 500 mg Cap 1-21 mouth. ity of 13:49: [address] [place] 2021-11 Yes Take by Unive rs 500 mg Cap 1-21 mouth. ity of 13:49: [address] [place] 2021-11 Yes Take by Unive rs 500 mg Cap 1-21 mouth. ity of 13:49: [address] [place] 2021-11 Yes Take by Unive rs 500 mg Cap 1-21 mouth. ity of 13:49: [address] [place] 2021-11 Yes Take by Unive rs 500 mg Cap 1-21 mouth. ity of 13:49: [address] [place] 2021-11 Yes Take by Unive rs 500 mg Cap 1-21 mouth. ity of 13:49: [address] 2021-11 Yes Take by Unive rs 500 mg Cap 1-21 mouth. ity of 13:49: [address] [place] 2021-11 Yes Take by Unive rs 500 mg Cap 1-21 mouth. ity of 13:49: [address] [place] 2021-11 Yes Take by Unive rs 500 mg Cap 1-21 mouth. ity of 13:49: [address] [place] 2021-11 Yes Take by Unive rs 500 mg Cap 1-21 mouth. ity of 13:49: [address] [place] 2021-11 Yes Take by Unive rs 500 mg Cap 1-21 mouth. ity of 13:49: [address] carvediloL 2021-11 Yes 3.125mg Take 3.125 Univers 3.125 mg 1-21 mg by ity of tablet 11:33: mouth in [address] and 3.125 mg in the evening. Take with meals. clopidogreL 2021-11 Yes 75mg Take 75 mg Univers 75 mg 1-21 by mouth. ity of tablet 11:33: [address] lisinopriL 2021-11 Yes lisinopril U nivers 40 mg 1-21 40 mg ity of tablet 11:33: tablet [address] metFORMIN 2021-11 Yes metformin Uni vers 500 mg 1-21 500 mg ity of tablet 11:33: tablet [address] pravastatin 2021-11 Yes 40mg Take 40 mg Univers 40 mg 1-21 by mouth. ity of tablet 11:33: [address] carvediloL 2021-11 Yes 3.125mg Take 3.125 Univers 3.125 mg 1-21 mg by ity of tablet 11:33: mouth in [address] and 3.125 mg in the evening. Take with meals. clopidogreL 2021-11 Yes 75mg Take 75 mg Univers 75 mg 1-21 by mouth. ity of tablet 11:33: [address] lisinopriL 2021-11 Yes lisinopril U nivers 40 mg 1-21 40 mg ity of tablet 11:33: tablet [address] metFORMIN 2021-11 Yes metformin Uni vers 500 mg 1-21 500 mg ity of tablet 11:33: tablet [address] pravastatin 2021-11 Yes 40mg Take 40 mg Univers 40 mg 1-21 by mouth. ity of tablet 11:33: [address] carvediloL 2021-11 Yes 3.125mg Take 3.125 Univers 3.125 mg 1-21 mg by ity of tablet 11:33: mouth in [address] and 3.125 mg in the evening. Take with meals. clopidogreL 2021-11 Yes 75mg Take 75 mg Univers 75 mg 1-21 by mouth. ity of tablet 11:33: [address] lisinopriL 2021-11 Yes lisinopril U nivers 40 mg 1-21 40 mg ity of tablet 11:33: tablet [address] metFORMIN 2021-11 Yes metformin Uni vers 500 mg 1-21 500 mg ity of tablet 11:33: tablet [address] pravastatin 2021-11 Yes 40mg Take 40 mg Univers 40 mg 1-21 by mouth. ity of tablet 11:33: [address] carvediloL 2021-11 Yes 3.125mg Take 3.125 Univers 3.125 mg 1-21 mg by ity of tablet 11:33: mouth in [address] and 3.125 mg in the evening. Take with meals. clopidogreL 2021-11 Yes 75mg Take 75 mg Univers 75 mg 1-21 by mouth. ity of tablet 11:33: [address] lisinopriL 2021-11 Yes lisinopril U nivers 40 mg 1-21 40 mg ity of tablet 11:33: tablet [address] metFORMIN 2021-11 Yes metformin Uni vers 500 mg 1-21 500 mg ity of tablet 11:33: tablet [address] pravastatin 2021-11 Yes 40mg Take 40 mg Univers 40 mg 1-21 by mouth. ity of tablet 11:33: [address] carvediloL 2021-11 Yes 3.125mg Take 3.125 Univers 3.125 mg 1-21 mg by ity of tablet 11:33: mouth in [address] and 3.125 mg in the evening. Take with meals. clopidogreL 2021-11 Yes 75mg Take 75 mg Univers 75 mg 1-21 by mouth. ity of tablet 11:33: [address] lisinopriL 2021-11 Yes lisinopril U nivers 40 mg 1-21 40 mg ity of tablet 11:33: tablet [address] metFORMIN 2021-11 Yes metformin Uni vers 500 mg 1-21 500 mg ity of tablet 11:33: tablet [address] pravastatin 2021-11 Yes 40mg Take 40 mg Univers 40 mg 1-21 by mouth. ity of tablet 11:33: [address] carvediloL 2021-11 Yes 3.125mg Take 3.125 Univers 3.125 mg 1-21 mg by ity of tablet 11:33: mouth in [address] and 3.125 mg in the evening. Take with meals. clopidogreL 2021-11 Yes 75mg Take 75 mg Univers 75 mg 1-21 by mouth. ity of tablet 11:33: [address] lisinopriL 2021-11 Yes lisinopril U nivers 40 mg 1-21 40 mg ity of tablet 11:33: tablet [address] metFORMIN 2021-11 Yes metformin Uni vers 500 mg 1-21 500 mg ity of tablet 11:33: tablet [address] pravastatin 2021-11 Yes 40mg Take 40 mg Univers 40 mg 1-21 by mouth. ity of tablet 11:33: [address] carvediloL 2021-11 Yes 3.125mg Take 3.125 Univers 3.125 mg 1-21 mg by ity of tablet 11:33: mouth in [address] and 3.125 mg in the evening. Take with meals. clopidogreL 2021-11 Yes 75mg Take 75 mg Univers 75 mg 1-21 by mouth. ity of tablet 11:33: [address] lisinopriL 2021-11 Yes lisinopril U nivers 40 mg 1-21 40 mg ity of tablet 11:33: tablet [address] metFORMIN 2021-11 Yes metformin Uni vers 500 mg 1-21 500 mg ity of tablet 11:33: tablet [address] pravastatin 2021-11 Yes 40mg Take 40 mg Univers 40 mg 1-21 by mouth. ity of tablet 11:33: [address] carvediloL 2021-11 Yes 3.125mg Take 3.125 Univers 3.125 mg 1-21 mg by ity of tablet 11:33: mouth in [address] and 3.125 mg in the evening. Take with meals. clopidogreL 2021-11 Yes 75mg Take 75 mg Univers 75 mg 1-21 by mouth. ity of tablet 11:33: [address] lisinopriL 2021-11 Yes lisinopril U nivers 40 mg 1-21 40 mg ity of tablet 11:33: tablet [address] metFORMIN 2021-11 Yes metformin Uni vers 500 mg 1-21 500 mg ity of tablet 11:33: tablet [address] pravastatin 2021-11 Yes 40mg Take 40 mg Univers 40 mg 1-21 by mouth. ity of tablet 11:33: [address] carvediloL 2021-11 Yes 3.125mg Take 3.125 Univers 3.125 mg 1-21 mg by ity of tablet 11:33: mouth in [address] and 3.125 mg in the evening. Take with meals. clopidogreL 2021-11 Yes 75mg Take 75 mg [facility] 75 mg 1-21 by mouth. ity of tablet 11:33: [address] lisinopriL 2021-11 Yes lisinopril U nivers 40 mg 1-21 40 mg ity of tablet 11:33: tablet [address] metFORMIN 2021-11 Yes metformin Uni vers 500 mg 1-21 500 mg ity of tablet 11:33: tablet [address] pravastatin 2021-11 Yes 40mg Take 40 mg Univers 40 mg 1-21 by mouth. ity of tablet 11:33: [address] carvediloL 2021-11 Yes 3.125mg Take 3.125 Univers 3.125 mg 1-21 mg by ity of tablet 11:33: mouth in [address] and 3.125 mg in the evening. Take with meals. clopidogreL 2021-11 Yes 75mg Take 75 mg Univers 75 mg 1-21 by mouth. ity of tablet 11:33: [address] lisinopriL 2021-11 Yes lisinopril U nivers 40 mg 1-21 40 mg ity of tablet 11:33: tablet [address] metFORMIN 2021-11 Yes metformin Uni vers 500 mg 1-21 500 mg ity of tablet 11:33: tablet [address] pravastatin 2021-11 Yes 40mg Take 40 mg [facility] 40 mg 1-21 by mouth. ity of tablet 11:33: [address] carvediloL 2021-11 Yes 3.125mg Take 3.125 Univers 3.125 mg 1-21 mg by ity of tablet 11:33: mouth in [address] and 3.125 mg in the evening. Take with meals. clopidogreL 2021-11 Yes 75mg Take 75 mg [facility] 75 mg 1-21 by mouth. ity of tablet 11:33: [address] lisinopriL 2021-11 Yes lisinopril U nivers 40 mg 1-21 40 mg ity of tablet 11:33: tablet [address] metFORMIN 2021-11 Yes metformin Uni vers 500 mg 1-21 500 mg ity of tablet 11:33: tablet [address] pravastatin 2021-11 Yes 40mg Take 40 mg [facility] 40 mg 1-21 by mouth. ity of tablet 11:33: [address] carvediloL 2021-11 Yes 3.125mg Take 3.125 Univers 3.125 mg 1-21 mg by ity of tablet 11:33: mouth in [address] and 3.125 mg in the evening. Take with meals. clopidogreL 2021-11 Yes 75mg Take 75 mg Univers 75 mg 1-21 by mouth. ity of tablet 11:33: [address] lisinopriL 2021-11 Yes lisinopril U nivers 40 mg 1-21 40 mg ity of tablet 11:33: tablet [address] metFORMIN 2021-11 Yes metformin Uni vers 500 mg 1-21 500 mg ity of tablet 11:33: tablet [address] pravastatin 2021-11 Yes 40mg Take 40 mg [facility] 40 mg 1-21 by mouth. ity of tablet 11:33: [address] clopidogreL 2021-11 Yes 75mg Take 75 mg Univers 75 mg 1-21 by mouth. ity of tablet 11:33: [address] lisinopriL 2021-11 Yes lisinopril U nivers 40 mg 1-21 40 mg ity of tablet 11:33: tablet [address] metFORMIN 2021-11 Yes metformin Uni vers 500 mg 1-21 500 mg ity of tablet 11:33: tablet [address] pravastatin 2021-11 Yes 40mg Take 40 mg [facility] 40 mg 1-21 by mouth. ity of tablet 11:33: [address] clopidogreL 2021-11 Yes 75mg Take 75 mg Univers 75 mg 1-21 by mouth. ity of tablet 11:33: [address] lisinopriL 2021-11 Yes lisinopril U nivers 40 mg 1-21 40 mg ity of tablet 11:33: tablet [address] metFORMIN 2021-11 Yes metformin Uni vers 500 mg 1-21 500 mg ity of tablet 11:33: tablet [address] pravastatin 2021-11 Yes 40mg Take 40 mg Univers 40 mg 1-21 by mouth. ity of tablet 11:33: [address] clopidogreL 2021-11 Yes 75mg Take 75 mg Univers 75 mg 1-21 by mouth. ity of tablet 11:33: [address] lisinopriL 2021-11 Yes lisinopril U nivers 40 mg 1-21 40 mg ity of tablet 11:33: tablet [address] metFORMIN 2021-11 Yes metformin Uni vers 500 mg 1-21 500 mg ity of tablet 11:33: tablet [address] pravastatin 2021-11 Yes 40mg Take 40 mg Univers 40 mg 1-21 by mouth. ity of tablet 11:33: [address] clopidogreL 2021-11 Yes 75mg Take 75 mg Univers 75 mg 1-21 by mouth. ity of tablet 11:33: [address] lisinopriL 2021-11 Yes lisinopril U nivers 40 mg 1-21 40 mg ity of tablet 11:33: tablet [address] metFORMIN 2021-11 Yes metformin Uni vers 500 mg 1-21 500 mg ity of tablet 11:33: tablet [address] pravastatin 2021-11 Yes 40mg Take 40 mg Univers 40 mg 1-21 by mouth. ity of tablet 11:33: [address] clopidogreL 2021-11 Yes 75mg Take 75 mg Univers 75 mg 1-21 by mouth. ity of tablet 11:33: [address] lisinopriL 2021-11 Yes lisinopril U nivers 40 mg 1-21 40 mg ity of tablet 11:33: tablet [address] metFORMIN 2021-11 Yes metformin Uni vers 500 mg 1-21 500 mg ity of tablet 11:33: tablet [address] pravastatin 2021-11 Yes 40mg Take 40 mg Univers 40 mg 1-21 by mouth. ity of tablet 11:33: [address] clopidogreL 2021-11 Yes 75mg Take 75 mg Univers 75 mg 1-21 by mouth. ity of tablet 11:33: [address] lisinopriL 2021-11 Yes lisinopril U nivers 40 mg 1-21 40 mg ity of tablet 11:33: tablet [address] metFORMIN 2021-11 Yes metformin Uni vers 500 mg 1-21 500 mg ity of tablet 11:33: tablet [address] pravastatin 2021-11 Yes 40mg Take 40 mg Univers 40 mg 1-21 by mouth. ity of tablet 11:33: [address] clopidogreL 2021-11 Yes 75mg Take 75 mg Univers 75 mg 1-21 by mouth. ity of tablet 11:33: [address] lisinopriL 2021-11 Yes lisinopril U nivers 40 mg 1-21 40 mg ity of tablet 11:33: tablet [address] metFORMIN 2021-11 Yes metformin Uni vers 500 mg 1-21 500 mg ity of tablet 11:33: tablet [address] pravastatin 2021-11 Yes 40mg Take 40 mg Univers 40 mg 1-21 by mouth. ity of tablet 11:33: [address] clopidogreL 2021-11 Yes 75mg Take 75 mg Univers 75 mg 1-21 by mouth. ity of tablet 11:33: [address] lisinopriL 2021-11 Yes lisinopril U nivers 40 mg 1-21 40 mg ity of tablet 11:33: tablet [address] metFORMIN 2021-11 Yes metformin Uni vers 500 mg 1-21 500 mg ity of tablet 11:33: tablet [address] pravastatin 2021-11 Yes 40mg Take 40 mg Univers 40 mg 1-21 by mouth. ity of tablet 11:33: [address] clopidogreL 2021-11 Yes 75mg Take 75 mg Univers 75 mg 1-21 by mouth. ity of tablet 11:33: [address] lisinopriL 2021-11 Yes lisinopril U nivers 40 mg 1-21 40 mg ity of tablet 11:33: tablet [address] metFORMIN 2021-11 Yes metformin Uni vers 500 mg 1-21 500 mg ity of tablet 11:33: tablet [address] pravastatin 2021-11 Yes 40mg Take 40 mg [facility] 40 mg 1-21 by mouth. ity of tablet 11:33: [address] clopidogreL 2021-11 Yes 75mg Take 75 mg Univers 75 mg 1-21 by mouth. ity of tablet 11:33: [address] lisinopriL 2021-11 Yes lisinopril U nivers 40 mg 1-21 40 mg ity of tablet 11:33: tablet [address] metFORMIN 2021-11 Yes metformin Uni vers 500 mg 1-21 500 mg ity of tablet 11:33: tablet [address] pravastatin 2021-11 Yes 40mg Take 40 mg [facility] 40 mg 1-21 by mouth. ity of tablet 11:33: [address] clopidogreL 2021-11 Yes 75mg Take 75 mg Univers 75 mg 1-21 by mouth. ity of tablet 11:33: [address] lisinopriL 2021-11 Yes lisinopril U nivers 40 mg 1-21 40 mg ity of tablet 11:33: tablet [address] metFORMIN 2021-11 Yes metformin Uni vers 500 mg 1-21 500 mg ity of tablet 11:33: tablet [address] pravastatin 2021-11 Yes 40mg Take 40 mg [facility] 40 mg 1-21 by mouth. ity of tablet 11:33: [address] clopidogreL 2021-11 Yes 75mg Take 75 mg [facility] 75 mg 1-21 by mouth. ity of tablet 11:33: [address] lisinopriL 2021-11 Yes lisinopril U nivers 40 mg 1-21 40 mg ity of tablet 11:33: tablet [address] metFORMIN 2021-11 Yes metformin Uni vers 500 mg 1-21 500 mg ity of tablet 11:33: tablet [address] pravastatin 2021-11 Yes 40mg Take 40 mg [facility] 40 mg 1-21 by mouth. ity of tablet 11:33: [address] clopidogreL 2021-11 Yes 75mg Take 75 mg [facility] 75 mg 1-21 by mouth. ity of tablet 11:33: [address] lisinopriL 2021-11 Yes lisinopril U nivers 40 mg 1-21 40 mg ity of tablet 11:33: tablet [address] metFORMIN 2021-11 Yes metformin Uni vers 500 mg 1-21 500 mg ity of tablet 11:33: tablet [address] pravastatin 2021-11 Yes 40mg Take 40 mg [facility] 40 mg 1-21 by mouth. ity of tablet 11:33: [address] clopidogreL 2021-11 Yes 75mg Take 75 mg [facility] 75 mg 1-21 by mouth. ity of tablet 11:33: [address] lisinopriL 2021-11 Yes lisinopril U nivers 40 mg 1-21 40 mg ity of tablet 11:33: tablet [address] metFORMIN 2021-11 Yes metformin Uni vers 500 mg 1-21 500 mg ity of tablet 11:33: tablet [address] pravastatin 2021-11 Yes 40mg Take 40 mg [facility] 40 mg 1-21 by mouth. ity of tablet 11:33: [address] clopidogreL 2021-11 Yes 75mg Take 75 mg [facility] 75 mg 1-21 by mouth. ity of tablet 11:33: [address] lisinopriL 2021-11 Yes lisinopril U nivers 40 mg 1-21 40 mg ity of tablet 11:33: tablet [address] metFORMIN 2021-11 Yes metformin Uni vers 500 mg 1-21 500 mg ity of tablet 11:33: tablet [address] pravastatin 2022-1 Yes 40mg Take 40 mg [facility] 40 mg 1-21 by mouth. ity of tablet 11:33: [address] clopidogreL 2021-11 Yes 75mg Take 75 mg [facility] 75 mg 1-21 by mouth. ity of tablet 11:33: [address] lisinopriL 2021-11 Yes lisinopril U nivers 40 mg 1-21 40 mg ity of tablet 11:33: tablet [address] metFORMIN 2021-11 Yes metformin Uni vers 500 mg 1-21 500 mg ity of tablet 11:33: tablet [address] pravastatin 2021-11 Yes 40mg Take 40 mg [facility] 40 mg 1-21 by mouth. ity of tablet 11:33: [address] clopidogreL 2021-11 Yes 75mg Take 75 mg [facility] 75 mg 1-21 by mouth. ity of tablet 11:33: [address] lisinopriL 2021-11 Yes lisinopril U nivers 40 mg 1-21 40 mg ity of tablet 11:33: tablet [address] metFORMIN 2021-11 Yes metformin Uni vers 500 mg 1-21 500 mg ity of tablet 11:33: tablet [address] pravastatin 2021-11 Yes 40mg Take 40 mg [facility] 40 mg 1-21 by mouth. ity of tablet 11:33: [address] clopidogreL 2021-11 Yes 75mg Take 75 mg [facility] 75 mg 1-21 by mouth. ity of tablet 11:33: [address] lisinopriL 2021-11 Yes lisinopril U nivers 40 mg 1-21 40 mg ity of tablet 11:33: tablet [address] metFORMIN 2021-11 Yes metformin Uni vers 500 mg 1-21 500 mg ity of tablet 11:33: tablet [address] pravastatin 2021-11 Yes 40mg Take 40 mg [facility] 40 mg 1-21 by mouth. ity of tablet 11:33: [address] clopidogreL 2021-11 Yes 75mg Take 75 mg [facility] 75 mg 1-21 by mouth. ity of tablet 11:33: [address] lisinopriL 2021-11 Yes lisinopril U nivers 40 mg 1-21 40 mg ity of tablet 11:33: tablet [address] metFORMIN 2021-11 Yes metformin Uni vers 500 mg 1-21 500 mg ity of tablet 11:33: tablet [address] pravastatin 2021-11 Yes 40mg Take 40 mg [facility] 40 mg 1-21 by mouth. ity of tablet 11:33: [address] carvediloL 2021-11 Yes 3.125mg Take 3.125 [facility] 3.125 mg 1-21 mg by ity of tablet 11:33: mouth in [address] Branch and 3.125 mg in the evening. Take with meals. clopidogreL 2021-11 Yes 75mg Take 75 mg [facility] 75 mg 1-21 by mouth. ity of tablet 11:33: [address] clopidogreL 2021-11 Yes 75mg Take 75 mg [facility] 75 mg 1-21 by mouth. ity of tablet 11:33: [address] lisinopriL 2021-11 Yes lisinopril U nivers 40 mg 1-21 40 mg ity of tablet 11:33: tablet [address] metFORMIN 2021-11 Yes metformin [facility] vers 500 mg 1-21 500 mg ity of tablet 11:33: tablet [address] pravastatin 2021-11 Yes 40mg Take 40 mg [facility] 40 mg 1-21 by mouth. ity of tablet 11:33: [address] clopidogreL 2021-11 Yes 75mg Take 75 mg [facility] 75 mg 1-21 by mouth. ity of tablet 11:33: [address] lisinopriL 2021-11 Yes lisinopril U nivers 40 mg 1-21 40 mg ity of tablet 11:33: tablet [address] metFORMIN 2021-11 Yes metformin [facility] vers 500 mg 1-21 500 mg ity of tablet 11:33: tablet [address] pravastatin 2021-11 Yes 40mg Take 40 mg [facility] 40 mg 1-21 by mouth. ity of tablet 11:33: [address] clopidogreL 2021-11 Yes 75mg Take 75 mg [facility] 75 mg 1-21 by mouth. ity of tablet 11:33: [address] lisinopriL 2021-11 Yes lisinopril U nivers 40 mg 1-21 40 mg ity of tablet 11:33: tablet [address] metFORMIN 2021-11 Yes metformin [facility] vers 500 mg 1-21 500 mg ity of tablet 11:33: tablet [address] pravastatin 2021-11 Yes 40mg Take 40 mg [facility] 40 mg 1-21 by mouth. ity of tablet 11:33: [address] lisinopriL 2021-11 Yes lisinopril U nivers 40 mg 1-21 40 mg ity of tablet 11:33: tablet [address] metFORMIN 2021-11 Yes metformin [facility] vers 500 mg 1-21 500 mg ity of tablet 11:33: tablet [address] clopidogreL 2021-11 Yes 75mg Take 75 mg [facility] 75 mg 1-21 by mouth. ity of tablet 11:33: [address] lisinopriL 2021-11 Yes lisinopril U nivers 40 mg 1-21 40 mg ity of tablet 11:33: tablet [address] metFORMIN 2021-11 Yes metformin [facility] vers 500 mg 1-21 500 mg ity of tablet 11:33: tablet [address] pravastatin 2021-11 Yes 40mg Take 40 mg [facility] 40 mg 1-21 by mouth. ity of tablet 11:33: [address] clopidogreL 2021-11 Yes 75mg Take 75 mg [facility] 75 mg 1-21 by mouth. ity of tablet 11:33: [address] pravastatin 2021-11 Yes 40mg Take 40 mg [facility] 40 mg 1-21 by mouth. ity of tablet 11:33: [address] lisinopriL 2021-11 Yes lisinopril U nivers 40 mg 1-21 40 mg ity of tablet 11:33: tablet [address] metFORMIN 2021-11 Yes metformin [facility] vers 500 mg 1-21 500 mg ity of tablet 11:33: tablet [address] pravastatin 2021-11 Yes 40mg Take 40 mg [facility] 40 mg 1-21 by mouth. ity of tablet 11:33: [address] clopidogreL 2021-11 Yes 75mg Take 75 mg [facility] 75 mg 1-21 by mouth. ity of tablet 11:33: [address] lisinopriL 2021-11 Yes lisinopril U nivers 40 mg 1-21 40 mg ity of tablet 11:33: tablet [address] metFORMIN 2021-11 Yes metformin [facility] vers 500 mg 1-21 500 mg ity of tablet 11:33: tablet [address] pravastatin 2021-11 Yes 40mg Take 40 mg [facility] 40 mg 1-21 by mouth. ity of tablet 11:33: [address] clopidogreL 2021-11 Yes 75mg Take 75 mg [facility] 75 mg 1-21 by mouth. ity of tablet 11:33: [address] lisinopriL 2021-11 Yes lisinopril U n[facility] 40 mg 1-21 40 mg ity of tablet 11:33: tablet [address] metFORMIN 2021-11 Yes metformin [facility] vers 500 mg 1-21 500 mg ity of tablet 11:33: tablet [address] pravastatin 2021-11 Yes 40mg Take 40 mg [facility] 40 mg 1-21 by mouth. ity of tablet 11:33: [address] clopidogreL 2021-11 Yes 75mg Take 75 mg [facility] 75 mg 1-21 by mouth. ity of tablet 11:33: [address] lisinopriL 2021-11 Yes lisinopril U n[facility] 40 mg 1-21 40 mg ity of tablet 11:33: tablet [address] metFORMIN 2021-11 Yes metformin [facility] vers 500 mg 1-21 500 mg ity of tablet 11:33: tablet [address] pravastatin 2021-11 Yes 40mg Take 40 mg [facility] 40 mg 1-21 by mouth. ity of tablet 11:33: [address] carvediloL 2021-11 Yes 3.125mg Take 3.125 [facility] 3.125 mg 1-21 mg by ity of tablet 11:33: mouth in [address] and 3.125 mg in the evening. Take with meals. clopidogreL 2021-11 Yes 75mg Take 75 mg [facility] 75 mg 1-21 by mouth. ity of tablet 11:33: [address] lisinopriL 2021-11 Yes lisinopril U n[facility] 40 mg 1-21 40 mg ity of tablet 11:33: tablet [address] metFORMIN 2021-11 Yes metformin [facility] vers 500 mg 1-21 500 mg ity of tablet 11:33: tablet [address] clopidogreL 2021-11 Yes 75mg Take 75 mg [facility] 75 mg 1-21 by mouth. ity of tablet 11:33: [address] pravastatin 2021-11 Yes 40mg Take 40 mg [facility] 40 mg 1-21 by mouth. ity of tablet 11:33: [address] clopidogreL 2021-11 Yes 75mg Take 75 mg [facility] 75 mg 1-21 by mouth. ity of tablet 11:33: [address] lisinopriL 2021-11 Yes lisinopril U nivers 40 mg 1-21 40 mg ity of tablet 11:33: tablet [address] metFORMIN 2021-11 Yes metformin [facility] vers 500 mg 1-21 500 mg ity of tablet 11:33: tablet [address] pravastatin 2021-11 Yes 40mg Take 40 mg [facility] 40 mg 1-21 by mouth. ity of tablet 11:33: [address] clopidogreL 2021-11 Yes 75mg Take 75 mg [facility] 75 mg 1-21 by mouth. ity of tablet 11:33: [address] lisinopriL 2021-11 Yes lisinopril U nivers 40 mg 1-21 40 mg ity of tablet 11:33: tablet [address] metFORMIN 2021-11 Yes metformin [facility] vers 500 mg 1-21 500 mg ity of tablet 11:33: tablet [address] pravastatin 2021-11 Yes 40mg Take 40 mg [facility] 40 mg 1-21 by mouth. ity of tablet 11:33: [address] lisinopriL 2021-11 Yes lisinopril U nivers 40 mg 1-21 40 mg ity of tablet 11:33: tablet [address] metFORMIN 2021-11 Yes metformin [facility] vers 500 mg 1-21 500 mg ity of tablet 11:33: tablet [address] clopidogreL 2021-11 Yes 75mg Take 75 mg [facility] 75 mg 1-21 by mouth. ity of tablet 11:33: [address] lisinopriL 2021-11 Yes lisinopril U nivers 40 mg 1-21 40 mg ity of tablet 11:33: tablet [address] metFORMIN 2021-11 Yes metformin [facility] vers 500 mg 1-21 500 mg ity of tablet 11:33: tablet [address] pravastatin 2021-11 Yes 40mg Take 40 mg [facility] 40 mg 1-21 by mouth. ity of tablet 11:33: [address] clopidogreL 2021-11 Yes 75mg Take 75 mg [facility] 75 mg 1-21 by mouth. ity of tablet 11:33: [address] pravastatin 2021-11 Yes 40mg Take 40 mg [facility] 40 mg 1-21 by mouth. ity of tablet 11:33: [address] lisinopriL 2021-11 Yes lisinopril U nivers 40 mg 1-21 40 mg ity of tablet 11:33: tablet [address] metFORMIN 2021-11 Yes metformin [facility] vers 500 mg 1-21 500 mg ity of tablet 11:33: tablet [address] pravastatin 2021-11 Yes 40mg Take 40 mg [facility] 40 mg 1-21 by mouth. ity of tablet 11:33: [address] estradioL 2021-11 Yes [id number] Apply 1g [facility] 0.01 % (0.1 1-21 vaginally ity of mg/gram) 00:00: at bedtime [facility] vaginal 00 every Medical cream night for Branch 2 weeks and then apply 1g vaginally at bedtime 2 times per week estradioL 2021-11 Yes [id number] Apply 1g [facility] 0.01 % (0.1 1-21 vaginally ity of mg/gram) 00:00: at bedtime [facility] vaginal 00 every Medical cream night for Branch 2 weeks and then apply 1g vaginally at bedtime 2 times per week estradioL 2021-11 Yes [id number] Apply 1g [facility] 0.01 % (0.1 1-21 vaginally ity of mg/gram) 00:00: at bedtime [facility] vaginal 00 every Medical cream night for Branch 2 weeks and then apply 1g vaginally at bedtime 2 times per week estradioL 2021-11 Yes [id number] Apply 1g [facility] 0.01 % (0.1 1-21 vaginally ity of mg/gram) 00:00: at bedtime [facility] vaginal 00 every Medical cream night for Branch 2 weeks and then apply 1g vaginally at bedtime 2 times per week estradioL 2021-11 Yes [id number] Apply 1g [facility] 0.01 % (0.1 1-21 vaginally ity of mg/gram) 00:00: at bedtime [facility] vaginal 00 every Medical cream night for Branch 2 weeks and then apply 1g vaginally at bedtime 2 times per week estradioL 2021-11 Yes [id number] Apply 1g [facility] 0.01 % (0.1 1-21 vaginally ity of mg/gram) 00:00: at bedtime [facility] vaginal 00 every Medical cream night for Branch 2 weeks and then apply 1g vaginally at bedtime 2 times per week estradioL 2021-11 Yes [id number] Apply 1g [facility] 0.01 % (0.1 1-21 vaginally ity of mg/gram) 00:00: at bedtime [facility] vaginal 00 every Medical cream night for Branch 2 weeks and then apply 1g vaginally at bedtime 2 times per week estradioL 2021-11 Yes [id number] Apply 1g [facility] 0.01 % (0.1 1-21 vaginally ity of mg/gram) 00:00: at bedtime [facility] vaginal 00 every Medical cream night for Branch 2 weeks and then apply 1g vaginally at bedtime 2 times per week estradioL 2021-11 Yes [id number] Apply 1g [facility] 0.01 % (0.1 1-21 vaginally ity of mg/gram) 00:00: at bedtime [facility] vaginal 00 every Medical cream night for Branch 2 weeks and then apply 1g vaginally at bedtime 2 times per week estradioL 2021-11 Yes [id number] Apply 1g [facility] 0.01 % (0.1 1-21 vaginally ity of mg/gram) 00:00: at bedtime [facility] vaginal 00 every Medical cream night for Branch 2 weeks and then apply 1g vaginally at bedtime 2 times per week estradioL 2021-11 Yes [id number] Apply 1g [facility] 0.01 % (0.1 1-21 vaginally ity of mg/gram) 00:00: at bedtime [facility] as vaginal 00 every Medical cream night for Branch 2 weeks and then apply 1g vaginally at bedtime 2 times per week estradioL 2021-11 Yes [id number] Apply 1g [facility] 0.01 % (0.1 1-21 vaginally ity of mg/gram) 00:00: at bedtime [facility] as vaginal 00 every Medical cream night for Branch 2 weeks and then apply 1g vaginally at bedtime 2 times per week estradioL 2021-11 Yes [id number] Apply 1g [facility] 0.01 % (0.1 1-21 vaginally ity of mg/gram) 00:00: at bedtime [facility] as vaginal 00 every Medical cream night for Branch 2 weeks and then apply 1g vaginally at bedtime 2 times per week estradioL 2021-11 Yes [id number] Apply 1g [facility] 0.01 % (0.1 1-21 vaginally ity of mg/gram) 00:00: at bedtime [facility] as vaginal 00 every Medical cream night for Branch 2 weeks and then apply 1g vaginally at bedtime 2 times per week estradioL 2021-11 Yes [id number] Apply 1g [facility] 0.01 % (0.1 1-21 vaginally ity of mg/gram) 00:00: at bedtime [facility] as vaginal 00 every Medical cream night for Branch 2 weeks and then apply 1g vaginally at bedtime 2 times per week estradioL 2021-11 Yes [id number] Apply 1g [facility] 0.01 % (0.1 1-21 vaginally ity of mg/gram) 00:00: at bedtime [facility] as vaginal 00 every Medical cream night for Branch 2 weeks and then apply 1g vaginally at bedtime 2 times per week estradioL 2021-11 Yes [id number] Apply 1g [facility] 0.01 % (0.1 1-21 vaginally ity of mg/gram) 00:00: at bedtime [facility] as vaginal 00 every Medical cream night for Branch 2 weeks and then apply 1g vaginally at bedtime 2 times per week estradioL 2021-11 Yes [id number] Apply 1g [facility] 0.01 % (0.1 1-21 vaginally ity of mg/gram) 00:00: at bedtime [facility] as vaginal 00 every Medical cream night for Branch 2 weeks and then apply 1g vaginally at bedtime 2 times per week estradioL 2021-11 Yes [id number] Apply 1g [facility] 0.01 % (0.1 1-21 vaginally ity of mg/gram) 00:00: at bedtime [facility] as vaginal 00 every Medical cream night for Branch 2 weeks and then apply 1g vaginally at bedtime 2 times per week estradioL 2021-11 Yes [id number] Apply 1g [facility] 0.01 % (0.1 1-21 vaginally ity of mg/gram) 00:00: at bedtime [facility] vaginal 00 every Medical cream night for Branch 2 weeks and then apply 1g vaginally at bedtime 2 times per week estradioL 2021-11 Yes [id number] Apply 1g [facility] 0.01 % (0.1 1-21 vaginally ity of mg/gram) 00:00: at bedtime [facility] vaginal 00 every Medical cream night for Branch 2 weeks and then apply 1g vaginally at bedtime 2 times per week estradioL 2021-11 Yes [id number] Apply 1g [facility] 0.01 % (0.1 1-21 vaginally ity of mg/gram) 00:00: at bedtime [facility] as vaginal 00 every Medical cream night for Branch 2 weeks and then apply 1g vaginally at bedtime 2 times per week estradioL 2021-11 Yes [id number] Apply 1g [facility] 0.01 % (0.1 1-21 vaginally ity of mg/gram) 00:00: at bedtime [facility] as vaginal 00 every Medical cream night for Branch 2 weeks and then apply 1g vaginally at bedtime 2 times per week estradioL 2021-11 Yes [id number] Apply 1g [facility] 0.01 % (0.1 1-21 vaginally ity of mg/gram) 00:00: at bedtime [facility] as vaginal 00 every Medical cream night for Branch 2 weeks and then apply 1g vaginally at bedtime 2 times per week estradioL 2021-11 Yes [id number] Apply 1g [facility] 0.01 % (0.1 1-21 vaginally ity of mg/gram) 00:00: at bedtime [facility] as vaginal 00 every Medical cream night for Branch 2 weeks and then apply 1g vaginally at bedtime 2 times per week estradioL 2021-11 Yes [id number] Apply 1g [facility] 0.01 % (0.1 1-21 vaginally ity of mg/gram) 00:00: at bedtime [facility] as vaginal 00 every Medical cream night for Branch 2 weeks and then apply 1g vaginally at bedtime 2 times per week estradioL 2021-11 Yes [id number] Apply 1g [facility] 0.01 % (0.1 1-21 vaginally ity of mg/gram) 00:00: at bedtime [facility] as vaginal 00 every Medical cream night for Branch 2 weeks and then apply 1g vaginally at bedtime 2 times per week estradioL 2021-11 Yes [id number] Apply 1g [facility] 0.01 % (0.1 1-21 vaginally ity of mg/gram) 00:00: at bedtime [facility] as vaginal 00 every Medical cream night for Branch 2 weeks and then apply 1g vaginally at bedtime 2 times per week estradioL 2021-11 Yes [id number] Apply 1g [facility] 0.01 % (0.1 1-21 vaginally ity of mg/gram) 00:00: at bedtime [facility] as vaginal 00 every Medical cream night for Branch 2 weeks and then apply 1g vaginally at bedtime 2 times per week estradioL 2021-11 Yes [id number] Apply 1g [facility] 0.01 % (0.1 1-21 vaginally ity of mg/gram) 00:00: at bedtime [facility] as vaginal 00 every Medical cream night for Branch 2 weeks and then apply 1g vaginally at bedtime 2 times per week estradioL 2021-11 Yes [id number] Apply 1g [facility] 0.01 % (0.1 1-21 vaginally ity of mg/gram) 00:00: at bedtime [facility] as vaginal 00 every Medical cream night for Branch 2 weeks and then apply 1g vaginally at bedtime 2 times per week estradioL 2021-11 Yes [id number] Apply 1g [facility] 0.01 % (0.1 1-21 vaginally ity of mg/gram) 00:00: at bedtime [facility] as vaginal 00 every Medical cream night for Branch 2 weeks and then apply 1g vaginally at bedtime 2 times per week estradioL 2021-11 Yes [id number] Apply 1g [facility] 0.01 % (0.1 1-21 vaginally ity of mg/gram) 00:00: at bedtime [facility] as vaginal 00 every Medical cream night for Branch 2 weeks and then apply 1g vaginally at bedtime 2 times per week estradioL 2021-11 Yes [id number] Apply 1g [facility] 0.01 % (0.1 1-21 vaginally ity of mg/gram) 00:00: at bedtime [facility] as vaginal 00 every Medical cream night for Branch 2 weeks and then apply 1g vaginally at bedtime 2 times per week estradioL 2021-11 Yes [id number] Apply 1g [facility] 0.01 % (0.1 1-21 vaginally ity of mg/gram) 00:00: at bedtime [facility] as vaginal 00 every Medical cream night for Branch 2 weeks and then apply 1g vaginally at bedtime 2 times per week estradioL 2021-11 Yes [id number] Apply 1g [facility] 0.01 % (0.1 1-21 vaginally ity of mg/gram) 00:00: at bedtime [facility] as vaginal 00 every Medical cream night for Branch 2 weeks and then apply 1g vaginally at bedtime 2 times per week estradioL 2021-11 Yes [id number] Apply 1g [facility] 0.01 % (0.1 1-21 vaginally ity of mg/gram) 00:00: at bedtime [facility] as vaginal 00 every Medical cream night for Branch 2 weeks and then apply 1g vaginally at bedtime 2 times per week estradioL 2021-11 Yes [id number] Apply 1g [facility] 0.01 % (0.1 1-21 vaginally ity of mg/gram) 00:00: at bedtime [facility] as vaginal 00 every Medical cream night for Branch 2 weeks and then apply 1g vaginally at bedtime 2 times per week estradioL 2021-11 Yes [id number] Apply 1g [facility] 0.01 % (0.1 1-21 vaginally ity of mg/gram) 00:00: at bedtime [facility] as vaginal 00 every Medical cream night for Branch 2 weeks and then apply 1g vaginally at bedtime 2 times per week estradioL 2021-11 Yes [id number] Apply 1g [facility] 0.01 % (0.1 1-21 vaginally ity of mg/gram) 00:00: at bedtime [facility] as vaginal 00 every Medical cream night for Branch 2 weeks and then apply 1g vaginally at bedtime 2 times per week estradioL 2021-11 Yes [id number] Apply 1g [facility] 0.01 % (0.1 1-21 vaginally ity of mg/gram) 00:00: at bedtime [facility] as vaginal 00 every Medical cream night for Branch 2 weeks and then apply 1g vaginally at bedtime 2 times per week estradioL 2021-11 Yes [id number] Apply 1g [facility] 0.01 % (0.1 1-21 vaginally ity of mg/gram) 00:00: at bedtime [facility] as vaginal 00 every Medical cream night for Branch 2 weeks and then apply 1g vaginally at bedtime 2 times per week estradioL 2021-11 Yes [id number] Apply 1g [facility] 0.01 % (0.1 1-21 vaginally ity of mg/gram) 00:00: at bedtime [facility] as vaginal 00 every Medical cream night for Branch 2 weeks and then apply 1g vaginally at bedtime 2 times per week estradioL 2021-11 Yes [id number] Apply 1g [facility] 0.01 % (0.1 1-21 vaginally ity of mg/gram) 00:00: at bedtime [facility] as vaginal 00 every Medical cream night for Branch 2 weeks and then apply 1g vaginally at bedtime 2 times per week estradioL 2021-11 Yes [id number] Apply 1g [facility] 0.01 % (0.1 1-21 vaginally ity of mg/gram) 00:00: at bedtime [facility] as vaginal 00 every Medical cream night for Branch 2 weeks and then apply 1g vaginally at bedtime 2 times per week carvediloL 2019-0 Yes carvedilol U nivers 3.125 mg 9-30 3.125 mg ity of tablet 18:49: tablet [place] [id number] Medical Branch clopidogreL 2020-0 Yes 75mg Take 75 mg [facility] 75 mg 9-30 by mouth. ity of tablet 18:49: [address] Branch Docosahexan 2020-0 Yes 1{capsu Take 1 U nivers oic 9-30 le} capsule by ity of [place] 18:49: mouth. [facility]ilipp[facility] 19 Medical 120-180 mg Branch Cap lisinopriL 2020-0 Yes lisinopril U nivers 40 mg 9-30 40 mg ity of tablet 18:49: tablet [address] Branch metFORMIN 2020-0 Yes metformin Uni vers 500 mg 9-30 500 mg ity of tablet 18:49: tablet [address] Branch pravastatin 2020-0 Yes pravastati [facility] 40 mg 9-30 n 40 mg ity of tablet 18:49: tablet [address] Branch Docosahexan 2020-0 Yes 1{capsu Take 1 U nivers oic 9-30 le} capsule by ity of [facility] 13:49: mouth. [facility] 19 Medical 120-180 mg Branch Cap Docosahexan 2020-0 Yes 1{capsu Take 1 U nivers oic 9-30 le} capsule by ity of [place] 13:49: mouth. [facility] 19 Medical 120-180 mg Branch Cap Docosahexan 2020-0 Yes 1{capsu Take 1 U nivers oic 9-30 le} capsule by ity of [place] 13:49: mouth. [facility] 19 Medical 120-180 mg Branch Cap [...] by ity of [facility] 13:49: mouth. [facility]ilippo [facility] 19 Medical 120-180 mg Branch Cap Docosahexan [...] by ity of [facility] 13:49: mouth. [facility]o [facility] 19 Medical 120-180 mg Branch Cap carvediloL 2020-0 Yes carvedilol U nivers 3.125 mg 9-30 3.125 mg ity of tablet 13:49: tablet [place] [address] Medical Branch clopidogreL 2020-0 Yes 75mg Take 75 mg [facility] 75 mg 9-30 by mouth. ity of tablet 13:49: [place] [address] Medical Branch Docosahexan 2020-0 Yes 1{capsu Take 1 U nivers oic 9-30 le} capsule by ity of [facility] 13:49: mouth. [facility]ilippo [facility] 19 Medical 120-180 mg Branch Cap Docosahexan 2020-0 Yes 1{capsu Take 1 U nivers oic 9-30 le} capsule by ity of [place] 13:49: mouth. [facility]o [facility] 19 Medical 120-180 mg Branch Cap Docosahexan 2020-0 Yes 1{capsu Take 1 U nivers oic 9-30 le} capsule by ity of [place] 13:49: mouth. [facility]o [facility] 19 Medical 120-180 mg Branch Cap lisinopriL 2020-0 Yes lisinopril U nivers 40 mg 9-30 40 mg ity of tablet 13:49: tablet [place] [address] Medical Branch Docosahexan 2020-0 Yes 1{capsu Take 1 U nivers oic 9-30 le} capsule by ity of [facility] 13:49: mouth. [facility] day [facility] 19 Medical 120-180 mg Branch Cap metFORMIN 2020-0 Yes metformin Uni vers 500 mg 9-30 500 mg ity of tablet 13:49: tablet [place] 19 Medical Branch Docosahexan 2020-0 Yes 1{capsu Take 1 U nivers oic 9-30 le} capsule by ity of [place] 13:49: mouth. [facility] 19 Medical 120-180 mg Branch Cap pravastatin 2020-0 Yes pravastati [facility] 40 mg 9-30 n 40 mg ity of tablet 13:49: tablet [place] 19 Medical Branch Docosahexan 2020-0 [...] by ity of [facility] 13:49: mouth. [facility]ilippo [facility] 19 Medical 120-180 mg Branch Cap Docosahexan 2020-0 Yes 1{capsu Take 1 U nivers oic 9-30 le} capsule by ity of [facility] 13:49: mouth. [facility]ilippo [facility] 19 Medical 120-180 mg Branch Cap Docosahexan 2020-0 Yes 1{capsu Take 1 U nivers oic 9-30 le} capsule by ity of [facility] 13:49: mouth. [facility]ilippo [facility] 19 Medical 120-180 mg Branch Cap Docosahexan 2020-0 Yes 1{capsu Take 1 U nivers oic 9-30 le} capsule by ity of [facility] 13:49: mouth. [facility]ilippo [facility] 19 Medical 120-180 mg Branch Cap Docosahexan 2020-0 Yes 1{capsu Take 1 U nivers oic 9-30 le} capsule by ity of [facility] 13:49: mouth. [facility]ilippo [facility] 19 Medical 120-180 mg Branch Cap cephALEXin 2020-0 2020- No [id number] 500mg Take 1 Univers (KEFLEX) 9-30 10-08 capsule by ity of 500 mg 00:00: 04:59 mouth 2 [place] capsule 00 :00 (two) Medical times Branch daily for 7 days. omeprazole 2020-0 Yes 20mg Take 20 mg U nivers 20 mg 9-24 by mouth ity of capsule 00:00: in the [place] [id number] morning. Medical Branch omeprazole 2020-0 Yes 20mg Take 20 mg U nivers 20 mg 9-24 by mouth ity of capsule 00:00: in the [place] 00 morning. [facility] omeprazole 2020-0 Yes 20mg Take 20 mg U nivers 20 mg 9-24 by mouth ity of capsule 00:00: in the [place] 00 morning. [facility] omeprazole 2020-0 Yes 20mg Take 20 mg U nivers 20 mg 9-24 by mouth ity of capsule 00:00: in the [place] [id number] morning. [facility] omeprazole 2020-0 Yes 20mg Take 20 mg U nivers 20 mg 9-24 by mouth ity of capsule 00:00: in the [place] 00 morning. [facility] omeprazole 2020-0 Yes [facility] 20 mg 9-24 ity of capsule 00:00: [place] 00 [facility] omeprazole 2020-0 Yes 20mg Take 20 mg U nivers 20 mg 9-24 by mouth ity of capsule 00:00: in the [place] 00 morning. [facility] omeprazole 2020-0 Yes 20mg Take 20 mg U nivers 20 mg 9-24 by mouth ity of capsule 00:00: in the [place] 00 morning. [facility] omeprazole 2020-0 Yes 20mg Take 20 mg U nivers 20 mg 9-24 by mouth ity of capsule 00:00: in the [place] 00 morning. [facility] omeprazole 2020-0 Yes 20mg Take 20 mg U nivers 20 mg 9-24 by mouth ity of capsule 00:00: in the [place] morning. [facility] omeprazole 2020-0 Yes 20mg Take 20 mg U nivers 20 mg 9-24 by mouth ity of capsule 00:00: in the [place] morning. [facility] omeprazole 2020-0 Yes 20mg Take 20 mg U nivers 20 mg 9-24 by mouth ity of capsule 00:00: in the [place] morning. [facility] omeprazole 2020-0 Yes 20mg Take 20 mg U nivers 20 mg 9-24 by mouth ity of capsule 00:00: in the [place] 00 morning. [facility] omeprazole 2020-0 Yes 20mg Take 20 mg U nivers 20 mg 9-24 by mouth ity of capsule 00:00: in the [place] 00 morning. [facility] omeprazole 2020-0 Yes 20mg Take 20 mg U nivers 20 mg 9-24 by mouth ity of capsule 00:00: in the [place] morning. [facility] omeprazole 2020-0 Yes 20mg Take 20 mg U nivers 20 mg 9-24 by mouth ity of capsule 00:00: in the [place] 00 morning. [facility] omeprazole 2020-0 Yes 20mg Take 20 mg U nivers 20 mg 9-24 by mouth ity of capsule 00:00: in the [place] 00 morning. [facility] omeprazole 2020-0 Yes 20mg Take 20 mg U nivers 20 mg 9-24 by mouth ity of capsule 00:00: in the [place] 00 morning. [facility] omeprazole 2020-0 Yes 20mg Take 20 mg U nivers 20 mg 9-24 by mouth ity of capsule 00:00: in the [place] 00 morning. [facility] omeprazole 2020-0 Yes 20mg Take 20 mg U nivers 20 mg 9-24 by mouth ity of capsule 00:00: in the [place] 00 morning. [facility] omeprazole 2020-0 Yes 20mg Take 20 mg U nivers 20 mg 9-24 by mouth ity of capsule 00:00: in the [place] 00 morning. [facility] omeprazole 2020-0 Yes 20mg Take 20 mg U nivers 20 mg 9-24 by mouth ity of capsule 00:00: in the [place] 00 morning. [facility] omeprazole 2020-0 Yes 20mg Take 20 mg U nivers 20 mg 9-24 by mouth ity of capsule 00:00: in the [place] 00 morning. [facility] omeprazole 2020-0 Yes [facility] 20 mg 9-24 ity of capsule 00:00: [place] 00 [facility] omeprazole 2020-0 Yes 20mg Take 20 mg U nivers 20 mg 9-24 by mouth ity of capsule 00:00: in the [place] 00 morning. [facility] omeprazole 2020-0 Yes 20mg Take 20 mg U nivers 20 mg 9-24 by mouth ity of capsule 00:00: in the [place] 00 morning. [facility] omeprazole 2020-0 Yes 20mg Take 20 mg U nivers 20 mg 9-24 by mouth ity of capsule 00:00: in the [place] 00 morning. [facility] omeprazole 2020-0 Yes 20mg Take 20 mg U nivers 20 mg 9-24 by mouth ity of capsule 00:00: in the [place] 00 morning. [facility] omeprazole 2020-0 Yes 20mg Take 20 mg U nivers 20 mg 9-24 by mouth ity of capsule 00:00: in the [place] 00 morning. [facility] omeprazole 2020-0 Yes 20mg Take 20 mg U nivers 20 mg 9-24 by mouth ity of capsule 00:00: in the [place] 00 morning. [facility] omeprazole 2020-0 Yes 20mg Take 20 mg U nivers 20 mg 9-24 by mouth ity of capsule 00:00: in the [place] 00 morning. [facility] omeprazole 2020-0 Yes 20mg Take 20 mg U nivers 20 mg 9-24 by mouth ity of capsule 00:00: in the [place] 00 morning. [facility] omeprazole 2020-0 Yes 20mg Take 20 mg U nivers 20 mg 9-24 by mouth ity of capsule 00:00: in the [place] 00 morning. [facility] omeprazole 2020-0 Yes 20mg Take 20 mg U nivers 20 mg 9-24 by mouth ity of capsule 00:00: in the [place] 00 morning. [facility] omeprazole 2020-0 Yes 20mg Take 20 mg U nivers 20 mg 9-24 by mouth ity of capsule 00:00: in the [place] 00 morning. [facility] omeprazole 2020-0 Yes 20mg Take 20 mg U nivers 20 mg 9-24 by mouth ity of capsule 00:00: in the [place] morning. [facility] omeprazole 2020-0 Yes 20mg Take 20 mg U nivers 20 mg 9-24 by mouth ity of capsule 00:00: in the [place] morning. [facility] omeprazole 2020-0 Yes 20mg Take 20 mg U nivers 20 mg 9-24 by mouth ity of capsule 00:00: in the [place] 00 morning. [facility] omeprazole 2020-0 Yes 20mg Take 20 mg U nivers 20 mg 9-24 by mouth ity of capsule 00:00: in the [place] morning. [facility] omeprazole 2020-0 Yes 20mg Take 20 mg U nivers 20 mg 9-24 by mouth ity of capsule 00:00: in the [place] morning. [facility] omeprazole 2020-0 Yes 20mg Take 20 mg U nivers 20 mg 9-24 by mouth ity of capsule 00:00: in the [place] 00 morning. [facility] omeprazole 2020-0 Yes 20mg Take 20 mg U nivers 20 mg 9-24 by mouth ity of capsule 00:00: in the [place] morning. [facility] omeprazole 2020-0 Yes 20mg Take 20 mg U nivers 20 mg 9-24 by mouth ity of capsule 00:00: in the [place] 00 morning. [facility] omeprazole 2020-0 Yes 20mg Take 20 mg U nivers 20 mg 9-24 by mouth ity of capsule 00:00: in the [place] 00 morning. [facility] omeprazole 2020-0 Yes 20mg Take 20 mg U nivers 20 mg 9-24 by mouth ity of capsule 00:00: in the [place] 00 morning. [facility] omeprazole 2020-0 Yes 20mg Take 20 mg U nivers 20 mg 9-24 by mouth ity of capsule 00:00: in the [place] 00 morning. [facility] omeprazole 2020-0 Yes 20mg Take 20 mg U nivers 20 mg 9-24 by mouth ity of capsule 00:00: in the [place] morning. [facility] omeprazole 2020-0 Yes 20mg Take 20 mg U nivers 20 mg 9-24 by mouth ity of capsule 00:00: in the [place] morning. [facility] Fesoterodin 2019 Yes Toviaz 4 Un leo e (TOVIAZ) 0-21 mg ity of 4 mg tablet 00:00: tablet,ext [place] 00 ended Medical release Branch Fesoterodin 2018-11 Yes Toviaz 4 Un leo e (TOVIAZ) 0-21 mg ity of 4 mg tablet 00:00: tablet,ext [place] ended Medical release Branch Fesoterodin 2018-11 Yes Toviaz 4 Un leo e (TOVIAZ) 0-21 mg ity of 4 mg tablet 00:00: tablet,ext [place] ended Medical release Branch Fesoterodin 2018-11 Yes Toviaz 4 Un leo e (TOVIAZ) 0-21 mg ity of 4 mg tablet 00:00: tablet,ext [place] ended Medical release Branch Fesoterodin 2018-11 Yes Toviaz 4 Un leo e (TOVIAZ) 0-21 mg ity of 4 mg tablet 00:00: tablet,ext [place] ended Medical release Branch Fesoterodin 2018-11 Yes Toviaz 4 Un leo e (TOVIAZ) 0-21 mg ity of 4 mg tablet 00:00: tablet,ext [place] 00 ended Medical release Branch Fesoterodin 2018-11 Yes Toviaz 4 Un leo e (TOVIAZ) 0-21 mg ity of 4 mg tablet 00:00: tablet,ext [place] 00 ended Medical release Branch Fesoterodin 2018-11 Yes Toviaz 4 Un leo e (TOVIAZ) 0-21 mg ity of 4 mg tablet 00:00: tablet,ext [place] 00 ended Medical release Branch Fesoterodin 2018-11 Yes Toviaz 4 Un leo e (TOVIAZ) 0-21 mg ity of 4 mg tablet 00:00: tablet,ext [place] 00 ended Medical release Branch Fesoterodin 2018-11 Yes Toviaz 4 Un leo e (TOVIAZ) 0-21 mg ity of 4 mg tablet 00:00: tablet,ext [place] 00 ended Medical release Branch Fesoterodin 2018-11 Yes Toviaz 4 Un leo e (TOVIAZ) 0-21 mg ity of 4 mg tablet 00:00: tablet,ext [place] 00 ended Medical release Branch Fesoterodin 2018-11 Yes Toviaz 4 Un leo e (TOVIAZ) 0-21 mg ity of 4 mg tablet 00:00: tablet,ext [place] ended Medical release Branch Fesoterodin 2018-11 Yes Toviaz 4 Un leo e (TOVIAZ) 0-21 mg ity of 4 mg tablet 00:00: tablet,ext [place] ended Medical release Branch Fesoterodin 2018-11 Yes Toviaz 4 Un leo e (TOVIAZ) 0-21 mg ity of 4 mg tablet 00:00: tablet,[facility] ended Medical release Branch Fesoterodin 2018-11 Yes Toviaz 4 Un leo e (TOVIAZ) 0-21 mg ity of 4 mg tablet 00:00: tablet,[facility] ended Medical release Branch Fesoterodin 2018-11 Yes Toviaz 4 Un leo e (TOVIAZ) 0-21 mg ity of 4 mg tablet 00:00: tablet,[facility] ended Medical release Branch Fesoterodin 2018-11 Yes Toviaz 4 Un leo e (TOVIAZ) 0-21 mg ity of 4 mg tablet 00:00: tablet,[facility] ended Medical release Branch Fesoterodin 2018-11 Yes Toviaz 4 Un leo e (TOVIAZ) 0-21 mg ity of 4 mg tablet 00:00: tablet,[facility] ended Medical release Branch Fesoterodin 2018-11 Yes Toviaz 4 Un leo e (TOVIAZ) 0-21 mg ity of 4 mg tablet 00:00: tablet,[facility] 00 ended Medical release Branch Fesoterodin 2018-11 Yes Toviaz 4 Un leo e (TOVIAZ) 0-21 mg ity of 4 mg tablet 00:00: tablet,[facility] 00 ended Medical release Branch Fesoterodin 2018-11 Yes Toviaz 4 Un leo e (TOVIAZ) 0-21 mg ity of 4 mg tablet 00:00: tablet,[facility] 00 ended Medical release Branch Fesoterodin 2018-11 Yes Toviaz 4 Un leo e (TOVIAZ) 0-21 mg ity of 4 mg tablet 00:00: tablet,ext [place] ended Medical release Branch Fesoterodin 2019 Yes Toviaz 4 Un leo e (TOVIAZ) 0-21 mg ity of 4 mg tablet 00:00: tablet,ext [place] ended Medical release Branch Fesoterodin 2018-11 Yes Toviaz 4 Un leo e (TOVIAZ) 0-21 mg ity of 4 mg tablet 00:00: tablet,ext [place] ended Medical release Branch Fesoterodin 2018-11 Yes Toviaz 4 Un leo e (TOVIAZ) 0-21 mg ity of 4 mg tablet 00:00: tablet,ext [place] ended Medical release Branch Fesoterodin 2018-11 Yes Toviaz 4 Un leo e (TOVIAZ) 0-21 mg ity of 4 mg tablet 00:00: tablet,[facility] ended Medical release Branch Fesoterodin 2018-11 Yes Toviaz 4 Un leo e (TOVIAZ) 0-21 mg ity of 4 mg tablet 00:00: tablet,[facility] ended Medical release Branch Fesoterodin 2018-11 Yes Toviaz 4 Un leo e (TOVIAZ) 0-21 mg ity of 4 mg tablet 00:00: tablet,[facility] ended Medical release Branch Fesoterodin 2018-11 Yes Toviaz 4 Un leo e (TOVIAZ) 0-21 mg ity of 4 mg tablet 00:00: tablet,[facility] ended Medical release Branch Fesoterodin 2018-11 Yes Toviaz 4 Un leo e (TOVIAZ) 0-21 mg ity of 4 mg tablet 00:00: tablet,[facility] ended Medical release Branch Fesoterodin 2018-11 Yes Toviaz 4 Un leo e (TOVIAZ) 0-21 mg ity of 4 mg tablet 00:00: tablet,[facility] ended Medical release Branch Fesoterodin 2018-11 Yes Toviaz 4 Un leo e (TOVIAZ) 0-21 mg ity of 4 mg tablet 00:00: tablet,[facility] ended Medical release Branch Fesoterodin 2018-11 Yes Toviaz 4 Un leo e (TOVIAZ) 0-21 mg ity of 4 mg tablet 00:00: tablet,[facility] ended Medical release Branch Fesoterodin 2019-1 Yes Toviaz 4 Un leo e (TOVIAZ) 0-21 mg ity of 4 mg tablet 00:00: tablet,ext [place] 00 ended Medical release Branch Fesoterodin 2019- Yes Toviaz 4 Un leo e (TOVIAZ) 0-21 mg ity of 4 mg tablet 00:00: tablet,ext [place] ended Medical release Branch Fesoterodin 2018-11 Yes Toviaz 4 Un leo e (TOVIAZ) 0-21 mg ity of 4 mg tablet 00:00: tablet,ext [place] ended Medical release Branch Fesoterodin 2018-11 Yes Toviaz 4 Un leo e (TOVIAZ) 0-21 mg ity of 4 mg tablet 00:00: tablet,ext [place] ended Medical release Branch Fesoterodin 2018-11 Yes Toviaz 4 Un leo e (TOVIAZ) 0-21 mg ity of 4 mg tablet 00:00: tablet,ext [place] ended Medical release Branch Fesoterodin 2018-11 Yes Toviaz 4 Un leo e (TOVIAZ) 0-21 mg ity of 4 mg tablet 00:00: tablet,ext [place] ended Medical release Branch Fesoterodin 2018-11 Yes Toviaz 4 Un leo e (TOVIAZ) 0-21 mg ity of 4 mg tablet 00:00: tablet,ext [place] ended Medical release Branch Fesoterodin 2018-11 Yes Toviaz 4 Un leo e (TOVIAZ) 0-21 mg ity of 4 mg tablet 00:00: tablet,ext [place] ended Medical release Branch Fesoterodin 2018-11 Yes Toviaz 4 Un leo e (TOVIAZ) 0-21 mg ity of 4 mg tablet 00:00: tablet,ext [place] ended Medical release Branch Fesoterodin 2018-11 Yes Toviaz 4 Un leo e (TOVIAZ) 0-21 mg ity of 4 mg tablet 00:00: tablet,ext [place] ended Medical release Branch Fesoterodin 2018-11 Yes Toviaz 4 Un leo e (TOVIAZ) 0-21 mg ity of 4 mg tablet 00:00: tablet,ext [place] ended Medical release Branch Fesoterodin 2018-11 Yes Toviaz 4 Un leo e (TOVIAZ) 0-21 mg ity of 4 mg tablet 00:00: tablet,ext [place] 00 ended Medical release Branch Fesoterodin 2019-1 Yes Toviaz 4 Un leo e (TOVIAZ) 0-21 mg ity of 4 mg tablet 00:00: tablet,ext [place] ended Medical release Branch Fesoterodin 2019-1 Yes Toviaz 4 Un leo e (TOVIAZ) 0-21 mg ity of 4 mg tablet 00:00: tablet,ext [place] ended Medical release Branch Fesoterodin 2019-1 Yes Toviaz 4 Un leo e (TOVIAZ) 0-21 mg ity of 4 mg tablet 00:00: tablet,ext [place] ended Medical release Branch levocetiriz 2019-0 Yes 5mg Take 5 mg U nivers ine 5 mg 9-20 by mouth. ity of tablet 00:00: [place] [facility] levocetiriz 2019-0 Yes 5mg Take 5 mg U nivers ine 5 mg 9-20 by mouth. ity of tablet 00:00: [place] [facility] levocetiriz 2019-0 Yes 5mg Take 5 mg U nivers ine 5 mg 9-20 by mouth. ity of tablet 00:00: [place] [facility] levocetiriz 2019-0 Yes 5mg Take 5 mg U nivers ine 5 mg 9-20 by mouth. ity of tablet 00:00: [place] [facility] levocetiriz 2019-0 Yes 5mg Take 5 mg U nivers ine 5 mg 9-20 by mouth. ity of tablet 00:00: [place] [facility] levocetiriz 2019-0 Yes 5mg Take 5 mg U nivers ine 5 mg 9-20 by mouth. ity of tablet 00:00: [place] [facility] levocetiriz 2019-0 Yes 5mg Take 5 mg U nivers ine 5 mg 9-20 by mouth. ity of tablet 00:00: [place] [facility] levocetiriz 2019-0 Yes 5mg Take 5 mg U nivers ine 5 mg 9-20 by mouth. ity of tablet 00:00: [place] [facility] levocetiriz 2019-0 Yes 5mg Take 5 mg U nivers ine 5 mg 9-20 by mouth. ity of tablet 00:00: [place] [facility] levocetiriz 2019-0 Yes 5mg Take 5 mg U nivers ine 5 mg 9-20 by mouth. ity of tablet 00:00: [place] [facility] levocetiriz 2019-0 Yes 5mg Take 5 mg U nivers ine 5 mg 9-20 by mouth. ity of tablet 00:00: [place] [facility] levocetiriz 2019-0 Yes 5mg Take 5 mg U nivers ine 5 mg 9-20 by mouth. ity of tablet 00:00: [place] [facility] levocetiriz 2019-0 Yes 5mg Take 5 mg U nivers ine 5 mg 9-20 by mouth. ity of tablet 00:00: [place] [facility] levocetiriz 2019-0 Yes 5mg Take 5 mg U nivers ine 5 mg 9-20 by mouth. ity of tablet 00:00: [place] [facility] levocetiriz 2019-0 Yes 5mg Take 5 mg U nivers ine 5 mg 9-20 by mouth. ity of tablet 00:00: [place] [facility] levocetiriz 2019-0 Yes 5mg Take 5 mg U nivers ine 5 mg 9-20 by mouth. ity of tablet 00:00: [address] levocetiriz 2019-0 Yes 5mg Take 5 mg U nivers ine 5 mg 9-20 by mouth. ity of tablet 00:00: [address] levocetiriz 2019-0 Yes 5mg Take 5 mg U nivers ine 5 mg 9-20 by mouth. ity of tablet 00:00: [address] levocetiriz 2019-0 Yes 5mg Take 5 mg U nivers ine 5 mg 9-20 by mouth. ity of tablet 00:00: [address] levocetiriz 2019-0 Yes 5mg Take 5 mg U nivers ine 5 mg 9-20 by mouth. ity of tablet 00:00: [address] levocetiriz 2019-0 Yes 5mg Take 5 mg U nivers ine 5 mg 9-20 by mouth. ity of tablet 00:00: [address] levocetiriz 2019-0 Yes 5mg Take 5 mg U nivers ine 5 mg 9-20 by mouth. ity of tablet 00:00: [address] levocetiriz 2019-0 Yes 5mg Take 5 mg U nivers ine 5 mg 9-20 by mouth. ity of tablet 00:00: [address] levocetiriz 2019-0 Yes 5mg Take 5 mg U nivers ine 5 mg 9-20 by mouth. ity of tablet 00:00: [place] [facility] levocetiriz 2019-0 Yes 5mg Take 5 mg U nivers ine 5 mg 9-20 by mouth. ity of tablet 00:00: [place] [facility] levocetiriz 2019-0 Yes 5mg Take 5 mg U nivers ine 5 mg 9-20 by mouth. ity of tablet 00:00: [place] [facility] levocetiriz 2019-0 Yes 5mg Take 5 mg U nivers ine 5 mg 9-20 by mouth. ity of tablet 00:00: [place] [facility] levocetiriz 2019-0 Yes 5mg Take 5 mg U nivers ine 5 mg 9-20 by mouth. ity of tablet 00:00: [place] [facility] levocetiriz 2019-0 Yes 5mg Take 5 mg U nivers ine 5 mg 9-20 by mouth. ity of tablet 00:00: [place] [facility] levocetiriz 2019-0 Yes 5mg Take 5 mg U nivers ine 5 mg 9-20 by mouth. ity of tablet 00:00: [address] levocetiriz 2019-0 Yes 5mg Take 5 mg U nivers ine 5 mg 9-20 by mouth. ity of tablet 00:00: [address] levocetiriz 2019-0 Yes 5mg Take 5 mg U nivers ine 5 mg 9-20 by mouth. ity of tablet 00:00: [address] levocetiriz 2019-0 Yes 5mg Take 5 mg U nivers ine 5 mg 9-20 by mouth. ity of tablet 00:00: [place] [facility] levocetiriz 2019-0 Yes 5mg Take 5 mg U nivers ine 5 mg 9-20 by mouth. ity of tablet 00:00: [address] levocetiriz 2019-0 Yes 5mg Take 5 mg U nivers ine 5 mg 9-20 by mouth. ity of tablet 00:00: [address] levocetiriz 2019-0 Yes 5mg Take 5 mg U nivers ine 5 mg 9-20 by mouth. ity of tablet 00:00: [address] levocetiriz 2019-0 Yes 5mg Take 5 mg U nivers ine 5 mg 9-20 by mouth. ity of tablet 00:00: [address] levocetiriz 2019-0 Yes 5mg Take 5 mg U nivers ine 5 mg 9-20 by mouth. ity of tablet 00:00: [place] [facility] levocetiriz 2019-0 Yes 5mg Take 5 mg U nivers ine 5 mg 9-20 by mouth. ity of tablet 00:00: [place] [facility] levocetiriz 2019-0 Yes 5mg Take 5 mg U nivers ine 5 mg 9-20 by mouth. ity of tablet 00:00: [place] [facility] levocetiriz 2019-0 Yes 5mg Take 5 mg U nivers ine 5 mg 9-20 by mouth. ity of tablet 00:00: [place] [facility] levocetiriz 2019-0 Yes 5mg Take 5 mg U nivers ine 5 mg 9-20 by mouth. ity of tablet 00:00: [place] [facility] levocetiriz 2019-0 Yes 5mg Take 5 mg U nivers ine 5 mg 9-20 by mouth. ity of tablet 00:00: [place] [facility] levocetiriz 2019-0 Yes 5mg Take 5 mg U nivers ine 5 mg 9-20 by mouth. ity of tablet 00:00: [place] [facility] levocetiriz 2019-0 Yes 5mg Take 5 mg U nivers ine 5 mg 9-20 by mouth. ity of tablet 00:00: [place] [facility] levocetiriz 2019-0 Yes 5mg Take 5 mg U nivers ine 5 mg 9-20 by mouth. ity of tablet 00:00: [place] [facility] levocetiriz 2019-0 Yes 5mg Take 5 mg U nivers ine 5 mg 9-20 by mouth. ity of tablet 00:00: [place] [facility] levocetiriz 2019-0 Yes 5mg Take 5 mg U nivers ine 5 mg 9-20 by mouth. ity of tablet 00:00: [place] [facility] Acetaminoph 2017-0 Yes 1 tab, PO, Memoria en 300 MG / 6-13 Q6H, PRN l Codeine 22:22: Pain, X 7 [place] nn Phosphate 00 day, # 20 30 MG Oral tab, 0 Tablet Refill(s) [Tylenol with Codeine #3] minocycline 2018-0 Yes 100 mg = 1 Memoria 100 [...] day, # 14 cap, 0 Refill(s) Acetaminoph 0 Yes 1 tab, PO, Memoria en 300 [...] day, # 14 cap, 0 Refill(s) Acetaminoph 2018 Yes 1 tab, PO, Memoria en 300 [...] capsule 22:22: Q12H, X 7 [place] nn day, # 14 cap, 0 Refill(s) Omeprazole No 20 mg, Memor ia 6-13 Route: PO, l 14:00: Daily, Luke 00 Dosing Weight 78.1, kg, Start date: 04/16/18 9:00:00 CDT, Duration: 30 day, Stop date: 05/15/18 9:00:00 CDT multivitami No Notes: Juarez leonela n with 13 (Same l minerals 14:00: as:Thera-M Her robbins [...] with 6-13 (Same l minerals 14:00: as:Thera-M robbins 00 , Theragran- M) WASTE: F/P [...] ia 6-13 (Same as: l 14:00: Prinivil, [place] 00 Zestril) Omeprazole 0 No 20 mg, [...] ia 6-13 (Same as: l 14:00: Prinivil, [place] 00 Zestril) Omeprazole No 20 mg, Memor [...] ia 6-13 (Same as: l 14:00: Prinivil, [place] 00 Zestril) Omeprazole 0 No 20 mg, [...] l 14:00: Prinivil, Luke 00 Zestril) Omeprazole 2018-0 No 20 mg, Memor ia 6-13 Route: [...] ia 6-13 (Same as: l 14:00: Prinivil, [place] 00 Zestril) Omeprazole No 20 mg, Memor [...] 14:00: as:Thera-Faby Morgan robbins 00 , Theragran- M) WASTE: F/P [...] (Same as: l 14:00: Prinivil, Luke Zestril) BRING PT No BRING Me moria MED TO 04-16 PT MED TO l PHARMACY 13:00: PHARMACY [facility] FOR 00 FOR LABELING LABELING *, REMINDER, Drug form: MISC, Route: MISC, QSHIFT, 04/16/18 8:00:00 CDT, Duration: 30 day, Stop date: 05/16/18 0:00:00 CDT BRING PT No BRING Me moria MED TO 04-16 PT MED TO l PHARMACY 13:00: PHARMACY [facility] FOR 00 FOR LABELING LABELING *, REMINDER, Drug form: MISC, Route: MISC, QSHIFT, 04/16/18 8:00:00 CDT, Duration: 30 day, Stop date: 05/16/18 0:00:00 CDT BRING PT 2017- No BRING Me moria MED TO 04-16 PT MED TO l PHARMACY 13:00: PHARMACY [facility] FOR 00 FOR LABELING LABELING *, REMINDER, Drug form: MISC, Route: MISC, QSHIFT, 04/16/18 8:00:00 CDT, Duration: 30 day, Stop date: 05/16/18 0:00:00 CDT BRING PT 2017- No BRING Me mor[facility] MED TO 04-16 PT MED TO l PHARMACY 13:00: PHARMACY [facility] FOR 00 FOR LABELING LABELING *, REMINDER, Drug form: MISC, Route: MISC, QSHIFT, 04/16/18 8:00:00 CDT, Duration: 30 day, Stop date: 05/16/18 0:00:00 CDT BRING PT 2017- No BRING Me moria MED TO 04-16 PT MED TO l PHARMACY 13:00: PHARMACY [facility] FOR 00 FOR LABELING LABELING *, REMINDER, Drug form: MISC, Route: MISC, QSHIFT, 04/16/18 8:00:00 CDT, Duration: 30 day, Stop date: 05/16/18 0:00:00 CDT BRING PT 2017- No BRING Me moria MED TO 04-16 PT MED TO l PHARMACY 13:00: PHARMACY [facility] FOR 00 FOR LABELING LABELING *, REMINDER, Drug form: MISC, Route: MISC, QSHIFT, 04/16/18 8:00:00 CDT, Duration: 30 day, Stop date: 05/16/18 0:00:00 CDT BRING PT No BRING Me moria MED TO -13 PT MED TO l PHARMACY 13:00: PHARMACY [facility] FOR 00 FOR LABELING LABELING *, REMINDER, Drug form: MISC, Route: MISC, QSHIFT, 04/16/18 8:00:00 CDT, Duration: 30 day, Stop date: 05/16/18 0:00:00 CDT BRING PT 2017- No BRING Me moria MED TO 6-13 PT MED TO l PHARMACY 13:00: PHARMACY [facility] FOR FOR LABELING LABELING *, REMINDER, Drug form: MISC, Route: MISC, QSHIFT, 04/16/18 8:00:00 CDT, Duration: 30 day, Stop date: 05/16/18 0:00:00 CDT BRING PT 2017- No BRING Me moria MED TO 6-13 PT MED TO l PHARMACY 13:00: PHARMACY [facility] FOR 00 FOR LABELING LABELING *, REMINDER, Drug form: MISC, Route: MISC, QSHIFT, 04/16/18 8:00:00 CDT, Duration: 30 day, Stop date: 05/16/18 0:00:00 CDT BRING PT 2017- No BRING Me moria MED TO 6-13 PT MED TO PHARMACY 13:00: PHARMACY [facility] FOR FOR LABELING LABELING *, REMINDER, Drug form: MISC, Route: MISC, QSHIFT, 04/16/18 8:00:00 CDT, Duration: 30 day, Stop date: 05/16/18 0:00:00 CDT BRING PT 2017- No BRING Me moria MED TO 6-13 PT MED TO PHARMACY 13:00: PHARMACY [facility] (formerly [facility]) FOR FOR LABELING LABELING *, REMINDER, Drug form: MISC, Route: MISC, QSHIFT, 04/16/18 8:00:00 CDT, Duration: 30 day, Stop date: 05/16/18 0:00:00 CDT BRING PT No BRING Me moria MED TO 6-13 PT MED TO PHARMACY 13:00: PHARMACY [facility] (formerly [facility]) FOR FOR LABELING LABELING *, REMINDER, Drug form: MISC, Route: MISC, QSHIFT, 04/16/18 8:00:00 CDT, Duration: 30 day, Stop date: 05/16/18 0:00:00 CDT Protonix 2018-0 No Notes: Memoria 6-13 Tablet l 12:30: should not [place] 00 be chewed or crushed. (Same as: Protonix) Protonix 2017-0 No Notes: Memoria 6-13 Tablet l 12:30: should not [place] 00 be chewed or crushed. (Same as: Protonix) Protonix 2017-0 No Notes: Memoria 6-13 Tablet l 12:30: should not [place] 00 be chewed or crushed. (Same as: Protonix) Protonix 2017-0 No Notes: Memoria 6-13 Tablet l 12:30: should not [place] 00 be chewed or crushed. (Same as: Protonix) Protonix 2018-0 No Notes: Memoria 6-13 Tablet l 12:30: should not [place] 00 be chewed or crushed. (Same as: Protonix) Protonix 2017-0 No Notes: Memoria 6-13 Tablet l 12:30: should not [place] 00 be chewed or crushed. (Same as: [...] Memoria 6-13 Tablet l 12:30: should not [place] 00 be chewed or crushed. (Same as: Protonix) Protonix 2017-0 No Notes: Memoria 6-13 Tablet l 12:30: should not [place] 00 be chewed or crushed. (Same as: Protonix) Protonix 2017-0 No Notes: Memoria 6-13 Tablet l 12:30: should not [place] 00 be chewed or crushed. (Same as: Protonix) vancomycin 2017- No 2000 mg: Me moria + Sodium 6-13 infuse l Chloride 11:00: over 2.5 Yamilka nn 0.9% IV 250 00 hours For mL adult patients only: Round to nearest 250 mg per Medical Staff approval MEDICATION WASTE Product Size: 1000 mg Product Wasted: ___ mg vancomycin 2018-0 No 2000 mg: Me moria + Sodium 6-13 infuse l Chloride 11:00: over 2.5 Yamilka nn 0.9% IV 250 00 hours For mL adult patients only: Round to nearest 250 mg per Medical Staff approval MEDICATION WASTE Product Size: 1000 mg Product Wasted: ___ mg vancomycin 2017-0 No 2001 mg: Me moria + Sodium 6-13 infuse l Chloride 11:00: over 2.5 Yamilka nn 0.9% IV 250 00 hours For mL adult patients only: Round to nearest 250 mg per Medical Staff approval MEDICATION WASTE Product Size: 1000 mg Product Wasted: ___ mg vancomycin 2017- No 2001 mg: Me moria + Sodium 6-13 infuse l Chloride 11:00: over 2.5 Yamilka nn 0.9% IV 250 00 hours For mL adult patients only: Round to nearest 250 mg per Medical Staff approval MEDICATION WASTE Product Size: 1000 mg Product Wasted: ___ mg vancomycin 2017- No 2000 mg: Me moria + Sodium 6-13 infuse l Chloride 11:00: over 2.5 Yamilka nn 0.9% IV 250 00 hours For mL adult patients only: Round to nearest 250 mg per Medical Staff approval MEDICATION WASTE Product Size: 1000 mg Product Wasted: ___ mg vancomycin 2017- No 2000 mg: Me moria + Sodium 6-13 infuse l Chloride 11:00: over 2.5 Yamilka nn 0.9% IV 250 00 hours For mL adult patients only: Round to nearest 250 mg per Medical Staff approval MEDICATION WASTE Product Size: 1000 mg Product Wasted: ___ mg vancomycin 2018-0 No 2001 mg: Me moria + Sodium 6-13 infuse l Chloride 11:00: over 2.5 Yamilka nn 0.9% IV 250 00 hours For mL adult patients only: Round to nearest 250 mg per Medical Staff approval MEDICATION WASTE Product Size: 1000 mg Product Wasted: ___ mg vancomycin 2018-0 No 2001 mg: Me moria + Sodium 6-13 infuse [...] mg Product Wasted: ___ mg vancomycin No 2001 mg: Me moria + Sodium 6-13 infuse l Chloride 11:00: over 2.5 Yamilka nn 0.9% IV 250 00 hours For mL adult patients only: Round to nearest 250 mg per Medical Staff approval MEDICATION WASTE Product Size: 1000 mg Product Wasted: ___ mg vancomycin No 2001 mg: Me moria + Sodium 6-13 infuse [...] leonela 6-13 (Same as: l 02:00: Pravachol) [place] 00 Saline No Notes: Memoria Flush 0.9% 6-13 (Same as: l 02:00: BD Luke 00 Posiflush) omega-3 No Route: PO, Juarez leonela polyunsatur 6-13 Drug form: l ated fatty 02:00: CAP, Luke acids 00 Bedtime, Dosing Weight 78.1, kg, Start date: 04/15/18 21:00:00 CDT, Duration: 30 day, Stop date: 05/14/18 21:00:00 CDT Pravastatin No Notes: Juarez leonela 6-13 (Same as: l 02:00: Pravachol) [place] Saline No Notes: Memoria Flush 0.9% 6-13 (Same as: l 02:00: BD [place] Posiflush) omega-3 No Route: PO, Juarez leonela polyunsatur 6-13 Drug form: l ated fatty 02:00: CAP, Luke acids 00 Bedtime, Dosing Weight 78.1, kg, Start date: 04/15/18 21:00:00 CDT, Duration: 30 day, Stop date: 05/14/18 21:00:00 CDT Pravastatin No Notes: Juarez leonela 6-13 (Same as: l 02:00: Pravachol) [place] 00 Saline No Notes: Memoria Flush 0.9% 6-13 (Same as: l 02:00: BD [place] Posiflush) omega-3 No Route: PO, Juarez leonela polyunsatur 6-13 Drug form: l ated fatty 02:00: CAP, [place] acids 00 Bedtime, Dosing Weight 78.1, kg, Start date: 04/15/18 21:00:00 CDT, Duration: 30 day, Stop date: 05/14/18 21:00:00 CDT Pravastatin No Notes: Juarez leonela 6-13 (Same as: l 02:00: Pravachol) [place] Saline No Notes: Memoria Flush 0.9% 6-13 (Same as: l 02:00: BD [place] Posiflush) omega-3 No Route: PO, Juarez leonela polyunsatur 6-13 Drug form: l ated fatty 02:00: CAP, [place] acids 00 Bedtime, Dosing Weight 78.1, kg, Start date: 04/15/18 21:00:00 CDT, Duration: 30 day, Stop date: 05/14/18 21:00:00 CDT Pravastatin No Notes: Juarez leonela 6-13 (Same as: l 02:00: Pravachol) [place] Saline No Notes: Memoria Flush 0.9% 6-13 (Same as: l 02:00: BD [place] Posiflush) omega-3 No Route: PO, Juarez leonela polyunsatur 6-13 Drug form: l ated fatty 02:00: CAP, [place] acids 00 Bedtime, Dosing Weight 78.1, kg, Start date: 04/15/18 21:00:00 CDT, Duration: 30 day, Stop date: 05/14/18 21:00:00 CDT Pravastatin No Notes: Juarez leonela 6-13 (Same as: l 02:00: Pravachol) [place] Saline No Notes: Memoria Flush 0.9% 6-13 (Same as: l 02:00: BD [place] Posiflush) omega-3 No Route: PO, Juarez leonela polyunsatur 6-13 Drug form: l ated fatty 02:00: CAP, Luke acids 00 Bedtime, Dosing Weight 78.1, kg, Start date: 04/15/18 21:00:00 CDT, Duration: 30 day, Stop date: 05/14/18 21:00:00 CDT Pravastatin No Notes: Juarez leonela 6-13 (Same as: l 02:00: Pravachol) [place] Saline No Notes: Memoria Flush 0.9% 6-13 (Same as: l 02:00: BD [place] 00 Posiflush) omega-3 No Route: PO, Juarez leonela polyunsatur 6-13 Drug form: l ated fatty 02:00: CAP, Luke acids 00 Bedtime, Dosing Weight 78.1, kg, Start date: 04/15/18 21:00:00 CDT, Duration: 30 day, Stop date: 05/14/18 21:00:00 CDT Pravastatin No Notes: Juarez leonela 6-13 (Same as: l 02:00: Pravachol) [place] Saline No Notes: Memoria Flush 0.9% 6-13 (Same as: l 02:00: BD [place] Posiflush) omega-3 No Route: PO, Juarez leonela polyunsatur 6-13 Drug form: l ated fatty 02:00: CAP, Luke acids 00 Bedtime, Dosing Weight 78.1, kg, Start date: 04/15/18 21:00:00 CDT, Duration: 30 day, Stop date: 05/14/18 21:00:00 CDT Pravastatin No Notes: Juarez leonela 6-13 (Same as: l 02:00: Pravachol) [place] Saline No Notes: Memoria Flush 0.9% 6-13 (Same as: l 02:00: BD [place] Posiflush) omega-3 No Route: PO, Juarez leonela polyunsatur 6-13 Drug form: l ated fatty 02:00: CAP, [place] acids 00 Bedtime, Dosing Weight 78.1, kg, [...] 6-13 (Same as: l 02:00: Pravachol) [place] 00 Saline No Notes: Memoria Flush 0.9% 6-13 (Same as: l 02:00: BD [place] Posiflush) omega-3 2018-0 No Route: PO, Juarez leonela polyunsatur 6-13 Drug form: l ated fatty 02:00: CAP, [place] acids 00 Bedtime, Dosing Weight 78.1, kg, Start date: 04/15/18 21:00:00 CDT, Duration: 30 day, Stop date: 05/14/18 21:00:00 CDT Pravastatin No Notes: Juarez leonela 6-13 (Same as: l 02:00: Pravachol) Saline No Notes: Memoria Flush 0.9% 6-13 (Same as: l 02:00: BD Posiflush) Aspirin No Notes: Do Memor ia 6-13 not crush l 01:00: or chew. [place] 00 (Same As: Ecotrin) Aspirin No Notes: Do Memor ia 6-13 not crush l 01:00: or chew. [place] (Same As: Ecotrin) Aspirin No Notes: Do Memor ia 6-13 not crush l 01:00: or chew. [place] (Same As: Ecotrin) Aspirin No Notes: Do Memor ia 6-13 not crush l 01:00: or chew. [place] (Same As: Ecotrin) Aspirin No Notes: Do Memor ia 6-13 not crush l 01:00: or chew. Luke (Same As: Ecotrin) Aspirin No Notes: Do Memor ia 6-13 not crush l 01:00: or chew. [place] (Same As: Ecotrin) Aspirin No Notes: Do Memor ia 6-13 not crush l 01:00: or chew. Luke (Same As: Ecotrin) Aspirin No Notes: Do Memor ia 6-13 not crush l 01:00: or chew. Luke (Same As: Ecotrin) Aspirin No Notes: Do Memor ia 6-13 not crush l 01:00: or chew. [place] (Same As: Ecotrin) Aspirin No Notes: Do Memor ia 6-13 not crush l 01:00: or chew. Luke (Same As: Ecotrin) Aspirin No Notes: Do Memor ia 6-13 not crush l 01:00: or chew. [place] 00 (Same As: Ecotrin) Aspirin No Notes: Do Memor ia 6-13 not crush l 01:00: or chew. [place] 00 (Same As: Ecotrin) Insulin No Notes: Memoria Lispro 6-13 (Same as: l 00:22: Humalog ) [place] 00 Roll in palms of hands gently; Do not shake `vigorousl y. "Single Patient Use Only " WASTE: F/P - Black; E - Municipal Trash Bin Stable for 28 days at room temperatur e. Expires in days from ____Date Dextrose No 12.5 gm, Memor ia 50% Syringe [...] day, Stop date: 05/15/18 19:21:00 CDT Insulin No Notes: Memoria Lispro 6-13 (Same as: l 00:22: Humalog ) [place] 00 Roll in palms of hands gently; Do not shake `vigorousl y. "Single Patient Use Only " WASTE: F/P - Black; E - Municipal Trash Bin Stable for 28 days at room temperatur e. Expires in days from ____Date Dextrose No 12.5 gm, Memor ia 50% Syringe 6-13 25 mL, l 00:22: Route: [place] 00 IVP, Drug Form: INJ, Dosing Weight [...] Syringe 6-13 25 mL, l 00:22: Route: [place] 00 IVP, Drug Form: INJ, Dosing Weight 78.1, kg, PRN, PRN Blood Glucose Results, Start date: 04/15/18 19:22:00 CDT, Duration: 30 day, Stop date: 05/15/18 19:21:00 CDT Glucagon 2018-0 No 1 mg, Memoria 6-13 Route: IM, l 00:22: Drug form: [place] 00 PDR/INJ, PRN, Dosing Weight 78.1, kg, [...] 6-13 Route: IM, l 00:22: Drug form: [place] 00 PDR/INJ, PRN, Dosing Weight 78.1, kg, PRN Blood Glucose Results, Start date: 04/15/18 19:22:00 CDT, Duration: 30 day, Stop date: 05/15/18 19:21:00 CDT Insulin 2018-0 No Notes: Memoria Lispro 6-13 (Same as: l 00:22: Humalog ) [place] 00 Roll in palms of hands gently; Do not shake `vigorousl y. "Single Patient Use Only " WASTE: F/P - Black; E - [place] Trash Bin Stable for 28 days at [...] 6-13 Route: IM, l 00:22: Drug form: [place] 00 PDR/INJ, PRN, Dosing Weight 78.1, kg, PRN Blood Glucose Results, Start date: 04/15/18 19:22:00 CDT, Duration: 30 day, Stop date: 05/15/18 19:21:00 CDT Insulin 2018-0 No Notes: Memoria Lispro 6-13 (Same as: l 00:22: Humalog ) [place] 00 Roll in palms of hands gently; Do not shake `vigorousl y. "Single Patient Use Only " WASTE: F/P - Black; E - Municipal Trash Bin Stable for 28 days at room temperatur e. Expires in days from ____Date Dextrose 2018-0 No 12.5 gm, Memor ia 50% Syringe 6-13 25 mL, l 00:22: Route: [place] 00 IVP, Drug Form: INJ, Dosing Weight [...] 6-13 Route: IM, l 00:22: Drug form: [place] 00 PDR/INJ, PRN, Dosing Weight 78.1, kg, PRN Blood Glucose Results, Start date: 04/15/18 19:22:00 CDT, Duration: 30 day, Stop date: 05/15/18 19:21:00 CDT Insulin 2018-0 No Notes: Memoria Lispro 6-13 (Same as: l 00:22: Humalog ) [place] 00 Roll in palms of hands gently; Do not shake `vigorousl y. "Single Patient Use Only " WASTE: F/P - Black; E - Municipal Trash Bin Stable for 28 days at room temperatur e. Expires in days from ____Date Dextrose 2018-0 No 12.5 gm, Memor ia 50% Syringe 6-13 25 mL, l 00:22: Route: [place] 00 IVP, Drug Form: INJ, Dosing Weight 78.1, kg, PRN, PRN Blood Glucose Results, Start date: 04/15/18 19:22:00 CDT, Duration: 30 day, Stop date: 05/15/18 19:21:00 CDT Glucagon 2018-0 No 1 mg, Memoria 6-13 Route: IM, l 00:22: Drug form: [place] 00 PDR/INJ, PRN, Dosing Weight 78.1, kg, [...] Syringe 6-13 25 mL, l 00:22: Route: [place] 00 IVP, Drug Form: INJ, Dosing Weight [...] day, Stop date: 05/15/18 19:21:00 CDT Insulin 2017-0 No Notes: Memoria Lispro 6-13 (Same as: l 00:22: Humalog ) [place] 00 Roll in palms of hands gently; Do not shake `vigorousl y. "Single Patient Use Only " WASTE: F/P - Black; E - Municipal Trash Bin Stable for 28 days at room temperatur e. Expires in days from ____Date Dextrose 2017- No 12.5 gm, Memor ia 50% Syringe 6-13 25 mL, l 00:22: Route: Luke IVP, Drug Form: INJ, Dosing Weight 78.1, kg, PRN, PRN Blood Glucose Results, Start date: 04/15/18 19:22:00 CDT, Duration: 30 day, Stop date: 05/15/18 19:21:00 CDT Glucagon 2018-0 No 1 mg, Memoria 6-13 Route: IM, l 00:22: Drug form: [place] 00 PDR/INJ, PRN, Dosing Weight 78.1, kg, PRN Blood Glucose Results, Start date: 04/15/18 19:22:00 CDT, Duration: 30 day, Stop date: 05/15/18 19:21:00 CDT Saline No Notes: Memoria Flush 0.9% 6-13 (Same as: l 00:19: BD [place] Posiflush) Nystatin No Notes: Memoria 100 UNT/MG [...] 0.9% 6-13 (Same as: l 00:19: BD [place] 00 Posiflush) Nystatin No Notes: Memoria 100 UNT/MG 6-13 (Same l Topical 00:19: as:Mycosta Herm jennifer Powder 00 tin, Nilstat) For external use only. Saline No Notes: Memoria Flush 0.9% 6-13 (Same as: l 00:19: BD [place] 00 Posiflush) Nystatin No Notes: Memoria 100 [...] 0.9% 6-13 (Same as: l 00:19: BD [place] 00 Posiflush) Nystatin No Notes: Memoria 100 UNT/MG 6-13 (Same l Topical 00:19: as:Mycosta Herm jennifer Powder 00 tin, Nilstat) For external use only. Saline No Notes: Memoria Flush 0.9% 6-13 (Same as: l 00:19: BD [place] 00 Posiflush) Nystatin No Notes: Memoria 100 [...] 0.9% 6-13 (Same as: l 00:19: BD [place] 00 Posiflush) Nystatin No Notes: Memoria 100 UNT/MG 6-13 (Same l Topical 00:19: as:Mycosta Herm jennifer Powder 00 tin, Nilstat) For external use only. Saline No Notes: Memoria Flush 0.9% 6-13 (Same as: l 00:19: BD [place] 00 Posiflush) Nystatin No Notes: Memoria 100 [...] not exceed l #3 22:50: 4gm/day of [place] 00 acetaminop hen. (Same as: Tylenol with Codeine # 3) Vancomycin No 1 gm, Memori a 6-12 Route: l 22:50: IVPB, Luke 00 ONCE, Dosing Weight 78.1, kg, Start date: 04/15/18 17:50:00 CDT, Stop date: 04/15/18 17:50:00 CDT, ABX Indication : Surgical Prophylaxi s Acetaminoph No Notes: Do M emoria en 6-12 not exceed l 22:50: 4 gm/day. [place] (Same as: Tylenol) Ondansetron No Notes: Juarez leonela 6-12 (Same as: l 22:50: Zofran) [place] 00 MEDICATION WASTE Product Size: 4 mg Product Wasted: ___ mg acetaminoph No Notes: Do M emoria en-codeine 6-12 not exceed l #3 22:50: 4gm/day of Luke acetaminop hen. (Same as: Tylenol with Codeine # 3) Vancomycin 2017- No 1 gm, Memori a 6-12 Route: [...] 6-12 not exceed l 22:50: 4 gm/day. [place] 00 (Same as: Tylenol) acetaminoph No Notes: Do M emoria en-codeine 6-12 not exceed l #3 22:50: 4gm/day of [place] 00 acetaminop hen. (Same as: Tylenol with Codeine # 3) Vancomycin No 1 gm, Memori a 6-12 Route: l 22:50: IVPB, [place] 00 ONCE, Dosing Weight 78.1, kg, Start [...] not exceed l #3 22:50: 4gm/day of [place] acetaminop hen. (Same as: Tylenol with Codeine # 3) Vancomycin No 1 gm, Memori a 6-12 Route: l 22:50: IVPB, [place] 00 ONCE, Dosing Weight 78.1, kg, Start [...] 6-12 not exceed l 22:50: 4 gm/day. [place] (Same as: Tylenol) Ondansetron No Notes: Juarez leonela 6-12 (Same as: l 22:50: Zofran) MEDICATION WASTE Product Size: 4 mg Product Wasted: ___ mg acetaminoph No Notes: Do M emoria en-codeine 6-12 not exceed l #3 22:50: 4gm/day of [place] acetaminop hen. (Same as: Tylenol with Codeine [...] not exceed l #3 22:50: 4gm/day of [place] acetaminop hen. (Same as: Tylenol with Codeine # 3) Vancomycin No 1 gm, Memori a 6-12 Route: l 22:50: IVPB, Luke 00 ONCE, Dosing Weight 78.1, kg, Start date: 04/15/18 17:50:00 CDT, Stop date: 04/15/18 17:50:00 CDT, ABX Indication : Surgical Prophylaxi s Acetaminoph No Notes: Do M emoria en 6-12 not exceed l 22:50: 4 gm/day. (Same [...] Memori a 6-12 Route: l 22:50: IVPB, [place] 00 ONCE, Dosing Weight 78.1, kg, Start date: 04/15/18 17:50:00 CDT, Stop date: 04/15/18 17:50:00 CDT, ABX Indication : Surgical Prophylaxi s Acetaminoph No Notes: Do M emoria en 6-12 not exceed l 22:50: 4 gm/day. Luke (Same as: Tylenol) Ondansetron No Notes: Juarez leonela 6-12 (Same as: l 22:50: Zofran) [place] 00 MEDICATION WASTE Product Size: 4 mg Product Wasted: ___ mg acetaminoph No Notes: Do M emoria en-codeine 6-12 not exceed l #3 22:50: 4gm/day of [place] acetaminop hen. (Same as: Tylenol with Codeine [...] not exceed l #3 22:50: 4gm/day of [place] acetaminop hen. (Same as: Tylenol with Codeine # 3) Vancomycin No 1 gm, Memori a 6-12 Route: l 22:50: IVPB, [place] 00 ONCE, Dosing Weight 78.1, kg, Start date: 04/15/18 17:50:00 CDT, Stop date: 04/15/18 17:50:00 CDT, ABX Indication : Surgical Prophylaxi s Acetaminoph No Notes: Do M emoria en 6-12 not exceed l 22:50: 4 gm/day. (Same as: Tylenol) Ondansetron No Notes: Juarez leonela 6-12 (Same as: l 22:50: Zofran) MEDICATION WASTE Product Size: 4 mg Product Wasted: ___ mg EPINEPHrine No Notes: Juarez leonela -lidocaine 6-12 (lidocaine l 1:200,000-2 16:00: -epi Alexx n % 00 2%-1:88645 preservativ 0 20 ml e-free AMP (MPF)) injectable Preservati solution ve-free (Same as: Xylocaine- MFP w/Epinephr ine) EPINEPHrine No Notes: Juarez leonela -lidocaine 6-12 (lidocaine l 1:200,000-2 16:00: -epi Alexx n % 00 2%-1:44983 preservativ 0 20 ml e-free AMP (MPF)) injectable Preservati solution ve-free (Same as: Xylocaine- MFP w/Epinephr ine) EPINEPHrine No Notes: Juarez leonela -lidocaine 6-12 (lidocaine l 1:200,000-2 16:00: -epi Alexx n % 00 2%-1:80732 preservativ 0 20 ml e-free AMP (MPF)) injectable Preservati solution ve-free (Same as: Xylocaine- MFP w/Epinephr ine) EPINEPHrine No Notes: Juarez leonela -lidocaine 6-12 (lidocaine l 1:200,000-2 16:00: -epi Alexx n % 00 2%-1:74072 preservativ 0 20 ml e-free AMP (MPF)) injectable Preservati solution ve-free (Same as: Xylocaine- MFP w/Epinephr ine) EPINEPHrine No Notes: Juarez leonela -lidocaine 6-12 (lidocaine l 1:200,000-2 16:00: -epi Alexx n % 00 2%-1:25454 preservativ 0 20 ml e-free AMP (MPF)) injectable Preservati solution ve-free (Same as: Xylocaine- MFP w/Epinephr ine) EPINEPHrine 2018 No Notes: Juarez leonela -lidocaine 6-12 (lidocaine l 1:200,000-2 16:00: -epi Alexx n % 00 2%-1:72408 preservativ 0 20 ml e-free AMP (MPF)) injectable Preservati solution ve-free (Same as: Xylocaine- MFP w/Epinephr ine) EPINEPHrine 2018 No Notes: Juarez leonela -lidocaine 6-12 (lidocaine l 1:200,000-2 16:00: -epi Alexx n % 00 2%-1:95708 preservativ 0 20 ml e-free AMP (MPF)) injectable Preservat solution aleshia-free (Same as: Xylocaine- MFP w/Epinephr ine) EPINEPHrine No Notes: Juarez leonela -lidocaine 6-12 (lidocaine l 1:200,000-2 16:00: -epi Alexx n % 00 2%-1:76284 preservativ 0 20 ml e-free AMP (MPF)) injectable Preservati solution ve-free (Same as: Xylocaine- MFP w/Epinephr ine) EPINEPHrine No Notes: Juarez leonela -lidocaine 6-12 (lidocaine l 1:200,000-2 16:00: -epi Alexx n % 00 2%-1:37579 preservativ 0 20 ml e-free AMP (MPF)) injectable Preservati solution ve-free (Same as: Xylocaine- MFP w/Epinephr ine) EPINEPHrine No Notes: Juarez leonela -lidocaine 6-12 (lidocaine l 1:200,000-2 16:00: -epi Alexx n % 00 2%-1:56863 preservativ 0 20 ml e-free AMP (MPF)) injectable Preservati solution ve-free (Same as: Xylocaine- MFP w/Epinephr ine) EPINEPHrine 2018- No Notes: Juarez leonela -lidocaine 6-12 (lidocaine l 1:200,000-2 16:00: -epi Alexx n % 00 2%-1:00367 preservativ 0 20 ml e-free AMP (MPF)) injectable Preservati solution ve-free (Same as: Xylocaine- MFP w/Epinephr ine) EPINEPHrine 2018 No Notes: Juarez leonela -lidocaine 6-12 (lidocaine l 1:200,000-2 16:00: -epi Alexx n % 00 2%-1:83508 preservativ 0 20 ml e-free AMP (MPF)) injectable Preservati solution ve-free (Same as: Xylocaine- MFP w/Epinephr ine) Acetaminoph No Notes: Do M emoria en 6-12 not exceed l 06:15: 4 gm/day. (Same as: Tylenol) Acetaminoph No Notes: Do M emoria en 6-12 not exceed l 06:15: 4 gm/day. (Same as: Tylenol) Acetaminoph No Notes: Do M emoria en 6-12 not exceed l 06:15: 4 gm/day. (Same as: Tylenol) Acetaminoph No Notes: Do M emoria en 6-12 not exceed l 06:15: 4 gm/day. (Same as: Tylenol) Acetaminoph No Notes: Do M emoria en 6-12 not exceed l 06:15: 4 gm/day. (Same as: Tylenol) Acetaminoph No Notes: Do M emoria en 6-12 not exceed l 06:15: 4 gm/day. (Same as: Tylenol) Acetaminoph No Notes: Do M emoria en 6-12 not exceed l 06:15: 4 gm/day. (Same as: Tylenol) Acetaminoph No Notes: Do M emoria en 6-12 not exceed l 06:15: 4 gm/day. (Same as: Tylenol) Acetaminoph No Notes: Do M emoria en 6-12 not exceed l 06:15: 4 gm/day. (Same as: Tylenol) Acetaminoph No Notes: Do M emoria en 6-12 not exceed l 06:15: 4 gm/day. (Same as: Tylenol) Acetaminoph No Notes: Do M emoria en 6-12 not exceed l 06:15: 4 gm/day. (Same as: Tylenol) Acetaminoph No Notes: Do M emoria en 12 not exceed l 06:15: 4 gm/day. (Same as: Tylenol) calcium-vit Yes 1 tab, PO, Memoria bender D 600 6-12 TID, 0 l mg-125 05:25: Refill(s) Alexx n units oral 00 tablet Omeprazole Yes 20 mg, PO, M emoria 6-12 Daily, 0 l 05:25: Refill(s) Valliant-3 Yes See Memoria oral 12 Instructio l capsule 05:25: ns, 2 capsules Bedtime, 0 Refill(s) Metformin 0 Yes [...] Memoria 12 Instructio l 05:25: ns, 1000 units Bedtime, 0 Refill(s) Lisinopril 0 Yes 40 mg, PO, M emoria 6-12 Daily, 0 l 05:25: Refill(s) Pravastatin 0 Yes 40 mg, PO, Memoria 6-12 Bedtime, # l 05:25: 30 tab, 0 Refill(s) calcium-vit Yes 1 tab, PO, Memoria bender D 600 6-12 TID, 0 l mg-125 05:25: Refill(s) Alexx n units oral 00 tablet Omeprazole Yes 20 mg, PO, M emoria 6-12 Daily, 0 l 05:25: Refill(s) [place] 00 Valliant-3 Yes See Memoria oral 12 Instructio l [...] Memoria 12 Instructio l 05:25: ns, 1000 [place] 00 units Bedtime, 0 Refill(s) Lisinopril 0 Yes 40 mg, PO, M emoria 6-12 Daily, 0 l 05:25: Refill(s) Pravastatin 20180 Yes 40 mg, PO, Memoria 6-12 Bedtime, # l 05:25: 30 tab, 0 [place] 00 Refill(s) calcium-vit 0 Yes 1 tab, PO, Memoria bender D 600 6-12 TID, 0 l mg-125 05:25: Refill(s) Alexx n units oral 00 tablet Omeprazole 0 Yes 20 mg, PO, M emoria 6-12 Daily, 0 l 05:25: Refill(s) Valliant-3 Yes See Memoria oral 12 Instructio l capsule 05:25: ns, 2 [place] 00 capsules Bedtime, 0 Refill(s) Metformin 0 Yes 500 mg, Memor ia 6-12 PO, Daily, l 05:25: 0 [place] 00 Refill(s) Centrum 0 Yes 1 tab, PO, [facility] 6-12 Daily, 0 l 05:25: Refill(s) Aspirin Yes See Memoria 12 Instructio l 05:25: ns, 81 mg, [place] 00 0 Refill(s) levocetiriz Yes 5 mg =, Mem oria ine 6-12 PO, Daily, l 05:25: 0 Refill(s) Toviaz Yes 4 mg, PO, Memori a 6-12 Daily, 0 l 05:25: Refill(s) carvedilol Yes 3.125 mg, Me moria 6-12 PO, BID, 0 l 05:25: Refill(s) Garlic Yes See Memoria 12 Instructio l 05:25: ns, 1000 Lkue 00 units Bedtime, 0 Refill(s) Lisinopril Yes [...] emoria 6-12 Daily, 0 l 05:25: Refill(s) Valliant-3 Yes See [facility]oria oral 6-12 Instructio l capsule 05:25: ns, 2 Luke 00 capsules Bedtime, 0 Refill(s) Metformin Yes 500 mg, Memor ia 6-12 PO, Daily, l 05:25: 0 [place] 00 Refill(s) Centrum Yes 1 tab, PO, [facility] 6-12 Daily, 0 l 05:25: Refill(s) Luke 00 Aspirin 0 Yes See [facility] 12 Instructio l 05:25: ns, 81 mg, Luke 0 Refill(s) calcium-vit Yes 1 tab, PO, [facility]oria bender D 600 6-12 TID, 0 l mg-125 05:25: Refill(s) Alexx n units oral 00 tablet Omeprazole Yes 20 mg, PO, M emoria 6-12 Daily, 0 l 05:25: Refill(s) Luke 00 Valliant-3 Yes See [facility] oral 04-15 Instructio l capsule 05:25: ns, 2 [place] 00 capsules Bedtime, 0 Refill(s) Metformin Yes 500 mg, Memor ia 6-12 PO, Daily, l 05:25: 0 Refill(s) levocetiriz Yes 5 mg =, Mem oria ine 6-12 PO, Daily, l 05:25: 0 Refill(s) Centrum Yes 1 tab, PO, [facility] 6-12 Daily, 0 l 05:25: Refill(s) Aspirin Yes See [facility] 12 Instructio l 05:25: ns, 81 mg, [place] 00 0 Refill(s) levocetiriz Yes 5 mg =, Mem oria ine 6-12 PO, Daily, l 05:25: 0 Refill(s) Toviaz Yes 4 mg, PO, Memori a 6-12 Daily, 0 l 05:25: Refill(s) carvedilol Yes 3.125 mg, Me moria 6-12 PO, BID, 0 l 05:25: Refill(s) Garlic Yes See [facility]oria 12 Instructio l 05:25: ns, 1000 [place] 00 units Bedtime, 0 Refill(s) Lisinopril 0 Yes 40 mg, PO, M emoria 6-12 Daily, 0 l 05:25: Refill(s) Pravastatin 2018-0 Yes 40 mg, PO, Memoria 6-12 Bedtime, # l 05:25: 30 tab, 0 Luke 00 Refill(s) Toviaz 2018-0 Yes 4 mg, PO, Memori a 6-12 Daily, 0 l 05:25: Refill(s) carvedilol 0 Yes 3.125 mg, Me moria 6-12 PO, BID, 0 l 05:25: Refill(s) Garlic 0 Yes See Memoria 04-15 Instructio l 05:25: ns, 1000 [place] 00 units Bedtime, 0 Refill(s) Lisinopril 0 [...] emoria 6-12 Daily, 0 l 05:25: Refill(s) Valliant-3 0 Yes See Memoria oral 04-15 Instructio l capsule 05:25: ns, 2 [place] 00 capsules Bedtime, 0 Refill(s) Metformin 0 Yes 500 mg, Memor ia 6-12 PO, Daily, l 05:25: 0 Refill(s) Centrum 0 Yes 1 tab, PO, Juarez leonela Women's 6-12 Daily, 0 l 05:25: Refill(s) Aspirin 0 Yes See Memoria 12 Instructio l 05:25: ns, 81 mg, Luke 0 Refill(s) levocetiriz 0 Yes 5 mg =, Mem oria ine 6-12 PO, Daily, l 05:25: 0 Refill(s) Toviaz 2018-0 Yes 4 mg, PO, Memori a 6-12 Daily, 0 l 05:25: Refill(s) carvedilol Yes 3.125 mg, Me moria 6-12 PO, BID, 0 l 05:25: Refill(s) Garlic Yes See Memoria 12 Instructio l 05:25: ns, 1000 [place] 00 units Bedtime, 0 Refill(s) Lisinopril 0 Yes 40 mg, PO, M emoria 6-12 Daily, 0 l 05:25: Refill(s) Pravastatin 20180 Yes 40 mg, PO, Memoria 6-12 Bedtime, # l 05:25: 30 tab, 0 Luke 00 Refill(s) calcium-vit 20180 Yes 1 tab, PO, Memoria bender D 600 6-12 TID, 0 l mg-125 05:25: Refill(s) Alexx n units oral 00 tablet Omeprazole Yes 20 mg, PO, M emoria 6-12 Daily, 0 l 05:25: Refill(s) Valliant-3 Yes See Memoria oral 04-15 Instructio l capsule 05:25: ns, 2 [place] 00 capsules Bedtime, 0 Refill(s) Metformin Yes 500 mg, Memor ia 6-12 PO, Daily, l 05:25: 0 Refill(s) Centrum 0 Yes 1 tab, PO, [place] leonela Women[facility] 6-12 Daily, 0 l 05:25: Refill(s) Aspirin 0 Yes See Memoria 12 Instructio l 05:25: ns, 81 mg, [place] 00 0 Refill(s) levocetiriz Yes 5 mg =, Mem oria ine 6-12 PO, Daily, l 05:25: 0 Refill(s) Toviaz 0 Yes 4 mg, PO, Memori a 6-12 Daily, 0 l 05:25: Refill(s) carvedilol Yes 3.125 mg, Me moria 6-12 PO, BID, 0 l 05:25: Refill(s) Garlic 0 Yes See Memoria 12 Instructio l 05:25: ns, 1000 [place] 00 units Bedtime, 0 Refill(s) Lisinopril Yes 40 mg, PO, M emoria 6-12 Daily, 0 l 05:25: Refill(s) Pravastatin 0 Yes 40 mg, PO, Memoria 6-12 Bedtime, # l 05:25: 30 tab, 0 Luke 00 Refill(s) calcium-vit 20180 Yes 1 tab, PO, Memoria bender D 600 6-12 TID, 0 l mg-125 05:25: Refill(s) Alexx n units oral 00 tablet Omeprazole Yes 20 mg, PO, M emoria 6-12 Daily, 0 l 05:25: Refill(s) Valliant-3 0 Yes See Memoria oral 12 Instructio l capsule 05:25: ns, 2 [place] 00 capsules Bedtime, 0 Refill(s) Metformin Yes [...] Memoria 12 Instructio l 05:25: ns, 1000 [place] 00 units Bedtime, 0 Refill(s) Lisinopril 0 Yes 40 mg, PO, M emoria 6-12 Daily, 0 l 05:25: Refill(s) Pravastatin 0 Yes 40 mg, PO, Memoria 6-12 Bedtime, # l 05:25: 30 tab, 0 [place] 00 Refill(s) calcium-vit 20180 Yes 1 tab, PO, Memoria bender D 600 6-12 TID, 0 l mg-125 05:25: Refill(s) Alexx n units oral 00 tablet Omeprazole 0 Yes 20 mg, PO, M emoria 6-12 Daily, 0 l 05:25: Refill(s) Valliant-3 20180 Yes See Memoria oral 12 Instructio l capsule 05:25: ns, 2 Luke 00 capsules Bedtime, 0 Refill(s) Metformin 0 Yes 500 mg, Memor ia 6-12 PO, Daily, l 05:25: 0 Refill(s) Centrum 0 Yes 1 tab, PO, [place] leonela Women[facility] -12 Daily, 0 l 05:25: Refill(s) Aspirin 0 Yes See Memoria 04-15 Instructio l 05:25: ns, 81 mg, 0 [...] Bedtime, # l 05:25: 30 tab, 0 [place] 00 Refill(s) calcium-vit 0 Yes 1 tab, PO, Memoria bender D 600 6-12 TID, 0 l mg-125 05:25: Refill(s) Alexx n units oral 00 tablet Omeprazole 0 Yes 20 mg, PO, M emoria 6-12 Daily, 0 l 05:25: Refill(s) Valliant-3 Yes See Memoria oral 6-12 Instructio l capsule 05:25: ns, 2 [place] 00 capsules Bedtime, 0 Refill(s) Metformin Yes [...] Refill(s) carvedilol Yes 3.125 mg, Me moria 612 PO, BID, 0 l 05:25: Refill(s) Garlic Yes See Memoria 12 Instructio l 05:25: ns, 1000 [place] 00 units Bedtime, 0 Refill(s) Lisinopril Yes 40 mg, PO, M emoria 6-12 Daily, 0 l 05:25: Refill(s) Pravastatin 2018 Yes 40 mg, PO, Memoria 6-12 Bedtime, # l 05:25: 30 tab, 0 00 Refill(s) calcium-vit 0 Yes 1 tab, PO, Memoria bender D 600 6-12 TID, 0 l mg-125 05:25: Refill(s) Alexx n units oral 00 tablet Omeprazole 0 Yes 20 mg, PO, M emoria 6-12 Daily, 0 l 05:25: Refill(s) Valliant-3 Yes See Memoria oral 6-12 Instructio l capsule 05:25: ns, 2 [place] 00 capsules Bedtime, 0 Refill(s) Metformin 0 Yes 500 mg, Memor ia 6-12 PO, Daily, l 05:25: 0 Refill(s) Centrum Yes 1 tab, PO, [place] leonela Women[facility] 6-12 Daily, 0 l 05:25: Refill(s) Aspirin Yes See Memoria 6-12 Instructio l 05:25: ns, 81 mg, [place] 00 0 Refill(s) levocetiriz Yes 5 mg =, Mem oria ine 6-12 PO, Daily, l 05:25: 0 Refill(s) Toviaz Yes 4 mg, PO, Memori a 6-12 Daily, 0 l 05:25: Refill(s) carvedilol Yes 3.125 mg, Me moria 6-12 PO, BID, 0 l 05:25: Refill(s) Garlic Yes See Memoria 12 Instructio l 05:25: ns, 1000 Luke units Bedtime, 0 Refill(s) Lisinopril Yes 40 mg, PO, M emoria 6-12 Daily, 0 l 05:25: Refill(s) Pravastatin Yes 40 mg, PO, Memoria 6-12 Bedtime, # l 05:25: 30 tab, 0 Refill(s) calcium-vit Yes 1 tab, PO, Memoria bender D 600 6-12 TID, 0 l mg-125 05:25: Refill(s) Alexx n units oral 00 tablet Omeprazole Yes 20 mg, PO, M emoria 6-12 Daily, 0 l 05:25: Refill(s) Valliant-3 2018 Yes See Memoria oral 6-12 Instructio l capsule 05:25: ns, 2 Luke 00 capsules Bedtime, 0 Refill(s) Metformin 0 Yes 500 mg, Memor ia 6-12 PO, Daily, l 05:25: 0 Refill(s) Centrum 0 Yes 1 tab, PO, [place] leonela Women[facility] 6-12 Daily, 0 l 05:25: Refill(s) Aspirin 2018-0 Yes See Memoria 6-12 Instructio l 05:25: ns, 81 mg, 00 0 Refill(s) levocetiriz 2018-0 Yes 5 mg =, Mem oria ine 6-12 PO, Daily, l 05:25: 0 Refill(s) Toviaz 2018-0 Yes 4 mg, PO, Memori a 6-12 Daily, 0 l 05:25: Refill(s) carvedilol 2018-0 Yes 3.125 mg, Me moria 612 PO, BID, 0 l 05:25: Refill(s) Garlic 2017-[address] [facility] 05:25: ns, 1000 Luke 00 units Bedtime, 0 Refill(s) Lisinopril Yes 40 mg, PO, M emoria 6 Daily, 0 l 05:25: Refill(s) Pravastatin Yes 40 mg, PO, Memoria 6 Bedtime, # l 05:25: 30 tab, 0 Refill(s) metformin metformin No 1 BID metformin [facility] 500 mg 500 mg 500 mg Family tablet Take tablet Take tablet Practic 1 tablet 1 tablet Take 1 e twice a day twice a day tablet by oral by oral twice a route. route. day by oral route. omeprazole omeprazole No 2capsul Q1D omeprazole [facility] 10 mg 10 mg e(s) [...] route. pravastatin pravastatin No 1 Q1D pravastati [facility] 40 mg 40 mg n 40 mg Family tablet Take tablet Take tablet Practic 1 tablet 1 tablet Take 1 e every day every day tablet by oral by oral every day route. route. by oral route. carvedilol carvedilol No 1 BID carvedilol [facility] 3.125 mg 3.125 mg 3.125 mg Fam tamela tablet Take tablet Take tablet Practic 1 tablet 1 tablet Take 1 e twice a day twice a day tablet by oral by oral twice a route. route. day by oral route. levocetiriz levocetiriz No 1 Q1D levocetiri [place] ine 5 mg ine 5 mg zine 5 mg Fa hector tablet Take tablet Take tablet Practic 1 tablet 1 tablet Take 1 e every day every day tablet by oral by oral every day route. route. by oral route. lisinopril lisinopril No 1 Q1D lisinopril [place] 40 mg 40 mg 40 mg Family tablet Take tablet Take tablet Practic 1 tablet 1 tablet Take 1 e every day every day tablet by oral by oral every day route. route. by oral route. Vital Signs Vital Name Observation Time Observation Value Comments Source Systolic blood 2023-03-01 16:52:00 162 mm[Hg] Univer [facility] Diastolic blood 2023-03-01 16:52:00 81 mm[Hg] Unive [facility] Heart rate 2023-03-01 16:52:00 75 /min [facility] Body weight 2023-03-01 16:52:00 65.59 kg [facility] BMI 2023-03-01 16:52:00 24.06 kg/m2 [facility] Oxygen saturation in 2023-03-01 16:52:00 95 /min [facility] of Arterial blood by [facility] Pulse oximetry Branch Heart rate 2022-11-05 17:31:00 69 /min [facility] Body temperature 2022-11-05 17:31:00 36.17 Sofia [facility] Respiratory rate 2022-11-05 17:31:00 16 /min [facility] Body height 2022-11-05 17:31:00 165.1 cm [facility] Body weight 2022-11-05 17:31:00 70.489 kg [facility] BMI 2022-11-05 17:31:00 25.86 kg/m2 [facility] Oxygen saturation in 2022-11-05 17:31:00 97 /min University of Arterial blood by [facility] Pulse oximetry Branch Systolic blood 2022-10-31 19:55:00 168 mm[Hg] Univer sity of pressure [facility] Diastolic blood 2022-10-31 19:55:00 69 mm[Hg] Unive rsity of pressure [facility] Heart rate 2022-10-31 19:55:00 66 /min [facility] Oxygen saturation in 2022-10-31 19:55:00 96 /min University of Arterial blood by [facility] Pulse oximetry Branch Body temperature 2022-10-31 19:51:00 36.78 Sofia Univ ersity of [facility] Body height 2022-10-31 19:51:00 165.1 cm [facility] Body weight 2022-10-31 19:51:00 70.081 kg [facility] BMI 2022-10-31 19:51:00 25.71 kg/m2 [facility] Body temperature 2022-09-24 17:16:00 36.44 Sofia [facility] Respiratory rate 2022-09-24 17:16:00 18 /min Univ [facility] Body height 2022-09-24 17:16:00 165.1 cm [facility] Body weight 2022-09-24 17:16:00 71.124 kg [facility] BMI 2022-09-24 17:16:00 26.09 kg/m2 [facility] Oxygen saturation in 2022-09-24 17:16:00 98 /min [facility] of Arterial blood by [facility] Pulse oximetry Branch Systolic blood 2022-09-24 17:16:00 173 mm[Hg] Univer sity of pressure [facility] Diastolic blood 2022-09-24 17:16:00 86 mm[Hg] Unive rsity of pressure [facility] Heart rate 2022-09-24 17:16:00 68 /min [facility] Height 2020-12-15 00:00:00 65 [in_i] [facility] Family Practice Height 2020-08-23 00:00:00 65 [in_i] [facility] Practice Systolic blood 2020-08-03 19:22:00 180 mm[Hg] Univer sity of pressure [facility] Diastolic blood 2020-08-03 19:22:00 82 mm[Hg] Unive rsity of pressure [facility] Heart rate 2020-08-03 18:44:00 68 /min [facility] Body temperature 2020-08-03 18:44:00 36.28 Sofia [facility] 2020-08-03 18:44:00 16 /min [facility] Body weight 2020-08-03 18:44:00 77.111 kg Universi [facility] Oxygen saturation in 2020-08-03 18:44:00 97 /min [facility] Arterial blood by [facility] Pulse oximetry Branch Height 2020-05-02 00:00:00 65 [in_i] [facility] BMI (Body Mass 2020-05-02 00:00:00 28.8 kg/m2 [facility]) Practice Body Weight 2020-05-02 00:00:00 173 [lb_av] [facility] Systolic (mm Hg) 2018-04-16 16:00:00 Juarez rial [place] Diastolic (mm Hg) 2018-04-16 16:00:00 Mem orial [place] Respitory Rate 2018-04-16 16:00:00 Memori al [place] Systolic (mm Hg) 2018-04-16 15:00:00 Juarez rial [place] Diastolic (mm Hg) 2018-04-16 15:00:00 Mem orial [place] Respitory Rate 2018-04-16 15:00:00 Memori al [place] Systolic (mm Hg) 2018-04-16 14:00:00 Juarez rial [place] Diastolic (mm Hg) 2018-04-16 14:00:00 Mem orial [place] Respitory Rate 2018-04-16 14:00:00 Memori al [place] Temperature Oral (F) 2018-04-16 13:00:00 98.9 F [facility] [place] Temperature Oral (F) 2018-04-16 09:00:00 97.9 F [facility] [place] Temperature Oral (F) 2018-04-16 05:00:00 97.8 F [facility] [place] Height 2018-04-15 05:46:00 162.56 cm Oswaldo Butler BMI Calculated 2018-04-15 05:46:00 Memori al [place] Weight 2018-04-15 05:46:00 Oswaldo Butler Procedures Procedure Date / Time Performing Clinician Source Performed DISCLOSURE AND CONSENT, 2023-01-29 05:01:00 Doctor Unassigned, N o [facility] MEDICAL AND SURGICAL Name [facility] PROCEDURES SCANNED LAB RESULTS 2023-01-17 05:01:00 Doctor Unassigned, No Un [facility] [place] PHYSICIAN ORDERS 2022-12-31 06:01:00 Doctor Unassigned, No [facility] WO 2022-11-21 17:56:50 Valeri Wu [facility] CONTRAST [facility] [place] EXTERNAL PROVIDER 2022-11-15 06:01:00 Doctor Unassigned, No Univ ersity [facility] RECORDS Name Medical Branch MEDICAL 2022-11-09 06:01:00 Doctor Unassigned, No [facility]CLE[facility] FORMS [facility] URINE CULTURE 2022-11-05 22:37:00 Valeri Wu [facility] POCT URINALYSIS AUTO 2022-11-05 17:44:00 Valeri Wu [facility] NOTICE OF BILLING 2022-11-01 17:10:39 Doctor Unassigned, No Univ ersity [facility] PRACTICES FOR MEDICARE Name Medical B ranch PATIENTS CONSENT/REFUSAL FOR 2022-11-01 17:10:00 Doctor Unassigned, No [facility] DIAGNOSIS AND TREATMENT [facility] ASSIGNMENT OF BENEFITS 2022-11-01 17:09:26 Doctor Unassigned, No [facility] HB ECG ROUTINE & RHYTHM 2022-10-31 19:58:00 [facility] 2022-10-15 14:56:41 Doctor Unassigned, No [facility] POCT URINALYSIS AUTO 2022-09-24 19:40:00 Valeri Wu Uni [facility] REFERRAL- 2022-09-17 06:01:00 Doctor Unassigned, No Univer sity [facility] REQUEST/RESPONSE [facility] [place] URINE CULTURE 2020-08-03 19:02:00 Emelia Llanes [facility] POCT URINALYSIS 2020-08-03 18:52:00 Emelia Llanes [facility] Stent [facility] Hysterectomy (Total) [facility] Hysterectomy [facility] Tubal ligation [facility] Plan of Care Planned Activity Planned Date Details Comments Source Future Scheduled 2023-04-21 COVID-19 VACCINE (#1) [facility] Hospital Test 16:03:19 [code = COVID-19 VACCINE (#1)] Future Scheduled 2023-04-21 SHINGLES VACCINES ([facility] Test 16:03:19 of 2) [code = SHINGLES VACCINES (1 of 2)] Future Scheduled 2023-04-21 65+ PNEUMOCOCCAL Methodi Hospital Test 16:03:19 VACCINE (1 - PCV) [code = 65+ PNEUMOCOCCAL VACCINE (1 - PCV)] Future Scheduled 2023-04-21 INFLUENZA VACCINE Method ist Hospital Test 16:03:19 [code = INFLUENZA VACCINE] Future Scheduled 2023-02-04 COVID-19 VACCINE (#1) [facility] Hospital Test 01:35:31 [code = COVID-19 VACCINE (#1)] Future Scheduled 2023-02-04 SHINGLES VACCINES (1 [facility] Test 01:35:31 of 2) [code = SHINGLES VACCINES (1 of 2)] Future Scheduled 2023-02-04 65+ PNEUMOCOCCAL Methodi Hospital Test 01:35:31 VACCINE (1 - PCV) [code = 65+ PNEUMOCOCCAL VACCINE (1 - PCV)] Future Scheduled 2023-02-04 INFLUENZA VACCINE Method ist Hospital Test 01:35:31 [code = INFLUENZA VACCINE] Future Scheduled 2022-11-29 SHINGLES VACCINES (1 [facility] Test 09:24:35 of 2) [code = SHINGLES VACCINES (1 of 2)] Future Scheduled 2022-11-29 65+ PNEUMOCOCCAL Methodi Hospital Test 09:24:35 VACCINE (1 - PCV) [code = 65+ PNEUMOCOCCAL VACCINE (1 - PCV)] Future Scheduled 2022-11-29 INFLUENZA VACCINE Method ist Hospital Test 09:24:35 [code = INFLUENZA VACCINE] Future Scheduled 2022-11-29 COVID-19 VACCINE (#1) [facility] Hospital Test 09:24:35 [code = COVID-19 VACCINE (#1)] Future Scheduled 2022-11-29 SHINGLES VACCINES (1 [facility] Test 09:24:35 of 2) [code = SHINGLES VACCINES (1 of 2)] Future Scheduled 2022-11-29 65+ [facility]CCAL [facility] 09:24:35 VACCINE (1 - PCV) [code = 65+ PNEUMOCOCCAL VACCINE (1 - PCV)] Future Scheduled 2022-11-29 INFLUENZA VACCINE [facility] Hospital Test 09:24:35 [code = INFLUENZA VACCINE] Future Scheduled 2022-11-29 COVID-19 VACCINE (#1) [facility] Hospital Test 09:24:35 [code = COVID-19 VACCINE (#1)] Future Scheduled 2022-07-03 HEPATITIS B VACCINES Met [facility] Test 00:05:14 (1 of 3 - 3-dose series) [code = HEPATITIS B VACCINES (1 of 3 - 3-dose series)] Future Scheduled 2022-07-03 COVID-19 VACCINE (#1) [facility] Test 00:05:14 [code = COVID-19 VACCINE (#1)] Future Scheduled 2022-07-03 SHINGLES VACCINES (1 Met [facility] Test 00:05:14 of 2) [code = SHINGLES VACCINES (1 of 2)] Future Scheduled 2022-07-03 65+ [facility]CCAL [facility] 00:05:14 VACCINE (1 - PCV) [code = 65+ PNEUMOCOCCAL VACCINE (1 - PCV)] Future Scheduled 2022-07-03 INFLUENZA VACCINE Method [facility] Test 00:05:14 [code = INFLUENZA VACCINE] Encounters Start End Encounter Admission Attending Care Care Encounter Source Date/Time Date/Time Type Type Clinicians Facility Department ID 2023-06-06 2023-06-06 Outpatient Angelito DECKER [facility] [id number] Univers 11:40:00 11:40:00 ALYCIA johnson o janny [facility] 2023-05-01 2023-05-01 Outpatient Angelito DECKER [facility] [id number] Univers 13:20:00 13:20:00 ALYCIA johnson o f [facility] 2023-04-02 2023-04-02 [facility] [id number] Univers 00:00:00 00:00:00 [facility] [id number] it [place] [id number] Santhosh as YASMIN?BLEA [id number] Id lashonda ROMERO 220 [facility] OFFICE [facility] 2023-03-01 2023-03-01 Color Matcher Lab, Ang - Db [facility] [id number] Univers 12:30:00 12:45:00 Visit Sanjay Meza [facility] [id number] ity [facility] [id number] Santhosh as YASMIN?BLEA [id number] Id lashonda ROMERO 353 [facility] OFFICE [facility] 2023-03-01 2023-03-01 [facility] [id number] Univers 12:00:00 12:33:[address] [facility] 2023-03-01 2023-03-01 Office [facility] [id number] Univers 12:00:00 12:33:19 Visit [facility] [id number] it y of [place] [id number] Santhosh as YASMIN?BLEA [id number] Id lashonda ROMERO 220 [facility] OFFICE [facility] 2023-03-01 2023-03-01 Telephone [facility] [id number] Univers 00:00:00 00:00:00 Alycia SMILEYZORAIDA [id number] ity of [facility] [id number] [phone] Id dicfortino NAL 059 [facility] 2023-01-31 2023-01-31 Telephone [facility] [id number] Univers 00:00:00 00:00:00 Valeri BRYANT [id number] ity of [facility] [id number] [id number] Id dical NAL 204 [facility] 2023-01-30 2023-01-30 [facility] [id number] Univers 11:00:00 11:00:00 NGUYỄN karissa [facility] 2023-01-29 2023-01-29 [facility] [id number] Univers 09:30:00 10:32:32 NGUYỄN ity of [facility] 2023-01-29 2023-01-29 Orders Doctor WILFRIDO [id number] Univers 00:00:00 00:00:00 Only Unassigned, SERENITY [id number] ity of [place] [facility] [id number] Santhosh as [id number] [address] 2023-01-23 2023-01-23 Telephone [facility] [id number] Univers 00:00:00 00:00:00 Nguyễn [place] [id number] i ty of [facility] [id number] [id number] [address] 2023-01-17 2023-01-17 Outpatient R [facility] [id number] Univers 10:00:00 10:00:00 ity of [facility] 2023-01-17 2023-01-17 Orders Doctor ANNA [id number] Univers 00:00:00 00:00:00 Only Unassigned, SERENITY [id number] ity of [place] [facility] [id number] Santhosh as [id number] [address] 2022-12-31 2022-12-31 Telephone [facility] [id number] Univers 00:00:00 00:00:00 Nguyễn [place] [id number] i ty of [facility] [id number] [id number] Id dic[address] 2022-12-31 2022-12-31 Orders Doctor WILFRIDO [id number] Univers 00:00:00 00:00:00 Only Unassigned, SERENITY [id number] ity of [place] [facility] [id number] Santhosh as [id number] [address] 2022-12-17 2022-12-17 Outpatient [facility] [id number] Univers 13:00:00 13:00:00 KURT johnson [facility] 2022-12-13 2022-12-13 Telephone [facility] [id number] Univers 00:00:00 00:00:00 Valeriveronica [place] [id number] ity of [id number] [id number] Id dical NAL 204 [facility] 2022-11-26 2022-11-26 Outpatient [facility] [id number] Univers 13:00:00 14:30:30 KURT alex [facility] 2022-11-26 2022-11-26 Ancillary MuroCynthia whitten Kriss [facility] 1.2.840. [id number] Univers 13:00:00 14:30:30 Visit Kurt Weinberg [id number] [place] of [id number] [id number] Id dical [facility] 179 [facility] 2022-11-26 2022-11-26 [facility] [id number] Univers 00:00:00 00:00:00 VALERI yesseniaakrissa john [facility] 2022-11-21 2022-11-21 Outpatient R [facility] [id number] Univers 11:21:48 23:59:00 VALERI casaskarissa o f [facility] 2022-11-21 2022-11-21 [facility] [id number] Univers 11:15:00 23:59:00 Encounter Valeri BRYANT [id number] [id number] [id number] [address] 2022-11-20 2022-11-20 Telephone [facility] [id number] Univers 00:00:00 00:00:00 Valeri SHERICETON [id number] ity of [facility] [id number] [id number] Id dical NAL 204 [facility] 2022-11-15 2022-11-15 Telephone [facility] [id number] Univers 00:00:00 00:00:00 Valeriveronica BRYANT [id number] ity of [facility] [id number] [id number] Id dical [facility] 204 [facility] 2022-11-15 2022-11-15 Orders Doctor WILFRIDO 1.2.840.114 [id number] Univers 00:00:00 00:00:00 Only Unassigned, SERENITY [id number] ity of [place] [facility] [id number] Santhosh as [id number] [address] 2022-11-13 2022-11-13 Telephone Wu, [facility] 1.2.840.114 [id number] Univers 00:00:00 00:00:00 Valeri BRYANT [id number] [id number] [id number] Id dical NAL [address] [facility] 2022-11-12 2022-11-12 Color Matcher 2, Adc Lab [facility] [id number] [id number] Univers 11:15:00 11:18:26 Visit Nguyễn Merino 350.1.13.10 ity of [facility] [id number] [phone] Id dical [facility] [address] [facility] 2022-11-12 2022-11-12 Outpatient R DANNY [facility] [id number] Univers 11:15:00 11:15:00 NGUYỄN ity of [facility] 2022-11-12 2022-11-12 Telephone [facility] [id number] Univers 00:00:00 00:00:00 Alycia BRYANT [id number] ity of [facility] [id number] [id number] [facility] [address] [facility] 2022-11-09 2022-11-09 Telephone [facility] 1.2.840.114 [id number] Univers 00:00:00 00:00:00 Valeri BRYANT 350.1.13.10 ity of [place] [facility] [place] [id number] [facility] 204 [facility] 2022-11-09 2022-11-09 Orders Doctor WILFRIDO 1.2.840.114 [id number] Univers 00:00:00 00:00:00 Only Unassigned, SERENITY 350.1.13.10 ity of [place] [facility] 4.2.7.2.686 Santhosh as [id number] [address] 2022-11-08 2022-11-08 Case [facility] 1.2.840.114 [id number] Univers 00:00:00 00:00:00 Management Valeri BRYANT 350.1.13.10 [facility] [place] [id number] [facility] 204 [facility] 2022-11-07 2022-11-07 Color Matcher 2, Adc Lab [facility] 1.2.840.114 [id number] Univers 11:00:00 11:15:00 Visit Valeri Wu 350.1.13. 10 [facility] [place] [id number] [facility] 353 [facility] 2022-11-07 2022-11-07 Outpatient R BRYCE [facility] [id number] Univers 11:00:00 11:00:00 VALERI johnson o [facility] 2022-11-05 2022-11-05 Outpatient R BRYCE [facility] [id number] Univers 11:30:00 12:43:19 VALERI johnson o f [facility] 2022-11-05 2022-11-05 Office [facility] 1.2.840.114 [id number] Univers 11:30:00 12:43:19 Visit Valeri BRYANT 350.1.13.10 ity [facility] [place] [id number] Id dical NAL 204 [facility] 2022-11-01 2022-11-01 [facility] 1.2.840.114 [id number] Univers 11:13:47 23:59:00 Encounter Valeri BRYANT 350.1.13.10 ity of [facility] [place].2.[place] [id number] [address] 2022-11-01 2022-11-01 [facility] [id number] Univers 11:13:46 23:59:00 VALERI johnson o f [facility] 2022-10-31 2022-10-31 [facility] [id number] Univers 13:40:00 16:46:37 ALYCIA johnson o f [facility] 2022-10-31 2022-10-31 Office [facility] 1.2.840.114 [id number] Univers 13:40:00 16:46:37 Visit Alycia BRYANT 350.1.13.10 ity of [facility] [place] [id number] Id dical NAL 059 [facility] 2022-10-23 2022-10-23 Telephone [facility] [id number] [id number] Univers 00:00:00 00:00:00 Alycia SMILEYZORAIDA 350.1.13.10 ity of [facility] 4[place].2.[place] [id number] Id dical NAL 059 [facility] 2022-10-15 2022-10-15 Outpatient [facility] [id number] Univers 09:15:00 10:09:28 KURT johnson of [facility] 2022-10-15 2022-10-15 Ancillary Cynthia Muro [facility] 1.2.840. 114 [id number] Univers 09:15:00 10:09:28 Visit Kurt Weinberg 350.1.13.10 ity of [facility] 4[place].2.[place] [id number] Id dical NAL 179 [facility] 2022-10-15 2022-10-15 Orders Doctor WILFRIDO 1.2.840.114 [id number] Univers 00:00:00 00:00:00 Only Unassigned, SERENITY 350.1.13.10 ity of [place] [facility] 4.2.7.2.686 Santhosh as [id number] [address] 2022-10-02 2022-10-02 Telephone [facility] 1.2.840.114 [id number] Univers 00:00:00 00:00:00 Valeri BRYANT 350.1.13.10 [place] [id number] Id dical NAL 204 [facility] 2022-09-24 2022-09-24 Color Matcher Cesario, Adc Lab Main [facility] 1.2.8 40.114 [id number] Univers 12:30:00 12:45:00 Visit Valeri Wu 350.1.13. 10 [place]2.[place] [id number] Id dical NAL 353 [facility] 2022-09-24 2022-09-24 [facility] [id number] Univers 10:30:00 12:01:13 VALERI johnson o f [facility] 2022-09-24 2022-09-24 Office [facility] 1.2.840.114 [id number] Univers 10:30:00 12:01:13 Visit Valeri BRYANT 350.1.13.10 ity of [facility] [place] [id number] Id dical NAL 204 [facility] 2022-09-17 2022-09-17 Orders Doctor WILFRIDO 1.2.840.114 [id number] Univers 00:00:00 00:00:00 Only Unassigned, SERENITY 350.1.13.10 ity of [place] [facility] 4.2.7.2.686 Santhosh as [id number] [address] 2021-04-26 2021-04-26 Outpatient [place]_ VFP VFP [id number] [facility] 11:11:00 11:11:00 [id number] Family Practic e 2020-12-27 2020-12-27 Outpatient Pamela-Mbayo VFP VFP 798 [id number] [facility] 02:59:00 02:59:00 _A_AH 49823 Family Practic e 2020-12-22 2020-12-22 Outpatient Pamela-Mbayo VFP VFP [id number] [facility] 05:44:00 05:44:00 _A_AH 17252 Family Practic e 2020-12-15 2020-12-15 Zina VFP [place] - [id number] V [place] 00:00:00 00:00:00 Janessa [facility] tamela john RESPIRATORY DIRECTOR: Rodger - [email or web address], [place] [address] , Ph. 2020-10-20 2020-10-20 Outpatient [facility] [id number] [address] [place] 00:00:00 00:00:00 MORGAN [address] 2020-09-19 2020-09-19 Outpatient Pamela-Mbayo VFP VFP [id number] [facility] 08:14:00 08:14:00 _A_AH 54845 Family Practic e 2020-09-01 2020-09-01 Outpatient Paemla-Mbayo VFP VFP [id number] [facility] 03:52:00 03:52:00 _A_AH 76445 Family Practic e 2020-08-26 2020-08-26 Outpatient Pamela-Mbayo VFP VFP [id number] [facility] 10:01:00 10:01:00 _A_AH 85359 Family Practic e 2020-08-23 2020-08-23 Zina VFP [place] - [id number] [place] 00:00:00 00:00:00 Janessa [facility] tamela john RESPIRATORY DIRECTOR: Rodger - Pracfrancie [email or web address] [facility], [address] [address], [place] [address] , Ph. 2020-08-09 2020-08-09 Outpatient Pamela-Mbayo VFP VFP [id number] [facility] 08:52:00 08:52:00 _A_AH 35362 Family Practic e 2020-08-03 2020-08-03 Outpatient R [facility] [id number] Univers 17:20:00 17:20:[id number] [facility] 2020-08-03 2020-08-03 Urgent Provider, [facility] 1.2.840.114 [id number] Univers 13:20:37 14:24:35 Emelia Monsalve [facility] 350.1.13.10 [facility] 4.2.7.2.686 Santhosh as Professio [id number] [place] d[place] [address] [address] 2020-08-03 2020-08-03 Outpatient R SHRADDHA [facility] [id number] Univers 13:00:00 13:00:[address] [facility] 2020-08-01 2020-08-01 Outpatient Pamela-Mbayo VFP VFP [id number] [place] 10:37:00 10:37:00 _A_AH 88103 Family Practic e 2020-07-21 2020-07-21 Outpatient Pamela-Mbayo VFP VFP 798 [id number] [place] 05:21:00 05:21:00 _A_AH 07354 Family Practic e 2020-06-15 2020-06-15 Outpatient Pamela-Mbayo VFP VFP 798 151-202 [place] 06:54:00 06:54:00 _A_AH 71845 Family Practic e 2020-06-08 2020-06-08 Outpatient Pamela-Mbayo VFP VFP 798 [id number] [place] 07:12:00 07:12:00 _A_AH 22478 Family Practic e 2020-05-23 2020-05-23 Outpatient Pamela-Mbayo VFP VFP 798 151-202 [place] 04:28:00 04:28:00 _A_AH 40582 Family Practic e 2020-05-05 2020-05-05 Outpatient Pamela-Mbayo VFP VFP 798 151-202 [place] 12:21:00 12:21:00 _A_AH 28205 Family Practic e 2020-05-02 2020-05-02 Outpatient Pamela-Mbayo VFP VFP [id number] [facility] 10:27:00 10:27:00 _A_AH 31795 Family Practic e 2020-05-02 2020-05-02 Zina [facility] [place] - [id number] V [place] 00:00:00 00:00:00 Janessa [facility] Fam tamela john RESPIRATORY DIRECTOR: Medical - Practi c [address] [email or web address] [facility], [address], [place] [address] , Ph. 2019-12-23 2019-12-23 [id number] [facility] 07:26:00 07:26:00 _A_AH 63346 Family Practic e 2018-04-15 2018-04-16 Inpatient [facility] [id number] Mem[place] 04:40:00 22:20:00 angelito Butler 62 [facility] 2018-04-15 2018-04-16 Inpatient [facility] [id number] [id number] [place] 04:40:00 22:20:00 angelito Tabor [facility] 2018-04-14 2018-04-16 Outpatient Mcduffie [facility] [id number] 23:40:00 17:20:00 Arleen 62 Results Test Description Test Time Test Comments [...] 3267) clear Lab Interpretation (test code = 25772-6) Normal [facility] URINALYSIS, [id number] 17:45:00 Test Item Value Reference Range Interpretation [...] 3267) Lab Interpretation (test code Normal = 03460-8) [facility] URINALYSIS, [id number] 17:45:00 Test Item Value Reference Range Interpretation [...] 3267) Lab Interpretation (test code Normal = 79120-8) [facility] URINALYSIS, [id number] 17:45:00 Test Item Value Reference Range Interpretation [...] 3267) Lab Interpretation (test code Normal = 88977-9) [facility] URINALYSIS, [id number] 17:45:00 Test Item Value Reference Range Interpretation [...] 3267) Lab Interpretation (test code Normal = 74432-4) [facility] URINALYSIS, [id number] 17:45:00 Test Item Value Reference Range Interpretation [...] 3267) Lab Interpretation (test code Normal = 73788-8) [facility] URINALYSIS, [id number] 19:43:00 Test Item Value Reference Range Interpretation [...] 3267) Lab Interpretation (test code Normal = 78170-5) [facility] URINALYSIS, [id number] 19:43:00 Test Item Value Reference Range Interpretation [...] 3267) Lab Interpretation (test code Normal = 75146-8) [facility] URINALYSIS, [id number] 19:43:00 Test Item Value Reference Range Interpretation [...] 3267) Lab Interpretation (test code Normal = 63912-7) [facility] URINALYSIS W SPECIFIC [id number] 18:53:00 Test Item Value Reference Range Interpretation [...] controls Lab Interpretation Abnormal (test code = 89752-6) [facility] [id number] 01:23:00 Test Item Value Reference Range Interpretation Comments BNP (test code = BNP) 48 [facility]2018-06-13 01:23:00 Test Item Value Reference Range Interpretation Comments eGFR (test code = eGFR) 83 [facility]2018-06-13 01:23:00 Test Item Value Reference Range Interpretation Comments Glucose Lvl (test code = Glucose Lvl) 145 70-99 [facility]2018-06-13 01:23:00 Test Item Value Reference Range Interpretation Comments BUN (test code = BUN) 13 7-22 [facility]2018-06-13 01:23:00 Test Item Value Reference Range Interpretation Comments Creatinine Lvl (test code = Creatinine 0.66 0.50-1.40 Lvl) [facility]2018-06-13 01:23:00 Test Item Value Reference Range Interpretation Comments Sodium Lvl (test code = Sodium Lvl) 141 135-145 [facility]2018-06-13 01:23:00 Test Item Value Reference Range Interpretation Comments Chloride Lvl (test code = Chloride Lvl) 109 95-109 [facility]2018-06-13 01:23:00 Test Item Value Reference Range Interpretation Comments Potassium Lvl (test code = Potassium 4.5 3.5-5.1 Lvl) [facility]2018-06-13 01:23:00 Test Item Value Reference Range Interpretation Comments CO2 (test code = CO2) [facility]2018-06-13 01:23:00 Test Item Value Reference Range Interpretation Comments Calcium Lvl (test code = Calcium Lvl) 9.3 8.5-10.5 [facility]2018-06-13 01:23:00 Test Item Value Reference Range Interpretation Comments AGAP (test code = AGAP) 11.5 10.0-20.0 [facility] [id number] 01:23:00 Test Item Value Reference Range Interpretation Comments BNP (test code = BNP) 48 [facility]2018-06-13 01:23:00 Test Item Value Reference Range Interpretation Comments eGFR (test code = eGFR) 83 [facility]2018-06-13 01:23:00 Test Item Value Reference Range Interpretation Comments Glucose Lvl (test code = Glucose Lvl) 145 70-99 [facility]2018-06-13 01:23:00 Test Item Value Reference Range Interpretation Comments BUN (test code = BUN) 13 7-22 [facility]2018-06-13 01:23:00 Test Item Value Reference Range Interpretation Comments Creatinine Lvl (test code = Creatinine 0.66 0.50-1.40 Lvl) [facility]2018-06-13 01:23:00 Test Item Value Reference Range Interpretation Comments Sodium Lvl (test code = Sodium Lvl) 141 135-145 [facility]2018-06-13 01:23:00 Test Item Value Reference Range Interpretation Comments Chloride Lvl (test code = Chloride Lvl) 109 95-109 [facility]2018-06-13 01:23:00 Test Item Value Reference Range Interpretation Comments Potassium Lvl (test code = Potassium 4.5 3.5-5.1 Lvl) [facility]2018-06-13 01:23:00 Test Item Value Reference Range Interpretation Comments CO2 (test code = CO2) 25 -32 [facility]2018-06-13 01:23:00 Test Item Value Reference Range Interpretation Comments Calcium Lvl (test code = Calcium Lvl) 9.3 8.5-10.5 [facility] [id number] 01:23:00 Test Item Value Reference Range Interpretation Comments AGAP (test code = AGAP) 11.5 10.0-20.0 [facility] [id number] 01:23:00 Test Item Value Reference Range Interpretation Comments BNP (test code = BNP) 48 [facility]2018-06-13 01:23:00 Test Item Value Reference Range Interpretation Comments eGFR (test code = eGFR) 83 [facility]2018-06-13 01:23:00 Test Item Value Reference Range Interpretation Comments Glucose Lvl (test code = Glucose Lvl) 145 70-99 [facility]2018-06-13 01:23:00 Test Item Value Reference Range Interpretation Comments BUN (test code = BUN) 13 7-22 [facility]2018-06-13 01:23:00 Test Item Value Reference Range Interpretation Comments Creatinine Lvl (test code = Creatinine 0.66 0.50-1.40 Lvl) [facility]2018-06-13 01:23:00 Test Item Value Reference Range Interpretation Comments Sodium Lvl (test code = Sodium Lvl) 141 135-145 [facility]2018-06-13 01:23:00 Test Item Value Reference Range Interpretation Comments Chloride Lvl (test code = Chloride Lvl) 109 95-109 [facility]2018-06-13 01:23:00 Test Item Value Reference Range Interpretation Comments Potassium Lvl (test code = Potassium 4.5 3.5-5.1 Lvl) [facility]2018-06-13 01:23:00 Test Item Value Reference Range Interpretation Comments CO2 (test code = CO2) 25 24-32 [facility] [id number] 01:23:00 Test Item Value Reference Range Interpretation Comments Calcium Lvl (test code = Calcium Lvl) 9.3 8.5-10.5 [facility]2018-06-13 01:23:00 Test Item Value Reference Range Interpretation Comments AGAP (test code = AGAP) 11.5 10.0-20.0 [facility] [id number] 01:23:00 Test Item Value Reference Range Interpretation Comments BNP (test code = BNP) 48 [facility] [id number] 01:23:00 Test Item Value Reference Range Interpretation Comments eGFR (test code = eGFR) 83 [facility]2018-06-13 01:23:00 Test Item Value Reference Range Interpretation Comments Glucose Lvl (test code = Glucose Lvl) 145 70-99 [facility]2018-06-13 01:23:00 Test Item Value Reference Range Interpretation Comments BUN (test code = BUN) 13 7-22 [facility]2018-06-13 01:23:00 Test Item Value Reference Range Interpretation Comments Creatinine Lvl (test code = Creatinine 0.66 0.50-1.40 Lvl) [facility]2018-06-13 01:23:00 Test Item Value Reference Range Interpretation Comments Sodium Lvl (test code = Sodium Lvl) 141 135-145 [facility]2018-06-13 01:23:00 Test Item Value Reference Range Interpretation Comments Chloride Lvl (test code = Chloride Lvl) 109 95-109 [facility] [id number] 01:23:00 Test Item Value Reference Range Interpretation Comments Potassium Lvl (test code = Potassium 4.5 3.5-5.1 Lvl) [facility]2018-06-13 01:23:00 Test Item Value Reference Range Interpretation Comments CO2 (test code = CO2) 25 24-32 [facility]2018-06-13 01:23:00 Test Item Value Reference Range Interpretation Comments Calcium Lvl (test code = Calcium Lvl) 9.3 8.5-10.5 [facility] [id number] 01:23:00 Test Item Value Reference Range Interpretation Comments AGAP (test code = AGAP) 11.5 10.0-20.0 [facility] [id number] 01:23:00 Test Item Value Reference Range Interpretation Comments BNP (test code = BNP) 48 [facility] [id number] 01:23:00 Test Item Value Reference Range Interpretation Comments eGFR (test code = eGFR) 83 [facility]2018-06-13 01:23:00 Test Item Value Reference Range Interpretation Comments Glucose Lvl (test code = Glucose Lvl) 145 70-99 [facility]2018-06-13 01:23:00 Test Item Value Reference Range Interpretation Comments BUN (test code = BUN) 13 05-25 [facility] [id number] 01:23:00 Test Item Value Reference Range Interpretation Comments BNP (test code = BNP) 48 [facility] [id number] 01:23:00 Test Item Value Reference Range Interpretation Comments eGFR (test code = eGFR) 83 [facility] [id number] 01:23:00 Test Item Value Reference Range Interpretation Comments Glucose Lvl (test code = Glucose Lvl) 145 70-99 [facility] [id number] 01:23:00 Test Item Value Reference Range Interpretation Comments BUN (test code = BUN) 13 05-25 [facility]2018-06-13 01:23:00 Test Item Value Reference Range Interpretation Comments Creatinine Lvl (test code = Creatinine 0.66 0.50-1.40 Lvl) [facility]2018-06-13 01:23:00 Test Item Value Reference Range Interpretation Comments Sodium Lvl (test code = Sodium Lvl) 141 135-145 [facility]2018-06-13 01:23:00 Test Item Value Reference Range Interpretation Comments Chloride Lvl (test code = Chloride Lvl) 109 95-109 [facility]2018-06-13 01:23:00 Test Item Value Reference Range Interpretation Comments Potassium Lvl (test code = Potassium 4.5 3.5-5.1 Lvl) [facility]2018-06-13 01:23:00 Test Item Value Reference Range Interpretation Comments Creatinine Lvl (test code = Creatinine 0.66 0.50-1.40 Lvl) [facility]2018-06-13 01:23:00 Test Item Value Reference Range Interpretation Comments CO2 (test code = CO2) 25 24-32 [facility]2018-06-13 01:23:00 Test Item Value Reference Range Interpretation Comments Calcium Lvl (test code = Calcium Lvl) 9.3 8.5-10.5 [facility]2018-06-13 01:23:00 Test Item Value Reference Range Interpretation Comments AGAP (test code = AGAP) 11.5 10.0-20.0 [facility]2018-06-13 01:23:00 Test Item Value Reference Range Interpretation Comments Sodium Lvl (test code = Sodium Lvl) 141 135-145 [facility]2018-06-13 01:23:00 Test Item Value Reference Range Interpretation Comments Chloride Lvl (test code = Chloride Lvl) 109 95-109 [facility]2018-06-13 01:23:00 Test Item Value Reference Range Interpretation Comments Potassium Lvl (test code = Potassium 4.5 3.5-5.1 Lvl) [facility]2018-06-13 01:23:00 Test Item Value Reference Range Interpretation Comments CO2 (test code = CO2) 25 24-32 [facility]2018-06-13 01:23:00 Test Item Value Reference Range Interpretation Comments Calcium Lvl (test code = Calcium Lvl) 9.3 8.5-10.5 [facility]2018-06-13 01:23:00 Test Item Value Reference Range Interpretation Comments AGAP (test code = AGAP) 11.5 10.0-20.0 [facility] [id number] 01:23:00 Test Item Value Reference Range Interpretation Comments BNP (test code = BNP) 48 [facility]2018-06-13 01:23:00 Test Item Value Reference Range Interpretation Comments eGFR (test code = eGFR) 83 [facility]2018-06-13 01:23:00 Test Item Value Reference Range Interpretation Comments Glucose Lvl (test code = Glucose Lvl) 145 70-99 [facility]2018-06-13 01:23:00 Test Item Value Reference Range Interpretation Comments BUN (test code = BUN) 13 7-22 [facility]2018-06-13 01:23:00 Test Item Value Reference Range Interpretation Comments Creatinine Lvl (test code = Creatinine 0.66 0.50-1.40 Lvl) [facility]2018-06-13 01:23:00 Test Item Value Reference Range Interpretation Comments Sodium Lvl (test code = Sodium Lvl) 141 135-145 [facility]2018-06-13 01:23:00 Test Item Value Reference Range Interpretation Comments Chloride Lvl (test code = Chloride Lvl) 109 95-109 [facility]2018-06-13 01:23:00 Test Item Value Reference Range Interpretation Comments Potassium Lvl (test code = Potassium 4.5 3.5-5.1 Lvl) [facility] [id number] 01:23:00 Test Item Value Reference Range Interpretation Comments CO2 (test code = CO2) [facility] [id number] 01:23:00 Test Item Value Reference Range Interpretation Comments Calcium Lvl (test code = Calcium Lvl) 9.3 8.5-10.5 [facility] [id number] 01:23:00 Test Item Value Reference Range Interpretation Comments AGAP (test code = AGAP) 11.5 10.0-20.0 [facility] [id number] 01:23:00 Test Item Value Reference Range Interpretation Comments BNP (test code = BNP) 48 [facility] [id number] 01:23:00 Test Item Value Reference Range Interpretation Comments eGFR (test code = eGFR) 83 [facility] [id number] 01:23:00 Test Item Value Reference Range Interpretation Comments Glucose Lvl (test code = Glucose Lvl) 145 70-99 [facility]2018-06-13 01:23:00 Test Item Value Reference Range Interpretation Comments BUN (test code = BUN) 13 7-22 [facility]2018-06-13 01:23:00 Test Item Value Reference Range Interpretation Comments Creatinine Lvl (test code = Creatinine 0.66 0.50-1.40 Lvl) [facility]2018-06-13 01:23:00 Test Item Value Reference Range Interpretation Comments Sodium Lvl (test code = Sodium Lvl) 141 135-145 [facility]2018-06-13 01:23:00 Test Item Value Reference Range Interpretation Comments Chloride Lvl (test code = Chloride Lvl) 109 95-109 [facility]2018-06-13 01:23:00 Test Item Value Reference Range Interpretation Comments Potassium Lvl (test code = Potassium 4.5 3.5-5.1 Lvl) [facility] [id number] 01:23:00 Test Item Value Reference Range Interpretation Comments CO2 (test code = CO2) - [facility]2018-06-13 01:23:00 Test Item Value Reference Range Interpretation Comments Calcium Lvl (test code = Calcium Lvl) 9.3 8.5-10.5 [facility] [id number] 01:23:00 Test Item Value Reference Range Interpretation Comments AGAP (test code = AGAP) 11.5 10.0-20.[address] [facility] [id number] 01:23:00 Test Item Value Reference Range Interpretation Comments BNP (test code = BNP) 48 [facility] [id number] 01:23:00 Test Item Value Reference Range Interpretation Comments eGFR (test code = eGFR) 83 [facility] [id number] 01:23:00 Test Item Value Reference Range Interpretation Comments Glucose Lvl (test code = Glucose Lvl) 145 70-99 [facility]2018-06-13 01:23:00 Test Item Value Reference Range Interpretation Comments BUN (test code = BUN) 13 7-22 [facility] [id number] 01:23:00 Test Item Value Reference Range Interpretation Comments Creatinine Lvl (test code = Creatinine 0.66 0.50-1.40 Lvl) [facility] [id number] 01:23:00 Test Item Value Reference Range Interpretation Comments Sodium Lvl (test code = Sodium Lvl) 141 135-145 [facility]2018-06-13 01:23:00 Test Item Value Reference Range Interpretation Comments Chloride Lvl (test code = Chloride Lvl) 109 95-109 [facility] [id number] 01:23:00 Test Item Value Reference Range Interpretation Comments Potassium Lvl (test code = Potassium 4.5 3.5-5.1 Lvl) [facility] [id number] 01:23:00 Test Item Value Reference Range Interpretation Comments BNP (test code = BNP) 48 [facility] [id number] 01:23:00 Test Item Value Reference Range Interpretation Comments CO2 (test code = CO2) 25 24-32 [facility]2018-06-13 01:23:00 Test Item Value Reference Range Interpretation Comments eGFR (test code = eGFR) 83 [facility] [id number] 01:23:00 Test Item Value Reference Range Interpretation Comments Glucose Lvl (test code = Glucose Lvl) 145 70-99 [facility]2018-06-13 01:23:00 Test Item Value Reference Range Interpretation Comments BUN (test code = BUN) 13 7-22 [facility]2018-06-13 01:23:00 Test Item Value Reference Range Interpretation Comments Creatinine Lvl (test code = Creatinine 0.66 0.50-1.40 Lvl) [facility]2018-06-13 01:23:00 Test Item Value Reference Range Interpretation Comments Sodium Lvl (test code = Sodium Lvl) 141 135-145 [facility]2018-06-13 01:23:00 Test Item Value Reference Range Interpretation Comments Chloride Lvl (test code = Chloride Lvl) 109 95-109 [facility]2018-06-13 01:23:00 Test Item Value Reference Range Interpretation Comments Potassium Lvl (test code = Potassium 4.5 3.5-5.1 Lvl) [facility]2018-06-13 01:23:00 Test Item Value Reference Range Interpretation Comments CO2 (test code = CO2) 25 24-32 [facility]2018-06-13 01:23:00 Test Item Value Reference Range Interpretation Comments Calcium Lvl (test code = Calcium Lvl) 9.3 8.5-10.5 [facility]2018-06-13 01:23:00 Test Item Value Reference Range Interpretation Comments AGAP (test code = AGAP) 11.5 10.0-20.0 [facility]2018-06-13 01:23:00 Test Item Value Reference Range Interpretation Comments Calcium Lvl (test code = Calcium Lvl) 9.3 8.5-10.5 [facility]2018-06-13 01:23:00 Test Item Value Reference Range Interpretation Comments AGAP (test code = AGAP) 11.5 10.0-20.0 [facility] [id number] 01:23:00 Test Item Value Reference Range Interpretation Comments BNP (test code = BNP) 48 [facility]2018-06-13 01:23:00 Test Item Value Reference Range Interpretation Comments eGFR (test code = eGFR) 83 [facility]2018-06-13 01:23:00 Test Item Value Reference Range Interpretation Comments Glucose Lvl (test code = Glucose Lvl) 145 70-99 [facility] [id number] 01:23:00 Test Item Value Reference Range Interpretation Comments BUN (test code = BUN) 13 05-25 [facility]2018-06-13 01:23:00 Test Item Value Reference Range Interpretation Comments Creatinine Lvl (test code = Creatinine 0.66 0.50-1.40 Lvl) [facility]2018-06-13 01:23:00 Test Item Value Reference Range Interpretation Comments Sodium Lvl (test code = Sodium Lvl) 141 135-145 [facility]2018-06-13 01:23:00 Test Item Value Reference Range Interpretation Comments Chloride Lvl (test code = Chloride Lvl) 109 95-109 [facility]2018-06-13 01:23:00 Test Item Value Reference Range Interpretation Comments Potassium Lvl (test code = Potassium 4.5 3.5-5.1 Lvl) [facility]2018-06-13 01:23:00 Test Item Value Reference Range Interpretation Comments CO2 (test code = CO2) 25 24-32 [facility]2018-06-13 01:23:00 Test Item Value Reference Range Interpretation Comments Calcium Lvl (test code = Calcium Lvl) 9.3 8.5-10.5 [facility]2018-06-13 01:23:00 Test Item Value Reference Range Interpretation Comments AGAP (test code = AGAP) 11.5 10.0-20.0 [facility] [id number] 01:23:00 Test Item Value Reference Range Interpretation Comments BNP (test code = BNP) 48 [facility]2018-06-13 01:23:00 Test Item Value Reference Range Interpretation Comments eGFR (test code = eGFR) 83 [facility]2018-06-13 01:23:00 Test Item Value Reference Range Interpretation Comments Glucose Lvl (test code = Glucose Lvl) 145 70-99 [facility]2018-06-13 01:23:00 Test Item Value Reference Range Interpretation Comments BUN (test code = BUN) 13 05-25 [facility]2018-06-13 01:23:00 Test Item Value Reference Range Interpretation Comments Creatinine Lvl (test code = Creatinine 0.66 0.50-1.40 Lvl) [facility]2018-06-13 01:23:00 Test Item Value Reference Range Interpretation Comments Sodium Lvl (test code = Sodium Lvl) 141 135-145 [facility]2018-06-13 01:23:00 Test Item Value Reference Range Interpretation Comments Chloride Lvl (test code = Chloride Lvl) 109 95-109 [facility]2018-06-13 01:23:00 Test Item Value Reference Range Interpretation Comments Potassium Lvl (test code = Potassium 4.5 3.5-5.1 Lvl) [facility]2018-06-13 01:23:00 Test Item Value Reference Range Interpretation Comments CO2 (test code = CO2) 25 24-32 [facility]2018-06-13 01:23:00 Test Item Value Reference Range Interpretation Comments Calcium Lvl (test code = Calcium Lvl) 9.3 8.5-10.5 [facility]2018-06-13 01:23:00 Test Item Value Reference Range Interpretation Comments AGAP (test code = AGAP) 11.5 10.0-20.0 [facility]2018-06-12 09:27:00 Test Item Value Reference Range Interpretation Comments A/G Ratio (test code = A/G Ratio) 0.9 1 0.7-1.6 [facility]2018-06-12 09:27:00 Test Item Value Reference Range Interpretation Comments Globulin (test code = Globulin) 3.7 2.7-4.2 [facility]2018-06-12 09:27:00 Test Item Value Reference Range Interpretation Comments B/C Ratio (test code = B/C Ratio) 24 1 6-25 [facility]2018-06-12 09:27:00 Test Item Value Reference Range Interpretation Comments AGAP (test code = AGAP) 9.9 10.0-20.0 [facility]2018-06-12 09:27:00 Test Item Value Reference Range Interpretation Comments eGFR (test code = eGFR) 79 [facility]2018-06-12 09:27:00 Test Item Value Reference Range Interpretation Comments Potassium Lvl (test code = Potassium 3.9 3.5-5.1 Lvl) [facility]2018-06-12 09:27:00 Test Item Value Reference Range Interpretation Comments Chloride Lvl (test code = Chloride Lvl) 110 95-109 [facility]2018-06-12 09:27:00 Test Item Value Reference Range Interpretation Comments Calcium Lvl (test code = Calcium Lvl) 9.0 8.5-10.5 [place] [id number] 09:27:00 Test Item Value Reference Range Interpretation Comments ALT (test code = ALT) 25 See_Comment [Auto mated message] The system which ge nerated this result transmit akhil reference range : <=65. The reference range was not used to interpr et this result as nora l/abnormal. [facility]2018-06-12 09:27:00 Test Item Value Reference Range Interpretation Comments CO2 (test code = CO2) 28 24-32 [facility]2018-06-12 09:27:00 Test Item Value Reference Range Interpretation Comments Albumin Lvl (test code = Albumin Lvl) 3.3 3.5-5.0 [facility]2018-06-12 09:27:00 Test Item Value Reference Range Interpretation Comments Total Protein (test code = Total 7.0 6.4-8.4 Protein) [facility]2018-06-12 09:27:00 Test Item Value Reference Range Interpretation Comments AST (test code = AST) 20 See_Comment [Auto mated message] The system which ge nerated this result transmit akhil reference range : <=37. The reference range was not used to interpr et this result as nora l/abnormal. [facility]2018-06-12 09:27:00 Test Item Value Reference Range Interpretation Comments Bili Total (test code = Bili Total) 0.5 0.2-1.3 [facility]2018-06-12 09:27:00 Test Item Value Reference Range Interpretation Comments Alk Phos (test code = Alk Phos) 54 39-136 [facility]2018-06-12 09:27:00 Test Item Value Reference Range Interpretation Comments Glucose Lvl (test code = Glucose Lvl) 111 70-99 [facility]2018-06-12 09:27:00 Test Item Value Reference Range Interpretation Comments Sodium Lvl (test code = Sodium Lvl) 144 135-145 [facility]2018-06-12 09:27:00 Test Item Value Reference Range Interpretation Comments Creatinine Lvl (test code = Creatinine 0.72 0.50-1.40 Lvl) [facility]2018-06-12 09:27:00 Test Item Value Reference Range Interpretation Comments BUN (test code = BUN) 17 7-22 [id number] 09:27:00 Test Item Value Reference Range Interpretation Comments Lymphocytes # (test code = Lymphocytes 1.3 1.0-5.5 #) [facility] H[id number] 09:27:00 Test Item Value Reference Range Interpretation Comments Monocytes # (test code 0.6 See_Comment [Aut omated message] The = Monocytes #) system which generated this result tra nsmitted reference range : <=0.8. The reference r jairon was not used to int erpret this result as normal/abnormal . [facility] HospitalSkadxibDYDFPCZRKR2167-97-44 09:27:00 Test Item Value Reference Range Interpretation Comments Eosinophils # (test code 0.2 See_Comment [A utomated message] The = Eosinophils #) system whic h generated this result tra nsmitted reference range : <=0.5. The reference r jairon was not used to int erpret this result as normal/abnormal . [facility] HospitalTpofxcqPNTYHUNLDM7167-38-50 09:27:00 Test Item Value Reference Range Interpretation Comments Eosinophils (test code = 3.6 See_Comment [A utomated message] The Eosinophils) system which ge nerated this result tra nsmitted reference range : <=4.0. The reference r jairon was not used to int erpret this result as normal/abnormal . [facility] Hospit[id number] 09:27:00 Test Item Value Reference Range Interpretation Comments Basophils (test code = 0.5 See_Comment [Aut omated message] The Basophils) system which ge nerated this result tra nsmitted reference range : <=1.0. The reference r jairon was not used to int erpret this result as normal/abnormal . [facility] HospitalWqtigvbPUCTKRYKEH2229-63-75 09:27:00 Test Item Value Reference Range Interpretation Comments Segs-Bands # (test code = Segs-Bands #) 3.0 1.5-8.1 [facility] Ho[id number] 09:27:00 Test Item Value Reference Range Interpretation Comments Monocytes (test code = Monocytes) 12.0 2.0-12.0 [facility] HospitalZdsbpkdSBVINRQVWG0344-37-25 09:27:00 Test Item Value Reference Range Interpretation Comments Segs (test code = Segs) 59.2 45.0-75.0 [facility] HospitalRwczvczPXJDBKJVJV0550-00-28 09:27:00 Test Item Value Reference Range Interpretation Comments Lymphocytes (test code = Lymphocytes) 24.7 20.0-40.0 [facility] HospitalNgyqaryCOQDCCGVFF9424-94-16 09:27:00 Test Item Value Reference Range Interpretation Comments RDW (test code = RDW) 12.8 11.5-14.5 [facility] Hospit[id number] 09:27:00 Test Item Value Reference Range Interpretation Comments Platelet (test code = Platelet) 119 133-450 [facility] HospitalJwgwysrDWLMJLWSLM5480-39-56 09:27:00 Test Item Value Reference Range Interpretation Comments MPV (test code = MPV) 8.1 7.4-10.4 [facility] HospitalEotxuwdACUZSICCVS4615-26-00 09:27:00 Test Item Value Reference Range Interpretation Comments WBC (test code = WBC) 5.1 3.7-10.4 [facility] HospitalRbndnroARLIVGTBZY3957-20-49 09:27:00 Test Item Value Reference Range Interpretation Comments RBC (test code = RBC) 3.77 4.20-5.40 [facility] HospitalZrqphtbXUDBFMXDXV2243-49-94 09:27:00 Test Item Value Reference Range Interpretation Comments Hgb (test code = Hgb) 12.0 12.0-16.0 [facility] HospitalDteoymkLSFDDYCRHI0304-65-67 09:27:00 Test Item Value Reference Range Interpretation Comments Hct (test code = Hct) 35.8 36.0-48.0 [facility] HospitalQguflzpLTLAIVWSXK3181-20-05 09:27:00 Test Item Value Reference Range Interpretation Comments MCHC (test code = MCHC) 33.5 32.0-36.0 [facility] HospitalJfphretWMOCAVAEHN1795-62-40 09:27:00 Test Item Value Reference Range Interpretation Comments MCH (test code = MCH) 31.8 pg 27.0-31.0 [facility] HospitalTipxxinAHAKGDYSEP4132-81-23 09:27:00 Test Item Value Reference Range Interpretation Comments MCV (test code = MCV) 94.9 80.0-98.0 [facility]2018-06-12 09:27:00 Test Item Value Reference Range Interpretation Comments A/G Ratio (test code = A/G Ratio) 0.9 1 0.7-1.6 [facility]2018-06-12 09:27:00 Test Item Value Reference Range Interpretation Comments Globulin (test code = Globulin) 3.7 2.7-4.2 [facility]2018-06-12 09:27:00 Test Item Value Reference Range Interpretation Comments B/C Ratio (test code = B/C Ratio) 24 1 6-25 [facility]2018-06-12 09:27:00 Test Item Value Reference Range Interpretation Comments AGAP (test code = AGAP) 9.9 10.0-20.0 [facility]2018-06-12 09:27:00 Test Item Value Reference Range Interpretation Comments eGFR (test code = eGFR) 79 [facility]2018-06-12 09:27:00 Test Item Value Reference Range Interpretation Comments Potassium Lvl (test code = Potassium 3.9 3.5-5.1 Lvl) [facility]2018-06-12 09:27:00 Test Item Value Reference Range Interpretation Comments Chloride Lvl (test code = Chloride Lvl) 110 95-109 [facility]2018-06-12 09:27:00 Test Item Value Reference Range Interpretation Comments Calcium Lvl (test code = Calcium Lvl) 9.0 8.5-10.5 [facility]2018-06-12 09:27:00 Test Item Value Reference Range Interpretation Comments ALT (test code = ALT) 25 See_Comment [Auto mated message] The system which ge nerated this result transmit akhil reference range : <=65. The reference range was not used to interpr et this result as nora l/abnormal. [facility]2018-06-12 09:27:00 Test Item Value Reference Range Interpretation Comments CO2 (test code = CO2) 28 24-32 [place] [id number] 09:27:00 Test Item Value Reference Range Interpretation Comments Albumin Lvl (test code = Albumin Lvl) 3.3 3.5-5.0 [facility]2018-06-12 09:27:00 Test Item Value Reference Range Interpretation Comments Total Protein (test code = Total 7.0 6.4-8.4 Protein) [facility]2018-06-12 09:27:00 Test Item Value Reference Range Interpretation Comments AST (test code = AST) 20 See_Comment [Auto mated message] The system which ge nerated this result transmit akhil reference range : <=37. The reference range was not used to interpr et this result as nora l/abnormal. [facility]2018-06-12 09:27:00 Test Item Value Reference Range Interpretation Comments Bili Total (test code = Bili Total) 0.5 0.2-1.3 [place] [id number] 09:27:00 Test Item Value Reference Range Interpretation Comments Alk Phos (test code = Alk Phos) 54 39-136 [facility]2018-06-12 09:27:00 Test Item Value Reference Range Interpretation Comments Glucose Lvl (test code = Glucose Lvl) 111 70-99 [place] [id number] 09:27:00 Test Item Value Reference Range Interpretation Comments Sodium Lvl (test code = Sodium Lvl) 144 135-145 [facility]2018-06-12 09:27:00 Test Item Value Reference Range Interpretation Comments Creatinine Lvl (test code = Creatinine 0.72 0.50-1.40 Lvl) [facility]2018-06-12 09:27:00 Test Item Value Reference Range Interpretation Comments BUN (test code = BUN) 17 7-22 [facility] HospitalMuanboiAXXXOLCYTX1550-90-77 09:27:00 Test Item Value Reference Range Interpretation Comments Lymphocytes # (test code = Lymphocytes 1.3 1.0-5.5 #) [facility] HospitalLazdivmBMOPGHNMTI9275-16-86 09:27:00 Test Item Value Reference Range Interpretation Comments Monocytes # (test code 0.6 See_Comment [Aut omated message] The = Monocytes #) system which generated this result tra nsmitted reference range : <=0.8. The reference r jairon was not used to int erpret this result as normal/abnormal . [facility] HospitalMmpodygYKSTIHIYIS8482-57-73 09:27:00 Test Item Value Reference Range Interpretation Comments Eosinophils # (test code 0.2 See_Comment [A utomated message] The = Eosinophils #) system whic h generated this result tra nsmitted reference range : <=0.5. The reference r jairon was not used to int erpret this result as normal/abnormal . [facility] HospitalJvhftuyHCJFWZCZQY6498-48-96 09:27:00 Test Item Value Reference Range Interpretation Comments Eosinophils (test code = 3.6 See_Comment [A utomated message] The Eosinophils) system which ge nerated this result tra nsmitted reference range : <=4.0. The reference r jairon was not used to int erpret this result as normal/abnormal . [facility] HospitalEzhanhkGSHXPVLZST0487-49-81 09:27:00 Test Item Value Reference Range Interpretation Comments Basophils (test code = 0.5 See_Comment [Aut omated message] The Basophils) system which ge nerated this result tra nsmitted reference range : <=1.0. The reference r jairon was not used to int erpret this result as normal/abnormal . [facility] H[id number] 09:27:00 Test Item Value Reference Range Interpretation Comments Segs-Bands # (test code = Segs-Bands #) 3.0 1.5-8.1 [facility] HospitalYwdtqoeVTRGDQADEE1663-80-66 09:27:00 Test Item Value Reference Range Interpretation Comments Monocytes (test code = Monocytes) 12.0 2.0-12.0 [facility] HospitalEknflhqIYXKEOWMOQ6049-95-82 09:27:00 Test Item Value Reference Range Interpretation Comments Segs (test code = Segs) 59.2 45.0-75.0 [facility] HospitalPqfnhcyMEHUYDFDCV3788-64-54 09:27:00 Test Item Value Reference Range Interpretation Comments Lymphocytes (test code = Lymphocytes) 24.7 20.0-40.0 [facility] HospitalDxnypwfQKKXRPKBQW3336-70-24 09:27:00 Test Item Value Reference Range Interpretation Comments RDW (test code = RDW) 12.8 11.5-14.5 [facility] HospitalWkjgkirHETXHEICOI1808-36-32 09:27:00 Test Item Value Reference Range Interpretation Comments Platelet (test code = Platelet) 119 133-450 [facility] HospitalUfednioDBNANMHMQI8491-51-44 09:27:00 Test Item Value Reference Range Interpretation Comments MPV (test code = MPV) 8.1 7.4-10.4 [facility] HospitalTiehrinPBOJXWHYBE0344-80-33 09:27:00 Test Item Value Reference Range Interpretation Comments WBC (test code = WBC) 5.1 3.7-10.4 [facility] HospitalCvfpgncARPUJRLSRE6845-00-73 09:27:00 Test Item Value Reference Range Interpretation Comments RBC (test code = RBC) 3.77 4.20-5.40 [facility] HospitalTmyarlkQDUCVCAPHW6170-81-41 09:27:00 Test Item Value Reference Range Interpretation Comments Hgb (test code = Hgb) 12.0 12.0-16.0 [facility] HospitalOmtlbszYYHLVLBPGB8377-72-27 09:27:00 Test Item Value Reference Range Interpretation Comments Hct (test code = Hct) 35.8 36.0-48.0 [facility] HospitalLiopcymXJAMMEVNXY8788-99-11 09:27:00 Test Item Value Reference Range Interpretation Comments MCHC (test code = MCHC) 33.5 32.0-36.0 [facility] HospitalZcqpmjpVETIMNRXYE0804-92-02 09:27:00 Test Item Value Reference Range Interpretation Comments MCH (test code = MCH) 31.8 pg 27.0-31.0 [facility] HospitalUiixqaoTTDBKVCRQE4048-30-65 09:27:00 Test Item Value Reference Range Interpretation Comments MCV (test code = MCV) 94.9 80.0-98.0 [facility]2018-06-12 09:27:00 Test Item Value Reference Range Interpretation Comments A/G Ratio (test code = A/G Ratio) 0.9 1 0.7-1.6 [facility]2018-06-12 09:27:00 Test Item Value Reference Range Interpretation Comments Globulin (test code = Globulin) 3.7 2.7-4.2 [facility]2018-06-12 09:27:00 Test Item Value Reference Range Interpretation Comments B/C Ratio (test code = B/C Ratio) 24 1 6-25 [facility]2018-06-12 09:27:00 Test Item Value Reference Range Interpretation Comments AGAP (test code = AGAP) 9.9 10.0-20.0 [facility]2018-06-12 09:27:00 Test Item Value Reference Range Interpretation Comments eGFR (test code = eGFR) 79 [facility]2018-06-12 09:27:00 Test Item Value Reference Range Interpretation Comments Potassium Lvl (test code = Potassium 3.9 3.5-5.1 Lvl) [facility]2018-06-12 09:27:00 Test Item Value Reference Range Interpretation Comments Chloride Lvl (test code = Chloride Lvl) 110 95-109 [facility]2018-06-12 09:27:00 Test Item Value Reference Range Interpretation Comments Calcium Lvl (test code = Calcium Lvl) 9.0 8.5-10.5 [facility]2018-06-12 09:27:00 Test Item Value Reference Range Interpretation Comments ALT (test code = ALT) 25 See_Comment [Auto mated message] The system which ge nerated this result transmit akhil reference range : <=65. The reference range was not used to interpr et this result as nora l/abnormal. [facility]2018-06-12 09:27:00 Test Item Value Reference Range Interpretation Comments CO2 (test code = CO2) 28 24-32 [facility]2018-06-12 09:27:00 Test Item Value Reference Range Interpretation Comments Albumin Lvl (test code = Albumin Lvl) 3.3 3.5-5.0 [facility]2018-06-12 09:27:00 Test Item Value Reference Range Interpretation Comments Total Protein (test code = Total 7.0 6.4-8.4 Protein) [facility]2018-06-12 09:27:00 Test Item Value Reference Range Interpretation Comments AST (test code = AST) 20 See_Comment [Auto mated message] The system which ge nerated this result transmit akhil reference range : <=37. The reference range was not used to interpr et this result as nora l/abnormal. [facility]2018-06-12 09:27:00 Test Item Value Reference Range Interpretation Comments Bili Total (test code = Bili Total) 0.5 0.2-1.3 [place] [id number] 09:27:00 Test Item Value Reference Range Interpretation Comments Alk Phos (test code = Alk Phos) 54 39-136 [facility]2018-06-12 09:27:00 Test Item Value Reference Range Interpretation Comments Glucose Lvl (test code = Glucose Lvl) 111 70-99 [facility]2018-06-12 09:27:00 Test Item Value Reference Range Interpretation Comments Sodium Lvl (test code = Sodium Lvl) 144 135-145 [facility]2018-06-12 09:27:00 Test Item Value Reference Range Interpretation Comments Creatinine Lvl (test code = Creatinine 0.72 0.50-1.40 Lvl) [facility]2018-06-12 09:27:00 Test Item Value Reference Range Interpretation Comments BUN (test code = BUN) 17 7-22 [facility]L[id number] 09:27:00 Test Item Value Reference Range Interpretation Comments Lymphocytes # (test code = Lymphocytes 1.3 1.0-5.5 #) [facility] HospitalHxvxjwnIPGMYAGIWH4269-77-73 09:27:00 Test Item Value Reference Range Interpretation Comments Monocytes # (test code 0.6 See_Comment [Aut omated message] The = Monocytes #) system which generated this result tra nsmitted reference range : <=0.8. The reference r jairon was not used to int erpret this result as normal/abnormal . [facility] HospitalRvscsziYFMULOQYTH5394-63-34 09:27:00 Test Item Value Reference Range Interpretation Comments Eosinophils # (test code 0.2 See_Comment [A utomated message] The = Eosinophils #) system whic h generated this result tra nsmitted reference range : <=0.5. The reference r jairon was not used to int erpret this result as normal/abnormal . [facility] HospitalWbargwpPKLWGPZGVL2864-79-64 09:27:00 Test Item Value Reference Range Interpretation Comments Eosinophils (test code = 3.6 See_Comment [A utomated message] The Eosinophils) system which ge nerated this result tra nsmitted reference range : <=4.0. The reference r jairon was not used to int erpret this result as normal/abnormal . [facility] HospitalQxaqmnqWHLLLRWQHL2858-31-03 09:27:00 Test Item Value Reference Range Interpretation Comments Basophils (test code = 0.5 See_Comment [Aut omated message] The Basophils) system which ge nerated this result tra nsmitted reference range : <=1.0. The reference r jairon was not used to int erpret this result as normal/abnormal . [facility] HospitalNattjlbDLMYWKVHQG0338-11-67 09:27:00 Test Item Value Reference Range Interpretation Comments Segs-Bands # (test code = Segs-Bands #) 3.0 1.5-8.1 [facility] HospitalQqumqgkVOXMTYNSCY5028-66-10 09:27:00 Test Item Value Reference Range Interpretation Comments Monocytes (test code = Monocytes) 12.0 2.0-12.0 [facility] HospitalKedyhuaUEBWSHNVVZ7321-93-26 09:27:00 Test Item Value Reference Range Interpretation Comments Segs (test code = Segs) 59.2 45.0-75.0 [facility] HospitalNjckwmqXOHQGWZEXQ0191-47-36 09:27:00 Test Item Value Reference Range Interpretation Comments Lymphocytes (test code = Lymphocytes) 24.7 20.0-40.0 [facility] HospitalIibwdrlOYJSSIYCTP0385-35-41 09:27:00 Test Item Value Reference Range Interpretation Comments RDW (test code = RDW) 12.8 11.5-14.5 [facility] HospitalNksezlnKAOCYHWZXI1701-71-06 09:27:00 Test Item Value Reference Range Interpretation Comments Platelet (test code = Platelet) 119 133-450 [facility] HospitalOyltcxwROCXYYLXEI1632-64-56 09:27:00 Test Item Value Reference Range Interpretation Comments MPV (test code = MPV) 8.1 7.4-10.4 [facility] HospitalHmbwtmtIVZTBKXBAC4320-40-11 09:27:00 Test Item Value Reference Range Interpretation Comments WBC (test code = WBC) 5.1 3.7-10.4 [facility] HospitalEhnhjmsEXQZDUBWLK2574-89-48 09:27:00 Test Item Value Reference Range Interpretation Comments RBC (test code = RBC) 3.77 4.20-5.40 [facility] HospitalDfveqaaXTZPPHHUGM5390-78-47 09:27:00 Test Item Value Reference Range Interpretation Comments Hgb (test code = Hgb) 12.0 12.0-16.0 [facility] HospitalXazleavBMTRELNPZI0565-05-36 09:27:00 Test Item Value Reference Range Interpretation Comments Hct (test code = Hct) 35.8 36.0-48.0 [facility] HospitalOzhufqdCPZCBQIAPZ4866-11-32 09:27:00 Test Item Value Reference Range Interpretation Comments MCHC (test code = MCHC) 33.5 32.0-36.0 [facility] HospitalUffqfmtMKZKKXUSRQ5274-92-46 09:27:00 Test Item Value Reference Range Interpretation Comments MCH (test code = MCH) 31.8 pg 27.0-31.0 [facility] HospitalWptwwpqHEUMZYHBPD9037-55-94 09:27:00 Test Item Value Reference Range Interpretation Comments MCV (test code = MCV) 94.9 80.0-98.0 [facility]2018-06-12 09:27:00 Test Item Value Reference Range Interpretation Comments A/G Ratio (test code = A/G Ratio) 0.9 1 0.7-1.6 [facility]2018-06-12 09:27:00 Test Item Value Reference Range Interpretation Comments Globulin (test code = Globulin) 3.7 2.7-4.2 [facility]2018-06-12 09:27:00 Test Item Value Reference Range Interpretation Comments B/C Ratio (test code = B/C Ratio) 24 1 6-25 [facility]2018-06-12 09:27:00 Test Item Value Reference Range Interpretation Comments AGAP (test code = AGAP) 9.9 10.0-20.0 [facility]2018-06-12 09:27:00 Test Item Value Reference Range Interpretation Comments eGFR (test code = eGFR) 79 [facility]2018-06-12 09:27:00 Test Item Value Reference Range Interpretation Comments Potassium Lvl (test code = Potassium 3.9 3.5-5.1 Lvl) [facility]2018-06-12 09:27:00 Test Item Value Reference Range Interpretation Comments Chloride Lvl (test code = Chloride Lvl) 110 95-109 [facility]2018-06-12 09:27:00 Test Item Value Reference Range Interpretation Comments Calcium Lvl (test code = Calcium Lvl) 9.0 8.5-10.5 [facility]2018-06-12 09:27:00 Test Item Value Reference Range Interpretation Comments ALT (test code = ALT) 25 See_Comment [Auto mated message] The system which ge nerated this result transmit akhil reference range : <=65. The reference range was not used to interpr et this result as nora l/abnormal. [facility]2018-06-12 09:27:00 Test Item Value Reference Range Interpretation Comments CO2 (test code = CO2) 28 24-32 [facility]2018-06-12 09:27:00 Test Item Value Reference Range Interpretation Comments Albumin Lvl (test code = Albumin Lvl) 3.3 3.5-5.0 [place] [id number] 09:27:00 Test Item Value Reference Range Interpretation Comments Total Protein (test code = Total 7.0 6.4-8.4 Protein) [place] 621158-06-12 09:27:00 Test Item Value Reference Range Interpretation Comments AST (test code = AST) 20 See_Comment [Auto mated message] The system which ge nerated this result transmit akhil reference range : <=37. The reference range was not used to interpr et this result as nora l/abnormal. [facility]2018-06-12 09:27:00 Test Item Value Reference Range Interpretation Comments Bili Total (test code = Bili Total) 0.5 0.2-1.3 [place] 621158-06-12 09:27:00 Test Item Value Reference Range Interpretation Comments Alk Phos (test code = Alk Phos) 54 39-136 [facility]2018-06-12 09:27:00 Test Item Value Reference Range Interpretation Comments Glucose Lvl (test code = Glucose Lvl) 111 70-99 [facility]2018-06-12 09:27:00 Test Item Value Reference Range Interpretation Comments Sodium Lvl (test code = Sodium Lvl) 144 135-145 [facility]2018-06-12 09:27:00 Test Item Value Reference Range Interpretation Comments Creatinine Lvl (test code = Creatinine 0.72 0.50-1.40 Lvl) [facility]2018-06-12 09:27:00 Test Item Value Reference Range Interpretation Comments BUN (test code = BUN) 17 7-22 [facility] HospitalApqqbwjHRTMZGYEQD4921-88-71 09:27:00 Test Item Value Reference Range Interpretation Comments Lymphocytes # (test code = Lymphocytes 1.3 1.0-5.5 #) [facility] HospitalHmbckdaMLKZOXTLGS8636-82-62 09:27:00 Test Item Value Reference Range Interpretation Comments Monocytes # (test code 0.6 See_Comment [Aut omated message] The = Monocytes #) system which generated this result tra nsmitted reference range : <=0.8. The reference r jairon was not used to int erpret this result as normal/abnormal . [facility] HospitalRzgfpfgBGSAHRJLZK3328-91-82 09:27:00 Test Item Value Reference Range Interpretation Comments Eosinophils # (test code 0.2 See_Comment [A utomated message] The = Eosinophils #) system whic h generated this result tra nsmitted reference range : <=0.5. The reference r jairon was not used to int erpret this result as normal/abnormal . [facility] HospitalHumnusnRUAPJUZEOK7008-75-02 09:27:00 Test Item Value Reference Range Interpretation Comments Eosinophils (test code = 3.6 See_Comment [A utomated message] The Eosinophils) system which ge nerated this result tra nsmitted reference range : <=4.0. The reference r jairon was not used to int erpret this result as normal/abnormal . [facility] HospitalLkorlsfGLQLMQNCYA4472-62-91 09:27:00 Test Item Value Reference Range Interpretation Comments Basophils (test code = 0.5 See_Comment [Aut omated message] The Basophils) system which ge nerated this result tra nsmitted reference range : <=1.0. The reference r jairon was not used to int erpret this result as normal/abnormal . [facility] HospitalErhyzdcHEONYAGVQL2143-40-57 09:27:00 Test Item Value Reference Range Interpretation Comments Segs-Bands # (test code = Segs-Bands #) 3.0 1.5-8.1 [facility] HospitalCkywsdvQRAJTMIDVU2509-42-39 09:27:00 Test Item Value Reference Range Interpretation Comments Monocytes (test code = Monocytes) 12.0 2.0-12.0 [facility] HospitalYgduwgoXNTZTIZPHF5423-64-81 09:27:00 Test Item Value Reference Range Interpretation Comments Segs (test code = Segs) 59.2 45.0-75.0 [facility] HospitalDqxaikrSAFVVTAXIH7872-55-13 09:27:00 Test Item Value Reference Range Interpretation Comments Lymphocytes (test code = Lymphocytes) 24.7 20.0-40.0 [facility] HospitalMeysqssHFOTWRHEXC9788-55-26 09:27:00 Test Item Value Reference Range Interpretation Comments RDW (test code = RDW) 12.8 11.5-14.5 [facility] HospitalYglcojhEOUZOLXUHD4628-14-34 09:27:00 Test Item Value Reference Range Interpretation Comments Platelet (test code = Platelet) 119 133-450 [facility] HospitalSlpytzlNRMAWCJNBD0327-71-77 09:27:00 Test Item Value Reference Range Interpretation Comments MPV (test code = MPV) 8.1 7.4-10.4 [facility] HospitalRvnynbnUMXTOCLLKY3720-45-25 09:27:00 Test Item Value Reference Range Interpretation Comments WBC (test code = WBC) 5.1 3.7-10.4 [facility] HospitalDqmocvaGRESRDMXCZ6915-37-71 09:27:00 Test Item Value Reference Range Interpretation Comments RBC (test code = RBC) 3.77 4.20-5.40 [facility] HospitalZcommkvQRQFYMNIMH6017-66-68 09:27:00 Test Item Value Reference Range Interpretation Comments Hgb (test code = Hgb) 12.0 12.0-16.0 [facility] HospitalKnzqrlaYXBRHXHGAD6249-35-96 09:27:00 Test Item Value Reference Range Interpretation Comments Hct (test code = Hct) 35.8 36.0-48.0 [facility] HospitalQqcbvpiFFWTNVRGMP5994-96-22 09:27:00 Test Item Value Reference Range Interpretation Comments MCHC (test code = MCHC) 33.5 32.0-36.0 [facility] HospitalXsqqccdDYCMZFYTAH1356-06-06 09:27:00 Test Item Value Reference Range Interpretation Comments MCH (test code = MCH) 31.8 pg 27.0-31.0 [facility] HospitalHxzxykeMUKAWBJDGC0416-27-12 09:27:00 Test Item Value Reference Range Interpretation Comments MCV (test code = MCV) 94.9 80.0-98.0 [facility]2018-06-12 09:27:00 Test Item Value Reference Range Interpretation Comments A/G Ratio (test code = A/G Ratio) 0.9 1 0.7-1.6 [facility]2018-06-12 09:27:00 Test Item Value Reference Range Interpretation Comments Globulin (test code = Globulin) 3.7 2.7-4.2 [facility]2018-06-12 09:27:00 Test Item Value Reference Range Interpretation Comments B/C Ratio (test code = B/C Ratio) 24 1 6-25 [facility]2018-06-12 09:27:00 Test Item Value Reference Range Interpretation Comments AGAP (test code = AGAP) 9.9 10.0-20.0 [facility]2018-06-12 09:27:00 Test Item Value Reference Range Interpretation Comments eGFR (test code = eGFR) 79 [facility]2018-06-12 09:27:00 Test Item Value Reference Range Interpretation Comments Potassium Lvl (test code = Potassium 3.9 3.5-5.1 Lvl) [facility]2018-06-12 09:27:00 Test Item Value Reference Range Interpretation Comments Chloride Lvl (test code = Chloride Lvl) 110 95-109 [facility]2018-06-12 09:27:00 Test Item Value Reference Range Interpretation Comments Calcium Lvl (test code = Calcium Lvl) 9.0 8.5-10.5 [facility]2018-06-12 09:27:00 Test Item Value Reference Range Interpretation Comments ALT (test code = ALT) 25 See_Comment [Auto mated message] The system which ge nerated this result transmit akhil reference range : <=65. The reference range was not used to interpr et this result as nora l/abnormal. [facility]2018-06-12 09:27:00 Test Item Value Reference Range Interpretation Comments CO2 (test code = CO2) 28 24-32 [facility]2018-06-12 09:27:00 Test Item Value Reference Range Interpretation Comments Albumin Lvl (test code = Albumin Lvl) 3.3 3.5-5.0 [facility]2018-06-12 09:27:00 Test Item Value Reference Range Interpretation Comments Total Protein (test code = Total 7.0 6.4-8.4 Protein) [facility]2018-06-12 09:27:00 Test Item Value Reference Range Interpretation Comments AST (test code = AST) 20 See_Comment [Auto mated message] The system which ge nerated this result transmit akhil reference range : <=37. The reference range was not used to interpr et this result as nora l/abnormal. [facility]2018-06-12 09:27:00 Test Item Value Reference Range Interpretation Comments Bili Total (test code = Bili Total) 0.5 0.2-1.3 [facility]2018-06-12 09:27:00 Test Item Value Reference Range Interpretation Comments Alk Phos (test code = Alk Phos) 54 39-136 [facility]2018-06-12 09:27:00 Test Item Value Reference Range Interpretation Comments Glucose Lvl (test code = Glucose Lvl) 111 70-99 [facility]2018-06-12 09:27:00 Test Item Value Reference Range Interpretation Comments Sodium Lvl (test code = Sodium Lvl) 144 135-145 [facility]2018-06-12 09:27:00 Test Item Value Reference Range Interpretation Comments Creatinine Lvl (test code = Creatinine 0.72 0.50-1.40 Lvl) [facility]2018-06-12 09:27:00 Test Item Value Reference Range Interpretation Comments BUN (test code = BUN) 17 7-22 [facility] HospitalN[id number] 09:27:00 Test Item Value Reference Range Interpretation Comments Lymphocytes # (test code = Lymphocytes 1.3 1.0-5.5 #) [facility] HospitalVdhapwsZLOPHULIJA5567-47-85 09:27:00 Test Item Value Reference Range Interpretation Comments Monocytes # (test code 0.6 See_Comment [Aut omated message] The = Monocytes #) system which generated this result tra nsmitted reference range : <=0.8. The reference r jairon was not used to int erpret this result as normal/abnormal . [facility] HospitalNqqipedXUBLTPHHFL9494-71-91 09:27:00 Test Item Value Reference Range Interpretation Comments Eosinophils # (test code 0.2 See_Comment [A utomated message] The = Eosinophils #) system whic h generated this result tra nsmitted reference range : <=0.5. The reference r jairon was not used to int erpret this result as normal/abnormal . [facility] HospitalLsujgcdGSPVIOUKOR7712-75-35 09:27:00 Test Item Value Reference Range Interpretation Comments Eosinophils (test code = 3.6 See_Comment [A utomated message] The Eosinophils) system which ge nerated this result tra nsmitted reference range : <=4.0. The reference r jairon was not used to int erpret this result as normal/abnormal . [facility] HospitalYesvnijIYKVQHRUDM0231-89-80 09:27:00 Test Item Value Reference Range Interpretation Comments Basophils (test code = 0.5 See_Comment [Aut omated message] The Basophils) system which ge nerated this result tra nsmitted reference range : <=1.0. The reference r jairon was not used to int erpret this result as normal/abnormal . [facility] HospitalOrfkdqrLVCFAVNHLG0045-70-17 09:27:00 Test Item Value Reference Range Interpretation Comments Segs-Bands # (test code = Segs-Bands #) 3.0 1.5-8.1 [facility] HospitalBbjgduyQHHYTGXLLX9383-26-62 09:27:00 Test Item Value Reference Range Interpretation Comments Monocytes (test code = Monocytes) 12.0 2.0-12.0 [facility] HospitalKuxwgpoVPYRWFYRYW9741-95-91 09:27:00 Test Item Value Reference Range Interpretation Comments Segs (test code = Segs) 59.2 45.0-75.0 [facility] HospitalUxqfmzySOPNYFOEWQ6751-30-89 09:27:00 Test Item Value Reference Range Interpretation Comments Lymphocytes (test code = Lymphocytes) 24.7 20.0-40.0 [facility] HospitalOfshojaWYZXIIHIQG8801-88-63 09:27:00 Test Item Value Reference Range Interpretation Comments RDW (test code = RDW) 12.8 11.5-14.5 [facility] HospitalUbocoqcLSUARRTRAD0239-94-58 09:27:00 Test Item Value Reference Range Interpretation Comments Platelet (test code = Platelet) 119 133-450 [facility] HospitalObobdfrVXIFVGMVGB1175-33-56 09:27:00 Test Item Value Reference Range Interpretation Comments MPV (test code = MPV) 8.1 7.4-10.4 [facility] HospitalGoxvyerLCCDPSPWOH5345-79-12 09:27:00 Test Item Value Reference Range Interpretation Comments WBC (test code = WBC) 5.1 3.7-10.4 [facility] HospitalLqklbgaNSTIMDJJKR2669-48-48 09:27:00 Test Item Value Reference Range Interpretation Comments RBC (test code = RBC) 3.77 4.20-5.40 [facility] HospitalFnuiblyVSNIYRMQTA7746-92-53 09:27:00 Test Item Value Reference Range Interpretation Comments Hgb (test code = Hgb) 12.0 12.0-16.0 [facility] HospitalRtihcrxCNBJDDFYGG0012-76-88 09:27:00 Test Item Value Reference Range Interpretation Comments Hct (test code = Hct) 35.8 36.0-48.0 [facility] HospitalLaflyukOJLZKWRTWX4819-82-01 09:27:00 Test Item Value Reference Range Interpretation Comments MCHC (test code = MCHC) 33.5 32.0-36.0 [facility] HospitalOzmcbheXWVTCNDBRG0318-62-52 09:27:00 Test Item Value Reference Range Interpretation Comments MCH (test code = MCH) 31.8 pg 27.0-31.0 [facility] HospitalCpmvvlcCVVLPLRAUF7883-89-08 09:27:00 Test Item Value Reference Range Interpretation Comments MCV (test code = MCV) 94.9 80.0-98.0 [facility]2018-06-12 09:27:00 Test Item Value Reference Range Interpretation Comments A/G Ratio (test code = A/G Ratio) 0.9 1 0.7-1.6 [facility]2018-06-12 09:27:00 Test Item Value Reference Range Interpretation Comments Globulin (test code = Globulin) 3.7 2.7-4.2 [facility]2018-06-12 09:27:00 Test Item Value Reference Range Interpretation Comments B/C Ratio (test code = B/C Ratio) 24 1 6-25 [facility]2018-06-12 09:27:00 Test Item Value Reference Range Interpretation Comments AGAP (test code = AGAP) 9.9 10.0-20.0 [facility]2018-06-12 09:27:00 Test Item Value Reference Range Interpretation Comments eGFR (test code = eGFR) 79 [facility]2018-06-12 09:27:00 Test Item Value Reference Range Interpretation Comments Potassium Lvl (test code = Potassium 3.9 3.5-5.1 Lvl) [facility]2018-06-12 09:27:00 Test Item Value Reference Range Interpretation Comments Chloride Lvl (test code = Chloride Lvl) 110 95-109 [facility]2018-06-12 09:27:00 Test Item Value Reference Range Interpretation Comments Calcium Lvl (test code = Calcium Lvl) 9.0 8.5-10.5 [facility]2018-06-12 09:27:00 Test Item Value Reference Range Interpretation Comments ALT (test code = ALT) 25 See_Comment [Auto mated message] The system which ge nerated this result transmit akhil reference range : <=65. The reference range was not used to interpr et this result as nora l/abnormal. [facility]2018-06-12 09:27:00 Test Item Value Reference Range Interpretation Comments CO2 (test code = CO2) 28 24-32 [facility]2018-06-12 09:27:00 Test Item Value Reference Range Interpretation Comments Albumin Lvl (test code = Albumin Lvl) 3.3 3.5-5.0 [facility]2018-06-12 09:27:00 Test Item Value Reference Range Interpretation Comments Total Protein (test code = Total 7.0 6.4-8.4 Protein) [facility]2018-06-12 09:27:00 Test Item Value Reference Range Interpretation Comments AST (test code = AST) 20 See_Comment [Auto mated message] The system which ge nerated this result transmit akhil reference range : <=37. The reference range was not used to interpr et this result as nora l/abnormal. [facility]2018-06-12 09:27:00 Test Item Value Reference Range Interpretation Comments Bili Total (test code = Bili Total) 0.5 0.2-1.3 [facility]2018-06-12 09:27:00 Test Item Value Reference Range Interpretation Comments Alk Phos (test code = Alk Phos) 54 39-136 [facility]2018-06-12 09:27:00 Test Item Value Reference Range Interpretation Comments Glucose Lvl (test code = Glucose Lvl) 111 70-99 [facility]2018-06-12 09:27:00 Test Item Value Reference Range Interpretation Comments Sodium Lvl (test code = Sodium Lvl) 144 135-145 [facility]2018-06-12 09:27:00 Test Item Value Reference Range Interpretation Comments Creatinine Lvl (test code = Creatinine 0.72 0.50-1.40 Lvl) [facility]2018-06-12 09:27:00 Test Item Value Reference Range Interpretation Comments BUN (test code = BUN) 17 7-22 [facility] HospitalAamwrykTXMTZYVYQX4871-98-68 09:27:00 Test Item Value Reference Range Interpretation Comments Lymphocytes # (test code = Lymphocytes 1.3 1.0-5.5 #) [facility] HospitalModqhemINSXJGNZWH3566-20-11 09:27:00 Test Item Value Reference Range Interpretation Comments Monocytes # (test code 0.6 See_Comment [Aut omated message] The = Monocytes #) system which generated this result tra nsmitted reference range : <=0.8. The reference r jairon was not used to int erpret this result as normal/abnormal . [facility] HospitalBikiukuIHXBFUANTL8381-78-78 09:27:00 Test Item Value Reference Range Interpretation Comments Eosinophils # (test code 0.2 See_Comment [A utomated message] The = Eosinophils #) system whic h generated this result tra nsmitted reference range : <=0.5. The reference r jairon was not used to int erpret this result as normal/abnormal . [facility] HospitalJnbborqFTQEMVIKKM3958-98-25 09:27:00 Test Item Value Reference Range Interpretation Comments Eosinophils (test code = 3.6 See_Comment [A utomated message] The Eosinophils) system which ge nerated this result tra nsmitted reference range : <=4.0. The reference r jairon was not used to int erpret this result as normal/abnormal . [facility] HospitalRxxslukQYHRYYHWUV9351-99-24 09:27:00 Test Item Value Reference Range Interpretation Comments Basophils (test code = 0.5 See_Comment [Aut omated message] The Basophils) system which ge nerated this result tra nsmitted reference range : <=1.0. The reference r jairon was not used to int erpret this result as normal/abnormal . [facility] HospitalDcehiikPPRFGKRIDE8526-71-69 09:27:00 Test Item Value Reference Range Interpretation Comments Segs-Bands # (test code = Segs-Bands #) 3.0 1.5-8.1 [facility] HospitalMykownjJKUMFCTFQZ1197-20-64 09:27:00 Test Item Value Reference Range Interpretation Comments Monocytes (test code = Monocytes) 12.0 2.0-12.0 [facility] [facility]ICKFC5221-17-46 09:27:00 Test Item Value Reference Range Interpretation Comments Segs (test code = Segs) 59.2 45.0-75.0 [facility]ZxxknyuYVPDRWVERF7522-16-04 09:27:00 Test Item Value Reference Range Interpretation Comments Lymphocytes (test code = Lymphocytes) 24.7 20.0-40.0 [facility] HospitalBianrcjGQRIPBYIPQ9928-08-01 09:27:00 Test Item Value Reference Range Interpretation Comments RDW (test code = RDW) 12.8 11.5-14.5 [facility] HospitalPuwicayGTIZSCUURY6525-69-42 09:27:00 Test Item Value Reference Range Interpretation Comments Platelet (test code = Platelet) 119 133-450 [facility] HospitalIxxuwwvOYQIGILZLK5486-47-27 09:27:00 Test Item Value Reference Range Interpretation Comments MPV (test code = MPV) 8.1 7.4-10.4 [facility] HospitalJoynwcjHJDVRPZVLR8756-11-74 09:27:00 Test Item Value Reference Range Interpretation Comments WBC (test code = WBC) 5.1 3.7-10.4 [facility] HospitalKrjdhcxPEULSIHSAG2289-32-86 09:27:00 Test Item Value Reference Range Interpretation Comments RBC (test code = RBC) 3.77 4.20-5.40 [facility] HospitalWwhxfpbNKQUUJJHLJ1621-72-46 09:27:00 Test Item Value Reference Range Interpretation Comments Hgb (test code = Hgb) 12.0 12.0-16.0 [facility] HospitalAjphswfAHFAGQFDKP1947-13-52 09:27:00 Test Item Value Reference Range Interpretation Comments Hct (test code = Hct) 35.8 36.0-48.0 [facility] HospitalUmnzfyfEQZYGRAQZM4732-80-67 09:27:00 Test Item Value Reference Range Interpretation Comments MCHC (test code = MCHC) 33.5 32.0-36.0 [facility] HospitalFbdabtdCFSHQARCBP8947-94-35 09:27:00 Test Item Value Reference Range Interpretation Comments MCH (test code = MCH) 31.8 pg 27.0-31.0 [facility] HospitalUxqktcfFHVMXCADYR7259-39-16 09:27:00 Test Item Value Reference Range Interpretation Comments MCV (test code = MCV) 94.9 80.0-98.0 [facility] MVMJR0767-89-73 09:27:00 Test Item Value Reference Range Interpretation Comments A/G Ratio (test code = A/G Ratio) 0.9 1 0.7-1.6 [facility] OMFXK7171-11-16 09:27:00 Test Item Value Reference Range Interpretation Comments Globulin (test code = Globulin) 3.7 2.7-4.2 [place] 621158-06-12 09:27:00 Test Item Value Reference Range Interpretation Comments A/G Ratio (test code = A/G Ratio) 0.9 1 0.7-1.6 [facility]2018-06-12 09:27:00 Test Item Value Reference Range Interpretation Comments Globulin (test code = Globulin) 3.7 2.7-4.2 [facility]2018-06-12 09:27:00 Test Item Value Reference Range Interpretation Comments B/C Ratio (test code = B/C Ratio) 24 1 - [facility]2018-06-12 09:27:00 Test Item Value Reference Range Interpretation Comments B/C Ratio (test code = B/C Ratio) 24 11 09- [facility]2018-06-12 09:27:00 Test Item Value Reference Range Interpretation Comments AGAP (test code = AGAP) 9.9 10.0-20.0 [facility]2018-06-12 09:27:00 Test Item Value Reference Range Interpretation Comments eGFR (test code = eGFR) 79 [facility]2018-06-12 09:27:00 Test Item Value Reference Range Interpretation Comments Potassium Lvl (test code = Potassium 3.9 3.5-5.1 Lvl) [facility]2018-06-12 09:27:00 Test Item Value Reference Range Interpretation Comments Chloride Lvl (test code = Chloride Lvl) 110 95-109 [facility]2018-06-12 09:27:00 Test Item Value Reference Range Interpretation Comments Calcium Lvl (test code = Calcium Lvl) 9.0 8.5-10.5 [facility]2018-06-12 09:27:00 Test Item Value Reference Range Interpretation Comments ALT (test code = ALT) 25 See_Comment [Auto mated message] The system which ge nerated this result transmit akhil reference range : <=65. The reference range was not used to interpr et this result as nora l/abnormal. [place] [id number] 09:27:00 Test Item Value Reference Range Interpretation Comments CO2 (test code = CO2) 28 24-32 [place] 621158-06-12 09:27:00 Test Item Value Reference Range Interpretation Comments Albumin Lvl (test code = Albumin Lvl) 3.3 3.5-5.0 [facility]2018-06-12 09:27:00 Test Item Value Reference Range Interpretation Comments Total Protein (test code = Total 7.0 6.4-8.4 Protein) [place] 621158-06-12 09:27:00 Test Item Value Reference Range Interpretation Comments AST (test code = AST) 20 See_Comment [Auto mated message] The system which ge nerated this result transmit akhil reference range : <=37. The reference range was not used to interpr et this result as nora l/abnormal. [facility]2018-06-12 09:27:00 Test Item Value Reference Range Interpretation Comments AGAP (test code = AGAP) 9.9 10.0-20.0 [place] [id number] 09:27:00 Test Item Value Reference Range Interpretation Comments Bili Total (test code = Bili Total) 0.5 0.2-1.3 [place] 621158-06-12 09:27:00 Test Item Value Reference Range Interpretation Comments Alk Phos (test code = Alk Phos) 54 39-136 [facility]2018-06-12 09:27:00 Test Item Value Reference Range Interpretation Comments Glucose Lvl (test code = Glucose Lvl) 111 70-99 [facility]2018-06-12 09:27:00 Test Item Value Reference Range Interpretation Comments Sodium Lvl (test code = Sodium Lvl) 144 135-145 [facility]2018-06-12 09:27:00 Test Item Value Reference Range Interpretation Comments Creatinine Lvl (test code = Creatinine 0.72 0.50-1.40 Lvl) [facility]2018-06-12 09:27:00 Test Item Value Reference Range Interpretation Comments BUN (test code = BUN) 17 7-22 [facility] HospitalPxexwscHFQELPXOAG0254-82-84 09:27:00 Test Item Value Reference Range Interpretation Comments Lymphocytes # (test code = Lymphocytes 1.3 1.0-5.5 #) [facility] HospitalHdodghqZHXDLRCDAG8853-82-91 09:27:00 Test Item Value Reference Range Interpretation Comments Monocytes # (test code 0.6 See_Comment [Aut omated message] The = Monocytes #) system which generated this result tra nsmitted reference range : <=0.8. The reference r jairon was not used to int erpret this result as normal/abnormal . [facility] HospitalNnatbhlGPPNDTVDIU2755-88-09 09:27:00 Test Item Value Reference Range Interpretation Comments Eosinophils # (test code 0.2 See_Comment [A utomated message] The = Eosinophils #) system whic h generated this result tra nsmitted reference range : <=0.5. The reference r jairon was not used to int erpret this result as normal/abnormal . [facility] HospitalEzthyonKLJSWEFEUA6996-55-71 09:27:00 Test Item Value Reference Range Interpretation Comments Eosinophils (test code = 3.6 See_Comment [A utomated message] The Eosinophils) system which ge nerated this result tra nsmitted reference range : <=4.0. The reference r jairon was not used to int erpret this result as normal/abnormal . [facility]2018-06-12 09:27:00 Test Item Value Reference Range Interpretation Comments eGFR (test code = eGFR) 79 [facility] HospitalYmgwefxJZMPHCEHBP3975-92-23 09:27:00 Test Item Value Reference Range Interpretation Comments Basophils (test code = 0.5 See_Comment [Aut omated message] The Basophils) system which ge nerated this result tra nsmitted reference range : <=1.0. The reference r jairon was not used to int erpret this result as normal/abnormal . [facility] HospitalJgsebsyEAXFOFNPVP4520-58-14 09:27:00 Test Item Value Reference Range Interpretation Comments Segs-Bands # (test code = Segs-Bands #) 3.0 1.5-8.1 [facility] HospitalTahtidgEWJTZSSPFZ3181-34-52 09:27:00 Test Item Value Reference Range Interpretation Comments Monocytes (test code = Monocytes) 12.0 2.0-12.0 [facility] HospitalNqnlkaeBAGINQAFSX3418-82-59 09:27:00 Test Item Value Reference Range Interpretation Comments Segs (test code = Segs) 59.2 45.0-75.0 [facility] HospitalYprqzljRMOIMKJUIJ7721-32-58 09:27:00 Test Item Value Reference Range Interpretation Comments Lymphocytes (test code = Lymphocytes) 24.7 20.0-40.0 [facility] HospitalQplxrhaIDWZMLUQFR6700-28-08 09:27:00 Test Item Value Reference Range Interpretation Comments RDW (test code = RDW) 12.8 11.5-14.5 [facility] HospitalCjkeafdMWFRKUPAHY2146-88-41 09:27:00 Test Item Value Reference Range Interpretation Comments Platelet (test code = Platelet) 119 133-450 [facility] HospitalQintvoqHXYGDBMWZB7975-78-95 09:27:00 Test Item Value Reference Range Interpretation Comments MPV (test code = MPV) 8.1 7.4-10.4 [facility] HospitalOjwrybiDUUBAGOFBY0518-11-38 09:27:00 Test Item Value Reference Range Interpretation Comments WBC (test code = WBC) 5.1 3.7-10.4 [facility] HospitalVljrgepDKVVVMFIBT3797-05-83 09:27:00 Test Item Value Reference Range Interpretation Comments RBC (test code = RBC) 3.77 4.20-5.40 [facility]2018-06-12 09:27:00 Test Item Value Reference Range Interpretation Comments Potassium Lvl (test code = Potassium 3.9 3.5-5.1 Lvl) [facility] HospitalFunvijtOSAURFGMBD8311-58-61 09:27:00 Test Item Value Reference Range Interpretation Comments Hgb (test code = Hgb) 12.0 12.0-16.0 [facility] HospitalMywplhhTQDXFAFZSW0186-29-74 09:27:00 Test Item Value Reference Range Interpretation Comments Hct (test code = Hct) 35.8 36.0-48.0 [facility] HospitalVpaedzhUIAHIYMNEK4568-18-90 09:27:00 Test Item Value Reference Range Interpretation Comments MCHC (test code = MCHC) 33.5 32.0-36.0 [facility] HospitalGfmokocVOGRIWPTVM6584-05-82 09:27:00 Test Item Value Reference Range Interpretation Comments MCH (test code = MCH) 31.8 pg 27.0-31.0 [facility] HospitalBrqjhdcNLVHBUNUCR9183-42-36 09:27:00 Test Item Value Reference Range Interpretation Comments MCV (test code = MCV) 94.9 80.0-98.0 [facility]2018-06-12 09:27:00 Test Item Value Reference Range Interpretation Comments Chloride Lvl (test code = Chloride Lvl) 110 95-109 [facility]2018-06-12 09:27:00 Test Item Value Reference Range Interpretation Comments Calcium Lvl (test code = Calcium Lvl) 9.0 8.5-10.5 [facility]2018-06-12 09:27:00 Test Item Value Reference Range Interpretation Comments ALT (test code = ALT) 25 See_Comment [Auto mated message] The system which ge nerated this result transmit akhil reference range : <=65. The reference range was not used to interpr et this result as nora l/abnormal. [facility]2018-06-12 09:27:00 Test Item Value Reference Range Interpretation Comments CO2 (test code = CO2) 28 24-32 [facility]2018-06-12 09:27:00 Test Item Value Reference Range Interpretation Comments Albumin Lvl (test code = Albumin Lvl) 3.3 3.5-5.0 [facility]2018-06-12 09:27:00 Test Item Value Reference Range Interpretation Comments A/G Ratio (test code = A/G Ratio) 0.9 1 0.7-1.6 [facility]2018-06-12 09:27:00 Test Item Value Reference Range Interpretation Comments Globulin (test code = Globulin) 3.7 2.7-4.2 [facility]2018-06-12 09:27:00 Test Item Value Reference Range Interpretation Comments B/C Ratio (test code = B/C Ratio) 24 1 6-25 [facility]2018-06-12 09:27:00 Test Item Value Reference Range Interpretation Comments AGAP (test code = AGAP) 9.9 10.0-20.0 [facility]2018-06-12 09:27:00 Test Item Value Reference Range Interpretation Comments eGFR (test code = eGFR) 79 [facility]2018-06-12 09:27:00 Test Item Value Reference Range Interpretation Comments Potassium Lvl (test code = Potassium 3.9 3.5-5.1 Lvl) [facility]2018-06-12 09:27:00 Test Item Value Reference Range Interpretation Comments Chloride Lvl (test code = Chloride Lvl) 110 95-109 [facility]2018-06-12 09:27:00 Test Item Value Reference Range Interpretation Comments Calcium Lvl (test code = Calcium Lvl) 9.0 8.5-10.5 [facility]2018-06-12 09:27:00 Test Item Value Reference Range Interpretation Comments ALT (test code = ALT) 25 See_Comment [Auto mated message] The system which ge nerated this result transmit akhil reference range : <=65. The reference range was not used to interpr et this result as nora l/abnormal. [facility]2018-06-12 09:27:00 Test Item Value Reference Range Interpretation Comments Total Protein (test code = Total 7.0 6.4-8.4 Protein) [facility]2018-06-12 09:27:00 Test Item Value Reference Range Interpretation Comments CO2 (test code = CO2) 28 24-32 [facility]2018-06-12 09:27:00 Test Item Value Reference Range Interpretation Comments Albumin Lvl (test code = Albumin Lvl) 3.3 3.5-5.0 [facility]2018-06-12 09:27:00 Test Item Value Reference Range Interpretation Comments Total Protein (test code = Total 7.0 6.4-8.4 Protein) [facility]2018-06-12 09:27:00 Test Item Value Reference Range Interpretation Comments AST (test code = AST) 20 See_Comment [Auto mated message] The system which ge nerated this result transmit akhil reference range : <=37. The reference range was not used to interpr et this result as nora l/abnormal. [facility]2018-06-12 09:27:00 Test Item Value Reference Range Interpretation Comments Bili Total (test code = Bili Total) 0.5 0.2-1.3 [facility]2018-06-12 09:27:00 Test Item Value Reference Range Interpretation Comments Alk Phos (test code = Alk Phos) 54 39-136 [facility]2018-06-12 09:27:00 Test Item Value Reference Range Interpretation Comments Glucose Lvl (test code = Glucose Lvl) 111 70-99 [facility]2018-06-12 09:27:00 Test Item Value Reference Range Interpretation Comments Sodium Lvl (test code = Sodium Lvl) 144 135-145 [facility]2018-06-12 09:27:00 Test Item Value Reference Range Interpretation Comments Creatinine Lvl (test code = Creatinine 0.72 0.50-1.40 Lvl) [facility]2018-06-12 09:27:00 Test Item Value Reference Range Interpretation Comments BUN (test code = BUN) 17 7-22 [facility]2018-06-12 09:27:00 Test Item Value Reference Range Interpretation Comments AST (test code = AST) 20 See_Comment [Auto mated message] The system which ge nerated this result transmit akhil reference range : <=37. The reference range was not used to interpr et this result as nora l/abnormal. [facility] HospitalIalfcxiNVWWOCMHUL2951-57-42 09:27:00 Test Item Value Reference Range Interpretation Comments Lymphocytes # (test code = Lymphocytes 1.3 1.0-5.5 #) [facility] HospitalOfxhsyeIPIDOTHSLE3804-33-81 09:27:00 Test Item Value Reference Range Interpretation Comments Monocytes # (test code 0.6 See_Comment [Aut omated message] The = Monocytes #) system which generated this result tra nsmitted reference range : <=0.8. The reference r jairon was not used to int erpret this result as normal/abnormal . [facility] HospitalTqphegsALIWOGZUSW4326-26-47 09:27:00 Test Item Value Reference Range Interpretation Comments Eosinophils # (test code 0.2 See_Comment [A utomated message] The = Eosinophils #) system whic h generated this result tra nsmitted reference range : <=0.5. The reference r jairon was not used to int erpret this result as normal/abnormal . [facility] HospitalIutsxsfRVODIXGXJO8845-02-35 09:27:00 Test Item Value Reference Range Interpretation Comments Eosinophils (test code = 3.6 See_Comment [A utomated message] The Eosinophils) system which ge nerated this result tra nsmitted reference range : <=4.0. The reference r jairon was not used to int erpret this result as normal/abnormal . [facility] HospitalAhylqjcPGCKKCHXUR1925-05-41 09:27:00 Test Item Value Reference Range Interpretation Comments Basophils (test code = 0.5 See_Comment [Aut omated message] The Basophils) system which ge nerated this result tra nsmitted reference range : <=1.0. The reference r jairon was not used to int erpret this result as normal/abnormal . [facility] HospitalRhharkkTMUJLAMQWZ9695-60-27 09:27:00 Test Item Value Reference Range Interpretation Comments Segs-Bands # (test code = Segs-Bands #) 3.0 1.5-8.1 [facility] HospitalHmgejlzLCQCUSVHPF7995-91-18 09:27:00 Test Item Value Reference Range Interpretation Comments Monocytes (test code = Monocytes) 12.0 2.0-12.0 [facility] HospitalVlodjxzOWFBSNTRPE2296-18-25 09:27:00 Test Item Value Reference Range Interpretation Comments Segs (test code = Segs) 59.2 45.0-75.0 [facility] HospitalBbivebbZQOKPEPCRO0128-09-89 09:27:00 Test Item Value Reference Range Interpretation Comments Lymphocytes (test code = Lymphocytes) 24.7 20.0-40.0 [facility] HospitalMjpgghsHSZRTFRDZV0041-23-10 09:27:00 Test Item Value Reference Range Interpretation Comments RDW (test code = RDW) 12.8 11.5-14.5 [facility]2018-06-12 09:27:00 Test Item Value Reference Range Interpretation Comments Bili Total (test code = Bili Total) 0.5 0.2-1.3 [facility] HospitalXxwfxxyKDMMRZRDEC8660-46-36 09:27:00 Test Item Value Reference Range Interpretation Comments Platelet (test code = Platelet) 119 133-450 [facility] HospitalZqsqgwmXRWSXHQSDV6345-67-23 09:27:00 Test Item Value Reference Range Interpretation Comments MPV (test code = MPV) 8.1 7.4-10.4 [facility] HospitalRbunaakFVFULSCJEI2511-22-12 09:27:00 Test Item Value Reference Range Interpretation Comments WBC (test code = WBC) 5.1 3.7-10.4 [facility] HospitalXrhggbbUMTXIEHNMY0282-72-46 09:27:00 Test Item Value Reference Range Interpretation Comments RBC (test code = RBC) 3.77 4.20-5.40 [facility] HospitalHdbjmzoTMLXICJVRT9871-93-28 09:27:00 Test Item Value Reference Range Interpretation Comments Hgb (test code = Hgb) 12.0 12.0-16.0 [place] [address]-06-12 09:27:00 Test Item Value Reference Range Interpretation Comments Hct (test code = Hct) 35.8 36.0-48.0 [facility] HospitalNirajvpIBVGQMFHGC9129-02-58 09:27:00 Test Item Value Reference Range Interpretation Comments MCHC (test code = MCHC) 33.5 32.0-36.0 [facility] HospitalAxfshntUFBONTTBYV8437-36-75 09:27:00 Test Item Value Reference Range Interpretation Comments MCH (test code = MCH) 31.8 pg 27.0-31.0 [facility] HospitalYevptvfYBLEVBNBUQ1764-12-59 09:27:00 Test Item Value Reference Range Interpretation Comments MCV (test code = MCV) 94.9 80.0-98.0 [facility]2018-06-12 09:27:00 Test Item Value Reference Range Interpretation Comments Alk Phos (test code = Alk Phos) 54 39-136 [facility]2018-06-12 09:27:00 Test Item Value Reference Range Interpretation Comments Glucose Lvl (test code = Glucose Lvl) 111 70-99 [facility]2018-06-12 09:27:00 Test Item Value Reference Range Interpretation Comments Sodium Lvl (test code = Sodium Lvl) 144 135-145 [facility]2018-06-12 09:27:00 Test Item Value Reference Range Interpretation Comments Creatinine Lvl (test code = Creatinine 0.72 0.50-1.40 Lvl) [facility]2018-06-12 09:27:00 Test Item Value Reference Range Interpretation Comments BUN (test code = BUN) 17 7-22 [facility]2018-06-12 09:27:00 Test Item Value Reference Range Interpretation Comments A/G Ratio (test code = A/G Ratio) 0.9 1 0.7-1.6 [facility]2018-06-12 09:27:00 Test Item Value Reference Range Interpretation Comments Globulin (test code = Globulin) 3.7 2.7-4.2 [facility]2018-06-12 09:27:00 Test Item Value Reference Range Interpretation Comments B/C Ratio (test code = B/C Ratio) 24 1 6-25 [facility]2018-06-12 09:27:00 Test Item Value Reference Range Interpretation Comments AGAP (test code = AGAP) 9.9 10.0-20.0 [facility]2018-06-12 09:27:00 Test Item Value Reference Range Interpretation Comments eGFR (test code = eGFR) 79 [place] 244378-06-12 09:27:00 Test Item Value Reference Range Interpretation Comments Lymphocytes # (test code = Lymphocytes 1.3 1.0-5.5 #) [facility]2018-06-12 09:27:00 Test Item Value Reference Range Interpretation Comments Potassium Lvl (test code = Potassium 3.9 3.5-5.1 Lvl) [facility]2018-06-12 09:27:00 Test Item Value Reference Range Interpretation Comments Chloride Lvl (test code = Chloride Lvl) 110 95-109 [place] 621158-06-12 09:27:00 Test Item Value Reference Range Interpretation Comments Calcium Lvl (test code = Calcium Lvl) 9.0 8.5-10.5 [facility]2018-06-12 09:27:00 Test Item Value Reference Range Interpretation Comments ALT (test code = ALT) 25 See_Comment [Auto mated message] The system which ge nerated this result transmit akhil reference range : <=65. The reference range was not used to interpr et this result as nora l/abnormal. [facility]2018-06-12 09:27:00 Test Item Value Reference Range Interpretation Comments CO2 (test code = CO2) 28 24-32 [facility]2018-06-12 09:27:00 Test Item Value Reference Range Interpretation Comments Albumin Lvl (test code = Albumin Lvl) 3.3 3.5-5.0 [facility]2018-06-12 09:27:00 Test Item Value Reference Range Interpretation Comments Total Protein (test code = Total 7.0 6.4-8.4 Protein) [facility]2018-06-12 09:27:00 Test Item Value Reference Range Interpretation Comments AST (test code = AST) 20 See_Comment [Auto mated message] The system which ge nerated this result transmit akhil reference range : <=37. The reference range was not used to interpr et this result as nora l/abnormal. [facility]2018-06-12 09:27:00 Test Item Value Reference Range Interpretation Comments Bili Total (test code = Bili Total) 0.5 0.2-1.3 [place] 621158-06-12 09:27:00 Test Item Value Reference Range Interpretation Comments Alk Phos (test code = Alk Phos) 54 39-136 [facility] HospitalLfagmclPDLXRMKAKR3342-75-70 09:27:00 Test Item Value Reference Range Interpretation Comments Monocytes # (test code 0.6 See_Comment [Aut omated message] The = Monocytes #) system which generated this result tra nsmitted reference range : <=0.8. The reference r jairon was not used to int erpret this result as normal/abnormal . [facility]2018-06-12 09:27:00 Test Item Value Reference Range Interpretation Comments Glucose Lvl (test code = Glucose Lvl) 111 70-99 [facility]2018-06-12 09:27:00 Test Item Value Reference Range Interpretation Comments Sodium Lvl (test code = Sodium Lvl) 144 135-145 [facility]2018-06-12 09:27:00 Test Item Value Reference Range Interpretation Comments Creatinine Lvl (test code = Creatinine 0.72 0.50-1.40 Lvl) [facility]2018-06-12 09:27:00 Test Item Value Reference Range Interpretation Comments BUN (test code = BUN) 17 7-22 [facility] HospitalZuivqexYTQWWELXEZ2881-71-16 09:27:00 Test Item Value Reference Range Interpretation Comments Lymphocytes # (test code = Lymphocytes 1.3 1.0-5.5 #) [facility] HospitalOlaghigJVINOOXNYE7947-65-80 09:27:00 Test Item Value Reference Range Interpretation Comments Monocytes # (test code 0.6 See_Comment [Aut omated message] The = Monocytes #) system which generated this result tra nsmitted reference range : <=0.8. The reference r jairon was not used to int erpret this result as normal/abnormal . [facility] HospitalYwsnirbKGZTELOXPV2225-58-14 09:27:00 Test Item Value Reference Range Interpretation Comments Eosinophils # (test code 0.2 See_Comment [A utomated message] The = Eosinophils #) system whic h generated this result tra nsmitted reference range : <=0.5. The reference r jairon was not used to int erpret this result as normal/abnormal . [id number] 09:27:00 Test Item Value Reference Range Interpretation Comments Eosinophils (test code = 3.6 See_Comment [A utomated message] The Eosinophils) system which ge nerated this result tra nsmitted reference range : <=4.0. The reference r jairon was not used to int erpret this result as normal/abnormal . [facility] HospitalLymvmrqRSWBLNDDHB7464-77-95 09:27:00 Test Item Value Reference Range Interpretation Comments Basophils (test code = 0.5 See_Comment [Aut omated message] The Basophils) system which ge nerated this result tra nsmitted reference range : <=1.0. The reference r jairon was not used to int erpret this result as normal/abnormal . [facility] HospitalTcgymohGMHQEULXTI1690-34-44 09:27:00 Test Item Value Reference Range Interpretation Comments Segs-Bands # (test code = Segs-Bands #) 3.0 1.5-8.1 [facility] HospitalL[id number] 09:27:00 Test Item Value Reference Range Interpretation Comments Eosinophils # (test code 0.2 See_Comment [A utomated message] The = Eosinophils #) system whic h generated this result tra nsmitted reference range : <=0.5. The reference r jairon was not used to int erpret this result as normal/abnormal . [facility] HospitalFydzlpzEFWQYOPIGU6240-25-18 09:27:00 Test Item Value Reference Range Interpretation Comments Monocytes (test code = Monocytes) 12.0 2.0-12.0 [facility] HospitalG[id number] 09:27:00 Test Item Value Reference Range Interpretation Comments Segs (test code = Segs) 59.2 45.0-75.0 [facility] HospitalDoeigtwGQBZRUMUSR7059-39-45 09:27:00 Test Item Value Reference Range Interpretation Comments Lymphocytes (test code = Lymphocytes) 24.7 20.0-40.0 [facility] HospitalLekzzvrVZONJVOZOH3029-70-91 09:27:00 Test Item Value Reference Range Interpretation Comments RDW (test code = RDW) 12.8 11.5-14.5 [facility] HospitalYpmutbzATGXTTURRI1936-05-16 09:27:00 Test Item Value Reference Range Interpretation Comments Platelet (test code = Platelet) 119 133-450 [facility] HospitalZjeugpgWUEHJCUKMF9642-78-34 09:27:00 Test Item Value Reference Range Interpretation Comments MPV (test code = MPV) 8.1 7.4-10.4 [facility] HospitalTavrdwhRJAUAMTBZE4378-76-17 09:27:00 Test Item Value Reference Range Interpretation Comments WBC (test code = WBC) 5.1 3.7-10.4 [facility] HospitalVrmogsaMNUTUFQQRP9240-99-20 09:27:00 Test Item Value Reference Range Interpretation Comments RBC (test code = RBC) 3.77 4.20-5.40 [facility] HospitalWmzkwidISNLMLRXAV7986-98-84 09:27:00 Test Item Value Reference Range Interpretation Comments Hgb (test code = Hgb) 12.0 12.0-16.0 [facility] HospitalYafnouzWSBBKDUOMA0142-58-89 09:27:00 Test Item Value Reference Range Interpretation Comments Hct (test code = Hct) 35.8 36.0-48.0 [facility] HospitalNxhlnvzGMPCWNZTQC5489-84-19 09:27:00 Test Item Value Reference Range Interpretation Comments Eosinophils (test code = 3.6 See_Comment [A utomated message] The Eosinophils) system which ge nerated this result tra nsmitted reference range : <=4.0. The reference r jairon was not used to int erpret this result as normal/abnormal . [facility] HospitalTzpeqznDGKVQYOYRJ8803-86-06 09:27:00 Test Item Value Reference Range Interpretation Comments MCHC (test code = MCHC) 33.5 32.0-36.0 [facility] HospitalHjmxxqeDHTBGOFLVM1634-42-13 09:27:00 Test Item Value Reference Range Interpretation Comments MCH (test code = MCH) 31.8 pg 27.0-31.0 [facility] HospitalLjwmwnmMGQRZNCWWN2412-04-52 09:27:00 Test Item Value Reference Range Interpretation Comments MCV (test code = MCV) 94.9 80.0-98.0 [facility] HospitalKkztylkTMYYMEXCBG8083-42-91 09:27:00 Test Item Value Reference Range Interpretation Comments Basophils (test code = 0.5 See_Comment [Aut omated message] The Basophils) system which ge nerated this result tra nsmitted reference range : <=1.0. The reference r jairon was not used to int erpret this result as normal/abnormal . [facility] HospitalYnsujccFKOBNNJDUL0962-03-11 09:27:00 Test Item Value Reference Range Interpretation Comments Segs-Bands # (test code = Segs-Bands #) 3.0 1.5-8.1 [facility] HospitalTbxrjevBADCYAAXWD1764-61-96 09:27:00 Test Item Value Reference Range Interpretation Comments Monocytes (test code = Monocytes) 12.0 2.0-12.0 [facility] HospitalQlsdixsONBKQRAHPM8905-58-95 09:27:00 Test Item Value Reference Range Interpretation Comments Segs (test code = Segs) 59.2 45.0-75.0 [facility]2018-06-12 09:27:00 Test Item Value Reference Range Interpretation Comments A/G Ratio (test code = A/G Ratio) 0.9 1 0.7-1.6 [facility] HospitalTyykpvdMZZQDXFEVE5942-23-68 09:27:00 Test Item Value Reference Range Interpretation Comments Lymphocytes (test code = Lymphocytes) 24.7 20.0-40.0 [facility]2018-06-12 09:27:00 Test Item Value Reference Range Interpretation Comments Globulin (test code = Globulin) 3.7 2.7-4.2 [facility]2018-06-12 09:27:00 Test Item Value Reference Range Interpretation Comments B/C Ratio (test code = B/C Ratio) 24 1 6-25 [facility]2018-06-12 09:27:00 Test Item Value Reference Range Interpretation Comments AGAP (test code = AGAP) 9.9 10.0-20.0 [facility]2018-06-12 09:27:00 Test Item Value Reference Range Interpretation Comments eGFR (test code = eGFR) 79 [facility]2018-06-12 09:27:00 Test Item Value Reference Range Interpretation Comments Potassium Lvl (test code = Potassium 3.9 3.5-5.1 Lvl) [facility]2018-06-12 09:27:00 Test Item Value Reference Range Interpretation Comments Chloride Lvl (test code = Chloride Lvl) 110 95-109 [facility]2018-06-12 09:27:00 Test Item Value Reference Range Interpretation Comments Calcium Lvl (test code = Calcium Lvl) 9.0 8.5-10.5 [facility]2018-06-12 09:27:00 Test Item Value Reference Range Interpretation Comments ALT (test code = ALT) 25 See_Comment [Auto mated message] The system which ge nerated this result transmit akhil reference range : <=65. The reference range was not used to interpr et this result as nora l/abnormal. [facility]2018-06-12 09:27:00 Test Item Value Reference Range Interpretation Comments CO2 (test code = CO2) 28 24-32 [facility]2018-06-12 09:27:00 Test Item Value Reference Range Interpretation Comments Albumin Lvl (test code = Albumin Lvl) 3.3 3.5-5.0 [facility] HospitalEyrdlpvDIEEEJQIFJ3606-20-21 09:27:00 Test Item Value Reference Range Interpretation Comments RDW (test code = RDW) 12.8 11.5-14.5 [facility]2018-06-12 09:27:00 Test Item Value Reference Range Interpretation Comments Total Protein (test code = Total 7.0 6.4-8.4 Protein) [facility]2018-06-12 09:27:00 Test Item Value Reference Range Interpretation Comments AST (test code = AST) 20 See_Comment [Auto mated message] The system which ge nerated this result transmit akhil reference range : <=37. The reference range was not used to interpr et this result as nora l/abnormal. [facility]2018-06-12 09:27:00 Test Item Value Reference Range Interpretation Comments Bili Total (test code = Bili Total) 0.5 0.2-1.3 [facility]2018-06-12 09:27:00 Test Item Value Reference Range Interpretation Comments Alk Phos (test code = Alk Phos) 54 39-136 [facility]2018-06-12 09:27:00 Test Item Value Reference Range Interpretation Comments Glucose Lvl (test code = Glucose Lvl) 111 70-99 [facility]2018-06-12 09:27:00 Test Item Value Reference Range Interpretation Comments Sodium Lvl (test code = Sodium Lvl) 144 135-145 [facility]2018-06-12 09:27:00 Test Item Value Reference Range Interpretation Comments Creatinine Lvl (test code = Creatinine 0.72 0.50-1.40 Lvl) [facility]2018-06-12 09:27:00 Test Item Value Reference Range Interpretation Comments BUN (test code = BUN) 17 7-22 [facility] HospitalVklsiliNLXRHTUBBK6874-66-19 09:27:00 Test Item Value Reference Range Interpretation Comments Lymphocytes # (test code = Lymphocytes 1.3 1.0-5.5 #) [facility] HospitalWjfhuzjZADNIEZLUI1278-83-47 09:27:00 Test Item Value Reference Range Interpretation Comments Monocytes # (test code 0.6 See_Comment [Aut omated message] The = Monocytes #) system which generated this result tra nsmitted reference range : <=0.8. The reference r jairon was not used to int erpret this result as normal/abnormal . [facility] HospitalPukwueeFVOBTYCRZP4085-45-35 09:27:00 Test Item Value Reference Range Interpretation Comments Platelet (test code = Platelet) 119 133-450 [facility] HospitalChollrgQQOYXCBANT0917-34-01 09:27:00 Test Item Value Reference Range Interpretation Comments Eosinophils # (test code 0.2 See_Comment [A utomated message] The = Eosinophils #) system whic h generated this result tra nsmitted reference range : <=0.5. The reference r jairon was not used to int erpret this result as normal/abnormal . [facility] HospitalJeahtvkJTNTAOLGNQ4662-91-48 09:27:00 Test Item Value Reference Range Interpretation Comments Eosinophils (test code = 3.6 See_Comment [A utomated message] The Eosinophils) system which ge nerated this result tra nsmitted reference range : <=4.0. The reference r jairon was not used to int erpret this result as normal/abnormal . [facility] HospitalAagvvbeFLEYKTSWQP6943-07-39 09:27:00 Test Item Value Reference Range Interpretation Comments Basophils (test code = 0.5 See_Comment [Aut omated message] The Basophils) system which ge nerated this result tra nsmitted reference range : <=1.0. The reference r jairon was not used to int erpret this result as normal/abnormal . [facility] HospitalCoweyoxQZZYWFOYZE0464-43-18 09:27:00 Test Item Value Reference Range Interpretation Comments Segs-Bands # (test code = Segs-Bands #) 3.0 1.5-8.1 [facility] HospitalUxhjkegFDISCGMYRB8734-94-22 09:27:00 Test Item Value Reference Range Interpretation Comments Monocytes (test code = Monocytes) 12.0 2.0-12.0 [facility] HospitalJzsqadcMBHWBEDRTN7392-19-24 09:27:00 Test Item Value Reference Range Interpretation Comments Segs (test code = Segs) 59.2 45.0-75.0 [facility] HospitalSnqjhsdYPTALPHCOQ3113-22-25 09:27:00 Test Item Value Reference Range Interpretation Comments Lymphocytes (test code = Lymphocytes) 24.7 20.0-40.0 [facility] HospitalQnvbmipOJIMOBRFKL0771-62-79 09:27:00 Test Item Value Reference Range Interpretation Comments RDW (test code = RDW) 12.8 11.5-14.5 [facility] HospitalHzbvtpjINPBLYWURC3974-24-35 09:27:00 Test Item Value Reference Range Interpretation Comments Platelet (test code = Platelet) 119 133-450 [facility] HospitalGfnbpnuDEIZXVKSEF1400-91-90 09:27:00 Test Item Value Reference Range Interpretation Comments MPV (test code = MPV) 8.1 7.4-10.4 [facility] HospitalEuatozhTOBVYDOFTF6786-35-30 09:27:00 Test Item Value Reference Range Interpretation Comments MPV (test code = MPV) 8.1 7.4-10.4 [facility] HospitalZwusxqdOLAEISQJPM7139-39-33 09:27:00 Test Item Value Reference Range Interpretation Comments WBC (test code = WBC) 5.1 3.7-10.4 [facility] HospitalYrxnjerPQQWNBOOED0700-44-71 09:27:00 Test Item Value Reference Range Interpretation Comments RBC (test code = RBC) 3.77 4.20-5.40 [facility] HospitalGxrszzrAYYDUMQDME7538-91-21 09:27:00 Test Item Value Reference Range Interpretation Comments Hgb (test code = Hgb) 12.0 12.0-16.0 [facility] HospitalWrohylsERDLMUVGPT2724-12-40 09:27:00 Test Item Value Reference Range Interpretation Comments Hct (test code = Hct) 35.8 36.0-48.0 [facility] HospitalRdakwlpKYIXHCWFIN6806-12-97 09:27:00 Test Item Value Reference Range Interpretation Comments MCHC (test code = MCHC) 33.5 32.0-36.0 [facility] HospitalJefdqwnTNQPTRTKHP8505-09-23 09:27:00 Test Item Value Reference Range Interpretation Comments MCH (test code = MCH) 31.8 pg 27.0-31.0 [facility] HospitalYmcnukqQUQRCAENSC0067-55-27 09:27:00 Test Item Value Reference Range Interpretation Comments MCV (test code = MCV) 94.9 80.0-98.0 [facility] HospitalMkpjbkeDNCCTHMPFT8718-00-68 09:27:00 Test Item Value Reference Range Interpretation Comments WBC (test code = WBC) 5.1 3.7-10.4 [facility] HospitalLetwrmhJKHGKSNVNA5969-97-45 09:27:00 Test Item Value Reference Range Interpretation Comments RBC (test code = RBC) 3.77 4.20-5.40 [facility] HospitalGrozxeaKGLWYAGCRI1281-36-83 09:27:00 Test Item Value Reference Range Interpretation Comments Hgb (test code = Hgb) 12.0 12.0-16.0 [facility] HospitalTbglvfkBHWNBJIITC6664-22-68 09:27:00 Test Item Value Reference Range Interpretation Comments Hct (test code = Hct) 35.8 36.0-48.0 [facility] HospitalAkjgpmkJFQZMCGQVK8533-65-95 09:27:00 Test Item Value Reference Range Interpretation Comments MCHC (test code = MCHC) 33.5 32.0-36.0 [facility]2018-06-12 09:27:00 Test Item Value Reference Range Interpretation Comments A/G Ratio (test code = A/G Ratio) 0.9 1 0.7-1.6 [facility]2018-06-12 09:27:00 Test Item Value Reference Range Interpretation Comments Globulin (test code = Globulin) 3.7 2.7-4.2 [facility]2018-06-12 09:27:00 Test Item Value Reference Range Interpretation Comments B/C Ratio (test code = B/C Ratio) 24 1 6-25 [facility]2018-06-12 09:27:00 Test Item Value Reference Range Interpretation Comments AGAP (test code = AGAP) 9.9 10.0-20.0 [facility]2018-06-12 09:27:00 Test Item Value Reference Range Interpretation Comments eGFR (test code = eGFR) 79 [facility]2018-06-12 09:27:00 Test Item Value Reference Range Interpretation Comments Potassium Lvl (test code = Potassium 3.9 3.5-5.1 Lvl) [facility]2018-06-12 09:27:00 Test Item Value Reference Range Interpretation Comments Chloride Lvl (test code = Chloride Lvl) 110 95-109 [facility] HospitalDpzqslpWSCFEUHXGR7247-36-50 09:27:00 Test Item Value Reference Range Interpretation Comments MCH (test code = MCH) 31.8 pg 27.0-31.0 [facility]2018-06-12 09:27:00 Test Item Value Reference Range Interpretation Comments Calcium Lvl (test code = Calcium Lvl) 9.0 8.5-10.5 [facility]2018-06-12 09:27:00 Test Item Value Reference Range Interpretation Comments ALT (test code = ALT) 25 See_Comment [Auto mated message] The system which ge nerated this result transmit akhil reference range : <=65. The reference range was not used to interpr et this result as nora l/abnormal. [facility]2018-06-12 09:27:00 Test Item Value Reference Range Interpretation Comments CO2 (test code = CO2) 28 24-32 [facility]2018-06-12 09:27:00 Test Item Value Reference Range Interpretation Comments Albumin Lvl (test code = Albumin Lvl) 3.3 3.5-5.0 [facility]2018-06-12 09:27:00 Test Item Value Reference Range Interpretation Comments Total Protein (test code = Total 7.0 6.4-8.4 Protein) [facility]2018-06-12 09:27:00 Test Item Value Reference Range Interpretation Comments AST (test code = AST) 20 See_Comment [Auto mated message] The system which ge nerated this result transmit akhil reference range : <=37. The reference range was not used to interpr et this result as nora l/abnormal. [facility]2018-06-12 09:27:00 Test Item Value Reference Range Interpretation Comments Bili Total (test code = Bili Total) 0.5 0.2-1.3 [facility]2018-06-12 09:27:00 Test Item Value Reference Range Interpretation Comments Alk Phos (test code = Alk Phos) 54 39-136 [facility]2018-06-12 09:27:00 Test Item Value Reference Range Interpretation Comments Glucose Lvl (test code = Glucose Lvl) 111 70-99 [facility]2018-06-12 09:27:00 Test Item Value Reference Range Interpretation Comments Sodium Lvl (test code = Sodium Lvl) 144 135-145 [facility] HospitalLegrsrfLEICDGACOY6822-64-34 09:27:00 Test Item Value Reference Range Interpretation Comments MCV (test code = MCV) 94.9 80.0-98.0 [facility]2018-06-12 09:27:00 Test Item Value Reference Range Interpretation Comments Creatinine Lvl (test code = Creatinine 0.72 0.50-1.40 Lvl) [facility]2018-06-12 09:27:00 Test Item Value Reference Range Interpretation Comments BUN (test code = BUN) 17 7-22 [facility] HospitalWmgaisbCDSTQAYMUG2977-79-87 09:27:00 Test Item Value Reference Range Interpretation Comments Lymphocytes # (test code = Lymphocytes 1.3 1.0-5.5 #) [facility] HospitalUimxcvdLRYMERJSTJ1063-31-69 09:27:00 Test Item Value Reference Range Interpretation Comments Monocytes # (test code 0.6 See_Comment [Aut omated message] The = Monocytes #) system which generated this result tra nsmitted reference range : <=0.8. The reference r jairon was not used to int erpret this result as normal/abnormal . [facility] HospitalRqhgfidQZTLMOZRTE3305-21-84 09:27:00 Test Item Value Reference Range Interpretation Comments Eosinophils # (test code 0.2 See_Comment [A utomated message] The = Eosinophils #) system whic h generated this result tra nsmitted reference range : <=0.5. The reference r jairon was not used to int erpret this result as normal/abnormal . [facility] HospitalPgopfafAPWBJSKRGX5302-92-20 09:27:00 Test Item Value Reference Range Interpretation Comments Eosinophils (test code = 3.6 See_Comment [A utomated message] The Eosinophils) system which ge nerated this result tra nsmitted reference range : <=4.0. The reference r jairon was not used to int erpret this result as normal/abnormal . [facility] HospitalBfirhrsHCPBVUPWTR7226-88-78 09:27:00 Test Item Value Reference Range Interpretation Comments Basophils (test code = 0.5 See_Comment [Aut omated message] The Basophils) system which ge nerated this result tra nsmitted reference range : <=1.0. The reference r jairon was not used to int erpret this result as normal/abnormal . [facility] HospitalQufndyuSKJCJKPEXT9702-03-99 09:27:00 Test Item Value Reference Range Interpretation Comments Segs-Bands # (test code = Segs-Bands #) 3.0 1.5-8.1 [facility] HospitalKekgcvdAMNZKXVLCW8379-80-61 09:27:00 Test Item Value Reference Range Interpretation Comments Monocytes (test code = Monocytes) 12.0 2.0-12.0 [facility] HospitalXevedbgLBGXWFEOEP2459-27-35 09:27:00 Test Item Value Reference Range Interpretation Comments Segs (test code = Segs) 59.2 45.0-75.0 [facility] HospitalRnuwvglZIWECFKNXL6141-53-72 09:27:00 Test Item Value Reference Range Interpretation Comments Lymphocytes (test code = Lymphocytes) 24.7 20.0-40.0 [facility] HospitalSebmnimPXYEMTUKMZ8291-36-17 09:27:00 Test Item Value Reference Range Interpretation Comments RDW (test code = RDW) 12.8 11.5-14.5 [facility] HospitalUhmiqtoECGNUZXMPP0256-02-86 09:27:00 Test Item Value Reference Range Interpretation Comments Platelet (test code = Platelet) 119 133-450 [facility] HospitalRhcnwpdSLPOCDFYBI3079-95-05 09:27:00 Test Item Value Reference Range Interpretation Comments MPV (test code = MPV) 8.1 7.4-10.4 [facility] HospitalUnolkhkBAHXVIGHKX9349-84-15 09:27:00 Test Item Value Reference Range Interpretation Comments WBC (test code = WBC) 5.1 3.7-10.4 [facility] HospitalPslbjyuLICNOZCRTH4805-99-43 09:27:00 Test Item Value Reference Range Interpretation Comments RBC (test code = RBC) 3.77 4.20-5.40 [facility] HospitalJvqjqrjFSMLBWMUWG0575-28-71 09:27:00 Test Item Value Reference Range Interpretation Comments Hgb (test code = Hgb) 12.0 12.0-16.0 [facility] HospitalRryorweFIBEXGILSV0043-08-69 09:27:00 Test Item Value Reference Range Interpretation Comments Hct (test code = Hct) 35.8 36.0-48.0 [facility] HospitalXmbauppBNIMFKPNTT8073-12-35 09:27:00 Test Item Value Reference Range Interpretation Comments MCHC (test code = MCHC) 33.5 32.0-36.0 [facility] HospitalVfzkpynVNOOQZJSOA7746-10-02 09:27:00 Test Item Value Reference Range Interpretation Comments MCH (test code = MCH) 31.8 pg 27.0-31.0 [facility]WrbsaowDSOHWKXUBM4200-06-26 09:27:00 Test Item Value Reference Range Interpretation Comments MCV (test code = MCV) 94.9 80.0-98.0 [facility] Notes Date/Time Note Provider Source 2018-04-16 12:00:00-00:00 Patient Name: KENDAL MEJIAS [facility] : 1935; Age: 82 years y/o Female MR: [id number] Study: Chest 2 views DX 04/16/2018 3:00 AM CDT Ordering Physician: Arleen Mcduffie MD Clinical Indication: Heart failure - Status post PPM/ICD Implantation; Comparison: 04/15/2018 Two-view chest Lungs are clear. Heart size normal. No evidence for congestive heart failure or pulmonary edema. There is no pleural effusion or pneumothorax noted. Calcified densities in the subcarinal region are like ly granulomatous scars. Aort ic arch calcification is present. Implanted pacemaker generator is present in the left chest wall, leads extending centrally via the left subclavian vein to the right atrium and ventricle, as before. IMPRESSION: No new or acute findings. SL: [id number] 2018-04-15 18:30:00-00:00 1 view chest portable: [facility] HISTORY: Line placement. FINDINGS: No prior compariso n. The 2 leads of a left transvenous cardiac pacemaker appear well-positioned. The lungs are clear. No definite pneumothorax or pleural fluid. The heart and mediastinal contours unremarkable. SL: KRISHNA
[2023-04-21] MEDS ORDERED: NA CHLORIDE 0.9% 500 ML ONE (18:29)
[2023-04-21 18:55] LABS: Lymphocytes % 27.6 % (15.3-44.8); MCV 99.2 fL (80-100); MPV 8.4 fL (7.6-11.3); RBC Red Blood Cell Count 3.74 M/uL (3.86-4.86)
[2023-04-21 19:03] LABS: Protime INR 0.82
[2023-04-21 19:04] LABS: Specific Gravity 1.006 (1.005-1.030); Urine Bacteria None Seen /HPF (<20); Urine Bilirubin NEGATIVE (Negative); Urine Blood Negative (Negative); Urine Clarity Clear (Clear); Urine Color Colorless (Yellow); Urine Glucose NEGATIVE (Negative); Urine Protein NEGATIVE (Negative); Urine RBC <5 /HPF (None Seen); Urine Urobilinogen Normal (Normal); Urine pH 6.5 (5.0-7.0)
--- NOTE | 2023-04-21 19:09 | RAD REPORT ---
EXAM DESCRIPTION: CT - Head Brain Wo Cont - 04/21/2023 6:42 pm CLINICAL HISTORY: WEAKNESS COMPARISON: Head angio dated 12/12/2022; Head Brain Wo Cont dated 12/11/2022 TECHNIQUE: Noncontrast head CT images ad were obtained without IV contrast. Multiplanar reformats we re generated and reviewed. All CT scans are performed using dose optimization technique as appropriate and may include automated exposure control or mA/KV adjustment according to patient size. FINDINGS: No intracranial hemorrhage, mass, or edema. Midline structures are unremarkable. Normal ventricular caliber for age. Right posterior parietal encephalomalacia, in the region of previously noted cortical hypodensity, lawson ggestive of remote infarct. No other evidence of acute infarct. No abnormal extra-axial fluid collect ions. Patchy periventricular and deep white matter hypoattenuation, nonspecific, but stable pattern, most s uggestive of chronic small vessel ischemic changes. Stable bilateral basal ganglia mineralization. Mastoid air cells and visualized portions of the paranasal sinuses are clear. No acute bony findings. IMPRESSION: No evidence of an acute intracranial process. Sequelae of remote right posterior pariet al ischemia, and other stable sequelae of presumed chronic small vessel ischemic changes.
--- NOTE | 2023-04-21 19:09 | RAD REPORT ---
EXAM DESCRIPTION: RADChest Single View04/21/2023 7:03 pm CLINICAL HISTORY: weakness COMPARISON: Chest Pa And Lat (2 Views) dated 09/26/2022; Chest Pa And Lat (2 Views) dated 01/20/2020; Chest Pa And Lat (2 Views) dated 01/05/2020; Chest Single View dated 01/04/2020 TECHNIQUE: Portable AP view of the chest. FINDINGS: The lungs are clear. Hyperinflation again seen. Left chest wall pacer/AICD. No pneumothora x or effusion. The cardiomediastinal contours are unremarkable. IMPRESSION: No acute cardiopulmonary process.
[2023-04-21 19:13] LABS: Albumin 3.9 g/dL (3.4-5.0); Bilirubin Direct 0.1 mg/dL (0-0.2); Bilirubin Indirect, Calculated 0.3 mg/dL (0.2-0.8); Bilirubin Total 0.4 mg/dL (0.2-1.0); Magnesium 2.3 mg/dL (1.6-2.4); Potassium 3.9 mEq/L (3.5-5.1); Protein, Total 7.8 g/dL (6.4-8.2); Troponin High Sensitivity 13.2 pg/mL (<58.9)
--- NOTE | 2023-04-21 19:57 | ER ---
Nurse's Notes [facility] Name: Mona Lozano Age: 87 yrs Sex: Female : 1935 Arrival Date: 04/21/2023 Time: 17:46 Bed 17 Private MD: Fili Garcia Diagnosis: Nausea;Weakness Presentation: 04/21 18:12 Chief complaint: Patient states: HBP today at home of 176/90, denies CP or SOB, stated vg1 pain in WALKER shoulders that radiates to Left arm. Also stated dizziness, weakness to legs and nausea. Ebola Screen: Patient negative for fever greater than or equal to 101.5 degrees Fahrenheit, and additional compatible Ebola Virus Disease symptoms Patient denies exposure to infectious person. Patient denies travel to an Ebola-affected area in the 21 days before illness onset. Initial Sepsis Screen: Does the patient meet any 2 criteria? No. Patient's initial sepsis screen is negative. Does the patient have a suspected source of infection? No. Patient's initial sepsis screen is negative. Risk Assessment: Do you want to hurt yourself or someone else? Patient reports no desire to harm self or others. Onset of symptoms was April 19, 2023. 18:12 Method Of Arrival: Wheelchair vg1 18:12 Acuity: KAROLYN 3 vg1 20:11 Coronavirus screen: Vaccine status: Patient reports receiving the 2nd dose of the covid kr3 vaccine. Triage Assessment: 18:14 The onset of the patients symptoms was more than six hours ago. General: Appears in no vg1 apparent distress. uncomfortable, Behavior is calm, cooperative. Pain: Complains of pain in WALKER shoulders Pain radiates to left arm Pain currently is 0 out of 10 on a pain scale. Neuro: Level of Consciousness is awake, alert, obeys commands, Oriented to person, place, time, situation, [employer] House [employer] are equal bilaterally Moves all extremities. Gait is unsteady, Speech is normal, Facial symmetry appears normal, Intact Reports dizziness. Cardiovascular: Patient's skin is warm and dry. Historical: - Allergies: 18:14 PENICILLINS; vg1 18:14 Sulfa (Sulfonamide Antibiotics); vg1 18:14 tetanus; vg1 - PMHx: 18:14 Stroke; Hypertensive disorder; vg1 - PSHx: 18:14 Heart stint; pacemaker; Total abdominal hysterectomy; tubilagation; vg1 - Social history:: Smoking status: Patient denies any tobacco usage or history of. Screenin:10 [facility] ED Fall Risk Assessment (Adult) History of falling in the last 3 months, kr3 including since admission No falls in past 3 months (0 pts). [facility] ED Fall Risk Assessment (Adult) Confusion or Disorientation No (0 pts) Intoxicated or Sedated No (0 pts) Impaired Gait No (0 pts) Mobility Assist Device Used No (0 pt) Altered Elimination No (0 pt) Score/Fall Risk Level 0 - 2 = Low Risk Oriented to surroundings, Maintained a safe environment, Educated pt \T\ family on fall prevention, incl call for assistance when getting out of bed, Assessed \T\ reinforced patient's understanding of fall precautions, Hourly rounding (assess needs \T\ fall precautionary measures) done. Abuse screen: Denies threats or abuse. Nutritional screening: No deficits noted. Tuberculosis screening: No symptoms or risk factors identified. Assessment: 18:37 General: Appears in no apparent distress. comfortable, Behavior is calm, cooperative, kr3 appropriate for age. Pain: Complains of pain in left arm. Neuro: Level of Consciousness is awake, alert, obeys commands, Oriented to person, place, time, situation. Cardiovascular: Patient's skin is warm and dry. Respiratory: Airway is patent Respiratory effort is even, unlabored, Respiratory pattern is regular, symmetrical. GI: No signs and/or symptoms were reported involving the gastrointestinal system. : No signs and/or symptoms were reported regarding the genitourinary system. EENT: No signs and/or symptoms were reported regarding the EENT system. Derm: No signs and/or symptoms reported regarding the dermatologic system. Musculoskeletal: Circulation, motion, and sensation intact. 19:39 Reassessment: Patient appears in no apparent distress at this time. Patient and/or kr3 family updated on plan of care and expected duration. Pain level reassessed. Patient is alert, oriented x 3, equal unlabored respirations, skin warm/dry/pink. 19:53 Reassessment: patient has been drinking her bottle of water since she has been here kr3 without any issues. 20:09 Reassessment: Patient appears in no apparent distress at this time. Patient and/or kr3 family updated on plan of care and expected duration. Pain level reassessed. Patient is alert, oriented x 3, equal unlabored respirations, skin warm/dry/pink. Vital Signs: 18:12 BP 163 / 73; Pulse 69; Resp 16; Pulse Ox 99% on R/A; Weight 61.69 kg; Height 5 ft. 5 vg1 in. ; Pain 0/10; 19:39 BP 159 / 66; Pulse 71; Resp 18; Pulse Ox 99% ; kr3 20:10 BP 166 / 83; Pulse 65; Resp 18; Pulse Ox 98% on R/A; kr3 18:12 Body Mass Index 22.63 (61.69 kg, 165.1 cm) vg1 18:12 Pain Scale: Adult vg1 ED Course: 17:50 Patient arrived in ED. mr 17:50 Fili Garcia DO is Private Physician. mr 17:53 Margarito Amin PA is PHCP. cp 17:53 Violeta Silva MD is Attending Physician. cp 18:07 Sera Tamayo, JUANA is Primary Nurse. kr3 18:14 Triage completed. vg1 18:14 Arm band placed on. vg1 18:43 CT Head Brain wo Cont In Process Unspecified. EDMS 19:05 XRAY Chest (1 view) In Process Unspecified. EDMS 20:11 No provider procedures requiring assistance completed. IV discontinued, intact, kr3 bleeding controlled, No redness/swelling at site. Pressure dressing applied. 20:12 Bed in low position. Call light in reach. Side rails up X 1. kr3 Administered Medications: 19:11 Drug: NS 0.9% IV 500 ml Route: IV; Rate: 125 ml/hr; Site: right antecubital; kr3 20:13 Follow up: Response: No adverse reaction; IV Status: Completed infusion; IV Intake: kr3 500ml Medication: 20:12 VIS not applicable for this client. kr3 Intake: 20:13 IV: 500ml; Total: 500ml. kr3 Outcome: 19:56 Discharge ordered by . cp 20:12 Discharged to home ambulatory. kr3 20:12 Condition: stable 20:12 Discharge instructions given to patient, family, Instructed on discharge instructions, follow up and referral plans. medication usage, Demonstrated understanding of instructions, follow-up care, medications, Prescriptions given X 1. 20:13 Patient left the ED. kr3 Signatures: Dispatcher [employer] CARREI EspinozaEdilia mr Margarito Amin PA PA cp Garcia, Victoria RN RN vg1 Sera Tamayo RN RN kr3
--- NOTE | 2023-04-21 19:57 | EDPHYS ---
Physician Documentation [facility] Name: Mona Lozano Age: 87 yrs Sex: Female : 1935 Arrival Date: 04/21/2023 Time: 17:46 Bed 17 Private MD: Fili Garcia ED Physician Violeta Silva HPI: 04/21 18:20 This 87 yrs old Female presents to ER via Wheelchair with complaints of High Blood cp Pressure, Shoulder Pain, Weakness. 18:20 The patient has elevated blood pressure and discovered this at home, with a home cp device. Onset: The symptoms/episode began/occurred today. Associated signs and symptoms: Pertinent positives: weakness, pain across upper back/shoulders with pain to left arm. Severity of symptoms: in the emergency department the blood pressure is improved, 163 mm Hg. Historical: - Allergies: 18:14 PENICILLINS; vg1 18:14 Sulfa (Sulfonamide Antibiotics); vg1 18:14 tetanus; vg1 - PMHx: 18:14 Stroke; Hypertensive disorder; vg1 - PSHx: 18:14 Heart stint; pacemaker; Total abdominal hysterectomy; tubilagation; vg1 - Social history:: Smoking status: Patient denies any tobacco usage or history of. ROS: 18:25 Constitutional: Negative for body aches, chills, fever, poor PO intake. cp 18:25 Eyes: Negative for injury, pain, redness, and discharge. cp 18:25 ENT: Negative for drainage from ear(s), ear pain, sore throat, difficulty swallowing, difficulty handling secretions. 18:25 Neck: Negative for pain with movement, pain at rest, stiffness. 18:25 Cardiovascular: Negative for chest pain, edema, palpitations. 18:25 Respiratory: Negative for cough, shortness of breath, wheezing. 18:25 Abdomen/GI: Positive for nausea, Negative for abdominal pain, vomiting, diarrhea, constipation. 18:25 Back: Positive for pain at rest, of the left trapezius, right trapezius, left scapular area and right scapular area, Negative for injury or acute deformity. 18:25 Neuro: Positive for weakness, Negative for altered mental status, dizziness, headache, syncope. 18:25 All other systems are negative. Exam: 18:22 ECG was reviewed by the Attending Physician. cp 18:30 Constitutional: The patient appears in no acute distress, alert, awake, cp non-diaphoretic, non-toxic, well developed, well nourished. 18:30 Head/Face: Normocephalic, atraumatic. cp 18:30 Eyes: Periorbital structures: appear normal, Conjunctiva: normal, no exudate, no injection, Sclera: no appreciated abnormality, Lids and lashes: appear normal, bilaterally. 18:30 ENT: External ear(s): are unremarkable, Nose: is normal, Mouth: Lips: moist, Oral mucosa: moist, Posterior pharynx: is normal, airway is patent, no erythema, no exudate. 18:30 Neck: ROM/movement: is normal, is supple, without pain, no range of motions limitations. 18:30 Chest/axilla: Inspection: normal. 18:30 Cardiovascular: Rate: normal, Rhythm: regular, Edema: is not appreciated, JVD: is not appreciated. 18:30 Respiratory: the patient does not display signs of respiratory distress, Respirations: normal, no use of accessory muscles, no retractions, labored breathing, is not present, Breath sounds: are clear throughout, no decreased breath sounds, no stridor, no wheezing. 18:30 Abdomen/GI: Inspection: abdomen appears normal, Palpation: abdomen is soft and non-tender, in all quadrants. 18:30 Back: pain, that is very mild, of the left trapezius, right trapezius, left scapular area and right scapular area, ROM is normal. 18:30 Neuro: Orientation: to person, place \T\ time. Mentation: is normal, Motor: moves all fours, strength is normal, Sensation: is normal. Vital Signs: 18:12 BP 163 / 73; Pulse 69; Resp 16; Pulse Ox 99% on R/A; Weight 61.69 kg; Height 5 ft. 5 vg1 in. ; Pain 0/10; 19:39 BP 159 / 66; Pulse 71; Resp 18; Pulse Ox 99% ; kr3 20:10 BP 166 / 83; Pulse 65; Resp 18; Pulse Ox 98% on R/A; kr3 18:12 Body Mass Index 22.63 (61.69 kg, 165.1 cm) vg1 18:12 Pain Scale: Adult vg1 MDM: 18:03 Patient medically screened. cp 19:55 Data reviewed: vital signs, nurses notes, lab test result(s), EKG, radiologic studies, cp CT scan, plain films. 19:55 Differential diagnosis: hypertensive crisis, Malignant HTN, CVA, intracerebral cp hemorrhage, acute CT. Consideration of Admission/Observation Escalation of care including admission/observation considered. I considered the following discharge prescriptions or medication management in the emergency department Medications were administered in the Emergency Department. See MAR. Independent interpretation of the following test(s) in the Emergency Department EKG: See my EKG interpretation above. Care significantly affected by the following chronic conditions: Hypertension. Counseling: I had a detailed discussion with the patient and/or guardian regarding: the historical points, exam findings, and any diagnostic results supporting the discharge/admit diagnosis, lab results, radiology results, to return to the emergency department if symptoms worsen or persist or if there are any questions or concerns that arise at home. 04/21 18:18 Order name: Basic Metabolic Panel; Complete Time: 19:20 04/21 19:20 Interpretation: Normal except: NA 132; GLUC 127; BUN 24; GFR 83. 18 18:18 Order name: CBC with Diff; Complete Time: 19:11 04/21 19:11 Interpretation: Normal except: WBC 3.50; RBC 3.74; PLT 128; EOSINOPHIL % 6.4. 18 18:18 Order name: LFT's; Complete Time: 19:20 18 19:20 Interpretation: Normal except: GLOB 3.9; A/G 1.0. 18 18:18 Order name: Magnesium; Complete Time: 19:20 04/21 18:18 Order name: PT-INR; Complete Time: 19:11 18 18:18 Order name: Troponin HS; Complete Time: 19:20 18 19:21 Interpretation: Reviewed. 18 18:18 Order name: Urinalysis W/Microscopic; Complete Time: 19:11 18 18:18 Order name: XRAY Chest (1 view); Complete Time: 19:11 18 18:19 Order name: CT Head Brain wo Cont; Complete Time: 19:11 04/21 18:18 Order name: EKG; Complete Time: 18:19 04/21 18:18 Order name: Cardiac monitoring; Complete Time: 18:37 cp 18 18:18 Order name: EKG - Nurse/Tech; Complete Time: 18:37 cp 18 18:18 Order name: IV Saline Lock; Complete Time: 18:37 cp 18 18:18 Order name: Labs collected and sent; Complete Time: 18:37 cp 18 18:18 Order name: O2 Per Protocol; Complete Time: 18:37 cp 18 18:18 Order name: O2 Sat Monitoring; Complete Time: 18:37 cp 18 19:37 Order name: PO challenge; Complete Time: 19:53 cp EC:22 Rate is 67 beats/min. Rhythm is regular, Paced. QRS interval is prolonged at 186 msec. cp QT interval is normal. T waves are Inverted in leads I, aVL, aVR. Interpreted by me. Reviewed by me. Administered Medications: 19:11 Drug: NS 0.9% IV 500 ml Route: IV; Rate: 125 ml/hr; Site: right antecubital; kr3 20:13 Follow up: Response: No adverse reaction; IV Status: Completed infusion; IV Intake: kr3 500ml Disposition Summary: 04/21/23 19:56 Discharge Ordered Location: Home cp Problem: new cp Symptoms: have improved cp Condition: Stable cp Diagnosis - Nausea cp - Weakness cp Followup: cp - With: Private Physician - When: 2 - 3 days - Reason: Recheck today's complaints Discharge Instructions: - Discharge Summary Sheet cp - Nausea, Adult cp - Weakness cp Forms: - Medication Reconciliation Form cp - Thank You Letter cp - Antibiotic Education cp - Prescription Opioid Use cp Prescriptions: - Zofran 4 mg Oral Tablet - take 1 tablet by ORAL route every 12 hours As needed; 20 tablet; Refills: 0, cp Product Selection Permitted Signatures: Dispatcher [employer] Margarito Barba PA PA cp Garcia, Victoria, RN RN vg1 Sera Tamayo RN RN kr3
[2023-04-21 20:24] VITALS: BP 166/83; O2SAT 98
--- NOTE | 2023-04-22 17:50 | EKG ---
Test Date: 2023-04-21 Test Time: 18:16:01 Toe Lining Closer: ALE MEASUREMENT RESULTS: Intervals: Rate: 67 IN: 210 QRSD: 186 QT: 462 QTc: 488 [place]: P: 55 IN: 210 QRS: -66 T: 102 INTERPRETIVE STATEMENTS: Atrial-sensed ventricular-paced rhythm with prolonged AV conduction Abnormal ECG Compared to ECG 01/04/2020 13:43:54 Sinus rhythm no longer present Left bundle-branch block no longer present Electronically Signed On 04-22-23 17:49:03 CDT by Shola Turner
== END 2023-04-21 20:13 | disposition home or self-care (01) ==
LOC: ER 17:46
DX: R53.1 Weakness (principal); R11.0 Nausea; I10 Essential (primary) hypertension; Z95.0 Presence of cardiac pacemaker; Z95.818 Presence of other cardiac implants and grafts; Z88.0 Allergy status to penicillin; Z88.2 Allergy status to sulfonamides; Z88.7 Allergy status to serum and vaccine
CPT/HCPCS: 93005; 85025; 81001; 80048; 36415; 83735; 85610; 80076; 84484; 70450; 71045; 96360; 99284; J7040